=== PATIENT | female | born 1980 | race Caucasian/White ===

== ENCOUNTER 2019-09-10 10:41 | Emergency (ER) | payer OTHER, MEDICAID, SELFPAY ==
[2019-09-10 10:45] VITALS: BP 166/105; PULSE 113; RESP 24; TEMP 36.7; O2SAT 100
--- NOTE | 2019-09-10 10:52 | ED_ITS ---
HPI - General Adult General Chief complaint: Abdominal Pain Stated complaint: RECTAL BLEEDING Time Seen by Provider: 09/10/19 10:52 History of Present Illness HPI narrative: 39-year-old otherwise healthy woman who presents with rectal bleeding. She states that she unexpectedly lost quite a bit of weight approximately 6 months ago and since then has been having increasing abdominal cramping and bloating. She has been having recurrent nausea without vomiting. She takes no nonsteroidals or other medications. She has been having lower back and lower pelvic pain. Four days ago she noted some bright red bleeding from her rectum on the outside of her stool. By Tuesday she was noticing bright red blood mixed in with her stool and today she was noticing just blood with no stool. She also notes that over the last 6 months in particular over the last month the caliber of her stools has changed and she describes them as very skinny stools that are more difficult to fully evacuate. Related Data Previous Rx's Medication Instructions Recorded metformin [Glucophage XR] 500 mg PO BID #60 tab 08/02/17 omeprazole magnesium [Prilosec OTC] 20 mg PO QDAY #30 08/02/17 metformin 1,000 mg PO DAILY #90 tab 09/10/19 valacyclovir 500 mg PO DAILY #90 tab 09/10/19 Allergies Allergy/AdvReac Type Severity Reaction Status Date / Time No Known Drug Allergies Allergy Verified 09/10/19 10:56 Review of Systems Review of Systems Narrative: All systems reviewed and are unremarkable except as noted in HPI and below Patient History Medical History (Updated 09/10/19 @ 14:15 by Olesya Cantrell MD) Diabetes (Acute) HSV (herpes simplex virus) anogenital infection (Acute) Social History Smoking Status: Current every day smoker Exam Narrative Exam Narrative: General: Healthy appearing, in no acute distress. Able to give a complete and coherent history. Well-nourished well-developed HEENT: Moist mucous membranes, normal sclera with reactive pupils, Neck: No JVD, supple Respiratory: Lungs are clear to auscultation, no wheezing no rales no rhonchi. Full and symmetrical air movement Cardiac: Tachycardic with regular rhythm no murmurs no bruits Abdomen: Soft nontender good bowel tones, no flank pain Rectal: Unremarkable, no internal or external hemorrhoids appreciated. There is some mucousy discharge that is guaiac positive Skin: Warm and dry, no rashes Neurologic: Grossly neurologically intact with no obvious asymmetries or abnormalities Extremities: No trauma, well perfused Psych: Cooperative, anxious, appropriate insight and affect Initial Vital Signs Initial Vital Signs: Vital Signs Temperature 98.1 F 09/10/19 10:45 Pulse Rate 113 H 09/10/19 10:45 Respiratory Rate 24 09/10/19 10:45 Blood Pressure 166/105 H 09/10/19 10:45 Pulse Oximetry 100 09/10/19 10:45 Course Orders Ordered: ED Orders 09/10/19 11:10 CT abdomen pelvis w con Stat Complete Blood Count AUTO DIFF Stat 09/10/19 11:33 Comprehensive Metabolic Panel Stat Lipase Stat Partial Thromboplastin Time Stat Prothrombin Time INR Stat Type and Screen Stat 09/10/19 12:26 Urine Microscopic Stat Discontinued Medications Sodium Chloride (Normal Saline 0.9%) 1,000 mls @ 1,000 mls/hr IV BOLUS ONE Stop: 09/10/19 12:08 Last Infusion: 09/10/19 13:47 Dose: 0 mls/hr Documented by: Admin: 09/10/19 11:41 Dose: 1,000 mls/hr Documented by: NAHOMI Ondansetron HCl (Zofran) 4 mg IV NOW ONE Stop: 09/10/19 10:58 Last Admin: 09/10/19 11:41 Dose: 4 mg Documented by: NAHOMI Vital Signs Vital signs: Vital Signs - 8 hr 09/10/19 10:45 09/10/19 11:12 09/10/19 13:00 Temperature 98.1 F Pulse Rate 113 H 94 H 78 Respiratory Rate 24 14 18 Blood Pressure 166/105 H Blood Pressure [Left Arm] 167/87 H 167/87 H Pulse Oximetry 100 99 98 Medical Decision Making Lab Data Lab results narrative: Polycythemia suggests moderate volume loss however creatinine is appropriate. Urine without evidence of UTI, negative nitrates negative leukocyte esterace. Blood sugar of 339 suggests diagnosis of diabetes that is being inadequately controlled, unclear that she is aware of this diagnosis Negative urine test Result diagrams: 09/10/19 11:10 09/10/19 11:33 Labs: Lab Results 09/10/19 09/10/1909/09/20 Range/Units 11:10 11:33 11:33 WBC 11.3 H (4.5-11.0) X10^3/uL RBC 5.71 H (4.0-5.2) X10^6/uL Hgb 17.2 H (12.0-16.0) g/dL Hct 50.1 H (36-46) % MCV 87.7 (80-100) fL MCH 30.1 (26-34) PG MCHC 34.3 (30-36) % RDW 13.3 (11.6-14.8) % Plt Count 351 (150-400) X10^3/uL Neut % (Auto) 68.3 (50-75) % Lymph % (Auto) 23.0 L (25-40) % [place] % (Auto) 5.0 (3-14) % Eos % (Auto) 2.7 (2-4) % Baso % (Auto) 1.0 (0-2) % Neut # (Auto) 7700 H (4747-3209) /uL Lymph # (Auto) 2600 (2617-5858) /uL [place] # (Auto) 600 (0-900) /uL Eos # (Auto) 300 (0-450) /uL Baso # (Auto) 100 (0-100) /uL PT 10.6 (10.1-12.7) SECONDS INR 0.9 (0.9-1.3) APTT 35 (26.4-36.2) SECONDS Sodium 138 (137-145) mmol/L Potassium 4.4 (3.4-5.1) mmol/L Chloride 104 (98-107) mmol/L Carbon Dioxide 26 (22-32) mmol/L BUN 12 (7-17) mg/dL Creatinine 0.43 L (0.52-1.04) mg/dL Estimated GFR > 60.0 (>60) mL/min BUN/Creatinine Ratio 27.9 H (6-22) Glucose 339 H (70-100) mg/dL Calcium 9.4 (8.4-10.2) mg/dL Total Bilirubin 0.4 (0.2-1.3) mg/dL AST 19 (14-36) IU/L ALT 20 (<35) IU/L Alkaline Phosphatase 121 (38-126) U/L Total Protein 8.0 (6.3-8.2) g/dL Albumin 4.6 (3.5-5.0) g/dL Globulin 3.4 (1.7-4.1) g/dL Albumin/Globulin Ratio 1.4 (1.0-2.8) Lipase 90 (23-300) U/L Urine Color Urine Appearance Urine pH Ur Specific [place] Urine Protein Urine Glucose (UA) Urine Ketones Urine Occult Blood Urine Nitrate Urine Bilirubin Urine Urobilinogen Ur Leukocyte Esterase Urine RBC (0-5/HPF) Urine WBC (0-5/HPF) Ur Squamous Epith Cells (0-5/HPF) Urine Bacteria (None) Ur Culture Indicated? Blood Type Antibody Screen 09/10/19 09/10/19 Range/Units 11:33 12:26 WBC (4.5-11.0) X10^3/uL RBC (4.0-5.2) X10^6/uL Hgb (12.0-16.0) g/dL Hct (36-46) % MCV (80-100) fL MCH (26-34) PG MCHC (30-36) % RDW (11.6-14.8) % Plt Count (150-400) X10^3/uL Neut % (Auto) (50-75) % Lymph % (Auto) (25-40) % [place] % (Auto) (3-14) % Eos % (Auto) (2-4) % Baso % (Auto) (0-2) % Neut # (Auto) (5820-7772) /uL Lymph # (Auto) (0934-7600) /uL [place] # (Auto) (0-900) /uL Eos # (Auto) (0-450) /uL Baso # (Auto) (0-100) /uL PT (10.1-12.7) SECONDS INR (0.9-1.3) APTT (26.4-36.2) SECONDS Sodium (137-145) mmol/L Potassium (3.4-5.1) mmol/L Chloride (98-107) mmol/L Carbon Dioxide (22-32) mmol/L BUN (7-17) mg/dL Creatinine (0.52-1.04) mg/dL Estimated GFR (>60) mL/min BUN/Creatinine Ratio (6-22) Glucose (70-100) mg/dL Calcium (8.4-10.2) mg/dL Total Bilirubin (0.2-1.3) mg/dL AST (14-36) IU/L ALT (<35) IU/L Alkaline Phosphatase (38-126) U/L Total Protein (6.3-8.2) g/dL Albumin (3.5-5.0) g/dL Globulin (1.7-4.1) g/dL Albumin/Globulin Ratio (1.0-2.8) Lipase (23-300) U/L Urine Color Cancelled Urine Appearance Cancelled Urine pH Cancelled Ur Specific [place] Cancelled Urine Protein Cancelled Urine Glucose (UA) Cancelled Urine Ketones Cancelled Urine Occult Blood Cancelled Urine Nitrate Cancelled Urine Bilirubin Cancelled Urine Urobilinogen Cancelled Ur Leukocyte Esterase Cancelled Urine RBC 1-5/hpf (0-5/HPF) Urine WBC 1-5/hpf (0-5/HPF) Ur Squamous Epith Cells 1-5 /hpf (0-5/HPF) Urine Bacteria Occasional (0-1) (None) Ur Culture Indicated? Cult not indicated Blood Type O Positive Antibody Screen Negative Point of Care Testing Test Results Negative Urine Dip Bedside Urine Glucose 1000 mg/dl Bedside Urine Bilirubin - Negative Bedside Urine Ketone - Negative Urine Specific [place] 1.030 Bedside Urine Occult Blood + Bedside Urine pH 6.0 Bedside Urine Protein + 30 Bedside Urine Urobilinogen - Negative Bedside Urine Nitrite - Negative Bedside Urine Leukocytes - Negative Esterase Point of care testing: Point of Care Testing Test Results Negative Urine Dip Bedside Urine Glucose 1000 mg/dl Bedside Urine Bilirubin - Negative Bedside Urine Ketone - Negative Urine Specific [place] 1.030 Bedside Urine Occult Blood + Bedside Urine pH 6.0 Bedside Urine Protein + 30 Bedside Urine Urobilinogen - Negative Bedside Urine Nitrite - Negative Bedside Urine Leukocytes - Negative Esterase Imaging Data CT scan - abdomen/pelvis: Radiologist's Impression: IMPRESSION: 1. Minimal appearance of thickening of the terminal ileum. This could be related to infection or inflammation etiology such as IBD should be considered as appropriate. Dictated by: Kerry Hollins M.D. on 09/10/2019 at 12:39 MDM Narrative Medical decision making narrative: Care is reveiwed with Dr Alvarado. Given hemodynamic stability, no anemia and minimal symptoms on clinical exam I do believe it is safe for her to go home. At some point she may well benefit from a colonoscopy. Currently with covid conditions limiting outpatient follow-up will ask her to call to schedule appointment and will explain to her that it is safe if follow-up does not occur within the next month or so. New diagnosis of diabetes. In the past she has been on Glucophage XR 500 b.i.d. will approach her about restarting this. She states she has schedule appointment to reestablish with a primary care physician but expects that appointment to not occur for at least 2 months. Discharge Plan Departure Patient Disposition: Home Clinical Impression: Bright red rectal bleeding Diabetes Qualifiers: Diabetes mellitus type: type 2 Diabetes mellitus senior care insulin use: without intermodal customer service use Activity Restrictions/Additional Instructions: Thank you for coming in today I am pleased to let you know that I do not see any evidence of colon cancer on your CT scan You do have diabetes and you do need to restart your Glucophage/metformin XR 500 mg twice a day with meals Your CT scan suggests some inflammation in your terminal ileum. At this point there is no need to be hospitalized. I would like to collect a stool sample to make sure there is no infection to explain this. I have given you a lab slip to return with a stool sample. I do suspect that this will resolve by itself within the next few days. I would also recommend that you follow-up with our surgeon wireless communications engineer today Dr. Alvarado, for colonoscopy to fully evaluate the bleeding that you are having currently Four year recurrent genital herpes, I am giving you a prescription of [place] acyclovir for daily suppression. It is 500 mg a day. Because it feels like you are having an active outbreak currently, please take 500 mg twice a day for the 1st 3 days Please call to reestablish care with your primary care physician so that your diabetes can be followed and your prescriptions for diabetes as well as herpes suppression can be refilled. If you feel that you are getting worse, more abdominal pain or more rectal bleeding it would be appropriate to return to the emergency department. Prescriptions: New metformin 1,000 mg tablet extended release 24hr 1,000 mg PO DAILY Qty: 90 RF: 0 valacyclovir 500 mg tablet 500 mg PO DAILY Qty: 90 RF: 0 No Action metformin [Glucophage XR] 500 MG tablet extended release 24 hr 500 mg PO BID Qty: 60 RF: 0 omeprazole magnesium [Prilosec OTC] 20 MG tablet,delayed release (DR/EC) 20 mg PO QDAY Qty: 30 RF: 0 Referrals: Luke Alvarado MD [Physician] -
--- NOTE | 2019-09-10 11:10 | DI.CT.S_ITS ---
PROCEDURE: CT ABDOMEN PELVIS W CON INDICATIONS: abdominal pain and bloating, stool changes, rectal bleeding TECHNIQUE: After the administration of intravenous contrast, 5 mm thick sections acquired from the diaphragm to the symphysis. 5 mm coronal and sagittal reformats were acquired. For radiation dose reduction, the following was used: automated exposure control, adjustment of mA and/or kV according to patient size. COMPARISON: [facility], CT, PE STUDY (CTA CHEST), 08/02/2017, 17:17. FINDINGS: Image quality: Excellent. ABDOMEN: Lung bases: Lung bases are clear. Heart size is normal. Solid organs: Liver is enlarged with steatosis. Gallbladder is unremarkable. Biliary system is non dilated. Pancreas enhances normally. Spleen is normal in size and enhancement. No adrenal nodules. Kidneys demonstrate normal size and enhancement, without hydronephrosis. Peritoneum and bowel: Bowel loops are nonobstructed. There is mild appearance of thickening within the terminal ileum. The adjacent appendix appears unremarkable. Minimal scattered colonic diverticula are present. No free fluid or air. Nodes and vessels: No retroperitoneal or mesenteric adenopathy by size criteria. Aorta and inferior vena cava are normal in size. Miscellaneous: Fat-containing supraumbilical hernia is noted. PELVIS: Genitourinary: Bladder wall thickness is normal. Miscellaneous: No inguinal hernias or adenopathy. Bones: No suspicious bony lesions. No vertebral body compression fractures. IMPRESSION: 1. Minimal appearance of thickening of the terminal ileum. This could be related to infection or inflammation etiology such as IBD should be considered as appropriate. Dictated by: Kerry Hollins M.D. on 09/10/2019 at 12:39 Approved by: Kerry Hollins M.D. on 09/10/2019 at 12:57
[2019-09-10 11:12] VITALS: BP 167/87; PULSE 94; RESP 14; O2SAT 99
[2019-09-10 11:21] LABS: Add Manual Diff / Slide Review NO; Basophils Absolute Auto 100 /uL (0-100); Eosinophils Absolute Auto 300 /uL (0-450); Eosinophils Percent Auto 2.7 % (2-4); Hematocrit 50.1 % (36-46); Hemoglobin 17.2 g/dL (12.0-16.0); Lymphocytes Absolute Auto 2600 /uL (1100-4500); Mean Corpuscular HGB Conc 34.3 % (30-36); Mean Corpuscular Hemoglobin 30.1 PG (26-34); Mean Corpuscular Volume 87.7 fL (80-100); Monocytes Absolute Auto 600 /uL (0-900); Neutrophils Absolute Auto 7700 /uL (1500-7000); Neutrophils Percent Auto 68.3 % (50-75); Platelet Count 351 X10^3/uL (150-400); Red Blood Cell Count 5.71 X10^6/uL (4.0-5.2); Red Cell Distribution Width 13.3 % (11.6-14.8); White Blood Cell Count 11.3 X10^3/uL (4.5-11.0)
[2019-09-10] MEDS: SODIUM CHLORIDE 0.9% 1,000 ML 1000 ML IV (11:41)
[2019-09-10] MEDS: ONDANSETRON 4 MG/2 ML INJ IV (11:41)
[2019-09-10 11:55] LABS: INR 0.9 (0.9-1.3); Prothrombin Time 10.6 SECONDS (10.1-12.7)
[2019-09-10 11:57] LABS: PTT Partial Thromboplastin Tim 35 SECONDS (26.4-36.2)
[2019-09-10 11:59] LABS: Alanine Aminotransferase 20 IU/L (<35); Albumin 4.6 g/dL (3.5-5.0); Albumin Globulin Ratio 1.4 (1.0-2.8); Alkaline Phosphatase 121 U/L (38-126); Aspartate Aminotransferase 19 IU/L (14-36); BUN Creatinine Ratio 27.9 (6-22); Bilirubin Total 0.4 mg/dL (0.2-1.3); Blood Urea Nitrogen 12 mg/dL (7-17); Calcium 9.4 mg/dL (8.4-10.2); Carbon Dioxide 26 mmol/L (22-32); Chloride 104 mmol/L (98-107); Estimated Glomerular Filt Rate > 60.0 mL/min (>60); Globulin 3.4 g/dL (1.7-4.1); Glucose 339 mg/dL (70-100); HEMOLYSIS < 15 (0-50); Lipase 90 U/L (23-300); Potassium 4.4 mmol/L (3.4-5.1); Sodium 138 mmol/L (137-145)
[2019-09-10 12:45] LABS: Bacteria Urine Occasional (0-1); Culture Indicated Urine Cult Not Indicated; RBC Urine 1-5/HPF (0-5/HPF); Squamous Epithelial Cell Urine 1-5 /HPF (0-5/HPF); WBC Urine 1-5/HPF (0-5/HPF)
[2019-09-10 13:00] VITALS: BP 167/87; PULSE 78; RESP 18; O2SAT 98
== END 2019-09-10 14:25 | disposition home or self-care (01) ==
PROVIDERS: Emergency Provider Emergency Medicine
DX: K62.5 Hemorrhage of anus and rectum (principal); E11.9 Type 2 diabetes mellitus without complications; R10.9 Unspecified abdominal pain; R10.2 Pelvic and perineal pain; R11.0 Nausea; M54.5 Low back pain
CPT/HCPCS: 36415; 74177; 80053; 81003; 81015; 81025; 83690; 85025; 85610; 85730; 86850; 86900; 86901; 96361; 96374; 99284; J2405; Q9967

== ENCOUNTER 2019-10-12 11:32 | Emergency (ER) | payer OTHER, MEDICAID, SELFPAY ==
[2019-10-12] VITALS (9 sets, daily range): BP systolic 138–202; BP diastolic 63–95; PULSE 86–98; RESP 16–32; TEMP 36.7; O2SAT 96–100; BMI 32.1
--- NOTE | 2019-10-12 11:52 | DI.RAD.S_ITS ---
PROCEDURE: XR CHEST 1V INDICATIONS: short of breath TECHNIQUE: One view of the chest was acquired. COMPARISON: [facility], , CHEST 2 VIEW, 08/02/2017, 14:52. FINDINGS: Surgical changes and devices: None. Lungs and pleura: Lungs are clear. No pleural effusions or pneumothorax. Mediastinum: Mediastinal contours appear normal. Heart size is normal. Bones and chest wall: No suspicious bony lesions. Overlying soft tissues appear unremarkable. IMPRESSION: No acute disease Dictated by: Carlos Connors M.D. on 10/12/2019 at 12:43 Approved by: Carlos Connors M.D. on 10/12/2019 at 12:44
--- NOTE | 2019-10-12 11:55 | ED.CHESTPAIN ---
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 yesterday. Then at 2:00 a.m. she felt shortness of breath, chest pain, lightheadedness, dizziness, muscle aches and chills, subjective fevers nausea vomiting diarrhea and abdominal pain. She states that she has never felt this way before. She denies any surgical history. She has taken Pepto to try to feel better, but it did not work. She is unable to specify how many times she has vomited or had diarrhea today. 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 The chest pain is described as substernal, nonradiating. The oven that she was cleaning was electric. Related Data Previous Rx's Medication Instructions Recorded metformin [Glucophage XR] 500 mg PO BID #60 tab 08/02/17 omeprazole magnesium [Prilosec OTC] 20 mg PO QDAY #30 08/02/17 metformin 1,000 mg PO DAILY #90 tab 09/10/19 valacyclovir 500 mg PO DAILY #90 tab 09/10/19 Allergies Allergy/AdvReac Type Severity Reaction Status Date / Time No Known Drug Allergies Allergy Verified 10/12/19 11:52 Review of Systems <KELY Guzman - Last Filed: 10/12/19 20:10> Review of Systems Narrative: GENERAL: See HPI HEENT: Denies sinus pain, ear pain, sore throat, difficulty swallowing, dizziness. RESPIRATORY: See HPI CARDIOVASCULAR: See HPI GASTROINTESTINAL: See HPI : Denies dysuria, frequency, incontinence, hematuria, urinary retention. MUSCULOSKELETAL: denies weakness, joint pain, or bony pain SKIN: Denies rash, skin lesions, or other NEUROLOGIC: Denies weakness, headache, numbness, change in speech, confusion, seizures, incoordination. PSYCHIATRIC: No concerning psychosocial issues. 12 point review of systems is negative except for those stated above Patient History <KELY Guzman - Last Filed: 10/12/19 20:10> Medical History (Updated 10/12/19 @ 17:30 by KELY Guzman) Diabetes (Acute) HSV (herpes simplex virus) anogenital infection (Acute) Social History Smoking Status: Current every day smoker Smoking Status: Current every day smoker tobacco type: cigarettes alcohol intake frequency: 0-2 drinks per day Substance Use Type: does not use Exam <KELY Guzman - Last Filed: 10/12/19 20:10> Narrative Exam Narrative: GENERAL: This is a well-nourished, well-developed patient, breathing rapidly HEAD: Atraumatic. Normocephalic. No temporal or scalp tenderness. EYES: Pupils equal round and reactive. Extraocular motions intact. No scleral icterus. No injection or drainage. ENT: Nose without bleeding, purulent drainage or septal hematoma. Throat without erythema, tonsillar hypertrophy or exudate. Uvula midline. Airway patent. NECK: Trachea midline. No JVD or lymphadenopathy. Supple, nontender, no meningeal signs. CARDIOVASCULAR: Regular rate and rhythm without murmurs, gallops, or rubs. RESPIRATORY: Clear to auscultation. Breath sounds equal bilaterally. No wheezes, rales, or rhonchi. Tachypneic. No cough. No increased respiratory effort. Speaking full sentences. GASTROINTESTINAL: Abdomen soft, epigastric tenderness and tenderness to right upper quadrant palpation, nondistended. No hepato-splenomegaly, or palpable masses. No guarding. Active bowel sounds all 4 quadrants EXTREMITIES: No clubbing, cyanosis, or edema. No joint tenderness, effusion, or edema noted. BACK: Nontender without deformity or crepitance. No flank tenderness. NEURO: AOx3. SKIN: No rash or erythema on visible skin Initial Vital Signs Initial Vital Signs: Vital Signs Temperature 98.0 F 10/12/19 11:45 Pulse Rate 94 H 10/12/19 11:45 Respiratory Rate 32 H 10/12/19 11:45 Blood Pressure 202/91 H 10/12/19 11:45 Pulse Oximetry 100 10/12/19 11:45 <Margret Zaldivar DO - Last Filed: 10/14/19 10:19> Initial Vital Signs Initial Vital Signs: Vital Signs Temperature 98.0 F 10/12/19 11:45 Pulse Rate 94 H 10/12/19 11:45 Respiratory Rate 32 H 10/12/19 11:45 Blood Pressure 202/91 H 10/12/19 11:45 Pulse Oximetry 100 10/12/19 11:45 Course <YIMI Guzman-BC - Last Filed: 10/12/19 20:10> Orders Ordered: Discontinued Medications Sodium Chloride (Normal Saline 0.9%) 1,000 mls @ 150 mls/hr IV CONT GUDELIA Last Infusion: 10/12/19 18:14 Dose: 0 mls/hr Documented by: Infusion: 10/12/19 13:10 Dose: 0 mls/hr Documented by: Admin: 10/12/19 12:32 Dose: 150 mls/hr Documented by: CAMILA Sodium Chloride (Normal Saline 0.9%) 1,000 mls @ 1,000 mls/hr IV BOLUS ONE Stop: 10/12/19 14:04 Last Infusion: 10/12/19 14:10 Dose: 0 mls/hr Documented by: Admin: 10/12/19 13:10 Dose: 1,000 mls/hr Documented by: VIV Sodium Chloride (Normal Saline 0.9%) 1,000 mls @ 1,000 mls/hr IV BOLUS ONE Stop: 10/12/19 14:04 Last Infusion: 10/12/19 18:13 Dose: 0 mls/hr Documented by: Admin: 10/12/19 14:10 Dose: 1,000 mls/hr Documented by: VIV Ondansetron HCl (Zofran) 4 mg IV NOW ONE Stop: 10/12/19 13:06 Last Admin: 10/12/19 13:09 Dose: 4 mg Documented by: VIV Vital Signs Vital signs: Vital Signs - 8 hr 10/12/19 12:32 10/12/19 13:18 10/12/19 14:19 Pulse Rate 90 86 93 H Respiratory Rate 18 26 H 23 Blood Pressure Blood Pressure [Left Arm] 199/91 H 199/95 H 152/74 H Pulse Oximetry 96 100 98 10/12/19 14:34 10/12/19 15:21 10/12/19 16:30 Pulse Rate 90 97 H 98 H Respiratory Rate 24 22 22 Blood Pressure Blood Pressure [Left Arm] 139/74 138/68 138/68 Pulse Oximetry 100 99 98 10/12/19 17:13 10/12/19 18:14 Pulse Rate 95 H 95 H Respiratory Rate 16 Blood Pressure 145/63 H Blood Pressure [Left Arm] 140/83 Pulse Oximetry 96 98 <Margret Zaldivar, - Last Filed: 10/14/19 10:19> Orders Ordered: Discontinued Medications Sodium Chloride (Normal Saline 0.9%) 1,000 mls @ 150 mls/hr IV CONT GUDELIA Last Infusion: 10/12/19 18:14 Dose: 0 mls/hr Documented by: Infusion: 10/12/19 13:10 Dose: 0 mls/hr Documented by: Admin: 10/12/19 12:32 Dose: 150 mls/hr Documented by: CAMILA Sodium Chloride (Normal Saline 0.9%) 1,000 mls @ 1,000 mls/hr IV BOLUS ONE Stop: 10/12/19 14:04 Last Infusion: 10/12/19 14:10 Dose: 0 mls/hr Documented by: Admin: 10/12/19 13:10 Dose: 1,000 mls/hr Documented by: VIV Sodium Chloride (Normal Saline 0.9%) 1,000 mls @ 1,000 mls/hr IV BOLUS ONE Stop: 10/12/19 14:04 Last Infusion: 10/12/19 18:13 Dose: 0 mls/hr Documented by: Admin: 10/12/19 14:10 Dose: 1,000 mls/hr Documented by: VIV Ondansetron HCl (Zofran) 4 mg IV NOW ONE Stop: 10/12/19 13:06 Last Admin: 10/12/19 13:09 Dose: 4 mg Documented by: VIV Vital Signs Vital signs: Vital Signs - 8 hr 10/12/19 12:32 10/12/19 13:18 10/12/19 14:19 Pulse Rate 90 86 93 H Respiratory Rate 18 26 H 23 Blood Pressure Blood Pressure [Left Arm] 199/91 H 199/95 H 152/74 H Pulse Oximetry 96 100 98 10/12/19 14:34 10/12/19 15:21 10/12/19 16:30 Pulse Rate 90 97 H 98 H Respiratory Rate 24 22 22 Blood Pressure Blood Pressure [Left Arm] 139/74 138/68 138/68 Pulse Oximetry 100 99 98 10/12/19 17:13 10/12/19 18:14 Pulse Rate 95 H 95 H Respiratory Rate 16 Blood Pressure 145/63 H Blood Pressure [Left Arm] 140/83 Pulse Oximetry 96 98 MDM - Chest Pain <YIMI Guzman-BC - Last Filed: 10/12/19 20:10> Differential Diagnosis Differential diagnosis: Likely unstable angina pectoris, atypical chest pain, costochondritis and chest pain Lab Data Result diagrams: 10/12/19 15:37 10/12/19 15:37 Labs: Lab Results 10/12/19 10/12/19 10/12/19 Range/Units 12:13 12:13 12:13 WBC 18.5 H (4.5-11.0) X10^3/uL RBC 5.46 H (4.0-5.2) X10^6/uL Hgb 16.1 H (12.0-16.0) g/dL Hct 47.1 H (36-46) % MCV 86.4 (80-100) fL MCH 29.6 (26-34) PG MCHC 34.2 (30-36) % RDW 13.2 (11.6-14.8) % Plt Count 365 (150-400) X10^3/uL Neut % (Auto) 91.2 H (50-75) % Lymph % (Auto) 6.6 L (25-40) % Kenton % (Auto) 1.5 L (3-14) % Eos % (Auto) 0.0 L (2-4) % Baso % (Auto) 0.7 (0-2) % Neut # (Auto) 36018 H (2004-0777) /uL Lymph # (Auto) 1200 (6838-9492) /uL [place]on # (Auto) 300 (0-900) /uL Eos # (Auto) 0 (0-450) /uL Baso # (Auto) 100 (0-100) /uL PT 11.5 (10.1-12.7) SECONDS INR 1.0 (0.9-1.3) APTT 27 D (26.4-36.2) SECONDS D-Dimer < 200 (<230) ng/mL ABG pH (7.35-7.45) ABG pCO2 (35-45) mmHg ABG pO2 (80-100) mmHg ABG HCO3 (22-26) mmol/L ABG Total CO2 (21-31) mmol/L ABG O2 Saturation (95-100) % ABG Base Excess (-2-2) mmol/L FiO2 Sodium 135 L (137-145) mmol/L Potassium 3.8 (3.4-5.1) mmol/L Chloride 103 (98-107) mmol/L Carbon Dioxide 16 L (22-32) mmol/L BUN 14 (7-17) mg/dL Creatinine 0.41 L (0.52-1.04) mg/dL Estimated GFR > 60.0 (>60) mL/min BUN/Creatinine Ratio 34.1 H (6-22) Glucose 394 H (70-100) mg/dL Calcium 9.9 (8.4-10.2) mg/dL Ferritin (6-137) ng/mL Total Bilirubin 0.8 (0.2-1.3) mg/dL AST 29 (14-36) IU/L ALT 23 (<35) IU/L Alkaline Phosphatase 118 (38-126) U/L Lactate Dehydrogenase (313-618) U/L Total Creatine Kinase 45 (30-135) U/L CK-MB (CK-2) TNP CK-MB (CK-2) Rel Index TNP Troponin I < 0.012 (0.01-0.034) ng/mL C-Reactive Protein (<1.0) mg/dL NT-Pro-B Natriuret Pep 78 (<125) pg/mL Total Protein 8.2 (6.3-8.2) g/dL Albumin 4.8 (3.5-5.0) g/dL Globulin 3.4 (1.7-4.1) g/dL Albumin/Globulin Ratio 1.4 (1.0-2.8) Amylase (30-110) U/L Lipase 55 (23-300) U/L Procalcitonin (<0.5) ng/mL TSH (0.47-4.68) uIU/mL Urine RBC (0-5/HPF) Urine WBC (0-5/HPF) Ur Squamous Epith Cells (0-5/HPF) Urine Bacteria (None) Ur Culture Indicated? Salicylates (<20) mg/dL COVID-19 PCR (Not Detect) 10/12/19 10/12/19 10/12/19 Range/Units 12:13 12:13 12:13 WBC (4.5-11.0) X10^3/uL RBC (4.0-5.2) X10^6/uL Hgb (12.0-16.0) g/dL Hct (36-46) % MCV (80-100) fL MCH (26-34) PG MCHC (30-36) % RDW (11.6-14.8) % Plt Count (150-400) X10^3/uL Neut % (Auto) (50-75) % Lymph % (Auto) (25-40) % Kenton % (Auto) (3-14) % Eos % (Auto) (2-4) % Baso % (Auto) (0-2) % Neut # (Auto) (9977-9239) /uL Lymph # (Auto) (0140-9159) /uL Kenton # (Auto) (0-900) /uL Eos # (Auto) (0-450) /uL Baso # (Auto) (0-100) /uL PT (10.1-12.7) SECONDS INR (0.9-1.3) APTT (26.4-36.2) SECONDS D-Dimer (<230) ng/mL ABG pH (7.35-7.45) ABG pCO2 (35-45) mmHg ABG pO2 (80-100) mmHg ABG HCO3 (22-26) mmol/L ABG Total CO2 (21-31) mmol/L ABG O2 Saturation (95-100) % ABG Base Excess (-2-2) mmol/L FiO2 Sodium (137-145) mmol/L Potassium (3.4-5.1) mmol/L Chloride (98-107) mmol/L Carbon Dioxide (22-32) mmol/L BUN (7-17) mg/dL Creatinine (0.52-1.04) mg/dL Estimated GFR (>60) mL/min BUN/Creatinine Ratio (6-22) Glucose (70-100) mg/dL Calcium (8.4-10.2) mg/dL Ferritin 119 (6-137) ng/mL Total Bilirubin (0.2-1.3) mg/dL AST (14-36) IU/L ALT (<35) IU/L Alkaline Phosphatase (38-126) U/L Lactate Dehydrogenase 543 (313-618) U/L Total Creatine Kinase (30-135) U/L CK-MB (CK-2) CK-MB (CK-2) Rel Index Troponin I (0.01-0.034) ng/mL C-Reactive Protein 0.5 (<1.0) mg/dL NT-Pro-B Natriuret Pep (<125) pg/mL Total Protein (6.3-8.2) g/dL Albumin (3.5-5.0) g/dL Globulin (1.7-4.1) g/dL Albumin/Globulin Ratio (1.0-2.8) Amylase 57 (30-110) U/L Lipase (23-300) U/L Procalcitonin < 0.05 (<0.5) ng/mL TSH (0.47-4.68) uIU/mL Urine RBC (0-5/HPF) Urine WBC (0-5/HPF) Ur Squamous Epith Cells (0-5/HPF) Urine Bacteria (None) Ur Culture Indicated? Salicylates (<20) mg/dL COVID-19 PCR (Not Detect) 10/12/19 10/12/19 10/12/19 Range/Units 12:13 12:13 12:33 WBC (4.5-11.0) X10^3/uL RBC (4.0-5.2) X10^6/uL Hgb (12.0-16.0) g/dL Hct (36-46) % MCV (80-100) fL MCH (26-34) PG MCHC (30-36) % RDW (11.6-14.8) % Plt Count (150-400) X10^3/uL Neut % (Auto) (50-75) % Lymph % (Auto) (25-40) % Kenton % (Auto) (3-14) % Eos % (Auto) (2-4) % Baso % (Auto) (0-2) % Neut # (Auto) (4311-1129) /uL Lymph # (Auto) (1175-9391) /uL Kenton # (Auto) (0-900) /uL Eos # (Auto) (0-450) /uL Baso # (Auto) (0-100) /uL PT (10.1-12.7) SECONDS INR (0.9-1.3) APTT (26.4-36.2) SECONDS D-Dimer (<230) ng/mL ABG pH (7.35-7.45) ABG pCO2 (35-45) mmHg ABG pO2 (80-100) mmHg ABG HCO3 (22-26) mmol/L ABG Total CO2 (21-31) mmol/L ABG O2 Saturation (95-100) % ABG Base Excess (-2-2) mmol/L FiO2 Sodium (137-145) mmol/L Potassium (3.4-5.1) mmol/L Chloride (98-107) mmol/L Carbon Dioxide (22-32) mmol/L BUN (7-17) mg/dL Creatinine (0.52-1.04) mg/dL Estimated GFR (>60) mL/min BUN/Creatinine Ratio (6-22) Glucose (70-100) mg/dL Calcium (8.4-10.2) mg/dL Ferritin (6-137) ng/mL Total Bilirubin (0.2-1.3) mg/dL AST (14-36) IU/L ALT (<35) IU/L Alkaline Phosphatase (38-126) U/L Lactate Dehydrogenase (313-618) U/L Total Creatine Kinase (30-135) U/L CK-MB (CK-2) CK-MB (CK-2) Rel Index Troponin I (0.01-0.034) ng/mL C-Reactive Protein (<1.0) mg/dL NT-Pro-B Natriuret Pep (<125) pg/mL Total Protein (6.3-8.2) g/dL Albumin (3.5-5.0) g/dL Globulin (1.7-4.1) g/dL Albumin/Globulin Ratio (1.0-2.8) Amylase (30-110) U/L Lipase (23-300) U/L Procalcitonin (<0.5) ng/mL TSH 1.62 (0.47-4.68) uIU/mL Urine RBC (0-5/HPF) Urine WBC (0-5/HPF) Ur Squamous Epith Cells (0-5/HPF) Urine Bacteria (None) Ur Culture Indicated? Salicylates 3.1 (<20) mg/dL COVID-19 PCR Not detected (Not Detect) 10/12/19 10/12/19 10/12/19 Range/Units 13:17 13:20 15:37 WBC 15.4 H (4.5-11.0) X10^3/uL RBC 5.10 (4.0-5.2) X10^6/uL Hgb 14.9 (12.0-16.0) g/dL Hct 44.3 (36-46) % MCV 86.9 (80-100) fL MCH 29.2 (26-34) PG MCHC 33.6 (30-36) % RDW 13.4 (11.6-14.8) % Plt Count 324 (150-400) X10^3/uL Neut % (Auto) 91.4 H (50-75) % Lymph % (Auto) 6.1 L (25-40) % Kenton % (Auto) 2.0 L (3-14) % Eos % (Auto) 0.0 L (2-4) % Baso % (Auto) 0.5 (0-2) % Neut # (Auto) 10016 H (6021-1173) /uL Lymph # (Auto) 900 L (1958-4021) /uL Kenton # (Auto) 300 (0-900) /uL Eos # (Auto) 0 (0-450) /uL Baso # (Auto) 100 (0-100) /uL PT (10.1-12.7) SECONDS INR (0.9-1.3) APTT (26.4-36.2) SECONDS D-Dimer (<230) ng/mL ABG pH 7.51 H (7.35-7.45) ABG pCO2 24.4 L* (35-45) mmHg ABG pO2 72 L (80-100) mmHg ABG HCO3 19 L (22-26) mmol/L ABG Total CO2 20 L (21-31) mmol/L ABG O2 Saturation 96 (95-100) % ABG Base Excess -4.0 L (-2-2) mmol/L FiO2 0.21 Sodium (137-145) mmol/L Potassium (3.4-5.1) mmol/L Chloride (98-107) mmol/L Carbon Dioxide (22-32) mmol/L BUN (7-17) mg/dL Creatinine (0.52-1.04) mg/dL Estimated GFR (>60) mL/min BUN/Creatinine Ratio (6-22) Glucose (70-100) mg/dL Calcium (8.4-10.2) mg/dL Ferritin (6-137) ng/mL Total Bilirubin (0.2-1.3) mg/dL AST (14-36) IU/L ALT (<35) IU/L Alkaline Phosphatase (38-126) U/L Lactate Dehydrogenase (313-618) U/L Total Creatine Kinase (30-135) U/L CK-MB (CK-2) CK-MB (CK-2) Rel Index Troponin I (0.01-0.034) ng/mL C-Reactive Protein (<1.0) mg/dL NT-Pro-B Natriuret Pep (<125) pg/mL Total Protein (6.3-8.2) g/dL Albumin (3.5-5.0) g/dL Globulin (1.7-4.1) g/dL Albumin/Globulin Ratio (1.0-2.8) Amylase (30-110) U/L Lipase (23-300) U/L Procalcitonin (<0.5) ng/mL TSH (0.47-4.68) uIU/mL Urine RBC 0-1/hpf (0-5/HPF) Urine WBC 0-1/hpf (0-5/HPF) Ur Squamous Epith Cells 0-1 /hpf (0-5/HPF) Urine Bacteria None seen (None) Ur Culture Indicated? Cult not indicated Salicylates (<20) mg/dL COVID-19 PCR (Not Detect) 10/12/19 10/12/19 10/12/19 Range/Units 15:37 15:37 15:55 WBC (4.5-11.0) X10^3/uL RBC (4.0-5.2) X10^6/uL Hgb (12.0-16.0) g/dL Hct (36-46) % MCV (80-100) fL MCH (26-34) PG MCHC (30-36) % RDW (11.6-14.8) % Plt Count (150-400) X10^3/uL Neut % (Auto) (50-75) % Lymph % (Auto) (25-40) % Kenton % (Auto) (3-14) % Eos % (Auto) (2-4) % Baso % (Auto) (0-2) % Neut # (Auto) (1534-1483) /uL Lymph # (Auto) (4590-3557) /uL Kenton # (Auto) (0-900) /uL Eos # (Auto) (0-450) /uL Baso # (Auto) (0-100) /uL PT (10.1-12.7) SECONDS INR (0.9-1.3) APTT (26.4-36.2) SECONDS D-Dimer (<230) ng/mL ABG pH 7.37 (7.35-7.45) ABG pCO2 35.5 (35-45) mmHg ABG pO2 90 (80-100) mmHg ABG HCO3 20 L (22-26) mmol/L ABG Total CO2 21 (21-31) mmol/L ABG O2 Saturation 97 (95-100) % ABG Base Excess -5.0 L (-2-2) mmol/L FiO2 21 Sodium 136 L (137-145) mmol/L Potassium 3.7 (3.4-5.1) mmol/L Chloride 108 H (98-107) mmol/L Carbon Dioxide 20 L (22-32) mmol/L BUN 11 (7-17) mg/dL Creatinine 0.36 L (0.52-1.04) mg/dL Estimated GFR > 60.0 (>60) mL/min BUN/Creatinine Ratio 30.6 H (6-22) Glucose 289 H D (70-100) mg/dL Calcium 8.3 L (8.4-10.2) mg/dL Ferritin (6-137) ng/mL Total Bilirubin 0.5 (0.2-1.3) mg/dL AST 21 (14-36) IU/L ALT 20 (<35) IU/L Alkaline Phosphatase 90 (38-126) U/L Lactate Dehydrogenase (313-618) U/L Total Creatine Kinase 43 (30-135) U/L CK-MB (CK-2) TNP CK-MB (CK-2) Rel Index TNP Troponin I < 0.012 (0.01-0.034) ng/mL C-Reactive Protein (<1.0) mg/dL NT-Pro-B Natriuret Pep (<125) pg/mL Total Protein 7.3 (6.3-8.2) g/dL Albumin 4.2 (3.5-5.0) g/dL Globulin 3.1 (1.7-4.1) g/dL Albumin/Globulin Ratio 1.4 (1.0-2.8) Amylase (30-110) U/L Lipase (23-300) U/L Procalcitonin (<0.5) ng/mL TSH (0.47-4.68) uIU/mL Urine RBC (0-5/HPF) Urine WBC (0-5/HPF) Ur Squamous Epith Cells (0-5/HPF) Urine Bacteria (None) Ur Culture Indicated? Salicylates (<20) mg/dL COVID-19 PCR (Not Detect) Point of Care Testing Test Results Negative Urine Dip Bedside Urine Glucose 1000 mg/dl Bedside Urine Bilirubin - Negative Bedside Urine Ketone +++ 80 Urine Specific Rutledge 1.015 Bedside Urine Occult Blood +/- Bedside Urine pH 8.0 Bedside Urine Protein +/- 15 Bedside Urine Urobilinogen - Negative Bedside Urine Nitrite - Negative Bedside Urine Leukocytes - Negative Esterase Imaging Data US - abdomen: Radiologist's Impression: [address] [place] [id number] Ultrasound Report Signed Patient: Maddy Cullen MMR#: [id number] : 1980Acct:[id number] Age/Sex: 39 / FDate of Service: 10/12/19 Loc: ED Accession Number: [id number] Procedure: US abdomen limited Ordering Provider: Margret Lagos PROCEDURE: US ABDOMEN LIMITED INDICATIONS: RIGHT UPPER QUADRANT PAIN TECHNIQUE: Real-time focused scanning was performed of the abdomen, with image documentation. COMPARISON: [facility], CT, CT ABDOMEN PELVIS W CON, 09/10/2019, 12:17. FINDINGS: Imaged portions of the liver demonstrate increased echogenicity when compared to the right kidney, which does result in difficulty evaluating the liver for deep liver lesions. No obvious liver lesion is appreciated. The liver is borderline enlarged at approximately 18.6 cm in craniocaudal dimension. No intrahepatic or extrahepatic biliary dilatation is identified. The common bile duct measures approximately 5 mm in diameter. The gallbladder is within normal limits without evidence of cholelithiasis or gallbladder wall inflammation. The imaged portions of the right kidney are unremarkable. No hydronephrosis is identified. However, the entire right kidney is not included on this study. Included portions of the pancreas appear to be grossly unremarkable. IMPRESSION: 1. No cholelithiasis or evidence of acute cholecystitis. 2. Probable hepatic steatosis. Please correlate clinically to exclude other chronic liver diseases. Dictated by: Chapito Isaac M.D. on 10/12/2019 at 13:09 Approved by: Chapito Isaac M.D. on 10/12/2019 at 13:10 Chest x-ray: Radiologist's Impression: [address] [place] [id number] XRay Report Signed Patient: Maddy Cullen MMR#: [id number] : 1980Acct:[id number] Age/Sex: 39 / FDate of Service: 10/12/19 Loc: ED Accession Number: [id number] Procedure: XR chest 1V Ordering Provider: Margret Lagos PROCEDURE: XR CHEST 1V INDICATIONS: short of breath TECHNIQUE: One view of the chest was acquired. COMPARISON: [facility], CR, CHEST 2 VIEW, 08/02/2017, 14:52. FINDINGS: Surgical changes and devices: None. Lungs and pleura: Lungs are clear. No pleural effusions or pneumothorax. Mediastinum: Mediastinal contours appear normal. Heart size is normal. Bones and chest wall: No suspicious bony lesions. Overlying soft tissues appear unremarkable. IMPRESSION: No acute disease Dictated by: Carlos Connors M.D. on 10/12/2019 at 12:43 Approved by: Carlos Connors M.D. on 10/12/2019 at 12:44 [facility] Narrative Medical decision making narrative: The patient is a 39-year-old female with apparent diabetes history presents with a chief complaint of chest pain, shortness of breath, nausea vomiting diarrhea, abdominal pain. EKG was done and troponin was taken to evaluate for ACS, which came back negative. Patient has no pneumonia on her chest x-ray. She had an initial white count of 18. Given the patient complexity, with anion gap of 16, I spoke with Dr. Zaldivar regarding this patient plan of care. The patient was noted to be tachypneic which could explain her initial low CO2 and subsequent alkalosis on her ABG. Given the patient's right upper quadrant pain and epigastric pain on exam, she did get a abdominal ultrasound which came back with no acute findings. After 2 L of fluid, labs were rechecked and the patient felt much improved. Her CBC, CMP and ABG normalized. I again discussed the patient with Dr. Zaldivar. I did discuss at length with the patient is to follow up with primary care provider, she needs to watch her blood sugars and get A1cs and diabetic care. Her 2nd troponin was also negative, which was reassuring. I did discuss at length waiting for her coronavirus testing to come back. With collar it is positive or negative. 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 The patient felt much improved requesting to go home. She has no questions or concerns upon discharge and states understanding return precautions as well as follow-up care. <Margret Zaldivar, DO - Last Filed: 10/14/19 10:19> Lab Data Attestation: I reviewed the patient's lab results. Labs: Lab Results 10/12/19 10/12/19 10/12/19 Range/Units 12:13 12:13 12:13 WBC 18.5 H (4.5-11.0) X10^3/uL RBC 5.46 H (4.0-5.2) X10^6/uL Hgb 16.1 H (12.0-16.0) g/dL Hct 47.1 H (36-46) % MCV 86.4 (80-100) fL MCH 29.6 (26-34) PG MCHC 34.2 (30-36) % RDW 13.2 (11.6-14.8) % Plt Count 365 (150-400) X10^3/uL Neut % (Auto) 91.2 H (50-75) % Lymph % (Auto) 6.6 L (25-40) % [place] % (Auto) 1.5 L (3-14) % Eos % (Auto) 0.0 L (2-4) % Baso % (Auto) 0.7 (0-2) % Neut # (Auto) 36937 H (8028-0573) /uL Lymph # (Auto) 1200 (3130-0670) /uL [place] # (Auto) 300 (0-900) /uL Eos # (Auto) 0 (0-450) /uL Baso # (Auto) 100 (0-100) /uL PT 11.5 (10.1-12.7) SECONDS INR 1.0 (0.9-1.3) APTT 27 D (26.4-36.2) SECONDS D-Dimer < 200 (<230) ng/mL ABG pH (7.35-7.45) ABG pCO2 (35-45) mmHg ABG pO2 (80-100) mmHg ABG HCO3 (22-26) mmol/L ABG Total CO2 (21-31) mmol/L ABG O2 Saturation (95-100) % ABG Base Excess (-2-2) mmol/L FiO2 Sodium 135 L (137-145) mmol/L Potassium 3.8 (3.4-5.1) mmol/L Chloride 103 (98-107) mmol/L Carbon Dioxide 16 L (22-32) mmol/L BUN 14 (7-17) mg/dL Creatinine 0.41 L (0.52-1.04) mg/dL Estimated GFR > 60.0 (>60) mL/min BUN/Creatinine Ratio 34.1 H (6-22) Glucose 394 H (70-100) mg/dL Calcium 9.9 (8.4-10.2) mg/dL Ferritin (6-137) ng/mL Total Bilirubin 0.8 (0.2-1.3) mg/dL AST 29 (14-36) IU/L ALT 23 (<35) IU/L Alkaline Phosphatase 118 (38-126) U/L Lactate Dehydrogenase (313-618) U/L Total Creatine Kinase 45 (30-135) U/L CK-MB (CK-2) TNP CK-MB (CK-2) Rel Index TNP Troponin I < 0.012 (0.01-0.034) ng/mL C-Reactive Protein (<1.0) mg/dL NT-Pro-B Natriuret Pep 78 (<125) pg/mL Total Protein 8.2 (6.3-8.2) g/dL Albumin 4.8 (3.5-5.0) g/dL Globulin 3.4 (1.7-4.1) g/dL Albumin/Globulin Ratio 1.4 (1.0-2.8) Amylase (30-110) U/L Lipase 55 (23-300) U/L Procalcitonin (<0.5) ng/mL TSH (0.47-4.68) uIU/mL Urine RBC (0-5/HPF) Urine WBC (0-5/HPF) Ur Squamous Epith Cells (0-5/HPF) Urine Bacteria (None) Ur Culture Indicated? Salicylates (<20) mg/dL COVID-19 PCR (Not Detect) 10/12/19 10/12/19 10/12/19 Range/Units 12:13 12:13 12:13 WBC (4.5-11.0) X10^3/uL RBC (4.0-5.2) X10^6/uL Hgb (12.0-16.0) g/dL Hct (36-46) % MCV (80-100) fL MCH (26-34) PG MCHC (30-36) % RDW (11.6-14.8) % Plt Count (150-400) X10^3/uL Neut % (Auto) (50-75) % Lymph % (Auto) (25-40) % [place] % (Auto) (3-14) % Eos % (Auto) (2-4) % Baso % (Auto) (0-2) % Neut # (Auto) (1491-6950) /uL Lymph # (Auto) (5725-8515) /uL [place] # (Auto) (0-900) /uL Eos # (Auto) (0-450) /uL Baso # (Auto) (0-100) /uL PT (10.1-12.7) SECONDS INR (0.9-1.3) APTT (26.4-36.2) SECONDS D-Dimer (<230) ng/mL ABG pH (7.35-7.45) ABG pCO2 (35-45) mmHg ABG pO2 (80-100) mmHg ABG HCO3 (22-26) mmol/L ABG Total CO2 (21-31) mmol/L ABG O2 Saturation (95-100) % ABG Base Excess (-2-2) mmol/L FiO2 Sodium (137-145) mmol/L Potassium (3.4-5.1) mmol/L Chloride (98-107) mmol/L Carbon Dioxide (22-32) mmol/L BUN (7-17) mg/dL Creatinine (0.52-1.04) mg/dL Estimated GFR (>60) mL/min BUN/Creatinine Ratio (6-22) Glucose (70-100) mg/dL Calcium (8.4-10.2) mg/dL Ferritin 119 (6-137) ng/mL Total Bilirubin (0.2-1.3) mg/dL AST (14-36) IU/L ALT (<35) IU/L Alkaline Phosphatase (38-126) U/L Lactate Dehydrogenase 543 (313-618) U/L Total Creatine Kinase (30-135) U/L CK-MB (CK-2) CK-MB (CK-2) Rel Index Troponin I (0.01-0.034) ng/mL C-Reactive Protein 0.5 (<1.0) mg/dL NT-Pro-B Natriuret Pep (<125) pg/mL Total Protein (6.3-8.2) g/dL Albumin (3.5-5.0) g/dL Globulin (1.7-4.1) g/dL Albumin/Globulin Ratio (1.0-2.8) Amylase 57 (30-110) U/L Lipase (23-300) U/L Procalcitonin < 0.05 (<0.5) ng/mL TSH (0.47-4.68) uIU/mL Urine RBC (0-5/HPF) Urine WBC (0-5/HPF) Ur Squamous Epith Cells (0-5/HPF) Urine Bacteria (None) Ur Culture Indicated? Salicylates (<20) mg/dL COVID-19 PCR (Not Detect) 10/12/19 10/12/19 10/12/19 Range/Units 12:13 12:13 12:33 WBC (4.5-11.0) X10^3/uL RBC (4.0-5.2) X10^6/uL Hgb (12.0-16.0) g/dL Hct (36-46) % MCV (80-100) fL MCH (26-34) PG MCHC (30-36) % RDW (11.6-14.8) % Plt Count (150-400) X10^3/uL Neut % (Auto) (50-75) % Lymph % (Auto) (25-40) % Kenton % (Auto) (3-14) % Eos % (Auto) (2-4) % Baso % (Auto) (0-2) % Neut # (Auto) (7391-4328) /uL Lymph # (Auto) (6019-1544) /uL Kenton # (Auto) (0-900) /uL Eos # (Auto) (0-450) /uL Baso # (Auto) (0-100) /uL PT (10.1-12.7) SECONDS INR (0.9-1.3) APTT (26.4-36.2) SECONDS D-Dimer (<230) ng/mL ABG pH (7.35-7.45) ABG pCO2 (35-45) mmHg ABG pO2 (80-100) mmHg ABG HCO3 (22-26) mmol/L ABG Total CO2 (21-31) mmol/L ABG O2 Saturation (95-100) % ABG Base Excess (-2-2) mmol/L FiO2 Sodium (137-145) mmol/L Potassium (3.4-5.1) mmol/L Chloride (98-107) mmol/L Carbon Dioxide (22-32) mmol/L BUN (7-17) mg/dL Creatinine (0.52-1.04) mg/dL Estimated GFR (>60) mL/min BUN/Creatinine Ratio (6-22) Glucose (70-100) mg/dL Calcium (8.4-10.2) mg/dL Ferritin (6-137) ng/mL Total Bilirubin (0.2-1.3) mg/dL AST (14-36) IU/L ALT (<35) IU/L Alkaline Phosphatase (38-126) U/L Lactate Dehydrogenase (313-618) U/L Total Creatine Kinase (30-135) U/L CK-MB (CK-2) CK-MB (CK-2) Rel Index Troponin I (0.01-0.034) ng/mL C-Reactive Protein (<1.0) mg/dL NT-Pro-B Natriuret Pep (<125) pg/mL Total Protein (6.3-8.2) g/dL Albumin (3.5-5.0) g/dL Globulin (1.7-4.1) g/dL Albumin/Globulin Ratio (1.0-2.8) Amylase (30-110) U/L Lipase (23-300) U/L Procalcitonin (<0.5) ng/mL TSH 1.62 (0.47-4.68) uIU/mL Urine RBC (0-5/HPF) Urine WBC (0-5/HPF) Ur Squamous Epith Cells (0-5/HPF) Urine Bacteria (None) Ur Culture Indicated? Salicylates 3.1 (<20) mg/dL COVID-19 PCR Not detected (Not Detect) 10/12/19 10/12/19 10/12/19 Range/Units 13:17 13:20 15:37 WBC 15.4 H (4.5-11.0) X10^3/uL RBC 5.10 (4.0-5.2) X10^6/uL Hgb 14.9 (12.0-16.0) g/dL Hct 44.3 (36-46) % MCV 86.9 (80-100) fL MCH 29.2 (26-34) PG MCHC 33.6 (30-36) % RDW 13.4 (11.6-14.8) % Plt Count 324 (150-400) X10^3/uL Neut % (Auto) 91.4 H (50-75) % Lymph % (Auto) 6.1 L (25-40) % Kenton % (Auto) 2.0 L (3-14) % Eos % (Auto) 0.0 L (2-4) % Baso % (Auto) 0.5 (0-2) % Neut # (Auto) 32194 H (9892-5080) /uL Lymph # (Auto) 900 L (0180-8631) /uL Kenton # (Auto) 300 (0-900) /uL Eos # (Auto) 0 (0-450) /uL Baso # (Auto) 100 (0-100) /uL PT (10.1-12.7) SECONDS INR (0.9-1.3) APTT (26.4-36.2) SECONDS D-Dimer (<230) ng/mL ABG pH 7.51 H (7.35-7.45) ABG pCO2 24.4 L* (35-45) mmHg ABG pO2 72 L (80-100) mmHg ABG HCO3 19 L (22-26) mmol/L ABG Total CO2 20 L (21-31) mmol/L ABG O2 Saturation 96 (95-100) % ABG Base Excess -4.0 L (-2-2) mmol/L FiO2 0.21 Sodium (137-145) mmol/L Potassium (3.4-5.1) mmol/L Chloride (98-107) mmol/L Carbon Dioxide (22-32) mmol/L BUN (7-17) mg/dL Creatinine (0.52-1.04) mg/dL Estimated GFR (>60) mL/min BUN/Creatinine Ratio (6-22) Glucose (70-100) mg/dL Calcium (8.4-10.2) mg/dL Ferritin (6-137) ng/mL Total Bilirubin (0.2-1.3) mg/dL AST (14-36) IU/L ALT (<35) IU/L Alkaline Phosphatase (38-126) U/L Lactate Dehydrogenase (313-618) U/L Total Creatine Kinase (30-135) U/L CK-MB (CK-2) CK-MB (CK-2) Rel Index Troponin I (0.01-0.034) ng/mL C-Reactive Protein (<1.0) mg/dL NT-Pro-B Natriuret Pep (<125) pg/mL Total Protein (6.3-8.2) g/dL Albumin (3.5-5.0) g/dL Globulin (1.7-4.1) g/dL Albumin/Globulin Ratio (1.0-2.8) Amylase (30-110) U/L Lipase (23-300) U/L Procalcitonin (<0.5) ng/mL TSH (0.47-4.68) uIU/mL Urine RBC 0-1/hpf (0-5/HPF) Urine WBC 0-1/hpf (0-5/HPF) Ur Squamous Epith Cells 0-1 /hpf (0-5/HPF) Urine Bacteria None seen (None) Ur Culture Indicated? Cult not indicated Salicylates (<20) mg/dL COVID-19 PCR (Not Detect) 10/12/19 10/12/19 10/12/19 Range/Units 15:37 15:37 15:55 WBC (4.5-11.0) X10^3/uL RBC (4.0-5.2) X10^6/uL Hgb (12.0-16.0) g/dL Hct (36-46) % MCV (80-100) fL MCH (26-34) PG MCHC (30-36) % RDW (11.6-14.8) % Plt Count (150-400) X10^3/uL Neut % (Auto) (50-75) % Lymph % (Auto) (25-40) % Kenton % (Auto) (3-14) % Eos % (Auto) (2-4) % Baso % (Auto) (0-2) % Neut # (Auto) (5250-7151) /uL Lymph # (Auto) (9845-3485) /uL Kenton # (Auto) (0-900) /uL Eos # (Auto) (0-450) /uL Baso # (Auto) (0-100) /uL PT (10.1-12.7) SECONDS INR (0.9-1.3) APTT (26.4-36.2) SECONDS D-Dimer (<230) ng/mL ABG pH 7.37 (7.35-7.45) ABG pCO2 35.5 (35-45) mmHg ABG pO2 90 (80-100) mmHg ABG HCO3 20 L (22-26) mmol/L ABG Total CO2 21 (21-31) mmol/L ABG O2 Saturation 97 (95-100) % ABG Base Excess -5.0 L (-2-2) mmol/L FiO2 21 Sodium 136 L (137-145) mmol/L Potassium 3.7 (3.4-5.1) mmol/L Chloride 108 H (98-107) mmol/L Carbon Dioxide 20 L (22-32) mmol/L BUN 11 (7-17) mg/dL Creatinine 0.36 L (0.52-1.04) mg/dL Estimated GFR > 60.0 (>60) mL/min BUN/Creatinine Ratio 30.6 H (6-22) Glucose 289 H D (70-100) mg/dL Calcium 8.3 L (8.4-10.2) mg/dL Ferritin (6-137) ng/mL Total Bilirubin 0.5 (0.2-1.3) mg/dL AST 21 (14-36) IU/L ALT 20 (<35) IU/L Alkaline Phosphatase 90 (38-126) U/L Lactate Dehydrogenase (313-618) U/L Total Creatine Kinase 43 (30-135) U/L CK-MB (CK-2) TNP CK-MB (CK-2) Rel Index TNP Troponin I < 0.012 (0.01-0.034) ng/mL C-Reactive Protein (<1.0) mg/dL NT-Pro-B Natriuret Pep (<125) pg/mL Total Protein 7.3 (6.3-8.2) g/dL Albumin 4.2 (3.5-5.0) g/dL Globulin 3.1 (1.7-4.1) g/dL Albumin/Globulin Ratio 1.4 (1.0-2.8) Amylase (30-110) U/L Lipase (23-300) U/L Procalcitonin (<0.5) ng/mL TSH (0.47-4.68) uIU/mL Urine RBC (0-5/HPF) Urine WBC (0-5/HPF) Ur Squamous Epith Cells (0-5/HPF) Urine Bacteria (None) Ur Culture Indicated? Salicylates (<20) mg/dL COVID-19 PCR (Not Detect) Point of Care Testing Test Results Negative Urine Dip Bedside Urine Glucose 1000 mg/dl Bedside Urine Bilirubin - Negative Bedside Urine Ketone +++ 80 Urine Specific Rutledge 1.015 Bedside Urine Occult Blood +/- Bedside Urine pH 8.0 Bedside Urine Protein +/- 15 Bedside Urine Urobilinogen - Negative Bedside Urine Nitrite - Negative Bedside Urine Leukocytes - Negative Esterase MDM Narrative Medical decision making narrative: Patient seen briefly by myself, she has is unlikely carbon monoxide exposure with timeline and electric stove. Labs support hyperglycemia with possible DKA except for ABG which shows a primarily respiratory alkalosis, and some abdominal pain, imaging does not show acute changes, after fluids labs improved and ABG normalized. Suspect patient had alkalosis secondary to hyperventilation, as PE is less likely with hypertension, normal O2 sat's and HR and ddimer. She was tachypnea initially on evaluation by provider and RR improved during stay. She was encouraged to establish with a pcp as her metformin is likely controlling her DM well and education was given. 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 Patient feels significantly better and d/c'd home with return precautions. Case discussed several times with myself. Discharge Plan Departure Patient Disposition: Home Clinical Impression: Breath shortness, Viral illness, Hyperventilation Discharge Date/Time: 10/12/19 18:15 Instructions: DI for Hyperventilation, DI for Shortness of Breath, DI for COVID-19 (Suspected or Confirmed ) Activity Restrictions/Additional Instructions: Thank you for trusting us with your care today As discussed, the COVID-19 testing takes a few days to come back. We will call you the result is positive or negative. In the meantime, please active though your positive. Please cover your coughs and sneezes. Please wash your hands. I have given you a work note. As discussed, your labwork improved after 2 L of fluid and hyperventilation stopped. Please rest and push fluids. Be sure you stay hydrated. Please follow-up with primary care provider. It is imperative that your diabetes management is improved. Please come back to the emergency department for any acute concerns such as concern of heart attack or stroke. Prescriptions: No Action metformin [Glucophage XR] 500 MG tablet extended release 24 hr 500 mg PO BID Qty: 60 RF: 0 omeprazole magnesium [Prilosec OTC] 20 MG tablet,delayed release (DR/EC) 20 mg PO QDAY Qty: 30 RF: 0 metformin 1,000 mg tablet extended release 24hr 1,000 mg PO DAILY Qty: 90 RF: 0 valacyclovir 500 mg tablet 500 mg PO DAILY Qty: 90 RF: 0 Referrals: [facility] [Outside] Stand Alone Forms: Work Release Note
[2019-10-12 12:28] LABS: Add Manual Diff / Slide Review NO; Basophils Absolute Auto 100 /uL (0-100); Basophils Percent Auto 0.7 % (0-2); Eosinophils Absolute Auto 0 /uL (0-450); Hematocrit 47.1 % (36-46); Hemoglobin 16.1 g/dL (12.0-16.0); Lymphocytes Absolute Auto 1200 /uL (1100-4500); Lymphocytes Percent Auto 6.6 % (25-40); Mean Corpuscular HGB Conc 34.2 % (30-36); Mean Corpuscular Hemoglobin 29.6 PG (26-34); Mean Corpuscular Volume 86.4 fL (80-100); Monocytes Absolute Auto 300 /uL (0-900); Monocytes Percent Auto 1.5 % (3-14); Neutrophils Absolute Auto 16900 /uL (1500-7000); Neutrophils Percent Auto 91.2 % (50-75); Platelet Count 365 X10^3/uL (150-400); Red Blood Cell Count 5.46 X10^6/uL (4.0-5.2); Red Cell Distribution Width 13.2 % (11.6-14.8); White Blood Cell Count 18.5 X10^3/uL (4.5-11.0)
[2019-10-12] MEDS: SODIUM CHLORIDE 0.9% 1,000 ML 150 ML IV (12:32)
[2019-10-12 12:35] LABS: Prothrombin Time 11.5 SECONDS (10.1-12.7)
[2019-10-12 12:38] LABS: PTT Partial Thromboplastin Tim 27 SECONDS (26.4-36.2)
[2019-10-12 12:42] LABS: D Dimer < 200 ng/mL (<230)
[2019-10-12 12:45] LABS: Amylase 57 U/L (30-110)
[2019-10-12 12:47] LABS: Alanine Aminotransferase 23 IU/L (<35); Albumin 4.8 g/dL (3.5-5.0); Albumin Globulin Ratio 1.4 (1.0-2.8); Alkaline Phosphatase 118 U/L (38-126); Aspartate Aminotransferase 29 IU/L (14-36); BUN Creatinine Ratio 34.1 (6-22); Bilirubin Total 0.8 mg/dL (0.2-1.3); Blood Urea Nitrogen 14 mg/dL (7-17); Calcium 9.9 mg/dL (8.4-10.2); Carbon Dioxide 16 mmol/L (22-32); Chloride 103 mmol/L (98-107); Creatine Kinase 45 U/L (30-135); Estimated Glomerular Filt Rate > 60.0 mL/min (>60); Globulin 3.4 g/dL (1.7-4.1); Glucose 394 mg/dL (70-100); Lipase 55 U/L (23-300); Potassium 3.8 mmol/L (3.4-5.1); Sodium 135 mmol/L (137-145); Total Protein 8.2 g/dL (6.3-8.2)
[2019-10-12 12:50] LABS: C-Reactive Protein Quant 0.5 mg/dL (<1.0); Lactate Dehydrogenase 543 U/L (313-618)
[2019-10-12 12:56] LABS: NT-proBNP (BNP-Adult 18+) 78 pg/mL (<125)
[2019-10-12 12:58] LABS: Procalcitonin < 0.05 ng/mL (<0.5)
[2019-10-12] MEDS: ONDANSETRON 4 MG/2 ML INJ IV (13:09)
[2019-10-12] MEDS: SODIUM CHLORIDE 0.9% 1,000 ML 1000 ML IV ×2 (13:10→14:10)
[2019-10-12 13:17] LABS: HEMOLYSIS 21 (0-50); Troponin I < 0.012 ng/mL (0.01-0.034)
[2019-10-12 13:22] LABS: Ferritin 119 ng/mL (6-137)
[2019-10-12 13:25] LABS: Bacteria Urine None Seen
[2019-10-12 13:39] LABS: Culture Indicated Urine Cult Not Indicated; RBC Urine 0-1/HPF (0-5/HPF); Squamous Epithelial Cell Urine 0-1 /HPF (0-5/HPF); WBC Urine 0-1/HPF (0-5/HPF)
[2019-10-12 13:41] LABS: HCO3 ABG 19 mmol/L (22-26); PO2 ABG 72 mmHg (80-100); TCO2 ABG 20 mmol/L (21-31); pH ABG 7.51 (7.35-7.45)
--- NOTE | 2019-10-12 13:41 | DI.US.S_ITS ---
PROCEDURE: US ABDOMEN LIMITED INDICATIONS: RIGHT UPPER QUADRANT PAIN TECHNIQUE: Real-time focused scanning was performed of the abdomen, with image documentation. COMPARISON: [facility], CT, CT ABDOMEN PELVIS W CON, 09/10/2019, 12:17. FINDINGS: Imaged portions of the liver demonstrate increased echogenicity when compared to the right kidney, which does result in difficulty evaluating the liver for deep liver lesions. No obvious liver lesion is appreciated. The liver is borderline enlarged at approximately 18.6 cm in craniocaudal dimension. No intrahepatic or extrahepatic biliary dilatation is identified. The common bile duct measures approximately 5 mm in diameter. The gallbladder is within normal limits without evidence of cholelithiasis or gallbladder wall inflammation. The imaged portions of the right kidney are unremarkable. No hydronephrosis is identified. However, the entire right kidney is not included on this study. Included portions of the pancreas appear to be grossly unremarkable. IMPRESSION: 1. No cholelithiasis or evidence of acute cholecystitis. 2. Probable hepatic steatosis. Please correlate clinically to exclude other chronic liver diseases. Dictated by: Chapito Isaac M.D. on 10/12/2019 at 13:09 Approved by: Chapito Isaac M.D. on 10/12/2019 at 13:10
[2019-10-12 13:42] LABS: Fractionated Inspired Oxygen 0.21; Oxygen Saturation ABG 96 % (95-100)
[2019-10-12 13:54] LABS: Salicylate 3.1 mg/dL (<20)
[2019-10-12 14:25] LABS: Thyroid Stimulating Hormone 1.62 uIU/mL (0.47-4.68)
[2019-10-12 14:52] LABS: PCO2 ABG 24.4 mmHg (35-45)
[2019-10-12 15:50] LABS: Add Manual Diff / Slide Review NO; Basophils Absolute Auto 100 /uL (0-100); Basophils Percent Auto 0.5 % (0-2); Eosinophils Absolute Auto 0 /uL (0-450); Hematocrit 44.3 % (36-46); Hemoglobin 14.9 g/dL (12.0-16.0); Lymphocytes Absolute Auto 900 /uL (1100-4500); Lymphocytes Percent Auto 6.1 % (25-40); Mean Corpuscular HGB Conc 33.6 % (30-36); Mean Corpuscular Hemoglobin 29.2 PG (26-34); Mean Corpuscular Volume 86.9 fL (80-100); Monocytes Absolute Auto 300 /uL (0-900); Neutrophils Absolute Auto 14100 /uL (1500-7000); Neutrophils Percent Auto 91.4 % (50-75); Platelet Count 324 X10^3/uL (150-400); Red Cell Distribution Width 13.4 % (11.6-14.8); White Blood Cell Count 15.4 X10^3/uL (4.5-11.0)
[2019-10-12 16:04] LABS: PCO2 ABG 35.5 mmHg (35-45); PO2 ABG 90 mmHg (80-100); pH ABG 7.37 (7.35-7.45)
[2019-10-12 16:04] LABS: Creatine Kinase 43 U/L (30-135)
[2019-10-12 16:05] LABS: Alanine Aminotransferase 20 IU/L (<35); Albumin 4.2 g/dL (3.5-5.0); Albumin Globulin Ratio 1.4 (1.0-2.8); Alkaline Phosphatase 90 U/L (38-126); Aspartate Aminotransferase 21 IU/L (14-36); BUN Creatinine Ratio 30.6 (6-22); Bilirubin Total 0.5 mg/dL (0.2-1.3); Blood Urea Nitrogen 11 mg/dL (7-17); Calcium 8.3 mg/dL (8.4-10.2); Carbon Dioxide 20 mmol/L (22-32); Chloride 108 mmol/L (98-107); Estimated Glomerular Filt Rate > 60.0 mL/min (>60); Globulin 3.1 g/dL (1.7-4.1); Glucose 289 mg/dL (70-100); HEMOLYSIS < 15 (0-50); Potassium 3.7 mmol/L (3.4-5.1); Sodium 136 mmol/L (137-145); Total Protein 7.3 g/dL (6.3-8.2)
[2019-10-12 16:05] LABS: Fractionated Inspired Oxygen 21; HCO3 ABG 20 mmol/L (22-26); Oxygen Saturation ABG 97 % (95-100); TCO2 ABG 21 mmol/L (21-31)
[2019-10-12 16:17] LABS: Troponin I < 0.012 ng/mL (0.01-0.034)
[2019-10-13 01:58] LABS: COVID19 Sendout Not Detected (Not Detect)
== END 2019-10-12 18:15 | disposition home or self-care (01) ==
PROVIDERS: Emergency Provider Nurse Practitioner Family
DX: R06.02 Shortness of breath (principal); B34.9 Viral infection, unspecified; R07.9 Chest pain, unspecified; R10.11 Right upper quadrant pain
CPT/HCPCS: 36415; 36600; 71045; 76705; 80053; 80329; 81003; 81015; 81025; 82150; 82550; 82728; 82805; 83615; 83690; 83880; 84145; 84443; 84484; 85025; 85379; 85610; 85730; 86140; 87635; 93005; 96361; 96374; 99284; 99285; G0480; J2405

== ENCOUNTER → 2020-04-10 14:16 | Outpatient (CLI) | payer OTHER, MEDICAID, SELFPAY ==
--- NOTE | 2020-04-10 | DI.US.S_ITS ---
PROCEDURE: US SOFT TISSUE HEAD AND NECK INDICATIONS: Palpable lump. TECHNIQUE: Real-time scanning was performed of the neck region of interest, with image documentation. COMPARISON: None. FINDINGS: There is a 1.4 x 0.4 x 0.9 mm lymph node in the posterior lateral aspect of the right upper neck, which demonstrates normal morphology. This correlates with the palpable lump. IMPRESSION: The palpable lump is a prominent cervical lymph node. Recommend clinical follow-up. Imaging follow-up may be considered if clinically indicated. Dictated by: Reta Guadarrama M.D. on 04/10/2020 at 15:37 Approved by: Reta Guadarrama M.D. on 04/10/2020 at 15:40
== END ==
PROVIDERS: PCP Physician Assistant; Referring Provider Physician Assistant; Visit Provider Physician Assistant
DX: R59.0 Localized enlarged lymph nodes (principal)
CPT/HCPCS: 76536

== ENCOUNTER → 2020-06-16 10:52 | Outpatient (CLI) | payer OTHER, MEDICAID, SELFPAY ==
--- NOTE | 2020-06-16 | DI.RAD.S_ITS ---
PROCEDURE: FL BARIUM SWALLOW W SPEECH INDICATIONS: Dysphagia, unspecified COMPARISON: None. TECHNIQUE: Examination was conducted in conjunction with speech pathology per standard protocol. In the lateral projection, filming was performed of the patient swallowing. AP projection filming may also be performed with patient swallowing. COMPARISON: FINDINGS: Function: The oral preparatory phase appears normal, with proper containment. The subsequent oral propulsive phase, pharyngeal phase, and esophageal phase of swallowing also appear normal with all proffered substances. No laryngotracheal penetration or aspiration. No pathologic vallecular pooling. Morphology: No cricopharyngeal bar is identified. No cervical esophageal webs. No Zenker's diverticulum. No strictures. IMPRESSION: No abnormality found. Please also refer to the dedicated speech therapy swallowing evaluation report, which will be independently generated. Dictated by: Efra Todd M.D. on 06/16/2020 at 12:51 Approved by: Efra Todd M.D. on 06/16/2020 at 12:52
--- NOTE | 2020-06-16 14:24 | ST.SWALLOW ---
Visit Care Team Role Provider Type Noa Ayala PA-C Attending Provider Non-Staff Primary Care Provider Referring Provider Specialty: Nursing Address: [address] [place] [address], [id number] Email: Modified Barium Swallow Study IMPROVEMENT DIRECTOR Modified Barium Swallow Study Start: 06/16/20 13:18 Freq: Status: Active Protocol: Document 06/16/20 13:18 LNK (Rec: 06/16/20 14:23 LNK [id number]) Modified Barium Swallow Study Total Time Visit Start Time 11:30 Visit Stop Time 12:10 Total Visit Minutes 40 Referral Referring Physician Noa Ayala PA-C Reason for Referral dysphagia Setting Setting Outpatient Care Patient Information Identification Type Name,Date of Patient History Pt presented for a Modified Barium Swallow Study secondary to complaints of difficulty swallowing solids as well as liquids. She reports a sensation of globus on the right side of her neck. Pt reported that she was recently diagnosed with a palpable, prominent cervical lymph node in the posterior upper right side of her neck 04/10/20). Pt was concerned this node may be related to her swallow problems. Pt denies neck injuries or surgery and illnesses with regard to her head/neck area. Pt did report that her family has a medical history of enlarged tonsils. Pt questioned if what she is experiencing is due to enlarged tonsils. Subjective Observations Pt was seated in the fluoroscopy chair. Instructions and procedures were provided to the pt, who indicated she understood and agreed to participate. Patient Positioning Position View Lat-A/P Imaging Lateral View Textures Administered Trials Presented Thin Liquid via Spoon,Thin Liquid via Cup,Pudding Thick Liquid via Spoon,Regular Textures Oral Phase Source: MBSIMP (TM) (C) Bolus Specific Scoring Grid Lip Closure WFL Tongue Control During Bolus Hold WFL Bolus Prep/Mastication WFL Bolus Transport/Lingual Motion WFL A/P Lingual Propulsion Delay No Oral Residue WFL Residue Clearing WFL Nasal Regurgitation No Additional Oral Phase Observations Pt had natural dentition in good health and hygiene. OM examination indicated structures and function to be WFL. Diadochokineses was observed to be WNL. Palatal tonsils were observed, but did not appear to be especially enlarged. An ENT referral would be recommended to determine if they or Pt's lingual tonsils are contributing to her sensation of globus. Pharyngeal Phase Source: MBSIMP (TM) (C) Bolus Specific Scoring Grid Delayed Initiation of Pharyngeal Swallow No Soft Palate Elevation WFL Tongue Base Strength/Range of Motion Mild Impairment Residue Along the Tongue Base Yes: Trace to minimal Clearance of Residue Along Tongue Base WFL Laryngeal Elevation WFL Anterior Hyoid Movement WFL Epiglottic Range of Motion WFL Vallecular Residue Yes: minimal to moderate Clearance of Vallecular Residue Mild Impairment Laryngeal Vestibular Closure WFL Pharyngeal Stripping Wave WFL Pharyngeal Contraction WFL Posterior Pharyngeal Wall Residue Yes: Trace to minimal Upper Esophageal Sphincter Opening WFL Residue in the Pyriform Sinuses Yes: Trace to minimal Clearance of Residue in the Pyriform WFL Sinuses Pharyngoesophageal Backflow Observed No Additional Pharyngeal Phase Observations Hyolaryngeal elevation appeared to be good with good hyoid movement. Epiglottic inversion was complete. Valecullar residue remained following all swallows. During the MBSS, there was a gap observed between at the base of tongue and posterior pharyngeal wall across all trials. It is possible that there may be swollen/excess tissue (i.e. lingual/paptal tonsils) interfering with linguapharyngeal contact. There was no observation of laryngeal penetration or aspiration A/P View Textures Administered Trials Presented Regular Textures A/P View Observations Pharyngeal Contraction WFL Vocal Fold Function Good Esophageal Function Slowed Clearing Additional Observations In the A-P scan of the upper esophagus, residue was observed to remain at the level of the mid-chest. Scanning below that was not available. It is possible that there may be physiological factors related to the esophageal retention observed. A GI referral is recommended. Clinical Impressions Dysphagia Type None Patient Appropriate for Therapy No Recommendations Treatment Plan Recommended Referrals GI Consult,ENT Consult
== END ==
PROVIDERS: PCP Physician Assistant; Referring Provider Physician Assistant; Visit Provider Physician Assistant
DX: R13.10 Dysphagia, unspecified (principal)
CPT/HCPCS: 74230; 92611

== ENCOUNTER 2021-01-08 13:22 | Observation (INO) | payer OTHER, MEDICAID, SELFPAY ==
[2021-01-08] VITALS (22 sets, daily range): BP systolic 117–216; BP diastolic 56–107; PULSE 96–111; RESP 0–34; TEMP 36.2; O2SAT 96–100; BMI 32.1
[2021-01-08 14:10] LABS: Alanine Aminotransferase 37 IU/L (<35); Albumin 5.2 g/dL (3.5-5.0); Albumin Globulin Ratio 1.3 (1.0-2.8); Alkaline Phosphatase 140 U/L (38-126); Aspartate Aminotransferase 33 IU/L (14-36); BUN Creatinine Ratio 26.2 (6-22); Bilirubin Total 0.8 mg/dL (0.2-1.3); Blood Urea Nitrogen 11 mg/dL (7-17); Calcium 10.3 mg/dL (8.4-10.2); Carbon Dioxide 13 mmol/L (22-32); Chloride 100 mmol/L (98-107); Estimated Glomerular Filt Rate > 60.0 mL/min (>60); Glucose 409 mg/dL (70-100); HEMOLYSIS < 15 (0-50); Lipase 52 U/L (23-300); Potassium 4.1 mmol/L (3.4-5.1); Sodium 136 mmol/L (137-145); Total Protein 9.2 g/dL (6.3-8.2)
[2021-01-08] MEDS: SODIUM CHLORIDE 0.9% 1,000 ML 1000 ML IV ×3 (14:11→21:58)
[2021-01-08] MEDS: ONDANSETRON 4 MG/2 ML INJ IV (14:11)
[2021-01-08 14:23] LABS: Add Manual Diff / Slide Review NO; Basophils Absolute Auto 100 /uL (0-100); Basophils Percent Auto 0.4 % (0-2); Eosinophils Absolute Auto 0 /uL (0-450); Hematocrit 51.6 % (36-46); Hemoglobin 16.9 g/dL (12.0-16.0); Lymphocytes Absolute Auto 900 /uL (1100-4500); Lymphocytes Percent Auto 4.5 % (25-40); Mean Corpuscular HGB Conc 32.9 % (30-36); Mean Corpuscular Hemoglobin 28.9 PG (26-34); Mean Corpuscular Volume 87.9 fL (80-100); Monocytes Absolute Auto 300 /uL (0-900); Monocytes Percent Auto 1.6 % (3-14); Neutrophils Absolute Auto 19500 /uL (1500-7000); Neutrophils Percent Auto 93.5 % (50-75); Platelet Count 376 X10^3/uL (150-400); Red Blood Cell Count 5.86 X10^6/uL (4.0-5.2); Red Cell Distribution Width 13.8 % (11.6-14.8); White Blood Cell Count 20.9 X10^3/uL (4.5-11.0)
[2021-01-08 14:32] LABS: pH VBG 7.43 (7.33-7.43)
[2021-01-08 14:34] LABS: COVID19 -Nasal RAPID Negative (Negative)
[2021-01-08 14:47] LABS: RBC Urine None Seen (0-5/HPF)
--- NOTE | 2021-01-08 14:53 | DI.US.S_ITS ---
PROCEDURE: US ABDOMEN LIMITED INDICATIONS: upper abd pain, + high WBC, n/v. has gall bladder TECHNIQUE: Real-time scanning was performed of the abdominal and retroperitoneal organs, with image documentation. COMPARISON: [facility], , US ABDOMEN LIMITED, 10/12/2019, 13:29. FINDINGS: Liver: Liver measures normal in size, although the margins are not well visualized. The liver is diffusely increased in echogenicity with posterior attenuation. Gallbladder: The gallbladder appears normal without gallstones or gallbladder wall thickening. There is no pericholecystic fluid. Sonographic Alexander sign is negative. Biliary ducts: Intrahepatic bile ducts are non-dilated. Extrahepatic bile duct caliber measures 5 mm. Normal is 6-7 mm or less in diameter, or 10 mm or less post-cholecystectomy. Pancreas: The majority of the pancreas is not well visualized. Miscellaneous: No free right upper quadrant fluid. IMPRESSION: 1. Increased hepatic echogenicity is seen, most commonly secondary to diffuse hepatic steatosis but other sources of hepatocellular disease cannot be excluded. Recommend clinical correlation. 2. Normal gallbladder. Dictated by: Curtis Stiles M.D. on 01/08/2021 at 16:04 Approved by: Curtis Stiles M.D. on 01/08/2021 at 16:14
[2021-01-08 15:01] LABS: Appearance Urine UA CLEAR; Bilirubin Urine UA NEGATIVE (NEGATIVE); Color Urine UA YELLOW; Glucose Urine UA 2+ g/dL (Negative); Ketones Urine UA 3+ (NEGATIVE); Leukocyte Esterase Urine UA NEGATIVE (NEGATIVE); Nitrite Urine UA NEGATIVE (Negative); Occult Blood Urine UA 1+ (Negative); Protein Urine UA 2+ (Negative); Specific Gravity Urine UA 1.025 (1.000-1.035); Urobilinogen Urine UA 0.2 E.U./dL (0.2)
[2021-01-08 15:09] LABS: Bacteria Urine Occasional (0-1); Culture Indicated Urine Cult Not Indicated; Squamous Epithelial Cell Urine 0-1 /HPF (0-5/HPF); WBC Urine 0-1/HPF (0-5/HPF)
--- NOTE | 2021-01-08 15:10 | ED.GENADULT ---
HPI - General Adult General Chief complaint: Diabetic Problem Stated complaint: High blood sugar. N/V/D. dehyrdrated Time Seen by Provider: 01/08/21 14:36 Source: patient Mode of arrival: Wheelchair Limitations: no limitations History of Present Illness HPI narrative: Female nonsmoking type 2 diabetic presents with a chief complaint of about 24 hours nausea, vomiting, diarrhea generalized abdominal pain. She feels dizzy weak and lightheaded. She denies any fever or chills. She denies any obvious provocation or palliation of her discomfort. She does think that she missed a few doses of her metformin. Related Data Home Medications Medication Instructions Recorded Confirmed metformin 1,000 mg tablet,extended 1,000 mg PO BID 01/09/21 01/09/21 release 24hr omeprazole magnesium 20 mg 20 mg PO PRN PRN 01/09/21 01/09/21 tablet,delayed release (Prilosec OTC) Allergies Allergy/AdvReac Type Severity Reaction Status Date / Time aspirin AdvReac Verified 01/08/21 13:30 Review of Systems Review of Systems Narrative: GENERAL: See HPI HEENT: Denies sinus pain, ear pain, sore throat, difficulty swallowing, dizziness. RESPIRATORY: Denies dyspnea, cough, wheezing, hemoptysis, sputum. CARDIOVASCULAR: Denies chest pain, palpitations, orthopnea, edema, GASTROINTESTINAL: See HPI : Denies dysuria, frequency, incontinence, hematuria, urinary retention. MUSCULOSKELETAL: denies weakness, joint pain, or bony pain SKIN: Denies rash, skin lesions, or other NEUROLOGIC: Denies weakness, headache, numbness, change in speech, confusion, seizures, incoordination. PSYCHIATRIC: No concerning psychosocial issues. 12 point review of systems is negative except for those stated above Patient History Medical History (Updated 01/09/21 @ 03:02 by Courtney Alan RN) Diabetes HSV (herpes simplex virus) anogenital infection Surgical History (Updated 01/09/21 @ 04:58 by KELY De Leon) History of wisdom tooth extraction Family History Mother Diabetes mellitus Congestive heart failure Father Parkinsons disease Social History household members: significant other and children Smoking Status: Current every day smoker alcohol intake: current Smoking Status: Current every day smoker tobacco type: cigarettes alcohol intake frequency: 0-2 drinks per day Substance Use Type: does not use Exam Narrative Exam Narrative: GENERAL: [40] year old patient appears stated age. Well-developed patient, in mild distress. HEAD: Atraumatic. Normocephalic. EYES: Pupils equal round and reactive. Extraocular motions intact. No scleral icterus. No injection or drainage. ENT: Nose without bleeding, purulent drainage. Throat without erythema, tonsillar hypertrophy or exudate. Airway patent. NECK: Trachea midline. Non tender CARDIOVASCULAR: Regular rate and rhythm without murmurs, gallops, or rubs. RESPIRATORY: Clear to auscultation. Breath sounds equal bilaterally. No wheezes, rales, or rhonchi. GASTROINTESTINAL: Abdomen soft, generalized tenderness, bowel sounds present in all 4 quadrants EXTREMITIES: No edema or joint tenderness. BACK: Nontender without deformity or crepitance. No flank tenderness. NEURO: AOx3. SKIN: No rash or erythema of visible areas Initial Vital Signs Initial Vital Signs: Vital Signs Temperature 97.2 F L 01/08/21 13:30 Pulse Rate 109 H 01/08/21 13:30 Respiratory Rate 18 01/08/21 13:30 Blood Pressure 138/87 01/08/21 13:30 Pulse Oximetry 100 01/08/21 13:30 Course Orders Ordered: Acetaminophen (Acetaminophen 325 Mg Tablet) 650 mg PO Q4HR PRN PRN Reason: Fever/Mild Pain (1-3) Dextrose (Dextrose 50 % In Water 25 Gm/50 Ml Syringe) 25 gm IV PRN PRN PRN Reason: Hypoglycemia Hydromorphone HCl (Hydromorphone 0.5 Mg Inj) 0.5 mg IV Q6H PRN PRN Reason: Pain, Moderate (4-6) Last Admin: 01/09/21 03:19 Dose: 0.5 mg Documented by: Sodium Chloride (Normal Saline 0.9%) 1,000 mls @ 100 mls/hr IV CONT GUDELIA Last Admin: 01/09/21 01:16 Dose: 100 mls/hr Documented by: Insulin Glargine (Insulin Glargine 100 Unit/Ml 3ml Pen) 10 unit SUBCUT BEDTIME GUDELIA Insulin Human Lispro (Insulin Lispro 100 Unit/Ml 3ml Vial) 0 unit SUBCUT [facility]; Protocol Last Admin: 01/08/21 21:59 Dose: 2 unit Documented by: Magnesium Hydroxide (Magnesium Hydroxide 30 Ml Udc) 30 ml PO DAILY PRN PRN Reason: Constipation Metoclopramide HCl (Metoclopramide 10 Mg/2 Ml Inj) 10 mg IV Q6HR PRN PRN Reason: Nausea And Vomiting Naloxone HCl (Naloxone 0.4 Mg/Ml Vial) 0.2 mg IV Q2MIN PRN PRN Reason: Opiate Reversal Ondansetron HCl (Ondansetron 4 Mg/2 Ml Inj) 4 mg IV Q4HR PRN PRN Reason: Nausea And Vomiting Last Admin: 01/09/21 03:19 Dose: 4 mg Documented by: Discontinued Medications Sodium Chloride (Normal Saline 0.9%) 1,000 mls @ 1,000 mls/hr IV BOLUS ONE Stop: 01/08/21 14:39 Last Infusion: 01/08/21 15:07 Dose: 0 mls/hr Documented by: Admin: 01/08/21 14:11 Dose: 1,000 mls/hr Documented by: ARMANDO Sodium Chloride (Normal Saline 0.9%) 1,000 mls @ 1,000 mls/hr IV BOLUS ONE Stop: 01/08/21 15:50 Last Infusion: 01/08/21 16:00 Dose: 0 mls/hr Documented by: Admin: 01/08/21 14:55 Dose: 1,000 mls/hr Documented by: REYES Sodium Chloride (Normal Saline 0.9%) 1,000 mls @ 1,000 mls/hr IV BOLUS ONE Stop: 01/08/21 21:14 Last Admin: 01/08/21 21:58 Dose: 1,000 mls/hr Documented by: Metoclopramide HCl (Metoclopramide 10 Mg/2 Ml Inj) 10 mg IV NOW ONE Stop: 01/08/21 17:11 Last Admin: 01/08/21 17:20 Dose: 10 mg Documented by: REYES Ondansetron HCl (Ondansetron 4 Mg/2 Ml Inj) 4 mg IV NOW ONE Stop: 01/08/21 13:41 Last Admin: 01/08/21 14:11 Dose: 4 mg Documented by: ARMANDO Pantoprazole Sodium (Pantoprazole 40 Mg Vial) 40 mg IV NOW ONE Stop: 01/08/21 19:39 Last Admin: 01/08/21 20:01 Dose: 40 mg Documented by: ANNY Scopolamine (Scopolamine 1 Patch) 1 patch TOP NOW ONE Stop: 01/08/21 20:46 Last Admin: 01/08/21 22:00 Dose: 1 patch Documented by: Reevaluation(s) Reevaluation #1: Patient has been given multiple antiemetics, continues to vomit after 2 L of fluid, Zofran and Reglan. Ultrasound is unremarkable, vital signs are somewhat improved, however there after above-stated therapies she is still not tolerating orals, remains acidotic. CT of the abdomen and pelvis is ordered Vital Signs Vital signs: Vital Signs - 8 hr 01/08/21 13:30 01/08/21 14:31 01/08/21 14:34 Temperature 97.2 F L Pulse Rate 109 H 102 H 101 H Respiratory Rate 18 34 H Blood Pressure 138/87 208/107 H 207/103 H Pulse Oximetry 100 100 100 01/08/21 15:00 01/08/21 15:30 01/08/21 16:18 Temperature Pulse Rate 102 H 104 H 103 H Respiratory Rate 19 20 Blood Pressure 202/91 H 191/102 H Pulse Oximetry 98 98 99 01/08/21 16:19 01/08/21 16:30 01/08/21 17:00 Temperature Pulse Rate 102 H 105 H 101 H Respiratory Rate 22 22 14 Blood Pressure 192/88 H 191/88 H Pulse Oximetry 99 98 97 01/08/21 17:19 01/08/21 17:30 01/08/21 18:00 Temperature Pulse Rate 108 H 110 H 108 H Respiratory Rate 26 H 24 Blood Pressure 215/103 H 216/105 H Pulse Oximetry 100 98 97 01/08/21 18:01 01/08/21 18:30 Temperature Pulse Rate 107 H 104 H Respiratory Rate 25 H 28 H Blood Pressure 165/77 H 148/77 H Pulse Oximetry 97 97 Medical Decision Making Lab Data Result diagrams: 01/09/21 06:42 01/08/21 17:18 Labs: Lab Results 01/08/21 01/08/21 01/08/21 Range/Units 13:50 13:50 13:50 WBC 20.9 H (4.5-11.0) X10^3/uL RBC 5.86 H (4.0-5.2) X10^6/uL Hgb 16.9 H (12.0-16.0) g/dL Hct 51.6 H (36-46) % MCV 87.9 (80-100) fL MCH 28.9 (26-34) PG MCHC 32.9 (30-36) % RDW 13.8 (11.6-14.8) % Plt Count 376 (150-400) X10^3/uL Neut % (Auto) 93.5 H (50-75) % Lymph % (Auto) 4.5 L (25-40) % [place] % (Auto) 1.6 L (3-14) % Eos % (Auto) 0.0 L (2-4) % Baso % (Auto) 0.4 (0-2) % Neut # (Auto) 12607 H (6486-6166) /uL Lymph # (Auto) 900 L (8852-7296) /uL [place] # (Auto) 300 (0-900) /uL Eos # (Auto) 0 (0-450) /uL Baso # (Auto) 100 (0-100) /uL VBG pH (7.33-7.43) Sodium 136 L (137-145) mmol/L Potassium 4.1 (3.4-5.1) mmol/L Chloride 100 (98-107) mmol/L Carbon Dioxide 13 L (22-32) mmol/L BUN 11 (7-17) mg/dL Creatinine 0.42 L (0.52-1.04) mg/dL Estimated GFR > 60.0 (>60) mL/min BUN/Creatinine Ratio 26.2 H (6-22) Glucose 409 H (70-100) mg/dL Lactate (0.7-2.1) mmol/L Calcium 10.3 H (8.4-10.2) mg/dL Total Bilirubin 0.8 (0.2-1.3) mg/dL AST 33 (14-36) IU/L ALT 37 H (<35) IU/L Alkaline Phosphatase 140 H (38-126) U/L Total Protein 9.2 H (6.3-8.2) g/dL Albumin 5.2 H (3.5-5.0) g/dL Globulin 4.0 (1.7-4.1) g/dL Albumin/Globulin Ratio 1.3 (1.0-2.8) Lipase 52 (23-300) U/L Urine Color Urine Appearance Urine pH (4.5-8.0) Ur Specific [place] (1.000-1.035) Urine Protein (Negative) Urine Glucose (UA) (Negative) g/dL Urine Ketones (NEGATIVE) Urine Occult Blood (Negative) Urine Nitrate (Negative) Urine Bilirubin (NEGATIVE) Urine Urobilinogen (0.2) E.U./dL Ur Leukocyte Esterase (NEGATIVE) Urine RBC (0-5/HPF) Urine WBC (0-5/HPF) Ur Squamous Epith Cells (0-5/HPF) Urine Bacteria (None) Ur Culture Indicated? Ketones 4.80 H (<0.27) mmol/L SARS-CoV-2 (PCR) (Negative) 01/08/21 01/08/21 01/08/21 Range/Units 13:50 13:50 14:00 WBC (4.5-11.0) X10^3/uL RBC (4.0-5.2) X10^6/uL Hgb (12.0-16.0) g/dL Hct (36-46) % MCV (80-100) fL MCH (26-34) PG MCHC (30-36) % RDW (11.6-14.8) % Plt Count (150-400) X10^3/uL Neut % (Auto) (50-75) % Lymph % (Auto) (25-40) % [place] % (Auto) (3-14) % Eos % (Auto) (2-4) % Baso % (Auto) (0-2) % Neut # (Auto) (3878-6202) /uL Lymph # (Auto) (7759-4113) /uL [place] # (Auto) (0-900) /uL Eos # (Auto) (0-450) /uL Baso # (Auto) (0-100) /uL VBG pH (7.33-7.43) Sodium (137-145) mmol/L Potassium (3.4-5.1) mmol/L Chloride (98-107) mmol/L Carbon Dioxide (22-32) mmol/L BUN (7-17) mg/dL Creatinine (0.52-1.04) mg/dL Estimated GFR (>60) mL/min BUN/Creatinine Ratio (6-22) Glucose (70-100) mg/dL Lactate 3.0 H (0.7-2.1) mmol/L Calcium (8.4-10.2) mg/dL Total Bilirubin (0.2-1.3) mg/dL AST (14-36) IU/L ALT (<35) IU/L Alkaline Phosphatase (38-126) U/L Total Protein (6.3-8.2) g/dL Albumin (3.5-5.0) g/dL Globulin (1.7-4.1) g/dL Albumin/Globulin Ratio (1.0-2.8) Lipase (23-300) U/L Urine Color Yellow Urine Appearance Clear Urine pH 5.0 (4.5-8.0) Ur Specific [place] 1.025 (1.000-1.035) Urine Protein 2+ H (Negative) Urine Glucose (UA) 2+ H (Negative) g/dL Urine Ketones 3+ H (NEGATIVE) Urine Occult Blood 1+ H (Negative) Urine Nitrate Negative (Negative) Urine Bilirubin Negative (NEGATIVE) Urine Urobilinogen 0.2 (0.2) E.U./dL Ur Leukocyte Esterase Negative (NEGATIVE) Urine RBC None seen (0-5/HPF) Urine WBC 0-1/hpf (0-5/HPF) Ur Squamous Epith Cells 0-1 /hpf (0-5/HPF) Urine Bacteria Occasional (0-1) (None) Ur Culture Indicated? Cult not indicated Ketones (<0.27) mmol/L SARS-CoV-2 (PCR) Negative (Negative) 01/08/21 01/08/21 01/08/21 Range/Units 14:24 16:57 17:18 WBC 20.3 H (4.5-11.0) X10^3/uL RBC 5.43 H (4.0-5.2) X10^6/uL Hgb 15.9 (12.0-16.0) g/dL Hct 47.5 H (36-46) % MCV 87.4 (80-100) fL MCH 29.3 (26-34) PG MCHC 33.5 (30-36) % RDW 13.9 (11.6-14.8) % Plt Count 347 (150-400) X10^3/uL Neut % (Auto) 90.1 H (50-75) % Lymph % (Auto) 7.0 L (25-40) % [place] % (Auto) 2.1 L (3-14) % Eos % (Auto) 0.1 L (2-4) % Baso % (Auto) 0.7 (0-2) % Neut # (Auto) 82593 H (5213-2606) /uL Lymph # (Auto) 1400 (6778-8367) /uL [place] # (Auto) 400 (0-900) /uL Eos # (Auto) 0 (0-450) /uL Baso # (Auto) 100 (0-100) /uL VBG pH 7.43 (7.33-7.43) Sodium (137-145) mmol/L Potassium (3.4-5.1) mmol/L Chloride (98-107) mmol/L Carbon Dioxide (22-32) mmol/L BUN (7-17) mg/dL Creatinine (0.52-1.04) mg/dL Estimated GFR (>60) mL/min BUN/Creatinine Ratio (6-22) Glucose (70-100) mg/dL Lactate 1.5 (0.7-2.1) mmol/L Calcium (8.4-10.2) mg/dL Total Bilirubin (0.2-1.3) mg/dL AST (14-36) IU/L ALT (<35) IU/L Alkaline Phosphatase (38-126) U/L Total Protein (6.3-8.2) g/dL Albumin (3.5-5.0) g/dL Globulin (1.7-4.1) g/dL Albumin/Globulin Ratio (1.0-2.8) Lipase (23-300) U/L Urine Color Urine Appearance Urine pH (4.5-8.0) Ur Specific [place] (1.000-1.035) Urine Protein (Negative) Urine Glucose (UA) (Negative) g/dL Urine Ketones (NEGATIVE) Urine Occult Blood (Negative) Urine Nitrate (Negative) Urine Bilirubin (NEGATIVE) Urine Urobilinogen (0.2) E.U./dL Ur Leukocyte Esterase (NEGATIVE) Urine RBC (0-5/HPF) Urine WBC (0-5/HPF) Ur Squamous Epith Cells (0-5/HPF) Urine Bacteria (None) Ur Culture Indicated? Ketones (<0.27) mmol/L SARS-CoV-2 (PCR) (Negative) 01/08/21 Range/Units 17:18 WBC (4.5-11.0) X10^3/uL RBC (4.0-5.2) X10^6/uL Hgb (12.0-16.0) g/dL Hct (36-46) % MCV (80-100) fL MCH (26-34) PG MCHC (30-36) % RDW (11.6-14.8) % Plt Count (150-400) X10^3/uL Neut % (Auto) (50-75) % Lymph % (Auto) (25-40) % [place] % (Auto) (3-14) % Eos % (Auto) (2-4) % Baso % (Auto) (0-2) % Neut # (Auto) (2503-3635) /uL Lymph # (Auto) (2380-2755) /uL [place] # (Auto) (0-900) /uL Eos # (Auto) (0-450) /uL Baso # (Auto) (0-100) /uL VBG pH (7.33-7.43) Sodium 135 L (137-145) mmol/L Potassium 3.8 (3.4-5.1) mmol/L Chloride 104 (98-107) mmol/L Carbon Dioxide 14 L (22-32) mmol/L BUN 9 (7-17) mg/dL Creatinine 0.34 L (0.52-1.04) mg/dL Estimated GFR > 60.0 (>60) mL/min BUN/Creatinine Ratio 26.5 H (6-22) Glucose 297 H D (70-100) mg/dL Lactate (0.7-2.1) mmol/L Calcium 9.1 (8.4-10.2) mg/dL Total Bilirubin (0.2-1.3) mg/dL AST (14-36) IU/L ALT (<35) IU/L Alkaline Phosphatase (38-126) U/L Total Protein (6.3-8.2) g/dL Albumin (3.5-5.0) g/dL Globulin (1.7-4.1) g/dL Albumin/Globulin Ratio (1.0-2.8) Lipase (23-300) U/L Urine Color Urine Appearance Urine pH (4.5-8.0) Ur Specific [place] (1.000-1.035) Urine Protein (Negative) Urine Glucose (UA) (Negative) g/dL Urine Ketones (NEGATIVE) Urine Occult Blood (Negative) Urine Nitrate (Negative) Urine Bilirubin (NEGATIVE) Urine Urobilinogen (0.2) E.U./dL Ur Leukocyte Esterase (NEGATIVE) Urine RBC (0-5/HPF) Urine WBC (0-5/HPF) Ur Squamous Epith Cells (0-5/HPF) Urine Bacteria (None) Ur Culture Indicated? Ketones (<0.27) mmol/L SARS-CoV-2 (PCR) (Negative) Point of Care Testing Test Results Negative Glucose POC 212 Urine Dip Bedside Urine Glucose 1000 mg/dl Bedside Urine Bilirubin - Negative Bedside Urine Ketone +++ 80 Urine Specific [place] 1.030 Bedside Urine Occult Blood +/- Bedside Urine pH 6.0 Bedside Urine Protein ++ 100 Bedside Urine Urobilinogen - Negative Bedside Urine Nitrite - Negative Bedside Urine Leukocytes - Negative Esterase Point of care testing: Point of Care Testing Test Results Negative Glucose POC 212 Urine Dip Bedside Urine Glucose 1000 mg/dl Bedside Urine Bilirubin - Negative Bedside Urine Ketone +++ 80 Urine Specific [place] 1.030 Bedside Urine Occult Blood +/- Bedside Urine pH 6.0 Bedside Urine Protein ++ 100 Bedside Urine Urobilinogen - Negative Bedside Urine Nitrite - Negative Bedside Urine Leukocytes - Negative Esterase Imaging Data US - abdomen: Radiologist's Impression: [address] [id number] ReportSigned Patient: Maddy Cullen MMR#: [id number]: 1980Acct:[id number]/Sex: 40 / FDate of Service: 01/08/21Loc: EDAccession Number: [id number] Procedure: US abdomen limited Ordering Provider: Solomon Mendez D.O. PROCEDURE: US ABDOMEN LIMITED INDICATIONS: upper abd pain, + high WBC, n/v. has gall bladder TECHNIQUE: Real-time scanning was performed of the abdominal and retroperitoneal organs, with image documentation. COMPARISON: [facility], , US ABDOMEN LIMITED, 10/12/2019, 13:29. FINDINGS: Liver: Liver measures normal in size, although the margins are not well visualized. The liver is diffusely increased in echogenicity with posterior attenuation. Gallbladder: The gallbladder appears normal without gallstones or gallbladder wall thickening. There is no pericholecystic fluid. Sonographic Alexander sign is negative. Biliary ducts: Intrahepatic bile ducts are non-dilated. Extrahepatic bile duct caliber measures 5 mm. Normal is 6-7 mm or less in diameter, or 10 mm or less post-cholecystectomy. Pancreas: The majority of the pancreas is not well visualized. Miscellaneous: No free right upper quadrant fluid. IMPRESSION: 1. Increased hepatic echogenicity is seen, most commonly secondary to diffuse hepatic steatosis but other sources of hepatocellular disease cannot be excluded. Recommend clinical correlation. 2. Normal gallbladder. Dictated by: Curtis Stiles M.D. on 01/08/2021 at 16:04 Approved by: Curtis Stiles M.D. on 01/08/2021 at 16:14 CT scan - abdomen/pelvis: Radiologist's Impression: Maddy Cullen 40 F [address] Scan ReportSigned Patient: Maddy Cullen [facility]#: [id number]: 1980Acct:[id number]/Sex: 40 / FDate of Service: 01/08/21Loc: EDAccession Number: [id number] Procedure: CT abdomen pelvis w con Ordering Provider: Solomon Mendez D.O. PROCEDURE: CT ABDOMEN PELVIS W CON INDICATIONS: persistent vomiting, abdominal pain, TECHNIQUE: After the administration of intravenous contrast, axial sections acquired from the lung bases to the pubic symphysis. Coronal and sagittal reformats were performed. For radiation dose reduction, the following was used: automated exposure control, adjustment of mA and/or kV according to patient size. COMPARISON: [facility], US, US ABDOMEN LIMITED, 01/08/2021, 14:43. [facility], CT, CT ABDOMEN PELVIS W CON, 09/10/2019, 12:17. FINDINGS: Image quality: Excellent. Lung bases: Unremarkable. Mild diffuse wall thickening and edema of the distal esophagus . No hiatal hernia. Heart: No significant findings. ABDOMEN: Liver: Mild hepatomegaly and moderate to severe hepatic steatosis. Relative sparing in the gallbladder fossa. No discrete liver lesions Gallbladder: Unremarkable. Biliary ducts: Unremarkable. Pancreas: Unremarkable. Spleen: Unremarkable. Adrenal Glands: Unremarkable. Kidneys and Ureters: Unremarkable. Stomach and Bowel: The stomach is filled with fluid in the mucosa is mildly hyperemic. There is mild wall thickening of the antrum. No extraluminal gas or perigastric inflammation. Small bowel is decompressed. The appendix is normal. Large bowel is in spasm. A few diverticula are seen from the transverse colon through the sigmoid. Peritoneum: No abnormal intraperitoneal fluid. No free air. Ventral Wall: There is a fat containing supraumbilical hernia. Abdominal Nodes: No retroperitoneal or mesenteric adenopathy by size criteria. Vessels: Aorta and inferior vena cava are normal in size. Mild abdominal aortic atherosclerotic calcification. PELVIS: Pelvic Organs: The uterus and ovaries are normal. There is a corpus luteum associated with the left ovary. Bladder: Unremarkable. Pelvic Nodes: No enlarged lymph nodes. Miscellaneous: No hernias are seen. Bones: Severe degenerative disc change at L5-S1. IMPRESSION: 1. Fluid-filled, distended stomach with mild antral wall thickening and mild diffuse mucosal hyperemia. This may indicate gastritis. No evidence of perforation. 2. There is a distal esophageal wall thickening and edema consistent with esophagitis likely secondary to vomiting. 3. There has been worsening of hepatic steatosis since the prior study. Persistent mild hepatomegaly. 4. Stable fat containing supraumbilical ventral hernia. Dictated by: Carmelina Avila M.D. on 01/08/2021 at 19:13 Approved by: Carmelina Avila M.D. on 01/08/2021 at 19:25 Discharge Plan Departure Patient Disposition: Admitted as Observation Clinical Impression: Intractable nausea and vomiting Admit Date/Time: 01/08/21 20:05 Admit Provider: Dilma Portillo
[2021-01-08 16:46] LABS: Reflexed Lactate in 2 Hours Y
[2021-01-08] MEDS: METOCLOPRAMIDE 10 MG/2 ML INJ IV (17:20)
[2021-01-08 17:26] LABS: Add Manual Diff / Slide Review NO; Basophils Absolute Auto 100 /uL (0-100); Basophils Percent Auto 0.7 % (0-2); Eosinophils Absolute Auto 0 /uL (0-450); Eosinophils Percent Auto 0.1 % (2-4); Hematocrit 47.5 % (36-46); Hemoglobin 15.9 g/dL (12.0-16.0); Lymphocytes Absolute Auto 1400 /uL (1100-4500); Mean Corpuscular HGB Conc 33.5 % (30-36); Mean Corpuscular Hemoglobin 29.3 PG (26-34); Mean Corpuscular Volume 87.4 fL (80-100); Monocytes Absolute Auto 400 /uL (0-900); Monocytes Percent Auto 2.1 % (3-14); Neutrophils Absolute Auto 18300 /uL (1500-7000); Neutrophils Percent Auto 90.1 % (50-75); Platelet Count 347 X10^3/uL (150-400); Red Blood Cell Count 5.43 X10^6/uL (4.0-5.2); Red Cell Distribution Width 13.9 % (11.6-14.8); White Blood Cell Count 20.3 X10^3/uL (4.5-11.0)
[2021-01-08 17:31] LABS: Lactate 2HR (Lactic Acid Rflx) 1.5 mmol/L (0.7-2.1)
[2021-01-08 17:52] LABS: BUN Creatinine Ratio 26.5 (6-22); Blood Urea Nitrogen 9 mg/dL (7-17); Calcium 9.1 mg/dL (8.4-10.2); Carbon Dioxide 14 mmol/L (22-32); Chloride 104 mmol/L (98-107); Estimated Glomerular Filt Rate > 60.0 mL/min (>60); Glucose 297 mg/dL (70-100); HEMOLYSIS < 15 (0-50); Potassium 3.8 mmol/L (3.4-5.1); Sodium 135 mmol/L (137-145)
--- NOTE | 2021-01-08 18:34 | DI.CT.S_ITS ---
PROCEDURE: CT ABDOMEN PELVIS W CON INDICATIONS: persistent vomiting, abdominal pain, TECHNIQUE: After the administration of intravenous contrast, axial sections acquired from the lung bases to the pubic symphysis. Coronal and sagittal reformats were performed. For radiation dose reduction, the following was used: automated exposure control, adjustment of mA and/or kV according to patient size. COMPARISON: [facility], US, US ABDOMEN LIMITED, 01/08/2021, 14:43. [facility], CT, CT ABDOMEN PELVIS W CON, 09/10/2019, 12:17. FINDINGS: Image quality: Excellent. Lung bases: Unremarkable. Mild diffuse wall thickening and edema of the distal esophagus . No hiatal hernia. Heart: No significant findings. ABDOMEN: Liver: Mild hepatomegaly and moderate to severe hepatic steatosis. Relative sparing in the gallbladder fossa. No discrete liver lesions Gallbladder: Unremarkable. Biliary ducts: Unremarkable. Pancreas: Unremarkable. Spleen: Unremarkable. Adrenal Glands: Unremarkable. Kidneys and Ureters: Unremarkable. Stomach and Bowel: The stomach is filled with fluid in the mucosa is mildly hyperemic. There is mild wall thickening of the antrum. No extraluminal gas or perigastric inflammation. Small bowel is decompressed. The appendix is normal. Large bowel is in spasm. A few diverticula are seen from the transverse colon through the sigmoid. Peritoneum: No abnormal intraperitoneal fluid. No free air. Ventral Wall: There is a fat containing supraumbilical hernia. Abdominal Nodes: No retroperitoneal or mesenteric adenopathy by size criteria. Vessels: Aorta and inferior vena cava are normal in size. Mild abdominal aortic atherosclerotic calcification. PELVIS: Pelvic Organs: The uterus and ovaries are normal. There is a corpus luteum associated with the left ovary. Bladder: Unremarkable. Pelvic Nodes: No enlarged lymph nodes. Miscellaneous: No hernias are seen. Bones: Severe degenerative disc change at L5-S1. IMPRESSION: 1. Fluid-filled, distended stomach with mild antral wall thickening and mild diffuse mucosal hyperemia. This may indicate gastritis. No evidence of perforation. 2. There is a distal esophageal wall thickening and edema consistent with esophagitis likely secondary to vomiting. 3. There has been worsening of hepatic steatosis since the prior study. Persistent mild hepatomegaly. 4. Stable fat containing supraumbilical ventral hernia. Dictated by: Carmelina Avila M.D. on 01/08/2021 at 19:13 Approved by: Carmelina Avila M.D. on 01/08/2021 at 19:25
[2021-01-08] MEDS: PANTOPRAZOLE 40 MG VIAL IV (20:01)
[2021-01-08 21:41] LABS: Ammonia (NH3) < 9 umol/L (9-30)
[2021-01-08 21:56] LABS: Cholesterol 264 mg/dL (140-199); HDL Cholesterol 53 mg/dL (40-60); LDL Cholesterol Calculated 186 mg/dL (<100); Magnesium 1.7 mg/dL (1.6-2.3); Triglycerides 125 mg/dL (35-150)
[2021-01-08 21:57] LABS: Procalcitonin 0.11 ng/mL (<0.5)
[2021-01-08] MEDS: INSULIN LISPRO 100 UNIT/ML 3ML VIAL SUBCUT (21:59)
[2021-01-08] MEDS: SCOPOLAMINE 1 PATCH TOP (22:00)
[2021-01-08 22:04] LABS: HCO3 VBG 18 mmol/L (23-28); Oxygen Saturation VBG 86 % (70-75); PCO2 VBG 33.3 mmHg (45-50); PO2 VBG 54 mmHg (35-45); Total CO2 VBG 19 mmol/L (24-29); pH VBG 7.35 (7.33-7.43)
[2021-01-08 22:57] LABS: Salicylate < 1.0 mg/dL (<20)
[2021-01-08 23:16] LABS: Hemoglobin A1C% w Est Avg Glu 12.2 % (4.0-6.0)
[2021-01-09] VITALS (11 sets, daily range): BP systolic 136–187; BP diastolic 72–111; PULSE 91–111; RESP 16–20; TEMP 36.4–37; O2SAT 94–98; BMI 30.7
[2021-01-09] MEDS: SODIUM CHLORIDE 0.9% 1,000 ML 100 ML IV ×2 (01:16→16:06)
[2021-01-09] MEDS: HYDROMORPHONE 0.5 MG INJ IV (03:19)
[2021-01-09] MEDS: ONDANSETRON 4 MG/2 ML INJ IV (03:19)
--- NOTE | 2021-01-09 03:35 | PC.ADMIT ---
[address] Admission Note: Patient brought up to floor by this RN via w/c. Pt able to transfer in and out of bed with no difficulty. Pt in no apparent cardiovascular or respiratory distress. AOx4, respirations equal even unlabored. Reports no dizziness or nausea at time of transfer. IVF NS @ 100 mL/hr running. Hypertensive, tachycardic. Nausea and 5-6/10 epigastric pain post-movement to bathroom, alleviated with zofran and dilaudid. Refused SCDs. Unsure of home medications, done to best of ability. The patient,Maddy Cullen,40 y/o, was given written information regarding hospital policies, unit procedures and contact persons. Patient's smoking status: Current every day smoker. Vital Signs - 8 hr 01/08/21 20:04 01/08/21 20:05 01/08/21 20:30 Temperature Pulse Rate 109 H 109 H 102 H Respiratory Rate 24 12 23 Blood Pressure 162/78 H 128/76 Pulse Oximetry 98 98 96 01/08/21 21:00 01/08/21 21:30 01/08/21 22:00 Temperature Pulse Rate 111 H 100 H 101 H Respiratory Rate 22 27 H 24 Blood Pressure 132/83 117/56 L 156/82 H Pulse Oximetry 97 97 97 01/09/21 02:45 01/09/21 03:26 01/09/21 03:28 Temperature 97.6 F Pulse Rate 97 H 104 H Respiratory Rate 16 Blood Pressure 173/90 H 187/101 H Pulse Oximetry 98 98
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
[2021-01-09 06:54] LABS: Add Manual Diff / Slide Review NO; Basophils Absolute Auto 100 /uL (0-100); Basophils Percent Auto 0.5 % (0-2); Eosinophils Absolute Auto 0 /uL (0-450); Eosinophils Percent Auto 0.1 % (2-4); Hematocrit 42.9 % (36-46); Hemoglobin 14.2 g/dL (12.0-16.0); Lymphocytes Absolute Auto 2100 /uL (1100-4500); Lymphocytes Percent Auto 10.8 % (25-40); Mean Corpuscular Hemoglobin 29.2 PG (26-34); Mean Corpuscular Volume 88.3 fL (80-100); Monocytes Absolute Auto 900 /uL (0-900); Monocytes Percent Auto 4.5 % (3-14); Neutrophils Absolute Auto 16300 /uL (1500-7000); Neutrophils Percent Auto 84.1 % (50-75); Platelet Count 297 X10^3/uL (150-400); Red Blood Cell Count 4.86 X10^6/uL (4.0-5.2); Red Cell Distribution Width 13.6 % (11.6-14.8); White Blood Cell Count 19.4 X10^3/uL (4.5-11.0)
[2021-01-09 07:03] LABS: Lactate (Lactic Acid) 0.7 mmol/L (0.7-2.1)
[2021-01-09 07:13] LABS: NT-proBNP (BNP-Adult 18+) 741 pg/mL (<125)
[2021-01-09 07:24] LABS: Magnesium 1.8 mg/dL (1.6-2.3)
[2021-01-09 08:25] LABS: Pregnancy Test Urine Negative (Negative)
[2021-01-09] MEDS: INSULIN LISPRO 100 UNIT/ML 3ML VIAL SUBCUT ×4 (08:55→20:44)
[2021-01-09 09:55] LABS: Alanine Aminotransferase 27 IU/L (<35); Albumin Globulin Ratio 1.3 (1.0-2.8); Alkaline Phosphatase 93 U/L (38-126); Aspartate Aminotransferase 23 IU/L (14-36); BUN Creatinine Ratio 21.6 (6-22); Bilirubin Total 0.6 mg/dL (0.2-1.3); Blood Urea Nitrogen 8 mg/dL (7-17); Calcium 8.9 mg/dL (8.4-10.2); Carbon Dioxide 14 mmol/L (22-32); Chloride 113 mmol/L (98-107); Estimated Glomerular Filt Rate > 60.0 mL/min (>60); Globulin 3.1 g/dL (1.7-4.1); Glucose 259 mg/dL (70-100); HEMOLYSIS < 15 (0-50); Potassium 3.8 mmol/L (3.4-5.1); Sodium 138 mmol/L (137-145); Total Protein 7.1 g/dL (6.3-8.2)
[2021-01-09 11:18] LABS: Urine N gonorrhoeae NOT DETECTED
[2021-01-09 11:22] LABS: Urine Chlamydia NOT DETECTED
[2021-01-09] MEDS: PANTOPRAZOLE 40 MG VIAL IV ×2 (11:45→20:45)
--- NOTE | 2021-01-09 12:58 | PC.NURSE ---
Addendum entered by Kaitlin Perry R.N. 01/09/21 13:59: Patient moved to room 225 from 221. She seems to be doing better after protonix given. She is resting comfortably in room. Original Note: Patient complained of nausea, given zofran iv. Stated that she was having some epigastric pain and started on iv protonix. She is resting and boyfriend is just back to visit her. Up with one person assist to use the bathroom. Patient has some fungal area's under her panus, is aware of this, she also has some redness in her labia, she thinks that this may be her herpes, but only redness seen. If patient complains of nausea again, we will give her iv reglan.
--- NOTE | 2021-01-09 16:05 | CM.DANOTE ---
Discharge Planning/Care Management DCP: assessment: case received, EMR reviewed and met with pt briefly. She is found lying in bed, rubbing abdomen and appears unwell. Boyfriend Brennan at bedside. He does not live with pt and they see each other occassionally. Pt is a 40 year old female who admitted last night to the hospitalist team. PCP: pt confirms this was Noa Ayala. She has left the practice and pt is assigned to another provider at this same [facility] but does not recall the name. [facility] Admission status: OBS: per UR RN Juanita. Dr. Rocha noted in rounds that pt was very ill and full dx and treatment plan were in process. She also said pt would likely need insulin at d/c instead of the currently oral agent. Pt does confirm that she lives with her 25 year old son. She has a sister Ada in [place]. DCP team to follow as needs for d/c become clearer. CM Discharge Assessment Start: 01/09/21 16:03 Freq: Status: Active Protocol: Document 01/09/21 16:03 ITV (Rec: 01/09/21 16:05 ITV [id number]) Discharge Planning Assessment Advance Directives? No History Provided By Patient,Medical Record Prior Living Arrangements House Comment lives with her 25 year old son Independent with ADL's Yes Is patient alert and oriented? Yes Review Status In Process
--- NOTE | 2021-01-09 16:25 | DIET.PN ---
Dietary Progress Note Assessment: 40 y/o F admitted with hyperglycemia, N/V/D, and dehydration. Dietary consult for unintentional weight loss. No wt hx on file. Reported weight loss may be secondary to unmanaged hyperglycemia. PMH T2DM since age 34 per her report. States her provider has retired and has not been able to see new provider ([facility]). Metformin only DM med historically. Inconsistent with taking per her report at admit. Usual BG elevated at 180-300 mg/dL at home per her report. FBG today pre breakfast 189 mg/dL and 186 mg/dL pre lunch. Both elevated. Currently on Reglan for potential gastroparesis. Having nausea and does not seem appropriate for DM ed at this time. Seems likely she will need additional medication management for T2DM after discharge. Would benefit from OP DM education. Current DM Medications: Lantus 10u HS, Humalog SSI Previous DM Medications: Metformin 1000 mg BID HT: 154.94cm WT: 73.7kg BMI: 30.7 Labs: + ketones ; HgA1c 12.2 H MNA: 10 (at risk) Yaw: 23 Nutrition Diagnosis: Impaired nutrient utilization r/t unmanaged T2DM aeb elevated HgA1c and reported limited OP DM care recently Interventions: 1. RD added CCD modification to clear liquids 2. RD CDE to call PCP for potential referral to OP program per pt request 3. May benefit from increased Lantus HS d/t >180 mg/dL fasting POC glucose Diet Order: CCD clear liquids Monitoring/Evaluations: POs, diet advancement, education as appropriate (will contact PCP about DM ed OP referral). Angely Hameed RD, [facility]
--- NOTE | 2021-01-09 18:49 | PM.PN.1 ---
Subjective Subjective Interval history: Patient continues to be nauseated, with emesis, she is unable to keep anything down. She complains of mid epigastric pain, some heartburn, she has had both nausea vomiting and diarrhea Exam Vital Signs (past 8 hours): - 01/09/21 15:15 01/09/21 16:32 Temperature 98.1 F Pulse Rate 108 H 111 H Respiratory Rate 18 Blood Pressure 178/92 H 160/111 H Pulse Oximetry 95 Oxygen Delivery Method Room Air Oxygen Flow Rate 0 Narrative Exam Narrative: Ill-appearing female lying in bed Resp Other: Lungs: Clear to auscultation Cardio Other: Cardiac exam: Regular rate and rhythm normal S1-S2 GI Other: Abdomen: Soft, tender in the midepigastric area, no rebound tenderness, no board-like rigidity, no palpable masses Extrem Other: No edema Objective Labs Result Diagrams: 01/09/21 06:42 01/09/21 06:42 Labs: Laboratory Results - last 24 hr 01/08/21 01/08/21 01/08/21 21:07 21:07 21:07 WBC RBC Hgb Hct MCV MCH MCHC RDW Plt Count Neut % (Auto) Lymph % (Auto) [place] % (Auto) Eos % (Auto) Baso % (Auto) Neut # (Auto) Lymph # (Auto) [place] # (Auto) Eos # (Auto) Baso # (Auto) VBG pH VBG pCO2 VBG pO2 VBG HCO3 VBG Total CO2 VBG O2 Saturation VBG Base Excess Sodium Potassium Chloride Carbon Dioxide BUN Creatinine Estimated GFR BUN/Creatinine Ratio Glucose Hemoglobin A1c 12.2 H Lactate Calcium Magnesium 1.7 Total Bilirubin AST ALT Alkaline Phosphatase Ammonia NT-Pro-B Natriuret Pep Total Protein Albumin Globulin Albumin/Globulin Ratio Triglycerides 125 Cholesterol 264 H LDL Cholesterol, Calc 186 H HDL Cholesterol 53 Procalcitonin Cortisol AM Sample Urine Test Salicylates < 1.0 Ur Chlamydia DNA (PCR) N gonorrhoeae DNA (PCR) 01/08/21 01/08/21 01/08/21 21:07 21:22 21:39 WBC RBC Hgb Hct MCV MCH MCHC RDW Plt Count Neut % (Auto) Lymph % (Auto) [place] % (Auto) Eos % (Auto) Baso % (Auto) Neut # (Auto) Lymph # (Auto) [place] # (Auto) Eos # (Auto) Baso # (Auto) VBG pH 7.35 VBG pCO2 33.3 L VBG pO2 54 H VBG HCO3 18 L VBG Total CO2 19 L VBG O2 Saturation 86 H VBG Base Excess -7.0 L Sodium Potassium Chloride Carbon Dioxide BUN Creatinine Estimated GFR BUN/Creatinine Ratio Glucose Hemoglobin A1c Lactate Calcium Magnesium Total Bilirubin AST ALT Alkaline Phosphatase Ammonia < 9 L NT-Pro-B Natriuret Pep Total Protein Albumin Globulin Albumin/Globulin Ratio Triglycerides Cholesterol LDL Cholesterol, Calc HDL Cholesterol Procalcitonin 0.11 Cortisol AM Sample Urine Test Salicylates Ur Chlamydia DNA (PCR) N gonorrhoeae DNA (PCR) 01/09/21 01/09/21 01/09/21 06:42 06:42 06:42 WBC 19.4 H RBC 4.86 Hgb 14.2 Hct 42.9 MCV 88.3 MCH 29.2 MCHC 33.0 RDW 13.6 Plt Count 297 Neut % (Auto) 84.1 H Lymph % (Auto) 10.8 L [place] % (Auto) 4.5 Eos % (Auto) 0.1 L Baso % (Auto) 0.5 Neut # (Auto) 37282 H Lymph # (Auto) 2100 [place] # (Auto) 900 Eos # (Auto) 0 Baso # (Auto) 100 VBG pH VBG pCO2 VBG pO2 VBG HCO3 VBG Total CO2 VBG O2 Saturation VBG Base Excess Sodium Potassium Chloride Carbon Dioxide BUN Creatinine Estimated GFR BUN/Creatinine Ratio Glucose Hemoglobin A1c Lactate 0.7 Calcium Magnesium Total Bilirubin AST ALT Alkaline Phosphatase Ammonia NT-Pro-B Natriuret Pep 741 H Total Protein Albumin Globulin Albumin/Globulin Ratio Triglycerides Cholesterol LDL Cholesterol, Calc HDL Cholesterol Procalcitonin Cortisol AM Sample 11.0 Urine Test Salicylates Ur Chlamydia DNA (PCR) N gonorrhoeae DNA (PCR) 01/09/21 01/09/21 01/09/21 06:42 06:42 08:10 WBC RBC Hgb Hct MCV MCH MCHC RDW Plt Count Neut % (Auto) Lymph % (Auto) [place] % (Auto) Eos % (Auto) Baso % (Auto) Neut # (Auto) Lymph # (Auto) [place] # (Auto) Eos # (Auto) Baso # (Auto) VBG pH VBG pCO2 VBG pO2 VBG HCO3 VBG Total CO2 VBG O2 Saturation VBG Base Excess Sodium 138 Potassium 3.8 Chloride 113 H Carbon Dioxide 14 L BUN 8 Creatinine 0.37 L Estimated GFR > 60.0 BUN/Creatinine Ratio 21.6 Glucose 259 H Hemoglobin A1c Lactate Calcium 8.9 Magnesium 1.8 Total Bilirubin 0.6 AST 23 ALT 27 Alkaline Phosphatase 93 Ammonia NT-Pro-B Natriuret Pep Total Protein 7.1 Albumin 4.0 Globulin 3.1 Albumin/Globulin Ratio 1.3 Triglycerides Cholesterol LDL Cholesterol, Calc HDL Cholesterol Procalcitonin Cortisol AM Sample Urine Test Negative Salicylates Ur Chlamydia DNA (PCR) N gonorrhoeae DNA (PCR) 01/09/21 08:31 WBC RBC Hgb Hct MCV MCH MCHC RDW Plt Count Neut % (Auto) Lymph % (Auto) [place] % (Auto) Eos % (Auto) Baso % (Auto) Neut # (Auto) Lymph # (Auto) [place] # (Auto) Eos # (Auto) Baso # (Auto) VBG pH VBG pCO2 VBG pO2 VBG HCO3 VBG Total CO2 VBG O2 Saturation VBG Base Excess Sodium Potassium Chloride Carbon Dioxide BUN Creatinine Estimated GFR BUN/Creatinine Ratio Glucose Hemoglobin A1c Lactate Calcium Magnesium Total Bilirubin AST ALT Alkaline Phosphatase Ammonia NT-Pro-B Natriuret Pep Total Protein Albumin Globulin Albumin/Globulin Ratio Triglycerides Cholesterol LDL Cholesterol, Calc HDL Cholesterol Procalcitonin Cortisol AM Sample Urine Test Salicylates Ur Chlamydia DNA (PCR) Not detected N gonorrhoeae DNA (PCR) Not detected [facility] Medical History (Updated 01/09/21 @ 03:02 by Courtney Alan RN) Diabetes HSV (herpes simplex virus) anogenital infection Surgical History (Updated 01/09/21 @ 04:58 by KELY De Leon) History of wisdom tooth extraction Family History Mother Diabetes mellitus Congestive heart failure Father Parkinsons disease Social History household members: significant other and children Smoking Status: Current every day smoker alcohol intake: current Assessment & Plan Assessment & Plan narrative: 1. Intractable nausea and vomiting -question acute gastritis, gastroesophageal reflux disease, verses diabetic gastroparesis -CT of the abdomen consistent with gastritis versus reflux -patient continues to be highly symptomatic -will continue IV fluids, clear liquid diet, IV Reglan, IV Zofran, and IV ppi -if no improvement consider upper endoscopy 2. Hypertension -consider adding CARMEN-inhibitor 3. Type 2 diabetes, poorly controlled -patient previously on metformin, really needs insulin -agree with diabetic Education, initiation of insulin Quality VTE Deep Vein Thrombosis/Pulmonary Embolism Present on Admission: No
[2021-01-09] MEDS: INSULIN GLARGINE 100 UNIT/ML 3ML PEN 10 UNIT SUBCUT (20:45)
[2021-01-10] VITALS (12 sets, daily range): BP systolic 138–183; BP diastolic 77–108; PULSE 89–110; RESP 16–20; TEMP 36.2–36.7; O2SAT 94–99
[2021-01-10] MEDS: HYDROMORPHONE 0.5 MG INJ IV ×3 (00:03→20:35)
[2021-01-10] MEDS: ONDANSETRON 4 MG/2 ML INJ IV (00:05)
[2021-01-10] MEDS: SODIUM CHLORIDE 0.9% 1,000 ML 100 ML IV ×3 (02:18→19:46)
[2021-01-10 03:09] LABS: HBsAg Screen Negative (Negative); Hepatitis A Antibody IgM Negative (Negative); Hepatitis B Core Antibody IgM Negative (Negative); Hepatitis C Antibody <0.1 s/co ratio (0.0-0.9)
--- NOTE | 2021-01-10 08:06 | DI.RAD.S_ITS ---
PROCEDURE: XR CHEST 1V INDICATIONS: Shortness of breath TECHNIQUE: One view of the chest was acquired. COMPARISON: [facility], CR, XR CHEST 1V, 10/12/2019, 12:14. FINDINGS: Surgical changes and devices: None. Lungs and pleura: Lungs are clear. No pleural effusions or pneumothorax. Mediastinum: Mediastinal contours appear normal. Heart size is normal. Bones and chest wall: No suspicious bony lesions. Overlying soft tissues appear unremarkable. IMPRESSION: No acute cardiopulmonary process demonstrated radiographically. Dictated by: Andrew Gooden M.D. on 01/10/2021 at 9:45 Approved by: Andrew Gooden M.D. on 01/10/2021 at 9:45
[2021-01-10] MEDS: PANTOPRAZOLE 40 MG VIAL IV ×2 (09:18→20:38)
[2021-01-10] MEDS: INSULIN LISPRO 100 UNIT/ML 3ML VIAL SUBCUT ×3 (09:20→18:08)
[2021-01-10 10:32] LABS: Hematocrit 47.5 % (36-46); Hemoglobin 15.9 g/dL (12.0-16.0); Mean Corpuscular HGB Conc 33.5 % (30-36); Mean Corpuscular Hemoglobin 29.4 PG (26-34); Mean Corpuscular Volume 87.9 fL (80-100); Platelet Count 324 X10^3/uL (150-400); Red Blood Cell Count 5.41 X10^6/uL (4.0-5.2); Red Cell Distribution Width 13.6 % (11.6-14.8); White Blood Cell Count 14.5 X10^3/uL (4.5-11.0)
[2021-01-10 10:46] LABS: BUN Creatinine Ratio 18.4 (6-22); Blood Urea Nitrogen 7 mg/dL (7-17); Calcium 9.1 mg/dL (8.4-10.2); Carbon Dioxide 16 mmol/L (22-32); Chloride 107 mmol/L (98-107); Estimated Glomerular Filt Rate > 60.0 mL/min (>60); Glucose 211 mg/dL (70-100); HEMOLYSIS < 15 (0-50); Potassium 3.9 mmol/L (3.4-5.1); Sodium 136 mmol/L (137-145)
[2021-01-10] MEDS: AMLODIPINE 5 MG TABLET PO (10:51)
--- NOTE | 2021-01-10 11:52 | PC.NURSE ---
Pt alert and oriented. Pain meds and amlodipine given per orders. Pt states she feels better. B/p down. see VS charting. Dilaudid of good effect.
--- NOTE | 2021-01-10 12:34 | PC.NURSE ---
Pt alert and oriented, pain med of good effect, B/p down, Pt relaxing a bit better. Assessment was edited to show all systems wnl. IVF's at 150cc/hour. Pt able to get up on own. Makes needs known easily. Tried to change some notes using edit but to no effect.
--- NOTE | 2021-01-10 15:34 | P.PN_ITS ---
Subjective Subjective Date Patient Seen: 01/10/21 Time Patient Seen: 08:00 Interval history: Today she feels mildly better. However, still does not have appetite. She has some pain while swallowing which began after vomiting. She has some mild stomach pain, and mild shortness of breath which she attributes to her emotions currently. Exam Vital Signs (past 8 hours): - 01/10/21 08:00 01/10/21 10:37 01/10/21 12:00 Temperature 97.8 F 97.6 F Pulse Rate 104 H 107 H 106 H Respiratory Rate 18 18 Blood Pressure 175/108 H 178/103 H 138/77 Pulse Oximetry 99 98 01/10/21 12:49 Temperature Pulse Rate 94 H Respiratory Rate 16 Blood Pressure Pulse Oximetry 99 Oxygen Delivery Method Room Air Oxygen Flow Rate 0 Narrative Exam Narrative: GEN: no acute distress, ill appearing CV: tachycardic no murmurs PULM: clear bilaterally with no wheezes ABD: mildly tender, soft, nondistended, no rebound/guarding, no organomegaly, normal bowel sounds EXT: warm and well perfused with no edema Objective Labs Result Diagrams: 01/10/21 10:25 01/10/21 10:25 Labs: Laboratory Results - last 24 hr 01/08/21 01/10/21 01/10/21 21:07 10:25 10:25 WBC 14.5 H RBC 5.41 H Hgb 15.9 Hct 47.5 H MCV 87.9 MCH 29.4 MCHC 33.5 RDW 13.6 Plt Count 324 Sodium 136 L Potassium 3.9 Chloride 107 Carbon Dioxide 16 L BUN 7 Creatinine 0.38 L Estimated GFR > 60.0 BUN/Creatinine Ratio 18.4 Glucose 211 H Calcium 9.1 Hepatitis A IgM Ab Negative Hep Bs Antigen Negative Hep B Core IgM Ab Negative Hepatitis C Antibody <0.1 Hep C Ab Signal/Cutoff Comment [facility] Medical History (Updated 01/09/21 @ 03:02 by Courtney Alan RN) Diabetes HSV (herpes simplex virus) anogenital infection Surgical History (Updated 01/09/21 @ 04:58 by KELY De Leon) History of wisdom tooth extraction Family History Mother Diabetes mellitus Congestive heart failure Father Parkinsons disease Social History household members: significant other and children Smoking Status: Current every day smoker alcohol intake: current Assessment & Plan Assessment & Plan narrative: Ms. Cullen is a 40W with diabetes who presents with intractable nausea and vomiting. 1. Intractable nausea and vomiting -etiology is likely acute gastritis, gastroesophageal reflux disease, verses diabetic gastroparesis -CT of the abdomen consistent with gastritis versus reflux -patient continues to be highly symptomatic -will continue IV fluids, clear liquid diet and advance ad tolerated, IV Reglan, IV Zofran, IV ppi, maalox -if no improvement consider upper endoscopy 2. Hypertension -added amlodipine 3. Type 2 diabetes, poorly controlled -patient previously on metformin, really needs insulin, added lantus -agree with diabetic Education, initiation of insulin Quality VTE Deep Vein Thrombosis/Pulmonary Embolism Present on Admission: No
[2021-01-10] MEDS: MAG HYDROX/ALUM/SIMETH 30 ML UDC PO (15:59)
--- NOTE | 2021-01-10 16:06 | PC.NURSE ---
Addendum entered by Chen Jang R.N. 01/10/21 22:17: pt receptive to care as shift progressed and apologized for earlier behavior. pt tearful and has many questions regarding health and medications. pt expressed discomfort to her pannus area (itchiness, odor and mild pain) upon assessment I found irritated moist areas to pannus, groin folds and vagina. Pillow case placed and alerted hospitalist. Original Note: Evening shift note. pt AO and verbally aggressive to nurse during initial conversation. NS running 150 to right forearm PIV. pt debates all care suggestions and refusing physical assessment at this time. pt reporting pressure-like pain from abdomen to esophagus and asking for pain medication. Does not associate a number to the pain. Refusing education and treatment option conversations and yelled at nurse when I suggested a warm shower or sitting up in bed. Administered Maalox at 1559. pt started raising her voice and communicated frustrations with lack of doctor communications since her admission. Friend in room.
[2021-01-10] MEDS: METOCLOPRAMIDE 10 MG/2 ML INJ IV (18:10)
[2021-01-10] MEDS: INSULIN GLARGINE 100 UNIT/ML 3ML PEN 15 UNIT SUBCUT (20:53)
[2021-01-10] MEDS: NYSTATIN SUSP 500,000 UNIT/5 ML UDC 500000 UNIT PO (22:49)
[2021-01-11 00:50] VITALS: O2SAT 97
[2021-01-11] MEDS: METOCLOPRAMIDE 10 MG/2 ML INJ IV ×2 (00:58→06:27)
[2021-01-11] MEDS: SODIUM CHLORIDE 0.9% 1,000 ML 150 ML IV ×2 (02:28→10:22)
[2021-01-11 04:00] VITALS: BP 149/90; PULSE 96; RESP 18; TEMP 36.8; O2SAT 97
[2021-01-11] MEDS: HYDROMORPHONE 0.5 MG INJ IV (04:46)
[2021-01-11 04:50] VITALS: O2SAT 97
[2021-01-11 05:23] LABS: BUN Creatinine Ratio 20.6 (6-22); Blood Urea Nitrogen 7 mg/dL (7-17); Calcium 8.9 mg/dL (8.4-10.2); Carbon Dioxide 19 mmol/L (22-32); Chloride 107 mmol/L (98-107); Estimated Glomerular Filt Rate > 60.0 mL/min (>60); Glucose 171 mg/dL (70-100); HEMOLYSIS < 15 (0-50); Potassium 3.8 mmol/L (3.4-5.1); Sodium 137 mmol/L (137-145)
[2021-01-11 08:00] VITALS: BP 143/81; PULSE 99; RESP 17; TEMP 36.6; O2SAT 98
[2021-01-11] MEDS: PANTOPRAZOLE 40 MG VIAL IV (08:10)
[2021-01-11] MEDS: ACETAMINOPHEN 325 MG TABLET 650 MG PO (08:10)
[2021-01-11] MEDS: NYSTATIN SUSP 500,000 UNIT/5 ML UDC 500000 UNIT PO (08:10)
[2021-01-11] MEDS: AMLODIPINE 5 MG TABLET PO (08:11)
[2021-01-11 10:35] VITALS: PULSE 99; RESP 16; O2SAT 98; O2SAT 99
--- NOTE | 2021-01-11 10:45 | PC.NURSE ---
Addendum entered by Raheem Romero R.N. 01/11/21 13:32: Pt, S.O. and son given d/c instructions. Iv d/c'd intact. Pt escorted to car with family by JERAMY Kemp. Original Note: Pt alert and oriented, restful. Up to shower, IV intact and patent.
--- NOTE | 2021-01-11 11:07 | PM.DS.1 ---
History of Present Illness History of Present Illness Chief complaint: High blood sugar. N/V/D. dehyrdrated Narrative: Per Dilma Portillo: Patient is a 40-year-old female Maddy Cullen who presented to the ED with a chief complaint of 24 hours nausea, vomiting, diarrhea generalized abdominal pain. She feels dizzy weak and lightheaded. She denies any fever or chills. She denies any obvious provocation or palliation of her discomfort. She does think that she missed a few doses of her metformin. Patient reports she has had approximately 4-5 liquid stool diarrhea. Completed admit exam down in the ED, nausea vomiting have continued as patient had just vomited. Patient states that she has been previously hospitalized for epigastric pain with constant burping without acid reflux into her mouth and lower GI bleed that did not require blood transfusion. Patient denies hematochezia, hemtaemesis, or hematuria. Patient denies history of hepatitis, alcohol abuse, are recent antibiotic use. She states that she may have a drink once or twice a year. She is having body aches but denies fever chills or recent illness. She has mild epigastric tenderness from left to right with palpation. Patient is resting comfortably in bed in no distress at this time. Patient has a history of non insulin-dependent type 2 diabetes. Patient denies any other medical condition. Patient does state that she may be and is concerned for STIs. Patient's vitals upon admit were stable with a BP of 148/77, mildly tachycardic HR 104, mildly tachypneic 28, with an O2 saturation are 97% on room air. Patient appears to be in early or borderline DKA with VBGs: PCO2 33.3, PO2 54, HC03 18, T CO2 19, O2 sat 86%, BE -7.0. Patient's serum HC03 was decreased at 14, creatinine 0.34 last documented creatinine was 0.42. Patient's blood sugar was 297, GFR was normal, patient had at sofa score: 0, no anion gap, patient was positive for urine ketones +3, and serum ketones 4.8. Patient demonstrated elevated WBC 20.3, with neutrophil 18,300, lactate was normal at 1.5. Patient had mildly elevated ALT of 37, and alk-phos 140, lipase was within normal limits, total protein 9.2, total bilirubin normal at 0.8, albumin was low at 5.2. CT of abdomen and pelvis demonstrated fluid-filled, distended stomach with mild antral wall thickening and mild diffuse mucosal hyperemia. This may indicate gastritis. No evidence of perforation. There is a distal esophageal wall thickening and edema consistent with esophagitis likely secondary to vomiting. Patient admitted for intractable nausea vomiting diarrhea and hyperglycemia. Discharge Providers Provider Date of admission: 01/08/21 20:05 Discharge Date: 01/11/21 Primary care physician: Rg Gaona PA-C Consults: 01/09/21 03:10 Consult to Dietitian, Adult Routine Comment: Reason For Exam: weight loss per pt report, unintentional Consult to Respiratory Therapy Evaluate & Treat Comment: Physician Instructions: Evaluate and treat Discharge provider: Zelalem Ricks MD Summary Hospital Course Discharge Diagnosis: 1. Nausea and vomiting with likely GERD/gastritis and esophagitis 2. Tobacco abuse 3. Type 2 diabetes, poorly controlled, started on insulin 4. Hypertension 5. Obesity, BMI 30.7 6. Hepatic steatosis Hospital Course: Ms. Cullen is a 40W with diabetes who presents with intractable nausea and vomiting. She was found to have a fluid filled stomach with mild antral wall thickening. She also had distal esophageal wall thickening. This most likely represents GERD/gastritis with esophagitis from stomach acid and vomiting. She was recommended to stop smoking and avoid alcohol, and other foods that can cause lower esophageal relaxation. She was started empirically on a PPI and given maalox for symptoms. She was told that she should follow up closely with her PCP after discharge as she may need an EGD in the future if her symptoms do not resolve. In addition her a1c>12 and she was only on metformin. She had insulin started to her medication regimen and will need close follow up to determine the right dose of insulin for her going forward. She also had hypertension in the hospital, which may be secondary to her discomfort, but should follow this as an outpatient to see if she needs to start on anti-hypertensive medications. Exam Vital Signs (past 8 hours): Oxygen Delivery Method Room Air Oxygen Flow Rate 0 Narrative Exam Narrative: GEN: no acute distress, ill appearing CV: tachycardic no murmurs PULM: clear bilaterally with no wheezes ABD: mildly tender, soft, nondistended, no rebound/guarding, no organomegaly, normal bowel sounds EXT: warm and well perfused with no edema Objective Labs Result Diagrams: 01/10/21 10:25 01/11/21 04:35 [facility] Medical History (Updated 01/09/21 @ 03:02 by Courtney Alan RN) Diabetes HSV (herpes simplex virus) anogenital infection Surgical History (Updated 01/09/21 @ 04:58 by [facility] History of wisdom tooth extraction Family History Mother Diabetes mellitus Congestive heart failure Father Parkinsons disease Social History household members: significant other and children Smoking Status: Current every day smoker alcohol intake: current Discharge Plan Discharge Plan Patient Disposition: Home Provider Discharge Comment: Ms. Cullen was admitted with stomach, esophagus discomfort, reflux, nausea. This is likely related to high acid levels in the stomach that reflux into the esophagus. She should avoid spicy foods, alcohol, chocolate, nicotine/smoking. She is given acid reducing medications for her reflux. She also has out of control diabetes. She will be started on insulin. She should follow up with her doctor within a week for additional treatment. Discharge orders & Medications Prescriptions: New acetaminophen 325 mg Tablet 650 mg PO Q4HR PRN (Reason: As Needed For Fever/Mild Pain) Qty: 20 RF: 0 Lantus Solostar U-100 Insulin 100 unit/mL (3 mL) Insulin Pen 15 unit SUBCUT BEDTIME Qty: 3 RF: 0 pantoprazole [Protonix] 40 mg tablet,delayed release (DR/EC) 40 mg PO BID Qty: 60 RF: 0 alum-mag hydroxide-simeth [Mag-Al Plus] 200-200-20 mg/5 mL suspension 30 ml PO Q6HR PRN (Reason: Dyspepsia) Qty: 500 RF: 0 Continued metformin 1,000 mg tablet extended release 24hr 1,000 mg PO BID RF: 0 Discontinued omeprazole magnesium [Prilosec OTC] 20 MG tablet,delayed release (DR/EC) 20 mg PO PRN PRN (Reason: Heartburn) RF: 0 Follow up/Referrals: Noa Ayala PA-C [Non-Staff] - Visit Report/Discharge Packet Instructions: Gastritis, DI for Gastritis, DI for Prescription Opioid Use Discharge Data Primary Care Provider: Rg Gaona Quality VTE Deep Vein Thrombosis/Pulmonary Embolism Present on Admission: No MIPS - DC The patient has current or prior documentation of left ventricular ejection fraction (LVEF) less than 40%, or moderate or severely depressed left ventricular systolic function.: No
[2021-01-11] MEDS: KETOCONAZOLE 2% CREAM 15 GM 1 APPLIC TOP (11:14)
[2021-01-11 12:00] VITALS: BP 133/93; PULSE 97; RESP 18; TEMP 37.2; O2SAT 98
[2021-01-11] MEDS: INSULIN LISPRO 100 UNIT/ML 3ML VIAL SUBCUT (13:17)
== END 2021-01-11 13:30 | disposition home or self-care (01) | DRG 241 ==
LOC: ED 14:36 → AC 01-09 03:02
PROVIDERS: Internal Medicine; Admitting Provider Nurse Practitioner Family; Emergency Provider Emergency Medicine; PCP Physician Assistant Medical; Referring Provider Emergency Medicine; Visit Provider Nurse Practitioner Family
DX: R11.2 Nausea with vomiting, unspecified (principal); E11.65 Type 2 diabetes mellitus with hyperglycemia; E66.9 Obesity, unspecified; F17.210 Nicotine dependence, cigarettes, uncomplicated; I10 Essential (primary) hypertension; K76.0 Fatty (change of) liver, not elsewhere classified; Z68.30 Body mass index [BMI] 30.0-30.9, adult; Z20.822 Contact with and (suspected) exposure to COVID-19; Z79.84 Long term (current) use of oral hypoglycemic drugs
CPT/HCPCS: 36415; 71045; 74177; 76705; 80048; 80053; 80061; 80074; 80329; 81001; 81003; 81025; 82009; 82140; 82533; 82805; 82962; 83036; 83605; 83690; 83735; 83880; 83986; 84145; 85025; 85027; 87040; 87086; 87491; 87591; 87635; 93005; 94760; 96361; 96374; 96375; 99284; C9803; G0378; C9113; G0480; J1170; J1815; J2405; J2765; Q9967

== ENCOUNTER 2021-03-19 18:40 | Emergency (ER) | payer OTHER, MEDICAID, SELFPAY ==
[2021-01-09 03:02] VITALS: BMI 30.7
[2021-03-19] VITALS (11 sets, daily range): BP systolic 117–168; BP diastolic 67–91; PULSE 89–113; RESP 12–18; TEMP 36.6; O2SAT 95–100; BMI 29.2
--- NOTE | 2021-03-19 19:37 | ED.GIBLEED ---
HPI - GI Bleed <Rolando Florez PA-C - Last Filed: 03/19/21 19:42> General Chief complaint: GI Bleed Stated complaint: Sweating, Puking Up Blood,HX Stomach Ulcers Time Seen by Provider: 03/19/21 19:09 Source: patient Mode of arrival: Ambulatory History of Present Illness HPI Narrative: Maddy presents today with chief complaint upper abdominal pain and vomiting which started yesterday. She reports that she had a few episodes of vomiting blood. Today she has not had any episodes of vomiting and reports a little bit of improvement in her symptoms. However, she called her PCP and was trying to get a follow-up appointment for next week and they recommended that she come here to the emergency department. She had a similar episode 2 months ago with vomiting and diarrhea which required hospitalization. She denies any chest pain, exertional symptoms, sore throat, headache, fever, urinary symptoms, diarrhea, constipation or any other acute concerns or complaints at this time. Related Data Home Medications Medication Instructions Recorded Confirmed metformin 1,000 mg tablet,extended 1,000 mg PO BID 01/09/21 01/09/21 release 24hr Previous Rx's Medication Instructions Recorded acetaminophen 325 mg tablet 650 mg PO Q4HR PRN #20 tab 01/11/21 aluminum-mag hydroxide-simethicone 30 ml PO Q6HR PRN #500 ml 01/11/21 200 mg-200 mg-20 mg/5 mL oral susp (Mag-Al Plus) insulin glargine 100 unit/mL (3 15 unit SUBCUT BEDTIME #3 ml 01/11/21 mL) subcutaneous pen (Lantus Solostar U-100 Insulin) pantoprazole 40 mg tablet,delayed 40 mg PO BID #60 tab 01/11/21 release (Protonix) hydrocodone 5 mg-acetaminophen 325 1 tab PO Q4-6H PRN #10 tab 03/20/21 mg tablet ondansetron 4 mg disintegrating 4 mg PO TID-QID PRN #10 tab 03/20/21 tablet Allergies Allergy/AdvReac Type Severity Reaction Status Date / Time aspirin AdvReac Verified 03/19/21 19:01 Review of Systems <Rolando Florez PA-C - Last Filed: 03/19/21 19:42> Review of Systems Narrative: As per HPI Patient History <Rolando Florez PA-C - Last Filed: 03/19/21 19:42> Medical History (Updated 03/20/21 @ 00:18 by Solomon Mendez DO) Diabetes HSV (herpes simplex virus) anogenital infection Surgical History (Updated 01/09/21 @ 04:58 by KELY De Leon) History of wisdom tooth extraction Family History Mother Diabetes mellitus Congestive heart failure Father Parkinsons disease Social History household members: significant other and children Smoking Status: Current every day smoker alcohol intake: current Smoking Status: Current every day smoker tobacco type: cigarettes alcohol intake frequency: holidays/special occasions only Substance Use Type: does not use Exam <Rolando Florez PA-C - Last Filed: 03/19/21 19:42> Narrative Exam Narrative: Exam Narrative: Const General: cooperative, healthy appearing, comfortable, no acute distress, well developed and well groomed Nutritional Appearance: average body habitus Orientation: alert and oriented x3 HENMT Head: normal to inspection and atraumatic Ears: hearing grossly normal bilaterally Nose: external nose normal and nares normal Face and sinus: normal facial exam Neck Neck: normal visual inspection and supple Resp Effort & Inspection: normal respiratory effort, able to speak in complete sentences, no audible wheezes, not labored, no nasal flaring and no respiratory distress, clear to auscultation bilaterally Cardiac tachycardic rate and regular rhythm, no murmurs, rubs or gallops GI Nondistended, no masses noted, negative Alexander sign, mild epigastric tenderness with palpation. Neuro General: alert, oriented x3, gait normal, tone normal and moves all extremities Cognition: normal cognition Speech: speech normal Gait: normal gait Psych Appearance: grossly normal and well kempt Mental Status: mental status grossly normal Speech and Movement: speech and movement normal Mood: congruent mood Affect: normal affect Initial Vital Signs Initial Vital Signs: Vital Signs Temperature 97.8 F 03/19/21 18:56 Pulse Rate 113 H 03/19/21 18:56 Respiratory Rate 12 03/19/21 18:56 Blood Pressure 128/81 03/19/21 18:56 Pulse Oximetry 98 03/19/21 18:56 <Solomon Mendez DO - Last Filed: 03/20/21 07:34> Initial Vital Signs Initial Vital Signs: Vital Signs Temperature 97.8 F 03/19/21 18:56 Pulse Rate 113 H 03/19/21 18:56 Respiratory Rate 12 03/19/21 18:56 Blood Pressure 128/81 03/19/21 18:56 Pulse Oximetry 98 03/19/21 18:56 Course <Rolando Florez PA-C - Last Filed: 03/19/21 19:42> Orders Ordered: Discontinued Medications Hydrocodone Bitart/Acetaminophen (Hydrocodone/Acet 5/325 Prepack) 1 bottle MISC SEEINSTR ONE Stop: 03/20/21 00:19 Last Admin: 03/20/21 00:31 Dose: 1 bottle Documented by: ATAYLOR Sodium Chloride (Normal Saline 0.9%) 1,000 mls @ 1,000 mls/hr IV BOLUS ONE Stop: 03/19/21 20:31 Last Infusion: 03/19/21 21:00 Dose: 0 mls/hr Documented by: Admin: 03/19/21 19:55 Dose: 1,000 mls/hr Documented by: ATAYLOR Ondansetron HCl (Ondansetron 4 Mg/2 Ml Inj) 4 mg IV Q4HR PRN PRN Reason: Nausea And Vomiting Last Admin: 03/19/21 19:55 Dose: 4 mg Documented by: ATAYLOR Ondansetron HCl (Ondansetron 4 Mg Odt Prepack) 1 bottle MISC SEEINSTR ONE Stop: 03/20/21 00:19 Last Admin: 03/20/21 00:32 Dose: 1 bottle Documented by: ATAYLOR Vital Signs Vital signs: Vital Signs - 8 hr 03/19/21 23:43 03/20/21 00:00 03/20/21 00:30 Pulse Rate 96 H 88 94 H Blood Pressure 132/67 Pulse Oximetry 96 96 95 <Solomon Mendez DO - Last Filed: 03/20/21 07:34> Orders Ordered: Discontinued Medications Hydrocodone Bitart/Acetaminophen (Hydrocodone/Acet 5/325 Prepack) 1 bottle MISC SEEINSTR ONE Stop: 03/20/21 00:19 Last Admin: 03/20/21 00:31 Dose: 1 bottle Documented by: ATAYLOR Sodium Chloride (Normal Saline 0.9%) 1,000 mls @ 1,000 mls/hr IV BOLUS ONE Stop: 03/19/21 20:31 Last Infusion: 03/19/21 21:00 Dose: 0 mls/hr Documented by: JOSE J Admin: 03/19/21 19:55 Dose: 1,000 mls/hr Documented by: JOSE J Ondansetron HCl (Ondansetron 4 Mg/2 Ml Inj) 4 mg IV Q4HR PRN PRN Reason: Nausea And Vomiting Last Admin: 03/19/21 19:55 Dose: 4 mg Documented by: JOSE J Ondansetron HCl (Ondansetron 4 Mg Odt Prepack) 1 bottle MISC SEEINSTR ONE Stop: 03/20/21 00:19 Last Admin: 03/20/21 00:32 Dose: 1 bottle Documented by: JOSE J Vital Signs Vital signs: Vital Signs - 8 hr 03/19/21 23:43 03/20/21 00:00 03/20/21 00:30 Pulse Rate 96 H 88 94 H Blood Pressure 132/67 Pulse Oximetry 96 96 95 MDM - GI Bleed <Rolando Florez PA-C - Last Filed: 03/19/21 19:42> Lab Data Result diagrams: 03/19/21 19:20 03/19/21 19:20 Labs: Lab Results 03/19/21 03/19/21 03/19/21 Range/Units 19:20 19:20 19:20 WBC 17.8 H (4.5-11.0) X10^3/uL RBC 5.45 H (4.0-5.2) X10^6/uL Hgb 16.2 H (12.0-16.0) g/dL Hct 47.8 H (36-46) % MCV 87.6 (80-100) fL MCH 29.7 (26-34) PG MCHC 33.9 (30-36) % RDW 13.7 (11.6-14.8) % Plt Count 427 H (150-400) X10^3/uL Neut % (Auto) 70.7 (50-75) % Lymph % (Auto) 20.9 L (25-40) % [place] % (Auto) 6.6 (3-14) % Eos % (Auto) 0.5 L (2-4) % Baso % (Auto) 1.3 (0-2) % Neut # (Auto) 98964 H (9653-0484) /uL Lymph # (Auto) 3700 (0227-8640) /uL [place] # (Auto) 1200 H (0-900) /uL Eos # (Auto) 100 (0-450) /uL Baso # (Auto) 200 H (0-100) /uL VBG pH (7.33-7.43) VBG pCO2 (45-50) mmHg VBG pO2 (35-45) mmHg VBG HCO3 (23-28) mmol/L VBG Total CO2 (24-29) mmol/L VBG O2 Saturation (70-75) % VBG Base Excess (0-4) mmol/L Sodium 138 (137-145) mmol/L Potassium 3.6 (3.4-5.1) mmol/L Chloride 101 (98-107) mmol/L Carbon Dioxide 25 (22-32) mmol/L BUN 24 H (7-17) mg/dL Creatinine 0.68 (0.52-1.04) mg/dL Estimated GFR > 60.0 (>60) mL/min BUN/Creatinine Ratio 35.3 H (6-22) Glucose 170 H (70-100) mg/dL Lactate (0.7-2.1) mmol/L Calcium 9.5 (8.4-10.2) mg/dL Total Bilirubin 0.5 (0.2-1.3) mg/dL AST 25 (14-36) IU/L ALT 23 (<35) IU/L Alkaline Phosphatase 83 (38-126) U/L Total Protein 8.7 H (6.3-8.2) g/dL Albumin 5.1 H (3.5-5.0) g/dL Globulin 3.6 (1.7-4.1) g/dL Albumin/Globulin Ratio 1.4 (1.0-2.8) Urine Color Urine Appearance Urine pH (4.5-8.0) Ur Specific [place] (1.000-1.035) Urine Protein (Negative) Urine Glucose (UA) (Negative) g/dL Urine Ketones (NEGATIVE) Urine Occult Blood (Negative) Urine Nitrate (Negative) Urine Bilirubin (NEGATIVE) Urine Urobilinogen (0.2) E.U./dL Ur Leukocyte Esterase (NEGATIVE) Urine RBC (0-5/HPF) Urine WBC (0-5/HPF) Ur Squamous Epith Cells (0-5/HPF) Urine Bacteria (None) Hyaline Casts (None) Ur Culture Indicated? Ketones (<0.27) mmol/L SARS-CoV-2 (PCR) (Negative) Blood Type O Positive Antibody Screen Negative 03/19/21 03/19/21 03/19/21 Range/Units 19:20 19:20 20:00 WBC (4.5-11.0) X10^3/uL RBC (4.0-5.2) X10^6/uL Hgb (12.0-16.0) g/dL Hct (36-46) % MCV (80-100) fL MCH (26-34) PG MCHC (30-36) % RDW (11.6-14.8) % Plt Count (150-400) X10^3/uL Neut % (Auto) (50-75) % Lymph % (Auto) (25-40) % [place] % (Auto) (3-14) % Eos % (Auto) (2-4) % Baso % (Auto) (0-2) % Neut # (Auto) (0226-7828) /uL Lymph # (Auto) (6605-4974) /uL [place] # (Auto) (0-900) /uL Eos # (Auto) (0-450) /uL Baso # (Auto) (0-100) /uL VBG pH (7.33-7.43) VBG pCO2 (45-50) mmHg VBG pO2 (35-45) mmHg VBG HCO3 (23-28) mmol/L VBG Total CO2 (24-29) mmol/L VBG O2 Saturation (70-75) % VBG Base Excess (0-4) mmol/L Sodium (137-145) mmol/L Potassium (3.4-5.1) mmol/L Chloride (98-107) mmol/L Carbon Dioxide (22-32) mmol/L BUN (7-17) mg/dL Creatinine (0.52-1.04) mg/dL Estimated GFR (>60) mL/min BUN/Creatinine Ratio (6-22) Glucose (70-100) mg/dL Lactate 1.5 (0.7-2.1) mmol/L Calcium (8.4-10.2) mg/dL Total Bilirubin (0.2-1.3) mg/dL AST (14-36) IU/L ALT (<35) IU/L Alkaline Phosphatase (38-126) U/L Total Protein (6.3-8.2) g/dL Albumin (3.5-5.0) g/dL Globulin (1.7-4.1) g/dL Albumin/Globulin Ratio (1.0-2.8) Urine Color Urine Appearance Urine pH (4.5-8.0) Ur Specific [place] (1.000-1.035) Urine Protein (Negative) Urine Glucose (UA) (Negative) g/dL Urine Ketones (NEGATIVE) Urine Occult Blood (Negative) Urine Nitrate (Negative) Urine Bilirubin (NEGATIVE) Urine Urobilinogen (0.2) E.U./dL Ur Leukocyte Esterase (NEGATIVE) Urine RBC (0-5/HPF) Urine WBC (0-5/HPF) Ur Squamous Epith Cells (0-5/HPF) Urine Bacteria (None) Hyaline Casts (None) Ur Culture Indicated? Ketones 0.12 (<0.27) mmol/L SARS-CoV-2 (PCR) Negative (Negative) Blood Type Antibody Screen 03/19/21 03/19/21 Range/Units 20:58 21:34 WBC (4.5-11.0) X10^3/uL RBC (4.0-5.2) X10^6/uL Hgb (12.0-16.0) g/dL Hct (36-46) % MCV (80-100) fL MCH (26-34) PG MCHC (30-36) % RDW (11.6-14.8) % Plt Count (150-400) X10^3/uL Neut % (Auto) (50-75) % Lymph % (Auto) (25-40) % [place] % (Auto) (3-14) % Eos % (Auto) (2-4) % Baso % (Auto) (0-2) % Neut # (Auto) (0218-0776) /uL Lymph # (Auto) (1261-6125) /uL [place] # (Auto) (0-900) /uL Eos # (Auto) (0-450) /uL Baso # (Auto) (0-100) /uL VBG pH 7.40 (7.33-7.43) VBG pCO2 42.9 L (45-50) mmHg VBG pO2 45 (35-45) mmHg VBG HCO3 27 (23-28) mmol/L VBG Total CO2 28 (24-29) mmol/L VBG O2 Saturation 80 H (70-75) % VBG Base Excess 2.0 (0-4) mmol/L Sodium (137-145) mmol/L Potassium (3.4-5.1) mmol/L Chloride (98-107) mmol/L Carbon Dioxide (22-32) mmol/L BUN (7-17) mg/dL Creatinine (0.52-1.04) mg/dL Estimated GFR (>60) mL/min BUN/Creatinine Ratio (6-22) Glucose (70-100) mg/dL Lactate (0.7-2.1) mmol/L Calcium (8.4-10.2) mg/dL Total Bilirubin (0.2-1.3) mg/dL AST (14-36) IU/L ALT (<35) IU/L Alkaline Phosphatase (38-126) U/L Total Protein (6.3-8.2) g/dL Albumin (3.5-5.0) g/dL Globulin (1.7-4.1) g/dL Albumin/Globulin Ratio (1.0-2.8) Urine Color Yellow Urine Appearance Clear Urine pH 5.0 (4.5-8.0) Ur Specific [place] 1.020 (1.000-1.035) Urine Protein 2+ H (Negative) Urine Glucose (UA) Negative (Negative) g/dL Urine Ketones Negative (NEGATIVE) Urine Occult Blood Negative (Negative) Urine Nitrate Negative (Negative) Urine Bilirubin Negative (NEGATIVE) Urine Urobilinogen 0.2 (0.2) E.U./dL Ur Leukocyte Esterase Trace H (NEGATIVE) Urine RBC None seen (0-5/HPF) Urine WBC 1-5/hpf (0-5/HPF) Ur Squamous Epith Cells 1-5 /hpf (0-5/HPF) Urine Bacteria Few (2-10) H (None) Hyaline Casts 0-1/lpf (None) Ur Culture Indicated? Specimen cultured Ketones (<0.27) mmol/L SARS-CoV-2 (PCR) (Negative) Blood Type Antibody Screen Point of Care Testing Test Results Negative Glucose POC 85 Urine Dip Bedside Urine Glucose Negative Bedside Urine Bilirubin - Negative Bedside Urine Ketone - Negative Urine Specific [place] 1.030 Bedside Urine Occult Blood - Negative Bedside Urine pH 6.0 Bedside Urine Protein + 30 Bedside Urine Urobilinogen - Negative Bedside Urine Nitrite - Negative Bedside Urine Leukocytes - Negative Esterase <Solomon Mendez DO - Last Filed: 03/20/21 07:34> Lab Data Labs: Lab Results 03/19/21 03/19/21 03/19/21 Range/Units 19:20 19:20 19:20 WBC 17.8 H (4.5-11.0) X10^3/uL RBC 5.45 H (4.0-5.2) X10^6/uL Hgb 16.2 H (12.0-16.0) g/dL Hct 47.8 H (36-46) % MCV 87.6 (80-100) fL MCH 29.7 (26-34) PG MCHC 33.9 (30-36) % RDW 13.7 (11.6-14.8) % Plt Count 427 H (150-400) X10^3/uL Neut % (Auto) 70.7 (50-75) % Lymph % (Auto) 20.9 L (25-40) % [place] % (Auto) 6.6 (3-14) % Eos % (Auto) 0.5 L (2-4) % Baso % (Auto) 1.3 (0-2) % Neut # (Auto) 01447 H (6569-0189) /uL Lymph # (Auto) 3700 (8255-0375) /uL [place] # (Auto) 1200 H (0-900) /uL Eos # (Auto) 100 (0-450) /uL Baso # (Auto) 200 H (0-100) /uL VBG pH (7.33-7.43) VBG pCO2 (45-50) mmHg VBG pO2 (35-45) mmHg VBG HCO3 (23-28) mmol/L VBG Total CO2 (24-29) mmol/L VBG O2 Saturation (70-75) % VBG Base Excess (0-4) mmol/L Sodium 138 (137-145) mmol/L Potassium 3.6 (3.4-5.1) mmol/L Chloride 101 (98-107) mmol/L Carbon Dioxide 25 (22-32) mmol/L BUN 24 H (7-17) mg/dL Creatinine 0.68 (0.52-1.04) mg/dL Estimated GFR > 60.0 (>60) mL/min BUN/Creatinine Ratio 35.3 H (6-22) Glucose 170 H (70-100) mg/dL Lactate (0.7-2.1) mmol/L Calcium 9.5 (8.4-10.2) mg/dL Total Bilirubin 0.5 (0.2-1.3) mg/dL AST 25 (14-36) IU/L ALT 23 (<35) IU/L Alkaline Phosphatase 83 (38-126) U/L Total Protein 8.7 H (6.3-8.2) g/dL Albumin 5.1 H (3.5-5.0) g/dL Globulin 3.6 (1.7-4.1) g/dL Albumin/Globulin Ratio 1.4 (1.0-2.8) Urine Color Urine Appearance Urine pH (4.5-8.0) Ur Specific [place] (1.000-1.035) Urine Protein (Negative) Urine Glucose (UA) (Negative) g/dL Urine Ketones (NEGATIVE) Urine Occult Blood (Negative) Urine Nitrate (Negative) Urine Bilirubin (NEGATIVE) Urine Urobilinogen (0.2) E.U./dL Ur Leukocyte Esterase (NEGATIVE) Urine RBC (0-5/HPF) Urine WBC (0-5/HPF) Ur Squamous Epith Cells (0-5/HPF) Urine Bacteria (None) Hyaline Casts (None) Ur Culture Indicated? Ketones (<0.27) mmol/L SARS-CoV-2 (PCR) (Negative) Blood Type O Positive Antibody Screen Negative 03/19/21 03/19/21 03/19/21 Range/Units 19:20 19:20 20:00 WBC (4.5-11.0) X10^3/uL RBC (4.0-5.2) X10^6/uL Hgb (12.0-16.0) g/dL Hct (36-46) % MCV (80-100) fL MCH (26-34) PG MCHC (30-36) % RDW (11.6-14.8) % Plt Count (150-400) X10^3/uL Neut % (Auto) (50-75) % Lymph % (Auto) (25-40) % [place] % (Auto) (3-14) % Eos % (Auto) (2-4) % Baso % (Auto) (0-2) % Neut # (Auto) (5356-3334) /uL Lymph # (Auto) (0958-4591) /uL [place] # (Auto) (0-900) /uL Eos # (Auto) (0-450) /uL Baso # (Auto) (0-100) /uL VBG pH (7.33-7.43) VBG pCO2 (45-50) mmHg VBG pO2 (35-45) mmHg VBG HCO3 (23-28) mmol/L VBG Total CO2 (24-29) mmol/L VBG O2 Saturation (70-75) % VBG Base Excess (0-4) mmol/L Sodium (137-145) mmol/L Potassium (3.4-5.1) mmol/L Chloride (98-107) mmol/L Carbon Dioxide (22-32) mmol/L BUN (7-17) mg/dL Creatinine (0.52-1.04) mg/dL Estimated GFR (>60) mL/min BUN/Creatinine Ratio (6-22) Glucose (70-100) mg/dL Lactate 1.5 (0.7-2.1) mmol/L Calcium (8.4-10.2) mg/dL Total Bilirubin (0.2-1.3) mg/dL AST (14-36) IU/L ALT (<35) IU/L Alkaline Phosphatase (38-126) U/L Total Protein (6.3-8.2) g/dL Albumin (3.5-5.0) g/dL Globulin (1.7-4.1) g/dL Albumin/Globulin Ratio (1.0-2.8) Urine Color Urine Appearance Urine pH (4.5-8.0) Ur Specific [place] (1.000-1.035) Urine Protein (Negative) Urine Glucose (UA) (Negative) g/dL Urine Ketones (NEGATIVE) Urine Occult Blood (Negative) Urine Nitrate (Negative) Urine Bilirubin (NEGATIVE) Urine Urobilinogen (0.2) E.U./dL Ur Leukocyte Esterase (NEGATIVE) Urine RBC (0-5/HPF) Urine WBC (0-5/HPF) Ur Squamous Epith Cells (0-5/HPF) Urine Bacteria (None) Hyaline Casts (None) Ur Culture Indicated? Ketones 0.12 (<0.27) mmol/L SARS-CoV-2 (PCR) Negative (Negative) Blood Type Antibody Screen 03/19/21 03/19/21 Range/Units 20:58 21:34 WBC (4.5-11.0) X10^3/uL RBC (4.0-5.2) X10^6/uL Hgb (12.0-16.0) g/dL Hct (36-46) % MCV (80-100) fL MCH (26-34) PG MCHC (30-36) % RDW (11.6-14.8) % Plt Count (150-400) X10^3/uL Neut % (Auto) (50-75) % Lymph % (Auto) (25-40) % [place] % (Auto) (3-14) % Eos % (Auto) (2-4) % Baso % (Auto) (0-2) % Neut # (Auto) (6822-7994) /uL Lymph # (Auto) (1672-1223) /uL [place] # (Auto) (0-900) /uL Eos # (Auto) (0-450) /uL Baso # (Auto) (0-100) /uL VBG pH 7.40 (7.33-7.43) VBG pCO2 42.9 L (45-50) mmHg VBG pO2 45 (35-45) mmHg VBG HCO3 27 (23-28) mmol/L VBG Total CO2 28 (24-29) mmol/L VBG O2 Saturation 80 H (70-75) % VBG Base Excess 2.0 (0-4) mmol/L Sodium (137-145) mmol/L Potassium (3.4-5.1) mmol/L Chloride (98-107) mmol/L Carbon Dioxide (22-32) mmol/L BUN (7-17) mg/dL Creatinine (0.52-1.04) mg/dL Estimated GFR (>60) mL/min BUN/Creatinine Ratio (6-22) Glucose (70-100) mg/dL Lactate (0.7-2.1) mmol/L Calcium (8.4-10.2) mg/dL Total Bilirubin (0.2-1.3) mg/dL AST (14-36) IU/L ALT (<35) IU/L Alkaline Phosphatase (38-126) U/L Total Protein (6.3-8.2) g/dL Albumin (3.5-5.0) g/dL Globulin (1.7-4.1) g/dL Albumin/Globulin Ratio (1.0-2.8) Urine Color Yellow Urine Appearance Clear Urine pH 5.0 (4.5-8.0) Ur Specific [place] 1.020 (1.000-1.035) Urine Protein 2+ H (Negative) Urine Glucose (UA) Negative (Negative) g/dL Urine Ketones Negative (NEGATIVE) Urine Occult Blood Negative (Negative) Urine Nitrate Negative (Negative) Urine Bilirubin Negative (NEGATIVE) Urine Urobilinogen 0.2 (0.2) E.U./dL Ur Leukocyte Esterase Trace H (NEGATIVE) Urine RBC None seen (0-5/HPF) Urine WBC 1-5/hpf (0-5/HPF) Ur Squamous Epith Cells 1-5 /hpf (0-5/HPF) Urine Bacteria Few (2-10) H (None) Hyaline Casts 0-1/lpf (None) Ur Culture Indicated? Specimen cultured Ketones (<0.27) mmol/L SARS-CoV-2 (PCR) (Negative) Blood Type Antibody Screen Point of Care Testing Test Results Negative Glucose POC 85 Urine Dip Bedside Urine Glucose Negative Bedside Urine Bilirubin - Negative Bedside Urine Ketone - Negative Urine Specific [place] 1.030 Bedside Urine Occult Blood - Negative Bedside Urine pH 6.0 Bedside Urine Protein + 30 Bedside Urine Urobilinogen - Negative Bedside Urine Nitrite - Negative Bedside Urine Leukocytes - Negative Esterase MDM Narrative Medical decision making narrative: Patient presents with epigastric pain nausea and vomiting. She has a very reassuring physical exam and response to therapies. Her labs are stable, vital signs are stable, imaging is unremarkable. Her pain is well controlled. She is tolerating oral hydration. She has a EGD scheduled for next month and other appropriate follow-up is accessible. She has been given return precautions and questions have been answered to her apparent satisfaction Discharge Plan Departure Patient Disposition: Home Clinical Impression: Acute epigastric pain Vomiting Qualifiers: Vomiting type: unspecified Vomiting Intractability: non-intractable Nausea presence: with nausea Qualified Code(s): R11.2 - Nausea with vomiting, unspecified Activity Restrictions/Additional Instructions: *You have been diagnosed with [epigastric pain and vomiting, likely due to increased acid production in the stomach and GI tract *What to do: *Please continue to take your regular medications as directed. [ x] New medication prescriptions sent to your pharmacy: [ ] [ ] New medication written as a paper prescription [ ] No new medications given *Please follow up with your primary care provider in 2-3 days, call for an appointment. Let them know you were seen in the Emergency Department and that we ask that you be seen in follow up. We will electronically transmit a record of today's note if your PCP is in our system * please consider a clear liquid diet for the next 24-48 hours and then advance slowly as tolerated. Continue to avoid alcohol, significant caffeine, acidic or spicy foods *Return to Emergency Department if you should have any new, worsening or concerning symptoms, such as [fever greater than 101 F, shaking chills, worsening pain, persistent vomiting or other bothersome symptoms] Prescriptions: New hydrocodone-acetaminophen 5-325 mg tablet 1 tab PO Q4-6H PRN (Reason: pain) Qty: 10 RF: 0 ondansetron 4 mg tablet,disintegrating 4 mg PO TID-QID PRN (Reason: nausea and vomiting) Qty: 10 RF: 0 No Action metformin 1,000 mg tablet extended release 24hr 1,000 mg PO BID RF: 0 acetaminophen 325 mg Tablet 650 mg PO Q4HR PRN (Reason: As Needed For Fever/Mild Pain) Qty: 20 RF: 0 Lantus Solostar U-100 Insulin 100 unit/mL (3 mL) Insulin Pen 15 unit SUBCUT BEDTIME Qty: 3 RF: 0 pantoprazole [Protonix] 40 mg tablet,delayed release (DR/EC) 40 mg PO BID Qty: 60 RF: 0 alum-mag hydroxide-simeth [Mag-Al Plus] 200-200-20 mg/5 mL suspension 30 ml PO Q6HR PRN (Reason: Dyspepsia) Qty: 500 RF: 0
[2021-03-19 19:39] LABS: Add Manual Diff / Slide Review NO; Basophils Absolute Auto 200 /uL (0-100); Basophils Percent Auto 1.3 % (0-2); Eosinophils Absolute Auto 100 /uL (0-450); Eosinophils Percent Auto 0.5 % (2-4); Hematocrit 47.8 % (36-46); Hemoglobin 16.2 g/dL (12.0-16.0); Lymphocytes Absolute Auto 3700 /uL (1100-4500); Lymphocytes Percent Auto 20.9 % (25-40); Mean Corpuscular HGB Conc 33.9 % (30-36); Mean Corpuscular Hemoglobin 29.7 PG (26-34); Mean Corpuscular Volume 87.6 fL (80-100); Monocytes Absolute Auto 1200 /uL (0-900); Monocytes Percent Auto 6.6 % (3-14); Neutrophils Absolute Auto 12600 /uL (1500-7000); Neutrophils Percent Auto 70.7 % (50-75); Platelet Count 427 X10^3/uL (150-400); Red Blood Cell Count 5.45 X10^6/uL (4.0-5.2); Red Cell Distribution Width 13.7 % (11.6-14.8); White Blood Cell Count 17.8 X10^3/uL (4.5-11.0)
[2021-03-19 19:46] LABS: Alanine Aminotransferase 23 IU/L (<35); Albumin 5.1 g/dL (3.5-5.0); Albumin Globulin Ratio 1.4 (1.0-2.8); Alkaline Phosphatase 83 U/L (38-126); Aspartate Aminotransferase 25 IU/L (14-36); BUN Creatinine Ratio 35.3 (6-22); Bilirubin Total 0.5 mg/dL (0.2-1.3); Blood Urea Nitrogen 24 mg/dL (7-17); Calcium 9.5 mg/dL (8.4-10.2); Carbon Dioxide 25 mmol/L (22-32); Chloride 101 mmol/L (98-107); Estimated Glomerular Filt Rate > 60.0 mL/min (>60); Globulin 3.6 g/dL (1.7-4.1); Glucose 170 mg/dL (70-100); HEMOLYSIS < 15 (0-50); Potassium 3.6 mmol/L (3.4-5.1); Sodium 138 mmol/L (137-145); Total Protein 8.7 g/dL (6.3-8.2)
[2021-03-19] MEDS: ONDANSETRON 4 MG/2 ML INJ IV (19:55)
[2021-03-19] MEDS: SODIUM CHLORIDE 0.9% 1,000 ML 1000 ML IV (19:55)
[2021-03-19 20:11] LABS: Ketones (Beta-Hydroxybutyrate) 0.12 mmol/L (<0.27)
[2021-03-19 20:13] LABS: Lactate (Lactic Acid) 1.5 mmol/L (0.7-2.1)
[2021-03-19 20:36] LABS: COVID19 -Nasal RAPID Negative (Negative)
--- NOTE | 2021-03-19 20:54 | DI.CT.S_ITS ---
PROCEDURE: CT ABDOMEN PELVIS W CON INDICATIONS: abdominal pain TECHNIQUE: After the administration of intravenous contrast, axial sections acquired from the lung bases to the pubic symphysis. Coronal and sagittal reformats were performed. For radiation dose reduction, the following was used: automated exposure control, adjustment of mA and/or kV according to patient size. COMPARISON: [facility], CT, CT ABDOMEN PELVIS W CON, 01/08/2021, 18:51. FINDINGS: Image quality: Excellent. Lung bases: Unremarkable. Heart: No significant findings. ABDOMEN: Liver: Diffuse hepatic steatosis is improved relative to the previous study. Mild hepatomegaly.. Gallbladder: Unremarkable. Biliary ducts: Unremarkable. Pancreas: Unremarkable. Spleen: Unremarkable. Adrenal Glands: Unremarkable. Kidneys and Ureters: Unremarkable. Stomach and Bowel: Mild sigmoid diverticulosis. Normal appendix. No acute bowel pathology identified. Distal esophageal wall thickening is somewhat improved compared to the previous study. Peritoneum: No abnormal intraperitoneal fluid. No free air. Ventral Wall: Fat containing ventral wall hernia, as before.. Abdominal Nodes: No retroperitoneal or mesenteric adenopathy by size criteria. Vessels: Aorta and inferior vena cava are normal in size. PELVIS: Pelvic Organs: Cystic left adnexa. A cyst measures 2.8 cm. Bladder: Unremarkable. Pelvic Nodes: No enlarged lymph nodes. Miscellaneous: No hernias are seen. Bones: Lumbar degenerative change. IMPRESSION: 1. Improving diffuse hepatic steatosis. Mild hepatomegaly. 2. No evidence of acute abdominal process. 3. Fat containing ventral hernia. 4. Improved diffuse thickening of the distal esophagus. Dictated by: Aren Pompa M.D. on 03/19/2021 at 21:52 Approved by: Aren Pompa M.D. on 03/19/2021 at 21:57
[2021-03-19 21:45] LABS: Appearance Urine UA CLEAR; Bilirubin Urine UA NEGATIVE (NEGATIVE); Color Urine UA YELLOW; Glucose Urine UA NEGATIVE (Negative); Ketones Urine UA NEGATIVE (NEGATIVE); Leukocyte Esterase Urine UA TRACE (NEGATIVE); Nitrite Urine UA NEGATIVE (Negative); Occult Blood Urine UA NEGATIVE (Negative); Protein Urine UA 2+ (Negative); Urobilinogen Urine UA 0.2 E.U./dL (0.2)
[2021-03-19 21:53] LABS: RBC Urine None Seen (0-5/HPF)
[2021-03-19 21:54] LABS: Squamous Epithelial Cell Urine 1-5 /HPF (0-5/HPF); WBC Urine 1-5/HPF (0-5/HPF)
[2021-03-19 21:55] LABS: Bacteria Urine Few (2-10); Culture Indicated Urine Specimen Cultured; Hyaline Casts Urine 0-1/LPF
[2021-03-20] VITALS: PULSE 88; O2SAT 96
[2021-03-20 00:30] VITALS: PULSE 94; O2SAT 95
[2021-03-20] MEDS: HYDROCODONE/ACET 5/325 PREPACK 1 BOTTLE MISC (00:31)
[2021-03-20] MEDS: ONDANSETRON 4 MG ODT PREPACK 1 BOTTLE MISC (00:32)
[2021-03-20 03:27] LABS: HCO3 VBG 27 mmol/L (23-28); PCO2 VBG 42.9 mmHg (45-50); PO2 VBG 45 mmHg (35-45); Total CO2 VBG 28 mmol/L (24-29)
[2021-03-20 03:28] LABS: Oxygen Saturation VBG 80 % (70-75)
== END 2021-03-20 00:38 | disposition home or self-care (01) ==
PROVIDERS: Physician Assistant; Emergency Provider Emergency Medicine
DX: R10.13 Epigastric pain (principal); R11.2 Nausea with vomiting, unspecified; Z20.822 Contact with and (suspected) exposure to COVID-19
CPT/HCPCS: 36415; 74177; 80053; 81001; 81003; 81025; 82009; 82805; 82962; 83605; 85025; 86850; 86900; 86901; 87086; 87635; 96361; 96374; 99284; C9803; J2405; Q9967

== ENCOUNTER 2022-06-22 05:49 | Emergency (ER) | payer OTHER, MEDICAID, SELFPAY ==
[2021-01-09 03:02] VITALS: BMI 30.7
[2022-06-22] VITALS (16 sets, daily range): BP systolic 126–190; BP diastolic 63–102; PULSE 95–125; RESP 16–27; TEMP 37.2; O2SAT 94–99
--- NOTE | 2022-06-22 10:41 | DI.CT.S_ITS ---
PROCEDURE: CT ABDOMEN PELVIS W CON INDICATIONS: Left lower quadrant pain, diverticulitis TECHNIQUE: After the administration of intravenous contrast, axial sections acquired from the lung bases to the pubic symphysis. Coronal and sagittal reformats were performed. For radiation dose reduction, the following was used: automated exposure control, adjustment of mA and/or kV according to patient size. COMPARISON: [facility], CT, CT ABDOMEN PELVIS W CON, 03/19/2021, 21:27. FINDINGS: Lower thorax: The lung bases are clear. Heart size normal. No hiatal hernia. Liver: The liver is diffusely decreased in attenuation without focal mass lesion. Biliary system: No calcified cholelithiasis or pericholecystic inflammation. No intra or extrahepatic bile duct dilatation. Pancreas: Unremarkable without mass or inflammation evident. Spleen: Normal in size and density. Adrenals: Normal morphology and density. Reproductive system: Unremarkable as visualized. Urinary system: Normal renal size and attenuation. No renal calculi, hydronephrosis, or solid mass present. Urinary bladder unremarkable. Gastrointestinal system: The bowel is unremarkable without evidence of bowel obstruction or inflammation. The stomach appears unremarkable. Multiple diverticula arise from the sigmoid colon without evidence of diverticulitis. Appendix: No findings to suggest acute appendicitis. Peritoneal spaces: No mesenteric or retroperitoneal adenopathy. No free air. No free fluid. Vasculature: The IVC, aorta and iliac vasculature are unremarkable. Abdominal wall: Small ventral hernia measures 2.5 cm, and contains fat without bowel involvement Musculoskeletal: Normal bone mineralization. No acute fractures. 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 Diverticulosis without evidence of diverticulitis 2. Additional chronic findings as above Approved by: Srinivasan Perry M.D. on 06/22/2022 at 11:24
[2022-06-22 10:48] LABS: Add Manual Diff / Slide Review NO; Basophils Absolute Auto 100 /uL (0-100); Basophils Percent Auto 0.6 % (0-2); Eosinophils Absolute Auto 0 /uL (0-450); Eosinophils Percent Auto 0.1 % (2-4); Hematocrit 50.2 % (36-46); Hemoglobin 16.9 g/dL (12.0-16.0); Lymphocytes Absolute Auto 4800 /uL (1100-4500); Lymphocytes Percent Auto 21.1 % (25-40); Mean Corpuscular HGB Conc 33.7 % (30-36); Mean Corpuscular Hemoglobin 29.3 PG (26-34); Mean Corpuscular Volume 86.9 fL (80-100); Monocytes Absolute Auto 1100 /uL (0-900); Monocytes Percent Auto 4.7 % (3-14); Neutrophils Absolute Auto 16900 /uL (1500-7000); Neutrophils Percent Auto 73.5 % (50-75); Platelet Count 432 X10^3/uL (150-400); Red Blood Cell Count 5.78 X10^6/uL (4.0-5.2); Red Cell Distribution Width 13.3 % (11.6-14.8); White Blood Cell Count 22.9 X10^3/uL (4.5-11.0)
[2022-06-22] MEDS: SODIUM CHLORIDE 0.9% 1,000 ML 1000 ML IV ×2 (10:50→14:19)
[2022-06-22] MEDS: METOCLOPRAMIDE 10 MG/2 ML INJ IV (10:50)
--- NOTE | 2022-06-22 10:50 | ED.NAVMDI ---
HPI - Nausea/Vomiting/Diarrhea General Chief complaint: Nausea/Vomiting/Diarrhea Stated complaint: n/v possible ulcers Time Seen by Provider: 06/22/22 10:34 Source: patient Mode of arrival: Ambulatory History of Present Illness HPI Narrative: 41-year-old female presenting with nausea, vomiting, and diarrhea. Patient reports symptoms since Tuesday, developed initially watery stools and watery diarrhea, cramping type abdominal pain, this has localized somewhat to the left lower quadrant of the abdomen, patient does have history of prior diverticulitis. Patient reports developing blood-tinged stools over the last 24-48 hours. Patient reports multiple prior similar presentation for similar symptoms. No measured fevers. Related Data Home Medications Medication Instructions Recorded Confirmed metformin 1,000 mg tablet,extended 1,000 mg PO BID 01/09/21 01/09/21 release 24hr Previous Rx's Medication Instructions Recorded acetaminophen 325 mg tablet 650 mg PO Q4HR PRN As Needed For 01/11/21 Fever/Mild Pain #20 tabs aluminum-mag hydroxide-simethicone 30 ml PO Q6HR PRN Dyspepsia #500 mL 01/11/21 200 mg-200 mg-20 mg/5 mL oral susp (Mag-Al Plus) insulin glargine 100 unit/mL (3 15 unit (0.15 mL) SUBCUT BEDTIME 01/11/21 mL) subcutaneous pen (Lantus #3 mL Solostar U-100 Insulin) pantoprazole 40 mg tablet,delayed 40 mg PO BID #60 tabs 01/11/21 release (Protonix) hydrocodone 5 mg-acetaminophen 325 1 tab PO Q4-6H PRN pain #10 tabs 03/20/21 mg tablet ondansetron 4 mg disintegrating 4 mg PO TID-QID PRN nausea and 03/20/21 tablet vomiting #10 tabs Allergies Allergy/AdvReac Type Severity Reaction Status Date / Time aspirin AdvReac Verified 03/19/21 19:01 Review of Systems Review of Systems Narrative: Constitutional, Eyes, ENT, Pulmonary, Cardiovascular, Gastrointestinal, Renal, Endocrine, Genitourinary, Musculoskeletal, Neurologic, Skin, and Psychiatric systems were reviewed and negative unless indicated in the HPI above. Patient History Medical History Diabetes HSV (herpes simplex virus) anogenital infection Surgical History History of wisdom tooth extraction Family History Mother Diabetes mellitus Congestive heart failure Father Parkinsons disease Social History household members: significant other and children Smoking Status: Current every day smoker alcohol intake: current Smoking Status: Current every day smoker tobacco type: cigarettes alcohol intake frequency: holidays/special occasions only Substance Use Type: marijuana Exam Narrative Exam Narrative: Vitals reviewed. Nursing note reviewed Constitutional: interactive HENT: Moist mucous membranes EYES: No scleral icterus NECK: no masses CV: Well perfused peripherally, no cyanosis present PULM: Unlabored respirations, symmetric chest rise ABD: Non-distended, tender over the left lower quadrant MS: No gross deformities, no asymmetric edema noted SKIN: Warm and dry. PSYCH: Appropriate affect NEURO: Follows simple commands, moves extremities, interactive with exam Initial Vital Signs Initial Vital Signs: Vital Signs Temperature 99 F 06/22/22 05:57 Pulse Rate 115 H 06/22/22 05:57 Respiratory Rate 20 06/22/22 05:57 Blood Pressure 190/90 H 06/22/22 05:57 Pulse Oximetry 94 06/22/22 05:57 Oxygen Delivery Method 06/22/22 05:57 Course Orders Ordered: Discontinued Medications Acetaminophen (Acetaminophen 325 Mg Tablet) 650 mg PO NOW ONE Stop: 06/22/22 12:07 Last Admin: 06/22/22 12:30 Dose: 650 mg Documented By: APOLLO Sodium Chloride (Normal Saline 0.9%) 1,000 mls @ 1,000 mls/hr IV BOLUS ONE Stop: 06/22/22 11:40 Last Infusion: 06/22/22 11:30 Dose: 0 mls/hr Documented By: Admin: 06/22/22 10:50 Dose: 1,000 mls/hr Documented By: APOLLO Ciprofloxacin (Cipro) 400 mg in 200 mls @ 200 mls/hr IV NOW ONE Stop: 06/22/22 11:51 Last Infusion: 06/22/22 12:37 Dose: 0 mls/hr Documented By: Admin: 06/22/22 11:25 Dose: 200 mls/hr Documented By: APOLLO Metronidazole (Flagyl) 500 mg in 100 mls @ 100 mls/hr IV NOW ONE Stop: 06/22/22 11:51 Last Admin: 06/22/22 12:36 Dose: Not Given Documented By: APOLLO Sodium Chloride (Normal Saline 0.9%) 1,000 mls @ 1,000 mls/hr IV BOLUS ONE Stop: 06/22/22 15:03 Last Infusion: 06/22/22 15:32 Dose: 0 mls/hr Documented By: Admin: 06/22/22 14:19 Dose: 1,000 mls/hr Documented By: NORTH Metoclopramide HCl (Metoclopramide 10 Mg/2 Ml Inj) 10 mg IV NOW ONE Stop: 06/22/22 10:42 Last Admin: 06/22/22 10:50 Dose: 10 mg Documented By: APOLLO Prochlorperazine (Prochlorperazine 10 Mg/2 Ml Vial) 10 mg IV NOW ONE Stop: 06/22/22 14:06 Last Admin: 06/22/22 14:19 Dose: 10 mg Documented By: NORTH Vital Signs Vital signs: Vital Signs - 8 hr 06/22/22 05:57 Temperature 99 F Pulse Rate 115 H Respiratory Rate 20 Blood Pressure 190/90 H Pulse Oximetry 94 Oxygen Delivery Method Room Air MDM - Nausea/Vomiting/Diarrhea Lab Data Result diagrams: 06/22/22 10:33 06/22/22 15:00 Labs: Lab Results 06/22/22 06/22/22 06/22/22 Range/Units 10:33 10:33 10:33 WBC 22.9 H (4.5-11.0) X10^3/uL RBC 5.78 H (4.0-5.2) X10^6/uL Hgb 16.9 H (12.0-16.0) g/dL Hct 50.2 H (36-46) % MCV 86.9 (80-100) fL MCH 29.3 (26-34) PG MCHC 33.7 (30-36) % RDW 13.3 (11.6-14.8) % Plt Count 432 H (150-400) X10^3/uL Neut % (Auto) 73.5 (50-75) % Lymph % (Auto) 21.1 L (25-40) % [place] % (Auto) 4.7 (3-14) % Eos % (Auto) 0.1 L (2-4) % Baso % (Auto) 0.6 (0-2) % Neut # (Auto) 77904 H (4426-6567) /uL Lymph # (Auto) 4800 H (8288-9013) /uL [place] # (Auto) 1100 H (0-900) /uL Eos # (Auto) 0 (0-450) /uL Baso # (Auto) 100 (0-100) /uL Sodium 130 L (137-145) mmol/L Potassium 3.6 (3.4-5.1) mmol/L Chloride 85 L (98-107) mmol/L Carbon Dioxide 28 (22-32) mmol/L BUN 24 H (7-17) mg/dL Creatinine 0.63 (0.52-1.04) mg/dL Estimated GFR > 60 (>60) mL/min BUN/Creatinine Ratio 38.1 H (6-22) Glucose 395 H (70-100) mg/dL Lactate 1.5 (0.7-2.1) mmol/L Calcium 9.0 (8.4-10.2) mg/dL Total Bilirubin 1.3 (0.2-1.3) mg/dL AST 34 (14-36) IU/L ALT 31 (<35) IU/L Alkaline Phosphatase 136 H (38-126) U/L Total Protein 9.3 H (6.3-8.2) g/dL Albumin 5.1 H (3.5-5.0) g/dL Globulin 4.2 H (1.7-4.1) g/dL Albumin/Globulin Ratio 1.2 (1.0-2.8) Lipase 104 (23-300) U/L SARS-CoV-2 (PCR) (Negative) Influenza A (RT-PCR) (NEGATIVE) Influenza B (RT-PCR) (NEGATIVE) RSV (PCR) (Negative) 06/22/22 06/22/22 Range/Units 11:00 15:00 WBC (4.5-11.0) X10^3/uL RBC (4.0-5.2) X10^6/uL Hgb (12.0-16.0) g/dL Hct (36-46) % MCV (80-100) fL MCH (26-34) PG MCHC (30-36) % RDW (11.6-14.8) % Plt Count (150-400) X10^3/uL Neut % (Auto) (50-75) % Lymph % (Auto) (25-40) % [place] % (Auto) (3-14) % Eos % (Auto) (2-4) % Baso % (Auto) (0-2) % Neut # (Auto) (6059-7092) /uL Lymph # (Auto) (9349-4897) /uL [place] # (Auto) (0-900) /uL Eos # (Auto) (0-450) /uL Baso # (Auto) (0-100) /uL Sodium 133 L (137-145) mmol/L Potassium 3.0 L (3.4-5.1) mmol/L Chloride 95 L (98-107) mmol/L Carbon Dioxide 28 (22-32) mmol/L BUN 18 H (7-17) mg/dL Creatinine 0.54 (0.52-1.04) mg/dL Estimated GFR > 60 (>60) mL/min BUN/Creatinine Ratio 33.3 H (6-22) Glucose 276 H D (70-100) mg/dL Lactate (0.7-2.1) mmol/L Calcium 7.6 L (8.4-10.2) mg/dL Total Bilirubin (0.2-1.3) mg/dL AST (14-36) IU/L ALT (<35) IU/L Alkaline Phosphatase (38-126) U/L Total Protein (6.3-8.2) g/dL Albumin (3.5-5.0) g/dL Globulin (1.7-4.1) g/dL Albumin/Globulin Ratio (1.0-2.8) Lipase (23-300) U/L SARS-CoV-2 (PCR) Negative (Negative) Influenza A (RT-PCR) Flu a negative (NEGATIVE) Influenza B (RT-PCR) Flu b negative (NEGATIVE) RSV (PCR) Negative (Negative) Urine Dip Bedside Urine Glucose 1000 mg/dl Bedside Urine Bilirubin - Negative Bedside Urine Ketone +++ 80 Urine Specific [place] 1.015 Bedside Urine Occult Blood +++ Bedside Urine pH 6.0 Bedside Urine Protein +/- 15 Bedside Urine Urobilinogen - Negative Bedside Urine Nitrite - Negative Bedside Urine Leukocytes - Negative Esterase MDM Narrative Medical decision making narrative: 41-year-old female presenting with nausea, vomiting, and diarrhea. Patient reports symptoms have been ongoing last several days, patient history of multiple similar prior presentations. Vital signs on presentation notable for hypertension. Physical exam notable alert and interactive 41-year-old female in no distress, reassuring cardiopulmonary exam, benign abdomen. Initial concern for acute intra-abdominal pathology including pancreatitis, biliary pathology, obstruction, gastroenteritis, mass lesion, viral syndrome, focal bacterial infection, occult penile specific pelvic pathology. Broad screening labs were obtained and notable for leukocytosis with hemoconcentration as above, CMP notable for hyperglycemia without clear evidence of diabetic ketoacidosis. Patient is treated symptomatically with IV fluids and antiemetics. CT imaging completed of the abdomen and pelvis without clear evidence of diverticulitis, patient does have diverticulosis and chronic findings as documented. On repeat evaluation, patient with significant improvement in symptoms, able tolerate p.o. intake without difficulty, agreeable with for discharge and close outpatient follow up. Patient instructed on return precautions and close outpatient follow up primary care provider . Discharge Plan Departure Patient Disposition: Home Clinical Impression: Intractable nausea and vomiting, Diabetes Instructions: Nausea and Vomiting-Adult Activity Restrictions/Additional Instructions: Please follow up in the outpatient setting with your primary care provider. Please take the anti nausea medications as discussed. Please return to the emergency department if you develop recurrent nausea and vomiting. Prescriptions: No Action metformin 1,000 mg tablet extended release 24hr 1,000 mg PO BID acetaminophen 325 mg Tablet 650 mg PO Q4HR PRN (Reason: As Needed For Fever/Mild Pain) Qty: 20 0RF Lantus Solostar U-100 Insulin 100 unit/mL (3 mL) Insulin Pen 15 unit SUBCUT BEDTIME Qty: 3 0RF pantoprazole [Protonix] 40 mg tablet,delayed release (DR/EC) 40 mg PO BID Qty: 60 0RF alum-mag hydroxide-simeth [Mag-Al Plus] 200-200-20 mg/5 mL suspension 30 ml PO Q6HR PRN (Reason: Dyspepsia) Qty: 500 0RF hydrocodone-acetaminophen 5-325 mg tablet 1 tab PO Q4-6H PRN (Reason: pain) Qty: 10 0RF ondansetron 4 mg tablet,disintegrating 4 mg PO TID-QID PRN (Reason: nausea and vomiting) Qty: 10 0RF Stand Alone Forms: Patient Portal/API
[2022-06-22 11:02] LABS: Alanine Aminotransferase 31 IU/L (<35); Albumin 5.1 g/dL (3.5-5.0); Albumin Globulin Ratio 1.2 (1.0-2.8); Alkaline Phosphatase 136 U/L (38-126); Aspartate Aminotransferase 34 IU/L (14-36); BUN Creatinine Ratio 38.1 (6-22); Bilirubin Total 1.3 mg/dL (0.2-1.3); Blood Urea Nitrogen 24 mg/dL (7-17); Carbon Dioxide 28 mmol/L (22-32); Chloride 85 mmol/L (98-107); Estimated Glomerular Filt Rate > 60 mL/min (>60); Globulin 4.2 g/dL (1.7-4.1); Glucose 395 mg/dL (70-100); Lipase 104 U/L (23-300); Potassium 3.6 mmol/L (3.4-5.1); Sodium 130 mmol/L (137-145); Total Protein 9.3 g/dL (6.3-8.2)
[2022-06-22 11:03] LABS: HEMOLYSIS 72 (0-50)
[2022-06-22 11:14] LABS: Lactate (Lactic Acid) 1.5 mmol/L (0.7-2.1)
[2022-06-22] MEDS: CIPROFLOXACIN 400 MG/200 ML PIGGYBACK 200 MG IV (11:25)
[2022-06-22 11:51] LABS: COVID-19 CEPHEID 4-PLEX PCR Negative (Negative); Influenza A - CEPHEID Flu A NEGATIVE (NEGATIVE); Influenza B - CEPHEID Flu B NEGATIVE (NEGATIVE); Respiratory Syncytial Virus Negative (Negative)
[2022-06-22] MEDS: ACETAMINOPHEN 325 MG TABLET 650 MG PO (12:30)
[2022-06-22] MEDS: PROCHLORPERAZINE 10 MG/2 ML VIAL IV (14:19)
[2022-06-22 15:20] LABS: BUN Creatinine Ratio 33.3 (6-22); Blood Urea Nitrogen 18 mg/dL (7-17); Calcium 7.6 mg/dL (8.4-10.2); Carbon Dioxide 28 mmol/L (22-32); Chloride 95 mmol/L (98-107); Estimated Glomerular Filt Rate > 60 mL/min (>60); Glucose 276 mg/dL (70-100); HEMOLYSIS < 15 (0-50); Sodium 133 mmol/L (137-145)
== END 2022-06-22 16:38 | disposition home or self-care (01) ==
PROVIDERS: Emergency Provider Emergency Medicine
DX: R11.2 Nausea with vomiting, unspecified (principal); R19.7 Diarrhea, unspecified; E11.9 Type 2 diabetes mellitus without complications; Z79.899 Other long term (current) drug therapy; Z20.822 Contact with and (suspected) exposure to COVID-19
CPT/HCPCS: 0241U; 36415; 74177; 80048; 80053; 81003; 83605; 83690; 85025; 93005; 93010; 96361; 96365; 96375; 99284; J0744; J0780; J2765

== ENCOUNTER 2022-10-05 13:48 | Emergency (ER) | payer OTHER, MEDICAID, SELFPAY ==
[2021-01-09 03:02] VITALS: BMI 30.7
[2022-10-05] VITALS (17 sets, daily range): BP systolic 172–231; BP diastolic 75–104; PULSE 111–135; RESP 16–24; TEMP 36.3–36.9; O2SAT 93–100; BMI 33.0
[2022-10-05 15:00] LABS: Eosinophils Absolute Auto 0 /uL (0-450); Eosinophils Percent Auto 0.1 % (2-4); Hemoglobin 17.2 g/dL (12.0-16.0); Lymphocytes Absolute Auto 1300 /uL (1100-4500); Monocytes Absolute Auto 600 /uL (0-900); Red Cell Distribution Width 14.3 % (11.6-14.8)
[2022-10-05 15:07] LABS: Add Manual Diff / Slide Review NO; Basophils Absolute Auto 0 /uL (0-100); Basophils Percent Auto 0.1 % (0-2); Hematocrit 50.2 % (36-46); Lymphocytes Percent Auto 5.7 % (25-40); Mean Corpuscular HGB Conc 34.3 % (30-36); Mean Corpuscular Hemoglobin 29.6 PG (26-34); Mean Corpuscular Volume 86.3 fL (80-100); Monocytes Percent Auto 2.6 % (3-14); Neutrophils Absolute Auto 20700 /uL (1500-7000); Neutrophils Percent Auto 91.5 % (50-75); Platelet Count 460 X10^3/uL (150-400); Red Blood Cell Count 5.82 X10^6/uL (4.0-5.2); White Blood Cell Count 22.6 X10^3/uL (4.5-11.0)
[2022-10-05 15:10] LABS: Alanine Aminotransferase 31 IU/L (<35); Albumin 5.5 g/dL (3.5-5.0); Albumin Globulin Ratio 1.3 (1.0-2.8); Alkaline Phosphatase 141 U/L (38-126); Aspartate Aminotransferase 24 IU/L (14-36); BUN Creatinine Ratio 20.2 (6-22); Blood Urea Nitrogen 17 mg/dL (7-17); Calcium 10.3 mg/dL (8.4-10.2); Carbon Dioxide 15 mmol/L (22-32); Chloride 90 mmol/L (98-107); Estimated Glomerular Filt Rate > 60 mL/min (>60); Globulin 4.4 g/dL (1.7-4.1); Glucose 352 mg/dL (70-100); HEMOLYSIS < 15 (0-50); Potassium 3.6 mmol/L (3.4-5.1); Sodium 134 mmol/L (137-145); Total Protein 9.9 g/dL (6.3-8.2)
[2022-10-05 15:12] LABS: Fractionated Inspired Oxygen 21; HCO3 VBG 19 mmol/L (24-28); Oxygen Saturation VBG 86 % (70-75); PCO2 VBG 25.2 mmHg (45-50); PO2 VBG 46 mmHg (35-45); Total CO2 VBG 19 mmol/L (24-29); pH VBG 7.47 (7.33-7.43)
[2022-10-05] MEDS: SODIUM CHLORIDE 0.9% 1,000 ML 1000 ML IV ×2 (15:18→18:09)
[2022-10-05] MEDS: ONDANSETRON 4 MG/2 ML INJ IV (15:18)
[2022-10-05 15:22] LABS: Troponin I < 0.012 ng/mL (0.01-0.034)
[2022-10-05 16:23] LABS: Influenza A - CEPHEID Flu A NEGATIVE (NEGATIVE); Influenza B - CEPHEID Flu B NEGATIVE (NEGATIVE); Respiratory Syncytial Virus Negative (Negative)
[2022-10-05 16:24] LABS: COVID-19 CEPHEID 4-PLEX PCR Negative (Negative)
--- NOTE | 2022-10-05 16:29 | ED_ITS ---
HPI - Nausea/Vomiting/Diarrhea General Chief complaint: Nausea/Vomiting/Diarrhea Stated complaint: V blood/pain in chest/weak/cant keep liquids down Time Seen by Provider: 10/05/22 14:37 Source: patient Mode of arrival: Wheelchair Related Data Home Medications Medication Instructions Recorded Confirmed metformin 1,000 mg tablet,extended 1,000 mg PO BID 01/09/21 01/09/21 release 24hr Previous Rx's Medication Instructions Recorded acetaminophen 325 mg tablet 650 mg PO Q4HR PRN As Needed For 01/11/21 Fever/Mild Pain #20 tabs aluminum-mag hydroxide-simethicone 30 ml PO Q6HR PRN Dyspepsia #500 mL 01/11/21 200 mg-200 mg-20 mg/5 mL oral susp (Mag-Al Plus) insulin glargine 100 unit/mL (3 15 unit (0.15 mL) SUBCUT BEDTIME 01/11/21 mL) subcutaneous pen (Lantus #3 mL Solostar U-100 Insulin) pantoprazole 40 mg tablet,delayed 40 mg PO BID #60 tabs 01/11/21 release (Protonix) hydrocodone 5 mg-acetaminophen 325 1 tab PO Q4-6H PRN pain #10 tabs 03/20/21 mg tablet ondansetron 4 mg disintegrating 4 mg PO TID-QID PRN nausea and 03/20/21 tablet vomiting #10 tabs Allergies Allergy/AdvReac Type Severity Reaction Status Date / Time aspirin AdvReac Verified 03/19/21 19:01 Patient History Medical History Diabetes HSV (herpes simplex virus) anogenital infection Surgical History History of wisdom tooth extraction Family History Mother Diabetes mellitus Congestive heart failure Father Parkinsons disease Social History household members: significant other and children Smoking Status: Current every day smoker alcohol intake: current Smoking Status: Current every day smoker tobacco type: cigarettes alcohol intake frequency: holidays/special occasions only Substance Use Type: marijuana Exam Initial Vital Signs Initial Vital Signs: Vital Signs Temperature 97.3 F L 04/25/23 14:00 Pulse Rate 135 H 10/05/22 14:00 Respiratory Rate 24 10/05/22 14:00 Blood Pressure 191/104 H 10/05/22 14:00 Pulse Oximetry 100 10/05/22 14:00 Oxygen Delivery Method Room Air 10/05/22 14:00 Course Orders Ordered: ED Orders 10/05/22 14:08 EKG-12 Lead Stat 10/05/22 14:43 VBG [Venous Blood Gas] Stat 10/05/22 14:45 Complete Blood Count AUTO DIFF Stat Comprehensive Metabolic Panel Stat Troponin I Stat 10/05/22 15:15 Covid-19 + FLU A/B + RSV - PCR Stat 10/05/22 15:18 Ictotest Urine Stat Urinalysis and Microscopic Stat 10/05/22 16:54 XR chest 1V Stat 10/05/22 18:24 CT abdomen pelvis w con Stat 10/05/22 18:31 Test Urine Stat 10/05/22 19:27 Lactate (Lactic Acid) Stat Discontinued Medications Sodium Chloride (Normal Saline 0.9%) 1,000 mls @ 1,000 mls/hr IV BOLUS ONE Stop: 10/05/22 15:04 Last Infusion: 10/05/22 17:16 Dose: 0 mls/hr Documented By: Admin: 10/05/22 15:18 Dose: 1,000 mls/hr Documented By: CASE Sodium Chloride (Normal Saline 0.9%) 1,000 mls @ 1,000 mls/hr IV BOLUS ONE Stop: 10/05/22 18:17 Last Admin: 10/05/22 18:09 Dose: 1,000 mls/hr Documented By: NR Metoclopramide HCl (Metoclopramide 10 Mg/2 Ml Inj) 10 mg IV NOW ONE Stop: 10/05/22 17:18 Last Admin: 10/05/22 18:09 Dose: 10 mg Documented By: NR Morphine Sulfate (Morphine 4 Mg/Ml Inj) 4 mg IV NOW ONE Stop: 10/05/22 17:27 Last Admin: 10/05/22 18:09 Dose: 4 mg Documented By: NR Ondansetron HCl (Ondansetron 4 Mg/2 Ml Inj) 4 mg IV NOW ONE Stop: 10/05/22 14:06 Last Admin: 10/05/22 15:18 Dose: 4 mg Documented By: SPF Vital Signs Vital signs: Vital Signs - 8 hr 10/05/22 14:00 10/05/22 16:25 10/05/22 16:25 Temperature 97.3 F L Pulse Rate 135 H 124 H Respiratory Rate 24 Blood Pressure 191/104 H 206/92 H Pulse Oximetry 100 97 Oxygen Delivery Method Room Air 10/05/22 16:27 10/05/22 16:27 10/05/22 16:30 Temperature Pulse Rate 121 H Respiratory Rate Blood Pressure 205/91 H 195/89 H Pulse Oximetry 98 Oxygen Delivery Method 10/05/22 16:30 10/05/22 17:00 10/05/22 17:00 Temperature Pulse Rate 122 H 131 H Respiratory Rate 22 Blood Pressure 204/92 H Pulse Oximetry 99 100 Oxygen Delivery Method Room Air 10/05/22 17:05 10/05/22 17:30 10/05/22 17:43 Temperature Pulse Rate 128 H 118 H Respiratory Rate Blood Pressure 225/95 H Pulse Oximetry 99 100 Oxygen Delivery Method 10/05/22 17:44 10/05/22 17:44 10/05/22 18:00 Temperature Pulse Rate 117 H 111 H Respiratory Rate Blood Pressure 201/89 H Pulse Oximetry 99 93 Oxygen Delivery Method 10/05/22 18:01 10/05/22 18:01 10/05/22 18:11 Temperature Pulse Rate 115 H Respiratory Rate Blood Pressure 231/100 H 191/85 H Pulse Oximetry 95 Oxygen Delivery Method 10/05/22 18:11 10/05/22 18:30 10/05/22 18:31 Temperature Pulse Rate 124 H 117 H 119 H Respiratory Rate Blood Pressure Pulse Oximetry 99 98 98 Oxygen Delivery Method 10/05/22 18:31 10/05/22 19:00 10/05/22 19:00 Temperature Pulse Rate 124 H Respiratory Rate Blood Pressure 191/75 H 172/76 H Pulse Oximetry 99 Oxygen Delivery Method 10/05/22 19:30 10/05/22 19:30 10/05/22 20:01 Temperature 98.5 F Pulse Rate 120 H 111 H Respiratory Rate 16 Blood Pressure 186/104 H 210/98 H Pulse Oximetry 99 Oxygen Delivery Method Room Air MDM - Nausea/Vomiting/Diarrhea Lab Data 10/05/22 14:45 04/25/23 14:45 Labs: Lab Results 10/05/22 10/05/22 10/05/22 Range/Units 14:43 14:45 14:45 WBC 22.6 H (4.5-11.0) X10^3/uL RBC 5.82 H (4.0-5.2) X10^6/uL Hgb 17.2 H (12.0-16.0) g/dL Hct 50.2 H (36-46) % MCV 86.3 (80-100) fL MCH 29.6 (26-34) PG MCHC 34.3 (30-36) % RDW 14.3 (11.6-14.8) % Plt Count 460 H (150-400) X10^3/uL Neut % (Auto) 91.5 H (50-75) % Lymph % (Auto) 5.7 L (25-40) % [place] % (Auto) 2.6 L (3-14) % Eos % (Auto) 0.1 L (2-4) % Baso % (Auto) 0.1 (0-2) % Neut # (Auto) 50239 H (0680-5022) /uL Lymph # (Auto) 1300 (6187-4911) /uL [place] # (Auto) 600 (0-900) /uL Eos # (Auto) 0 (0-450) /uL Baso # (Auto) 0 (0-100) /uL VBG pH 7.47 H (7.33-7.43) VBG pCO2 25.2 L (45-50) mmHg VBG pO2 46 H (35-45) mmHg VBG HCO3 19 L (24-28) mmol/L VBG Total CO2 19 L (24-29) mmol/L VBG O2 Saturation 86 H (70-75) % VBG Base Excess -5.0 L (0-4) mmol/L FiO2 21 Sodium (137-145) mmol/L Potassium (3.4-5.1) mmol/L Chloride (98-107) mmol/L Carbon Dioxide (22-32) mmol/L BUN (7-17) mg/dL Creatinine (0.52-1.04) mg/dL Estimated GFR (>60) mL/min BUN/Creatinine Ratio (6-22) Glucose (70-100) mg/dL Lactate (0.7-2.1) mmol/L Calcium (8.4-10.2) mg/dL Total Bilirubin (0.2-1.3) mg/dL AST (14-36) IU/L ALT (<35) IU/L Alkaline Phosphatase (38-126) U/L Troponin I < 0.012 (0.01-0.034) ng/mL Total Protein (6.3-8.2) g/dL Albumin (3.5-5.0) g/dL Globulin (1.7-4.1) g/dL Albumin/Globulin Ratio (1.0-2.8) Urine Color Urine Appearance Urine pH (4.5-8.0) Ur Specific [place] (1.000-1.035) Urine Protein (Negative) Urine Glucose (UA) (Negative) g/dL Urine Ketones (NEGATIVE) Urine Occult Blood (Negative) Urine Nitrate (Negative) Urine Bilirubin (NEGATIVE) Ur Bilirubin Confirm (Negative) Urine Urobilinogen (0.2) E.U./dL Ur Leukocyte Esterase (NEGATIVE) Urine RBC (0-5/HPF) Urine WBC (0-5/HPF) Ur Squamous Epith Cells (0-5/HPF) Urine Bacteria (None) Hyaline Casts (None) Ur Culture Indicated? Urine Test (Negative) SARS-CoV-2 (PCR) (Negative) Influenza A (RT-PCR) (NEGATIVE) Influenza B (RT-PCR) (NEGATIVE) RSV (PCR) (Negative) 10/05/22 10/05/22 10/05/22 Range/Units 14:45 14:45 15:15 WBC (4.5-11.0) X10^3/uL RBC (4.0-5.2) X10^6/uL Hgb (12.0-16.0) g/dL Hct (36-46) % MCV (80-100) fL MCH (26-34) PG MCHC (30-36) % RDW (11.6-14.8) % Plt Count (150-400) X10^3/uL Neut % (Auto) (50-75) % Lymph % (Auto) (25-40) % [place] % (Auto) (3-14) % Eos % (Auto) (2-4) % Baso % (Auto) (0-2) % Neut # (Auto) (4207-4922) /uL Lymph # (Auto) (3544-2270) /uL [place] # (Auto) (0-900) /uL Eos # (Auto) (0-450) /uL Baso # (Auto) (0-100) /uL VBG pH (7.33-7.43) VBG pCO2 (45-50) mmHg VBG pO2 (35-45) mmHg VBG HCO3 (24-28) mmol/L VBG Total CO2 (24-29) mmol/L VBG O2 Saturation (70-75) % VBG Base Excess (0-4) mmol/L FiO2 Sodium 134 L (137-145) mmol/L Potassium 3.6 (3.4-5.1) mmol/L Chloride 90 L (98-107) mmol/L Carbon Dioxide 15 L (22-32) mmol/L BUN 17 (7-17) mg/dL Creatinine 0.84 (0.52-1.04) mg/dL Estimated GFR > 60 (>60) mL/min BUN/Creatinine Ratio 20.2 (6-22) Glucose 352 H (70-100) mg/dL Lactate 1.8 (0.7-2.1) mmol/L Calcium 10.3 H (8.4-10.2) mg/dL Total Bilirubin 1.0 (0.2-1.3) mg/dL AST 24 (14-36) IU/L ALT 31 (<35) IU/L Alkaline Phosphatase 141 H (38-126) U/L Troponin I (0.01-0.034) ng/mL Total Protein 9.9 H (6.3-8.2) g/dL Albumin 5.5 H (3.5-5.0) g/dL Globulin 4.4 H (1.7-4.1) g/dL Albumin/Globulin Ratio 1.3 (1.0-2.8) Urine Color Urine Appearance Urine pH (4.5-8.0) Ur Specific [place] (1.000-1.035) Urine Protein (Negative) Urine Glucose (UA) (Negative) g/dL Urine Ketones (NEGATIVE) Urine Occult Blood (Negative) Urine Nitrate (Negative) Urine Bilirubin (NEGATIVE) Ur Bilirubin Confirm (Negative) Urine Urobilinogen (0.2) E.U./dL Ur Leukocyte Esterase (NEGATIVE) Urine RBC (0-5/HPF) Urine WBC (0-5/HPF) Ur Squamous Epith Cells (0-5/HPF) Urine Bacteria (None) Hyaline Casts (None) Ur Culture Indicated? Urine Test (Negative) SARS-CoV-2 (PCR) Negative (Negative) Influenza A (RT-PCR) Flu a negative (NEGATIVE) Influenza B (RT-PCR) Flu b negative (NEGATIVE) RSV (PCR) Negative (Negative) 10/05/22 10/05/22 Range/Units 15:18 15:18 WBC (4.5-11.0) X10^3/uL RBC (4.0-5.2) X10^6/uL Hgb (12.0-16.0) g/dL Hct (36-46) % MCV (80-100) fL MCH (26-34) PG MCHC (30-36) % RDW (11.6-14.8) % Plt Count (150-400) X10^3/uL Neut % (Auto) (50-75) % Lymph % (Auto) (25-40) % [place] % (Auto) (3-14) % Eos % (Auto) (2-4) % Baso % (Auto) (0-2) % Neut # (Auto) (7609-4842) /uL Lymph # (Auto) (3800-7729) /uL [place] # (Auto) (0-900) /uL Eos # (Auto) (0-450) /uL Baso # (Auto) (0-100) /uL VBG pH (7.33-7.43) VBG pCO2 (45-50) mmHg VBG pO2 (35-45) mmHg VBG HCO3 (24-28) mmol/L VBG Total CO2 (24-29) mmol/L VBG O2 Saturation (70-75) % VBG Base Excess (0-4) mmol/L FiO2 Sodium (137-145) mmol/L Potassium (3.4-5.1) mmol/L Chloride (98-107) mmol/L Carbon Dioxide (22-32) mmol/L BUN (7-17) mg/dL Creatinine (0.52-1.04) mg/dL Estimated GFR (>60) mL/min BUN/Creatinine Ratio (6-22) Glucose (70-100) mg/dL Lactate (0.7-2.1) mmol/L Calcium (8.4-10.2) mg/dL Total Bilirubin (0.2-1.3) mg/dL AST (14-36) IU/L ALT (<35) IU/L Alkaline Phosphatase (38-126) U/L Troponin I (0.01-0.034) ng/mL Total Protein (6.3-8.2) g/dL Albumin (3.5-5.0) g/dL Globulin (1.7-4.1) g/dL Albumin/Globulin Ratio (1.0-2.8) Urine Color Yellow Urine Appearance Clear Urine pH 5.5 (4.5-8.0) Ur Specific [place] >=1.030 H (1.000-1.035) Urine Protein 3+ H (Negative) Urine Glucose (UA) Negative (Negative) g/dL Urine Ketones 3+ H (NEGATIVE) Urine Occult Blood 2+ H (Negative) Urine Nitrate Negative (Negative) Urine Bilirubin 1+ H (NEGATIVE) Ur Bilirubin Confirm Negative (Negative) Urine Urobilinogen 0.2 (0.2) E.U./dL Ur Leukocyte Esterase Negative (NEGATIVE) Urine RBC 0-1/hpf (0-5/HPF) Urine WBC 0-1/hpf (0-5/HPF) Ur Squamous Epith Cells 1-5 /hpf (0-5/HPF) Urine Bacteria Few (2-10) H (None) Hyaline Casts 0-1/lpf (None) Ur Culture Indicated? Cult not indicated Urine Test Negative (Negative) SARS-CoV-2 (PCR) (Negative) Influenza A (RT-PCR) (NEGATIVE) Influenza B (RT-PCR) (NEGATIVE) RSV (PCR) (Negative) Point of Care Testing Glucose POC 338 Discharge Plan Departure Patient Disposition: Home Clinical Impression: Acute vomiting Instructions: DI for Vomiting -- Adult Activity Restrictions/Additional Instructions: You were evaluated in the ED today for nausea, vomiting, fever, chills. Your CT abdomen pelvis shows signs of either gastritis or peptic ulcer disease. Please follow-up with your GI specialist for further evaluation. You WBC was high at 22 today, as was your heart rate. It was noted that this has been the trend for you over the past several months from your prior ER visits. Your blood pressure was also elevated and in need of blood pressure control. It seems that you also have a diagnosis of lung nodules from the past. Please follow-up with your PCP as soon as possible to follow-up for further workup and evaluation of these abnormalities. Please return to the ED if you experience chest pain, shortness of breath, persistent vomiting. Prescriptions: No Action metformin 1,000 mg tablet extended release 24hr 1,000 mg PO BID acetaminophen 325 mg Tablet 650 mg PO Q4HR PRN (Reason: As Needed For Fever/Mild Pain) Qty: 20 0RF Lantus Solostar U-100 Insulin 100 unit/mL (3 mL) Insulin Pen 15 unit SUBCUT BEDTIME Qty: 3 0RF pantoprazole [Protonix] 40 mg tablet,delayed release (DR/EC) 40 mg PO BID Qty: 60 0RF alum-mag hydroxide-simeth [Mag-Al Plus] 200-200-20 mg/5 mL suspension 30 ml PO Q6HR PRN (Reason: Dyspepsia) Qty: 500 0RF hydrocodone-acetaminophen 5-325 mg tablet 1 tab PO Q4-6H PRN (Reason: pain) Qty: 10 0RF ondansetron 4 mg tablet,disintegrating 4 mg PO TID-QID PRN (Reason: nausea and vomiting) Qty: 10 0RF Referrals: Ashlyn Diallo ARNP [Primary Care Provider] - Stand Alone Forms: Patient Portal/API
--- NOTE | 2022-10-05 16:54 | DI.RAD.S_ITS ---
PROCEDURE: XR CHEST 1V INDICATIONS: Flu like symptoms TECHNIQUE: One view of the chest was acquired. COMPARISON: [facility], CR, XR CHEST 1V, 01/10/2021, 9:36. FINDINGS: Surgical changes and devices: None. Lungs and pleura: Lungs are clear. No pleural effusions or pneumothorax. Mediastinum: Mediastinal contours appear normal. Heart size is normal. Bones and chest wall: No suspicious bony lesions. Overlying soft tissues appear unremarkable. IMPRESSION: No acute cardiopulmonary disease process. Dictated by: Danielle Batista MD, PhD on 10/05/2022 at 17:02 Approved by: Danielle Batista MD, PhD on 10/05/2022 at 17:02
--- NOTE | 2022-10-05 17:24 | ED.NAVMDI ---
HPI - Nausea/Vomiting/Diarrhea <Sean Rawls PA-C - Last Filed: 10/05/22 20:30> General Chief complaint: Nausea/Vomiting/Diarrhea Stated complaint: V blood/pain in chest/weak/cant keep liquids down Time Seen by Provider: 10/05/22 14:37 Source: patient Mode of arrival: Wheelchair History of Present Illness HPI Narrative: 42-year-old female with past medical history GERD, diabetes presents to the ED with 2 days of fever, chills, nausea, vomiting, epigastric pain. Patient states her symptoms started yesterday, she had not eaten all day. Patient is an insulin-dependent diabetic, states she might have missed a dose or 2. Patient states that she has been intractable vomiting, has seen some blood in her vomit. Patient endorses epigastric pain. Patient says she has had these symptoms in the past, has had an EGD with findings of an ulcer. Patient is on pantoprazole daily. Patient denies alcohol use. Patient endorses marijuana use, says last use was 2 weeks ago. Denies any other recreational drug use. Patient also states that she broke 2 ribs in May 2022, which is now more painful since she is been vomiting persistently. Related Data Home Medications Medication Instructions Recorded Confirmed metformin 1,000 mg tablet,extended 1,000 mg PO BID 01/09/21 01/09/21 release 24hr Previous Rx's Medication Instructions Recorded acetaminophen 325 mg tablet 650 mg PO Q4HR PRN As Needed For 01/11/21 Fever/Mild Pain #20 tabs aluminum-mag hydroxide-simethicone 30 ml PO Q6HR PRN Dyspepsia #500 mL 01/11/21 200 mg-200 mg-20 mg/5 mL oral susp (Mag-Al Plus) insulin glargine 100 unit/mL (3 15 unit (0.15 mL) SUBCUT BEDTIME 01/11/21 mL) subcutaneous pen (Lantus #3 mL Solostar U-100 Insulin) pantoprazole 40 mg tablet,delayed 40 mg PO BID #60 tabs 01/11/21 release (Protonix) hydrocodone 5 mg-acetaminophen 325 1 tab PO Q4-6H PRN pain #10 tabs 03/20/21 mg tablet ondansetron 4 mg disintegrating 4 mg PO TID-QID PRN nausea and 03/20/21 tablet vomiting #10 tabs Allergies Allergy/AdvReac Type Severity Reaction Status Date / Time aspirin AdvReac Verified 03/19/21 19:01 Review of Systems <Sean Rawls PA-C - Last Filed: 10/05/22 20:30> Review of Systems ROS Unobtainable: All systems reviewed & are unremarkable except as noted in HPI and below Constitutional Constitutional: Reports chills, Denies fatigue, Reports fever(s), Denies frequent falls, Denies lethargy and Denies weakness Eyes Eyes: Denies change in vision, Denies eye discharge, Denies irritation and Denies loss of vision ENT Ears, Nose, Mouth, and Throat: Denies change in voice, Denies dizziness, Denies neck pain, Denies sore throat and Denies throat swelling Cardiovascular Cardiovascular: Denies chest pain, Denies irregular heart rhythm, Denies lightheadedness, Denies palpitations, Denies dyspnea, Denies dyspnea on exertion and Denies orthopnea Respiratory Respiratory: Denies cough, Denies dyspnea, Denies dyspnea on exertion and Denies wheezing Gastrointestinal Gastrointestinal: Reports abdominal pain, Denies change in bowel habits, Denies diarrhea, Reports nausea and Reports vomiting Genitourinary Genitourinary: Denies hematuria, Denies flank pain, Denies urinary incontinence and Denies urinary urgency Musculoskeletal Musculoskeletal: Denies back pain, Denies muscle weakness, Denies neck pain, Denies numbness and Denies tingling Integumentary/Breasts Skin/Breast: Denies pruritus, Denies erythema, Denies rash and Denies wounds Neurologic Neurologic: Denies behavioral changes, Denies confusion, Denies dizziness, Denies frequent falls, Denies loss of vision, Denies numbness, Denies tingling and Denies weakness Psychiatric Psychiatric: Denies anxiety, Denies behavioral changes, Denies confusion, Denies depression, Denies homicidal ideation and Denies suicidal ideation Endocrine Endocrine: Denies fatigue, Denies flushing and Denies palpitations Hematologic/Lymphatic Hematologic/Lymphatic: Denies easy bruising Allergic/Immunologic Allergic/Immunologic: Denies urticaria, Denies throat swelling and Denies wheezing Patient History <Sean Rawls PA-C - Last Filed: 10/05/22 20:30> Medical History Diabetes HSV (herpes simplex virus) anogenital infection Surgical History History of wisdom tooth extraction Family History Mother Diabetes mellitus Congestive heart failure Father Parkinsons disease Social History household members: significant other and children Smoking Status: Current every day smoker alcohol intake: current Smoking Status: Current every day smoker tobacco type: cigarettes alcohol intake frequency: holidays/special occasions only Substance Use Type: marijuana Exam <Sean Rawls PA-C - Last Filed: 10/05/22 20:30> Narrative Exam Narrative: Const General:?cooperative, healthy appearing and comfortable HENAR Head:?normal to inspection Ears:?hearing grossly normal bilaterally Nose:?external nose normal Face and sinus:?normal facial exam and sinuses nontender Mouth:?oral mucosae normal Throat:?posterior oropharynx normal Eyes General:?appearance normal, both eyes and all related structures Neck Neck:?normal visual inspection and no lymphadenopathy noted Resp Effort & Inspection:?normal respiratory effort Auscultation:?clear to auscultation bilaterally Cardio Rate:?regular rate Rhythm:?regular rhythm GI Abdomen is soft, nondistended, nontender to palpation. There is no CVA tenderness. Neuro General:?patient alert, patient awake and patient oriented x3 Initial Vital Signs Initial Vital Signs: Vital Signs Temperature 97.3 F L 10/05/22 14:00 Pulse Rate 135 H 10/05/22 14:00 Respiratory Rate 24 10/05/22 14:00 Blood Pressure 191/104 H 10/05/22 14:00 Pulse Oximetry 100 10/05/22 14:00 Oxygen Delivery Method Room Air 10/05/22 14:00 <Juan M Villegas DO - Last Filed: 10/06/22 00:35> Initial Vital Signs Initial Vital Signs: Vital Signs Temperature 97.3 F L 10/05/22 14:00 Pulse Rate 135 H 10/05/22 14:00 Respiratory Rate 24 10/05/22 14:00 Blood Pressure 191/104 H 10/05/22 14:00 Pulse Oximetry 100 10/05/22 14:00 Oxygen Delivery Method Room Air 10/05/22 14:00 Course <Sean Rawls PA-C - Last Filed: 10/05/22 20:30> Orders Ordered: ED Orders 10/05/22 16:54 XR chest 1V Stat 10/05/22 18:24 CT abdomen pelvis w con Stat Discontinued Medications Sodium Chloride (Normal Saline 0.9%) 1,000 mls @ 1,000 mls/hr IV BOLUS ONE Stop: 10/05/22 15:04 Last Infusion: 10/05/22 17:16 Dose: 0 mls/hr Documented By: Admin: 10/05/22 15:18 Dose: 1,000 mls/hr Documented By: SPF Sodium Chloride (Normal Saline 0.9%) 1,000 mls @ 1,000 mls/hr IV BOLUS ONE Stop: 10/05/22 18:17 Last Infusion: 10/05/22 19:15 Dose: 0 mls/hr Documented By: Admin: 10/05/22 18:09 Dose: 1,000 mls/hr Documented By: NR Metoclopramide HCl (Metoclopramide 10 Mg/2 Ml Inj) 10 mg IV NOW ONE Stop: 10/05/22 17:18 Last Admin: 10/05/22 18:09 Dose: 10 mg Documented By: NR Morphine Sulfate (Morphine 4 Mg/Ml Inj) 4 mg IV NOW ONE Stop: 10/05/22 17:27 Last Admin: 10/05/22 18:09 Dose: 4 mg Documented By: NR Ondansetron HCl (Ondansetron 4 Mg/2 Ml Inj) 4 mg IV NOW ONE Stop: 10/05/22 14:06 Last Admin: 10/05/22 15:18 Dose: 4 mg Documented By: SPF Vital Signs Vital signs: Vital Signs - 8 hr 10/05/22 17:00 10/05/22 17:00 10/05/22 17:05 Temperature Pulse Rate 131 H 128 H Respiratory Rate Blood Pressure 204/92 H Pulse Oximetry 100 99 Oxygen Delivery Method 10/05/22 17:30 10/05/22 17:43 10/05/22 17:44 Temperature Pulse Rate 118 H 117 H Respiratory Rate Blood Pressure 225/95 H Pulse Oximetry 100 99 Oxygen Delivery Method 10/05/22 17:44 10/05/22 18:00 10/05/22 18:01 Temperature Pulse Rate 111 H 115 H Respiratory Rate Blood Pressure 201/89 H Pulse Oximetry 93 95 Oxygen Delivery Method 10/05/22 18:01 10/05/22 18:11 10/05/22 18:11 Temperature Pulse Rate 124 H Respiratory Rate Blood Pressure 231/100 H 191/85 H Pulse Oximetry 99 Oxygen Delivery Method 10/05/22 18:30 10/05/22 18:31 10/05/22 18:31 Temperature Pulse Rate 117 H 119 H Respiratory Rate Blood Pressure 191/75 H Pulse Oximetry 98 98 Oxygen Delivery Method 10/05/22 19:00 10/05/22 19:00 10/05/22 19:30 Temperature Pulse Rate 124 H Respiratory Rate Blood Pressure 172/76 H 186/104 H Pulse Oximetry 99 Oxygen Delivery Method 10/05/22 19:30 10/05/22 20:01 Temperature 98.5 F Pulse Rate 120 H 111 H Respiratory Rate 16 Blood Pressure 210/98 H Pulse Oximetry 99 Oxygen Delivery Method Room Air <Juan M Villegas DO - Last Filed: 10/06/22 00:35> Orders Ordered: ED Orders 10/05/22 16:54 XR chest 1V Stat 10/05/22 18:24 CT abdomen pelvis w con Stat Discontinued Medications Sodium Chloride (Normal Saline 0.9%) 1,000 mls @ 1,000 mls/hr IV BOLUS ONE Stop: 10/05/22 15:04 Last Infusion: 10/05/22 17:16 Dose: 0 mls/hr Documented By: Admin: 10/05/22 15:18 Dose: 1,000 mls/hr Documented By: CASE Sodium Chloride (Normal Saline 0.9%) 1,000 mls @ 1,000 mls/hr IV BOLUS ONE Stop: 10/05/22 18:17 Last Infusion: 10/05/22 19:15 Dose: 0 mls/hr Documented By: Admin: 10/05/22 18:09 Dose: 1,000 mls/hr Documented By: NR Metoclopramide HCl (Metoclopramide 10 Mg/2 Ml Inj) 10 mg IV NOW ONE Stop: 10/05/22 17:18 Last Admin: 10/05/22 18:09 Dose: 10 mg Documented By: NR Morphine Sulfate (Morphine 4 Mg/Ml Inj) 4 mg IV NOW ONE Stop: 10/05/22 17:27 Last Admin: 10/05/22 18:09 Dose: 4 mg Documented By: NORTH Ondansetron HCl (Ondansetron 4 Mg/2 Ml Inj) 4 mg IV NOW ONE Stop: 10/05/22 14:06 Last Admin: 10/05/22 15:18 Dose: 4 mg Documented By: CASE Vital Signs Vital signs: Vital Signs - 8 hr 10/05/22 17:00 10/05/22 17:00 10/05/22 17:05 Temperature Pulse Rate 131 H 128 H Respiratory Rate Blood Pressure 204/92 H Pulse Oximetry 100 99 Oxygen Delivery Method 10/05/22 17:30 10/05/22 17:43 10/05/22 17:44 Temperature Pulse Rate 118 H 117 H Respiratory Rate Blood Pressure 225/95 H Pulse Oximetry 100 99 Oxygen Delivery Method 10/05/22 17:44 10/05/22 18:00 10/05/22 18:01 Temperature Pulse Rate 111 H 115 H Respiratory Rate Blood Pressure 201/89 H Pulse Oximetry 93 95 Oxygen Delivery Method 10/05/22 18:01 10/05/22 18:11 10/05/22 18:11 Temperature Pulse Rate 124 H Respiratory Rate Blood Pressure 231/100 H 191/85 H Pulse Oximetry 99 Oxygen Delivery Method 10/05/22 18:30 10/05/22 18:31 10/05/22 18:31 Temperature Pulse Rate 117 H 119 H Respiratory Rate Blood Pressure 191/75 H Pulse Oximetry 98 98 Oxygen Delivery Method 10/05/22 19:00 10/05/22 19:00 10/05/22 19:30 Temperature Pulse Rate 124 H Respiratory Rate Blood Pressure 172/76 H 186/104 H Pulse Oximetry 99 Oxygen Delivery Method 10/05/22 19:30 10/05/22 20:01 Temperature 98.5 F Pulse Rate 120 H 111 H Respiratory Rate 16 Blood Pressure 210/98 H Pulse Oximetry 99 Oxygen Delivery Method Room Air MDM - Nausea/Vomiting/Diarrhea <Sean Rawls PA-C - Last Filed: 10/05/22 20:30> Lab Data 10/05/22 14:45 10/05/22 14:45 Labs: Lab Results 10/05/22 10/05/22 10/05/22 Range/Units 14:43 14:45 14:45 WBC 22.6 H (4.5-11.0) X10^3/uL RBC 5.82 H (4.0-5.2) X10^6/uL Hgb 17.2 H (12.0-16.0) g/dL Hct 50.2 H (36-46) % MCV 86.3 (80-100) fL MCH 29.6 (26-34) PG MCHC 34.3 (30-36) % RDW 14.3 (11.6-14.8) % Plt Count 460 H (150-400) X10^3/uL Neut % (Auto) 91.5 H (50-75) % Lymph % (Auto) 5.7 L (25-40) % [place] % (Auto) 2.6 L (3-14) % Eos % (Auto) 0.1 L (2-4) % Baso % (Auto) 0.1 (0-2) % Neut # (Auto) 08920 H (4126-3445) /uL Lymph # (Auto) 1300 (4795-5627) /uL [place] # (Auto) 600 (0-900) /uL Eos # (Auto) 0 (0-450) /uL Baso # (Auto) 0 (0-100) /uL VBG pH 7.47 H (7.33-7.43) VBG pCO2 25.2 L (45-50) mmHg VBG pO2 46 H (35-45) mmHg VBG HCO3 19 L (24-28) mmol/L VBG Total CO2 19 L (24-29) mmol/L VBG O2 Saturation 86 H (70-75) % VBG Base Excess -5.0 L (0-4) mmol/L FiO2 21 Sodium (137-145) mmol/L Potassium (3.4-5.1) mmol/L Chloride (98-107) mmol/L Carbon Dioxide (22-32) mmol/L BUN (7-17) mg/dL Creatinine (0.52-1.04) mg/dL Estimated GFR (>60) mL/min BUN/Creatinine Ratio (6-22) Glucose (70-100) mg/dL Lactate (0.7-2.1) mmol/L Calcium (8.4-10.2) mg/dL Total Bilirubin (0.2-1.3) mg/dL AST (14-36) IU/L ALT (<35) IU/L Alkaline Phosphatase (38-126) U/L Troponin I < 0.012 (0.01-0.034) ng/mL Total Protein (6.3-8.2) g/dL Albumin (3.5-5.0) g/dL Globulin (1.7-4.1) g/dL Albumin/Globulin Ratio (1.0-2.8) Urine Color Urine Appearance Urine pH (4.5-8.0) Ur Specific [place] (1.000-1.035) Urine Protein (Negative) Urine Glucose (UA) (Negative) g/dL Urine Ketones (NEGATIVE) Urine Occult Blood (Negative) Urine Nitrate (Negative) Urine Bilirubin (NEGATIVE) Ur Bilirubin Confirm (Negative) Urine Urobilinogen (0.2) E.U./dL Ur Leukocyte Esterase (NEGATIVE) Urine RBC (0-5/HPF) Urine WBC (0-5/HPF) Ur Squamous Epith Cells (0-5/HPF) Urine Bacteria (None) Hyaline Casts (None) Ur Culture Indicated? Urine Test (Negative) SARS-CoV-2 (PCR) (Negative) Influenza A (RT-PCR) (NEGATIVE) Influenza B (RT-PCR) (NEGATIVE) RSV (PCR) (Negative) 10/05/22 10/05/22 10/05/22 Range/Units 14:45 14:45 15:15 WBC (4.5-11.0) X10^3/uL RBC (4.0-5.2) X10^6/uL Hgb (12.0-16.0) g/dL Hct (36-46) % MCV (80-100) fL MCH (26-34) PG MCHC (30-36) % RDW (11.6-14.8) % Plt Count (150-400) X10^3/uL Neut % (Auto) (50-75) % Lymph % (Auto) (25-40) % [place] % (Auto) (3-14) % Eos % (Auto) (2-4) % Baso % (Auto) (0-2) % Neut # (Auto) (2556-6755) /uL Lymph # (Auto) (6262-8325) /uL [place] # (Auto) (0-900) /uL Eos # (Auto) (0-450) /uL Baso # (Auto) (0-100) /uL VBG pH (7.33-7.43) VBG pCO2 (45-50) mmHg VBG pO2 (35-45) mmHg VBG HCO3 (24-28) mmol/L VBG Total CO2 (24-29) mmol/L VBG O2 Saturation (70-75) % VBG Base Excess (0-4) mmol/L FiO2 Sodium 134 L (137-145) mmol/L Potassium 3.6 (3.4-5.1) mmol/L Chloride 90 L (98-107) mmol/L Carbon Dioxide 15 L (22-32) mmol/L BUN 17 (7-17) mg/dL Creatinine 0.84 (0.52-1.04) mg/dL Estimated GFR > 60 (>60) mL/min BUN/Creatinine Ratio 20.2 (6-22) Glucose 352 H (70-100) mg/dL Lactate 1.8 (0.7-2.1) mmol/L Calcium 10.3 H (8.4-10.2) mg/dL Total Bilirubin 1.0 (0.2-1.3) mg/dL AST 24 (14-36) IU/L ALT 31 (<35) IU/L Alkaline Phosphatase 141 H (38-126) U/L Troponin I (0.01-0.034) ng/mL Total Protein 9.9 H (6.3-8.2) g/dL Albumin 5.5 H (3.5-5.0) g/dL Globulin 4.4 H (1.7-4.1) g/dL Albumin/Globulin Ratio 1.3 (1.0-2.8) Urine Color Urine Appearance Urine pH (4.5-8.0) Ur Specific [place] (1.000-1.035) Urine Protein (Negative) Urine Glucose (UA) (Negative) g/dL Urine Ketones (NEGATIVE) Urine Occult Blood (Negative) Urine Nitrate (Negative) Urine Bilirubin (NEGATIVE) Ur Bilirubin Confirm (Negative) Urine Urobilinogen (0.2) E.U./dL Ur Leukocyte Esterase (NEGATIVE) Urine RBC (0-5/HPF) Urine WBC (0-5/HPF) Ur Squamous Epith Cells (0-5/HPF) Urine Bacteria (None) Hyaline Casts (None) Ur Culture Indicated? Urine Test (Negative) SARS-CoV-2 (PCR) Negative (Negative) Influenza A (RT-PCR) Flu a negative (NEGATIVE) Influenza B (RT-PCR) Flu b negative (NEGATIVE) RSV (PCR) Negative (Negative) 10/05/22 10/05/22 Range/Units 15:18 15:18 WBC (4.5-11.0) X10^3/uL RBC (4.0-5.2) X10^6/uL Hgb (12.0-16.0) g/dL Hct (36-46) % MCV (80-100) fL MCH (26-34) PG MCHC (30-36) % RDW (11.6-14.8) % Plt Count (150-400) X10^3/uL Neut % (Auto) (50-75) % Lymph % (Auto) (25-40) % [place] % (Auto) (3-14) % Eos % (Auto) (2-4) % Baso % (Auto) (0-2) % Neut # (Auto) (7209-2363) /uL Lymph # (Auto) (9152-7637) /uL [place] # (Auto) (0-900) /uL Eos # (Auto) (0-450) /uL Baso # (Auto) (0-100) /uL VBG pH (7.33-7.43) VBG pCO2 (45-50) mmHg VBG pO2 (35-45) mmHg VBG HCO3 (24-28) mmol/L VBG Total CO2 (24-29) mmol/L VBG O2 Saturation (70-75) % VBG Base Excess (0-4) mmol/L FiO2 Sodium (137-145) mmol/L Potassium (3.4-5.1) mmol/L Chloride (98-107) mmol/L Carbon Dioxide (22-32) mmol/L BUN (7-17) mg/dL Creatinine (0.52-1.04) mg/dL Estimated GFR (>60) mL/min BUN/Creatinine Ratio (6-22) Glucose (70-100) mg/dL Lactate (0.7-2.1) mmol/L Calcium (8.4-10.2) mg/dL Total Bilirubin (0.2-1.3) mg/dL AST (14-36) IU/L ALT (<35) IU/L Alkaline Phosphatase (38-126) U/L Troponin I (0.01-0.034) ng/mL Total Protein (6.3-8.2) g/dL Albumin (3.5-5.0) g/dL Globulin (1.7-4.1) g/dL Albumin/Globulin Ratio (1.0-2.8) Urine Color Yellow Urine Appearance Clear Urine pH 5.5 (4.5-8.0) Ur Specific [place] >=1.030 H (1.000-1.035) Urine Protein 3+ H (Negative) Urine Glucose (UA) Negative (Negative) g/dL Urine Ketones 3+ H (NEGATIVE) Urine Occult Blood 2+ H (Negative) Urine Nitrate Negative (Negative) Urine Bilirubin 1+ H (NEGATIVE) Ur Bilirubin Confirm Negative (Negative) Urine Urobilinogen 0.2 (0.2) E.U./dL Ur Leukocyte Esterase Negative (NEGATIVE) Urine RBC 0-1/hpf (0-5/HPF) Urine WBC 0-1/hpf (0-5/HPF) Ur Squamous Epith Cells 1-5 /hpf (0-5/HPF) Urine Bacteria Few (2-10) H (None) Hyaline Casts 0-1/lpf (None) Ur Culture Indicated? Cult not indicated Urine Test Negative (Negative) SARS-CoV-2 (PCR) (Negative) Influenza A (RT-PCR) (NEGATIVE) Influenza B (RT-PCR) (NEGATIVE) RSV (PCR) (Negative) Point of Care Testing Glucose POC 338 MDM Narrative Medical decision making narrative: 42-year-old female with past medical history GERD, diabetes presents to the ED with 2 days of fever, chills, nausea, vomiting, epigastric pain. Concern for peptic ulcer versus gastritis versus GERD versus perforated ulcer versus UTI versus pneumonia versus other. Will obtain labs, UA, CT chest abdomen pelvis. Will give IV fluids, Zofran, Reglan, morphine for pain. Will reassess. Patient was hypertensive in the emergency room, had a high WBC of 22.5, was tachycardic in the 110s. Lactate was within normal limits. UA was without UTI. Chest x-ray without acute findings. Patient denies any rashes or wounds. Respiratory panel was negative for influenza, COVID, RSV. Patient states that she is had a long history of having a high white count, being tachycardic and hypertensive. This is consistent with her past several ED visits. Patient also has a prior diagnosis of lung nodules, but no other detail. Patient is unclear why she is had these abnormalities, has not been worked up for it. Given these multiple abnormalities are consistent across multiple months, patient appears well and vomiting is well controlled, it is safe to discharge. Patient states that she is well and would like to go home. It is unlikely a PE given the chronic nature of her symptoms. Discussed in detail with patient ED precautions and low threshold to return if her symptoms worsen. Patient verbalized understanding. Patient agrees to follow-up with her PCP as soon as possible for further workup. Medical records reviewed: Yes <Juan M Villegas DO - Last Filed: 10/06/22 00:35> Lab Data Labs: Lab Results 10/05/22 10/05/22 10/05/22 Range/Units 14:43 14:45 14:45 WBC 22.6 H (4.5-11.0) X10^3/uL RBC 5.82 H (4.0-5.2) X10^6/uL Hgb 17.2 H (12.0-16.0) g/dL Hct 50.2 H (36-46) % MCV 86.3 (80-100) fL MCH 29.6 (26-34) PG MCHC 34.3 (30-36) % RDW 14.3 (11.6-14.8) % Plt Count 460 H (150-400) X10^3/uL Neut % (Auto) 91.5 H (50-75) % Lymph % (Auto) 5.7 L (25-40) % [place] % (Auto) 2.6 L (3-14) % Eos % (Auto) 0.1 L (2-4) % Baso % (Auto) 0.1 (0-2) % Neut # (Auto) 88105 H (0500-7144) /uL Lymph # (Auto) 1300 (9386-6159) /uL [place] # (Auto) 600 (0-900) /uL Eos # (Auto) 0 (0-450) /uL Baso # (Auto) 0 (0-100) /uL VBG pH 7.47 H (7.33-7.43) VBG pCO2 25.2 L (45-50) mmHg VBG pO2 46 H (35-45) mmHg VBG HCO3 19 L (24-28) mmol/L VBG Total CO2 19 L (24-29) mmol/L VBG O2 Saturation 86 H (70-75) % VBG Base Excess -5.0 L (0-4) mmol/L FiO2 21 Sodium (137-145) mmol/L Potassium (3.4-5.1) mmol/L Chloride (98-107) mmol/L Carbon Dioxide (22-32) mmol/L BUN (7-17) mg/dL Creatinine (0.52-1.04) mg/dL Estimated GFR (>60) mL/min BUN/Creatinine Ratio (6-22) Glucose (70-100) mg/dL Lactate (0.7-2.1) mmol/L Calcium (8.4-10.2) mg/dL Total Bilirubin (0.2-1.3) mg/dL AST (14-36) IU/L ALT (<35) IU/L Alkaline Phosphatase (38-126) U/L Troponin I < 0.012 (0.01-0.034) ng/mL Total Protein (6.3-8.2) g/dL Albumin (3.5-5.0) g/dL Globulin (1.7-4.1) g/dL Albumin/Globulin Ratio (1.0-2.8) Urine Color Urine Appearance Urine pH (4.5-8.0) Ur Specific [place] (1.000-1.035) Urine Protein (Negative) Urine Glucose (UA) (Negative) g/dL Urine Ketones (NEGATIVE) Urine Occult Blood (Negative) Urine Nitrate (Negative) Urine Bilirubin (NEGATIVE) Ur Bilirubin Confirm (Negative) Urine Urobilinogen (0.2) E.U./dL Ur Leukocyte Esterase (NEGATIVE) Urine RBC (0-5/HPF) Urine WBC (0-5/HPF) Ur Squamous Epith Cells (0-5/HPF) Urine Bacteria (None) Hyaline Casts (None) Ur Culture Indicated? Urine Test (Negative) SARS-CoV-2 (PCR) (Negative) Influenza A (RT-PCR) (NEGATIVE) Influenza B (RT-PCR) (NEGATIVE) RSV (PCR) (Negative) 10/05/22 10/05/22 10/05/22 Range/Units 14:45 14:45 15:15 WBC (4.5-11.0) X10^3/uL RBC (4.0-5.2) X10^6/uL Hgb (12.0-16.0) g/dL Hct (36-46) % MCV (80-100) fL MCH (26-34) PG MCHC (30-36) % RDW (11.6-14.8) % Plt Count (150-400) X10^3/uL Neut % (Auto) (50-75) % Lymph % (Auto) (25-40) % [place] % (Auto) (3-14) % Eos % (Auto) (2-4) % Baso % (Auto) (0-2) % Neut # (Auto) (2289-0329) /uL Lymph # (Auto) (3152-9312) /uL [place] # (Auto) (0-900) /uL Eos # (Auto) (0-450) /uL Baso # (Auto) (0-100) /uL VBG pH (7.33-7.43) VBG pCO2 (45-50) mmHg VBG pO2 (35-45) mmHg VBG HCO3 (24-28) mmol/L VBG Total CO2 (24-29) mmol/L VBG O2 Saturation (70-75) % VBG Base Excess (0-4) mmol/L FiO2 Sodium 134 L (137-145) mmol/L Potassium 3.6 (3.4-5.1) mmol/L Chloride 90 L (98-107) mmol/L Carbon Dioxide 15 L (22-32) mmol/L BUN 17 (7-17) mg/dL Creatinine 0.84 (0.52-1.04) mg/dL Estimated GFR > 60 (>60) mL/min BUN/Creatinine Ratio 20.2 (6-22) Glucose 352 H (70-100) mg/dL Lactate 1.8 (0.7-2.1) mmol/L Calcium 10.3 H (8.4-10.2) mg/dL Total Bilirubin 1.0 (0.2-1.3) mg/dL AST 24 (14-36) IU/L ALT 31 (<35) IU/L Alkaline Phosphatase 141 H (38-126) U/L Troponin I (0.01-0.034) ng/mL Total Protein 9.9 H (6.3-8.2) g/dL Albumin 5.5 H (3.5-5.0) g/dL Globulin 4.4 H (1.7-4.1) g/dL Albumin/Globulin Ratio 1.3 (1.0-2.8) Urine Color Urine Appearance Urine pH (4.5-8.0) Ur Specific [place] (1.000-1.035) Urine Protein (Negative) Urine Glucose (UA) (Negative) g/dL Urine Ketones (NEGATIVE) Urine Occult Blood (Negative) Urine Nitrate (Negative) Urine Bilirubin (NEGATIVE) Ur Bilirubin Confirm (Negative) Urine Urobilinogen (0.2) E.U./dL Ur Leukocyte Esterase (NEGATIVE) Urine RBC (0-5/HPF) Urine WBC (0-5/HPF) Ur Squamous Epith Cells (0-5/HPF) Urine Bacteria (None) Hyaline Casts (None) Ur Culture Indicated? Urine Test (Negative) SARS-CoV-2 (PCR) Negative (Negative) Influenza A (RT-PCR) Flu a negative (NEGATIVE) Influenza B (RT-PCR) Flu b negative (NEGATIVE) RSV (PCR) Negative (Negative) 10/05/22 10/05/22 Range/Units 15:18 15:18 WBC (4.5-11.0) X10^3/uL RBC (4.0-5.2) X10^6/uL Hgb (12.0-16.0) g/dL Hct (36-46) % MCV (80-100) fL MCH (26-34) PG MCHC (30-36) % RDW (11.6-14.8) % Plt Count (150-400) X10^3/uL Neut % (Auto) (50-75) % Lymph % (Auto) (25-40) % [place] % (Auto) (3-14) % Eos % (Auto) (2-4) % Baso % (Auto) (0-2) % Neut # (Auto) (2941-1014) /uL Lymph # (Auto) (2286-5719) /uL [place] # (Auto) (0-900) /uL Eos # (Auto) (0-450) /uL Baso # (Auto) (0-100) /uL VBG pH (7.33-7.43) VBG pCO2 (45-50) mmHg VBG pO2 (35-45) mmHg VBG HCO3 (24-28) mmol/L VBG Total CO2 (24-29) mmol/L VBG O2 Saturation (70-75) % VBG Base Excess (0-4) mmol/L FiO2 Sodium (137-145) mmol/L Potassium (3.4-5.1) mmol/L Chloride (98-107) mmol/L Carbon Dioxide (22-32) mmol/L BUN (7-17) mg/dL Creatinine (0.52-1.04) mg/dL Estimated GFR (>60) mL/min BUN/Creatinine Ratio (6-22) Glucose (70-100) mg/dL Lactate (0.7-2.1) mmol/L Calcium (8.4-10.2) mg/dL Total Bilirubin (0.2-1.3) mg/dL AST (14-36) IU/L ALT (<35) IU/L Alkaline Phosphatase (38-126) U/L Troponin I (0.01-0.034) ng/mL Total Protein (6.3-8.2) g/dL Albumin (3.5-5.0) g/dL Globulin (1.7-4.1) g/dL Albumin/Globulin Ratio (1.0-2.8) Urine Color Yellow Urine Appearance Clear Urine pH 5.5 (4.5-8.0) Ur Specific [place] >=1.030 H (1.000-1.035) Urine Protein 3+ H (Negative) Urine Glucose (UA) Negative (Negative) g/dL Urine Ketones 3+ H (NEGATIVE) Urine Occult Blood 2+ H (Negative) Urine Nitrate Negative (Negative) Urine Bilirubin 1+ H (NEGATIVE) Ur Bilirubin Confirm Negative (Negative) Urine Urobilinogen 0.2 (0.2) E.U./dL Ur Leukocyte Esterase Negative (NEGATIVE) Urine RBC 0-1/hpf (0-5/HPF) Urine WBC 0-1/hpf (0-5/HPF) Ur Squamous Epith Cells 1-5 /hpf (0-5/HPF) Urine Bacteria Few (2-10) H (None) Hyaline Casts 0-1/lpf (None) Ur Culture Indicated? Cult not indicated Urine Test Negative (Negative) SARS-CoV-2 (PCR) (Negative) Influenza A (RT-PCR) (NEGATIVE) Influenza B (RT-PCR) (NEGATIVE) RSV (PCR) (Negative) Point of Care Testing Glucose POC 338 Discharge Plan Departure Patient Disposition: Home Clinical Impression: Acute vomiting Instructions: DI for Vomiting -- Adult Activity Restrictions/Additional Instructions: You were evaluated in the ED today for nausea, vomiting, fever, chills. Your CT abdomen pelvis shows signs of either gastritis or peptic ulcer disease. Please follow-up with your GI specialist for further evaluation. You WBC was high at 22 today, as was your heart rate. It was noted that this has been the trend for you over the past several months from your prior ER visits. Your blood pressure was also elevated and in need of blood pressure control. It seems that you also have a diagnosis of lung nodules from the past. Please follow-up with your PCP as soon as possible to follow-up for further workup and evaluation of these abnormalities. Please return to the ED if you experience chest pain, shortness of breath, persistent vomiting. Prescriptions: No Action metformin 1,000 mg tablet extended release 24hr 1,000 mg PO BID acetaminophen 325 mg Tablet 650 mg PO Q4HR PRN (Reason: As Needed For Fever/Mild Pain) Qty: 20 0RF Lantus Solostar U-100 Insulin 100 unit/mL (3 mL) Insulin Pen 15 unit SUBCUT BEDTIME Qty: 3 0RF pantoprazole [Protonix] 40 mg tablet,delayed release (DR/EC) 40 mg PO BID Qty: 60 0RF alum-mag hydroxide-simeth [Mag-Al Plus] 200-200-20 mg/5 mL suspension 30 ml PO Q6HR PRN (Reason: Dyspepsia) Qty: 500 0RF hydrocodone-acetaminophen 5-325 mg tablet 1 tab PO Q4-6H PRN (Reason: pain) Qty: 10 0RF ondansetron 4 mg tablet,disintegrating 4 mg PO TID-QID PRN (Reason: nausea and vomiting) Qty: 10 0RF Referrals: Ashlyn Diallo [employer] [facility] [facility] [Primary Care Provider] - Stand Alone Forms: Patient Portal/API <Juan M Villegas DO - Last Filed: 10/06/22 00:35> Cosign ED Attending Cosignature Attestation: Dr Villegas Co-Sign Statement: I was available for consultation during this patient's emergency department visit. This chart is signed by myself for administrative purposes only. I did not have direct contact with this patient during this visit. They were seen independently by the APC.
[2022-10-05] MEDS: METOCLOPRAMIDE 10 MG/2 ML INJ IV (18:09)
[2022-10-05] MEDS: MORPHINE 4 MG/ML INJ IV (18:09)
--- NOTE | 2022-10-05 18:24 | DI.CT.S_ITS ---
PROCEDURE: CT ABDOMEN PELVIS W CON INDICATIONS: hematemesis, epigastric pain TECHNIQUE: After the administration of oral and IV contrast, axial sections were acquired from the lung bases to the pubic symphysis. Coronal and sagittal reformats were performed. For radiation dose reduction, the following was used: automated exposure control, adjustment of mA and/or kV according to patient size. COMPARISON: [facility], CT, CT ANGIO CHEST PE, 10/02/2021, 21:23. [facility], CT, CT ABDOMEN PELVIS W CON, 03/19/2021, 21:27. [facility], CT, CT ABDOMEN PELVIS W CON, 06/22/2022, 11:14. FINDINGS: Image quality: Excellent. Lung bases: Unremarkable. There is diffuse esophageal thickening consistent with esophagitis Heart: No significant findings. ABDOMEN: Liver: Liver is normal in size. Moderate hepatic steatosis. Gallbladder: Unremarkable. Biliary ducts: Unremarkable. Pancreas: Unremarkable. Spleen: Unremarkable. Adrenal Glands: Unremarkable. Kidneys and Ureters: Unremarkable. Stomach and Bowel: Stomach is distended with an air-fluid level. There is mild gastric antral thickening. Small bowel loops, and colon are normal in caliber. Diverticulosis. No acute diverticulitis. Normal appendix. Peritoneum: No abnormal intraperitoneal fluid. No free air. Ventral Wall: There is a small fat containing periumbilical ventral hernia. Abdominal Nodes: No retroperitoneal or mesenteric adenopathy by size criteria. Vessels: Aorta and inferior vena cava are normal in size. PELVIS: Pelvic Organs: Unremarkable. Bladder: Unremarkable. Pelvic Nodes: No enlarged lymph nodes. Miscellaneous: No inguinal hernias are seen. Bones: Grade 1 anterolisthesis of L4 on L5. Moderate to severe degenerative disc and facet disease at L5-S1. IMPRESSION: 1. Diffuse thickening of esophagus consistent with esophagitis. 2. Stomach is distended. There is gastric antral thickening, suggesting gastritis or peptic ulcer disease. 3. Diverticulosis without acute diverticulitis. 4. Small fat containing periumbilical ventral hernia. 5. Hepatic steatosis. Dictated by: Reta Guadarrama M.D. on 10/05/2022 at 19:03 Approved by: Reta Guadarrama M.D. on 10/05/2022 at 19:09
[2022-10-05 19:09] LABS: Pregnancy Test Urine Negative (Negative)
[2022-10-05 19:14] LABS: Appearance Urine UA CLEAR; Bilirubin Urine UA 1+ (NEGATIVE); Color Urine UA YELLOW; Glucose Urine UA NEGATIVE (Negative); Ketones Urine UA 3+ (NEGATIVE); Leukocyte Esterase Urine UA NEGATIVE (NEGATIVE); Nitrite Urine UA NEGATIVE (Negative); Occult Blood Urine UA 2+ (Negative); Protein Urine UA 3+ (Negative); Specific Gravity Urine UA >=1.030 (1.000-1.035); Urobilinogen Urine UA 0.2 E.U./dL (0.2)
[2022-10-05 19:15] LABS: pH Urine UA 5.5 (4.5-8.0)
[2022-10-05 19:17] LABS: Ictotest Urine Negative (Negative)
[2022-10-05 19:32] LABS: Bacteria Urine Few (2-10); Hyaline Casts Urine 0-1/LPF; RBC Urine 0-1/HPF (0-5/HPF); Squamous Epithelial Cell Urine 1-5 /HPF (0-5/HPF); WBC Urine 0-1/HPF (0-5/HPF)
[2022-10-05 19:33] LABS: Culture Indicated Urine Cult Not Indicated
[2022-10-05 20:03] LABS: Lactate (Lactic Acid) 1.8 mmol/L (0.7-2.1)
== END 2022-10-05 20:26 | disposition home or self-care (01) ==
PROVIDERS: Emergency Medicine; Emergency Provider Student in an Organized Health Care Education/Training Program; PCP Nurse Practitioner
DX: R10.13 Epigastric pain (principal); R11.2 Nausea with vomiting, unspecified; R00.0 Tachycardia, unspecified; I10 Essential (primary) hypertension; Z20.822 Contact with and (suspected) exposure to COVID-19
CPT/HCPCS: 0241U; 36415; 71045; 74177; 80053; 81001; 81025; 82805; 82962; 83605; 84484; 85025; 93005; 93010; 99284; J2270; J2405; J2765

== ENCOUNTER 2022-10-09 08:47 | Inpatient (IN) | payer OTHER, MEDICAID, SELFPAY ==
[2021-01-09 03:02] VITALS: BMI 30.7
[2022-10-09] VITALS (15 sets, daily range): BP systolic 134–187; BP diastolic 75–105; PULSE 88–121; RESP 15–27; TEMP 36.1–36.9; O2SAT 96–99; BMI 33.3
--- NOTE | 2022-10-09 08:56 | DI.RAD.S_ITS ---
PROCEDURE: XR CHEST 1V INDICATIONS: chest pain TECHNIQUE: One view of the chest was acquired. COMPARISON: [facility], CR, XR CHEST 1V, 10/05/2022, 16:50. FINDINGS: Surgical changes and devices: None. Lungs and pleura: Lungs are clear. No pleural effusions or pneumothorax. Mediastinum: Mediastinal contours appear normal. Heart size is normal. Bones and chest wall: No suspicious bony lesions. Overlying soft tissues appear unremarkable. IMPRESSION: No acute pulmonary process. Dictated by: Kerry Hollins M.D. on 10/09/2022 at 9:17 Approved by: Kerry Hollins M.D. on 10/09/2022 at 9:17
--- NOTE | 2022-10-09 09:16 | ED.GENADULT ---
HPI - General Adult General Chief complaint: Dizziness Stated complaint: Chest Pain, Hot and Cold Sweats, High HR, Dizzy Time Seen by Provider: 10/09/22 08:55 Source: patient Mode of arrival: Ambulatory History of Present Illness HPI narrative: Patient is a 42-year-old female. Was seen here in the emergency department several days ago for vomiting and hematemesis. Was eventually discharged home. She states that since that time the vomiting has essentially stopped however she still occasionally gets nauseous. She states now she is having discomfort in the center of her chest when she swallows. She also states that she has had hot and cold sweats. No change in bowel habits or urination. No prior abdominal surgeries. She states it does hurt somewhat to take a deep breath. She has had a significant history of vomiting. She has had a upper endoscopy about a year ago. She was told that she had ulcerations. She states she is had very little to eat over the past couple days because it hurts for her to swallow. Related Data Home Medications Medication Instructions Recorded Confirmed metformin 1,000 mg tablet,extended 1,000 mg PO BID 01/09/21 01/09/21 release 24hr Previous Rx's Medication Instructions Recorded acetaminophen 325 mg tablet 650 mg PO Q4HR PRN As Needed For 01/11/21 Fever/Mild Pain #20 tabs aluminum-mag hydroxide-simethicone 30 ml PO Q6HR PRN Dyspepsia #500 mL 01/11/21 200 mg-200 mg-20 mg/5 mL oral susp (Mag-Al Plus) insulin glargine 100 unit/mL (3 15 unit (0.15 mL) SUBCUT BEDTIME 01/11/21 mL) subcutaneous pen (Lantus #3 mL Solostar U-100 Insulin) pantoprazole 40 mg tablet,delayed 40 mg PO BID #60 tabs 01/11/21 release (Protonix) hydrocodone 5 mg-acetaminophen 325 1 tab PO Q4-6H PRN pain #10 tabs 03/20/21 mg tablet ondansetron 4 mg disintegrating 4 mg PO TID-QID PRN nausea and 03/20/21 tablet vomiting #10 tabs Allergies Allergy/AdvReac Type Severity Reaction Status Date / Time aspirin AdvReac Verified 03/19/21 19:01 Review of Systems Constitutional Constitutional: Reports system reviewed and no additional complaints, except as documented ENT Ears, Nose, Mouth, and Throat: Reports system reviewed and no additional complaints, except as documented Cardiovascular Cardiovascular: Reports system reviewed and no additional complaints, except as documented Respiratory Respiratory: Reports system reviewed and no additional complaints, except as documented Gastrointestinal Gastrointestinal: Reports system reviewed and no additional complaints, except as documented Genitourinary Genitourinary: Reports system reviewed and no additional complaints, except as documented Patient History Medical History Diabetes HSV (herpes simplex virus) anogenital infection Surgical History History of wisdom tooth extraction Family History Mother Diabetes mellitus Congestive heart failure Father Parkinsons disease Social History household members: significant other and children Smoking Status: Current every day smoker alcohol intake: current Smoking Status: Current every day smoker tobacco type: cigarettes alcohol intake frequency: holidays/special occasions only Substance Use Type: marijuana Exam Initial Vital Signs Initial Vital Signs: Vital Signs Temperature 98.4 F 10/09/22 08:56 Pulse Rate 121 H 10/09/22 08:56 Respiratory Rate 20 10/09/22 08:56 Blood Pressure 134/99 H 10/09/22 08:56 Pulse Oximetry 99 10/09/22 08:56 Oxygen Delivery Method Room Air 10/09/22 08:56 HENMT Head: normal to inspection and normocephalic Resp Effort & Inspection: normal respiratory effort Auscultation: clear to auscultation bilaterally Cardio Rate: tachycardic Rhythm: regular rhythm GI Other: Mild discomfort to the epigastric region Skin General: no rashes or lesions noted Neuro General: patient alert, patient awake and moves all extremities Extrem General: normal to inspection and capillary refill normal Course Orders Ordered: ED Orders 10/09/22 08:56 XR chest 1V Stat EKG-12 Lead Stat 10/09/22 10:00 Complete Blood Count AUTO DIFF Stat Comprehensive Metabolic Panel Stat Lipase Stat Troponin & CK Cardiac Panel Stat 10/09/22 11:57 Consult to General Surgery Stat 10/09/22 12:49 CT chest abd pel w con Stat Discontinued Medications Acetaminophen (Acetaminophen 325 Mg Tablet) 650 mg PO Q4H PRN PRN Reason: Fever/Mild Pain (1-3) Acetaminophen (Acetaminophen Susp 650 Mg/20.3 Ml Udc) 650 mg PO NOW ONE Stop: 10/09/22 11:12 Last Admin: 10/09/22 11:14 Dose: 650 mg Documented By: AMANDA Al Hydrox/Mg Hydrox/Simethicone 20 ml/ Lidocaine HCl 15 ml 0 ml PO NOW ONE Stop: 10/09/22 09:17 Last Admin: 10/09/22 09:25 Dose: 35 ml Documented By: AMANDA Sodium Chloride (Normal Saline 0.9%) 1,000 mls @ 1,000 mls/hr IV BOLUS ONE Stop: 10/09/22 09:54 Last Infusion: 10/09/22 10:26 Dose: 0 mls/hr Documented By: Admin: 10/09/22 09:25 Dose: 1,000 mls/hr Documented By: AMANDA Sodium Chloride (Normal Saline 0.9%) 1,000 mls @ 1,000 mls/hr IV BOLUS ONE Stop: 10/09/22 11:17 Last Infusion: 10/09/22 12:31 Dose: 0 mls/hr Documented By: Admin: 10/09/22 10:26 Dose: 1,000 mls/hr Documented By: AMANDA Pantoprazole Sodium (Pantoprazole 40 Mg Vial) 40 mg IV NOW ONE Stop: 10/09/22 10:19 Last Admin: 10/09/22 10:26 Dose: 40 mg Documented By: AMANDA Vital Signs Vital signs: Vital Signs - 8 hr 10/09/22 08:56 10/09/22 09:11 10/09/22 09:11 Temperature 98.4 F Pulse Rate 121 H 117 H Respiratory Rate 20 25 H Blood Pressure 134/99 H 187/105 H Pulse Oximetry 99 97 Oxygen Delivery Method Room Air 10/09/22 09:30 10/09/22 09:30 10/09/22 10:00 Temperature Pulse Rate 108 H 103 H Respiratory Rate 25 H 24 Blood Pressure 175/84 H Pulse Oximetry 98 97 Oxygen Delivery Method 10/09/22 10:30 10/09/22 10:30 10/09/22 11:00 Temperature Pulse Rate 100 H 93 H Respiratory Rate 25 H 27 H Blood Pressure 160/78 H Pulse Oximetry 98 98 Oxygen Delivery Method 10/09/22 11:23 10/09/22 11:23 10/09/22 11:30 Temperature Pulse Rate 97 H 106 H Respiratory Rate 16 15 Blood Pressure 176/86 H Pulse Oximetry 98 97 Oxygen Delivery Method 10/09/22 12:00 10/09/22 12:30 10/09/22 13:00 Temperature Pulse Rate 96 H 88 99 H Respiratory Rate 22 20 18 Blood Pressure Pulse Oximetry 98 98 98 Oxygen Delivery Method Medical Decision Making Lab Data Lab results reviewed: Yes I reviewed the patient's lab results. 10/09/22 10:00 10/09/22 10:00 Labs: Lab Results 10/09/22 10/09/22 Range/Units 10:00 10:00 WBC 14.4 H (4.5-11.0) X10^3/uL RBC 5.51 H (4.0-5.2) X10^6/uL Hgb 16.1 H (12.0-16.0) g/dL Hct 47.5 H (36-46) % MCV 86.2 (80-100) fL MCH 29.3 (26-34) PG MCHC 33.9 (30-36) % RDW 13.8 (11.6-14.8) % Plt Count 381 (150-400) X10^3/uL Neut % (Auto) 76.1 H (50-75) % Lymph % (Auto) 14.8 L (25-40) % [place] % (Auto) 6.3 (3-14) % Eos % (Auto) 2.2 (2-4) % Baso % (Auto) 0.6 (0-2) % Neut # (Auto) 82821 H (4613-0572) /uL Lymph # (Auto) 2100 (9641-4526) /uL [place] # (Auto) 900 (0-900) /uL Eos # (Auto) 300 (0-450) /uL Baso # (Auto) 100 (0-100) /uL Sodium 135 L (137-145) mmol/L Potassium 3.1 L (3.4-5.1) mmol/L Chloride 95 L (98-107) mmol/L Carbon Dioxide 23 (22-32) mmol/L BUN 23 H (7-17) mg/dL Creatinine 0.54 (0.52-1.04) mg/dL Estimated GFR > 60 (>60) mL/min BUN/Creatinine Ratio 42.6 H (6-22) Glucose 150 H D (70-100) mg/dL Calcium 9.1 (8.4-10.2) mg/dL Total Bilirubin 0.7 (0.2-1.3) mg/dL AST 23 (14-36) IU/L ALT 21 (<35) IU/L Alkaline Phosphatase 113 (38-126) U/L Total Creatine Kinase 22 L (30-135) U/L CK-MB (CK-2) TNP CK-MB (CK-2) Rel Index TNP Troponin I < 0.012 (0.01-0.034) ng/mL Total Protein 7.9 (6.3-8.2) g/dL Albumin 4.5 (3.5-5.0) g/dL Globulin 3.4 (1.7-4.1) g/dL Albumin/Globulin Ratio 1.3 (1.0-2.8) Lipase 49 (23-300) U/L Imaging Data Chest x-ray: Radiologist's Impression: PROCEDURE:? XR CHEST 1V ? INDICATIONS:? chest pain ? TECHNIQUE:? One view of the chest was acquired.? ? COMPARISON:? [facility], , XR CHEST 1V, 10/05/2022, 16:50. ? FINDINGS:? ? Surgical changes and devices:? None.? ? Lungs and pleura:? Lungs are clear.? No pleural effusions or pneumothorax.? ? Mediastinum:? Mediastinal contours appear normal.? Heart size is normal.? ? Bones and chest wall:? No suspicious bony lesions.? Overlying soft tissues appear unremarkable.? ? IMPRESSION:? No acute pulmonary process. MDM Narrative Medical decision making narrative: Patient is here with epigastric abdominal pain and pain in this area with swallowing. She is also having nausea but no vomiting. She was here several days ago for vomiting blood however the vomiting has stopped. No fevers. No change in bowel habits. It seems that the patient has had quite a bit of issues with her GI tract in the past. Has had an endoscopy but that was year ago performed at a outside facility. Patient was able to tolerate the GI cocktail and also the liquid Tylenol but had quite a bit of discomfort. No problems breathing. Chest x-ray is not overtly consistent with [place]. I have low suspicion for ACS. Patient very reluctant to be discharged home. I did discuss the case with Dr. Mckay with general surgery who evaluated the patient here in the emergency department. Plan will be is to admit the patient to the hospital for further evaluation and treatment. I did discuss the need for admission with the patient. General surgery recommend CT scan of chest abdomen pelvis and she will follow-up on the results of this. We will admit the patient. Discharge Plan Departure Patient Disposition: Admitted As Inpatient Clinical Impression: Odynophagia, Abdominal pain Admit Date/Time: 10/09/22 13:09 Admit Provider: Raquel Mckay
[2022-10-09] MEDS: MAG HYDROX/ALUMINUM/SIMETH SUS 20 ML, LIDOCAINE VISCOUS 2% 15 ML PO (09:25)
[2022-10-09] MEDS: SODIUM CHLORIDE 0.9% 1,000 ML 1000 ML IV ×2 (09:25→10:26)
[2022-10-09 10:19] LABS: Add Manual Diff / Slide Review NO; Alanine Aminotransferase 21 IU/L (<35); Albumin 4.5 g/dL (3.5-5.0); Albumin Globulin Ratio 1.3 (1.0-2.8); Alkaline Phosphatase 113 U/L (38-126); Aspartate Aminotransferase 23 IU/L (14-36); BUN Creatinine Ratio 42.6 (6-22); Basophils Absolute Auto 100 /uL (0-100); Basophils Percent Auto 0.6 % (0-2); Bilirubin Total 0.7 mg/dL (0.2-1.3); Blood Urea Nitrogen 23 mg/dL (7-17); Calcium 9.1 mg/dL (8.4-10.2); Carbon Dioxide 23 mmol/L (22-32); Chloride 95 mmol/L (98-107); Creatine Kinase 22 U/L (30-135); Eosinophils Absolute Auto 300 /uL (0-450); Eosinophils Percent Auto 2.2 % (2-4); Estimated Glomerular Filt Rate > 60 mL/min (>60); Globulin 3.4 g/dL (1.7-4.1); Glucose 150 mg/dL (70-100); HEMOLYSIS 18 (0-50); Hematocrit 47.5 % (36-46); Hemoglobin 16.1 g/dL (12.0-16.0); Lipase 49 U/L (23-300); Lymphocytes Absolute Auto 2100 /uL (1100-4500); Lymphocytes Percent Auto 14.8 % (25-40); Mean Corpuscular HGB Conc 33.9 % (30-36); Mean Corpuscular Hemoglobin 29.3 PG (26-34); Mean Corpuscular Volume 86.2 fL (80-100); Monocytes Absolute Auto 900 /uL (0-900); Monocytes Percent Auto 6.3 % (3-14); Neutrophils Absolute Auto 10900 /uL (1500-7000); Neutrophils Percent Auto 76.1 % (50-75); Platelet Count 381 X10^3/uL (150-400); Potassium 3.1 mmol/L (3.4-5.1); Red Blood Cell Count 5.51 X10^6/uL (4.0-5.2); Red Cell Distribution Width 13.8 % (11.6-14.8); Sodium 135 mmol/L (137-145); Total Protein 7.9 g/dL (6.3-8.2); White Blood Cell Count 14.4 X10^3/uL (4.5-11.0)
[2022-10-09] MEDS: PANTOPRAZOLE 40 MG VIAL IV ×3 (10:26→20:18)
[2022-10-09 10:30] LABS: Troponin I < 0.012 ng/mL (0.01-0.034)
[2022-10-09] MEDS: ACETAMINOPHEN SUSP 650 MG/20.3 ML UDC PO (11:14)
--- NOTE | 2022-10-09 11:30 | PC.NURSE ---
Pt was crying during the triage process and was verbally upset with the RN for asking triage questions. Pt felt questions were unnecessary. Pt raised her voice several times at the RN. During medication administration pt scolded RN stating she could not swallow Tylenol pills. Pt requested liquid Tylenol. RN gave pt liquid tylenol and pt yelled at RN that she couldn't swallow medications but then swallowed the liquid Tylenol.
--- NOTE | 2022-10-09 11:40 | PC.NURSE ---
Pt was yelling at the physician loudly in the tx room during a conversation about how she was feeling post medication administration.
--- NOTE | 2022-10-09 12:49 | DI.CT.S_ITS ---
PROCEDURE: CT CHEST ABD PEL W CON INDICATIONS: Pain with swallowing TECHNIQUE: After the administration of oral and intravenous contrast, axial sections acquired from the supraclavicular neck to the pubic symphysis. Coronal and sagittal reformats were performed. For radiation dose reduction, the following was used: automated exposure control, adjustment of mA and/or kV according to patient size. COMPARISON: [facility], CT, CT ABDOMEN PELVIS W CON, 10/05/2022, 18:21. FINDINGS: Image quality: Excellent. CHEST: Lower Neck: No enlarged lymph nodes. Thyroid: Within normal limits. Axillae: No enlarged lymph nodes. Chest Wall: Unremarkable. Lungs and Airways: No consolidation or suspicious nodules. Pleura: No pneumothorax or pleural effusions. Heart: Heart size is normal. No pericardial effusion. Thoracic Vessels: The aorta and pulmonary arteries demonstrate normal size. Mediastinum and [place]: No enlarged lymph nodes. Esophagus: Circumferential distal esophageal thickening remains present relatively unchanged compared to 10/05/2022 ABDOMEN: Liver: Hepatic steatosis. Gallbladder: Unremarkable. Biliary ducts: Unremarkable. Pancreas: Unremarkable. Spleen: Unremarkable. Adrenal Glands: Unremarkable. Kidneys and Ureters: Unremarkable. Stomach and Bowel: Stomach, small bowel loops, and colon are unremarkable. Appendix is normal. Scattered diverticular present without associated inflammatory change. Peritoneum: No abnormal intraperitoneal fluid. No free air. Ventral Wall: Fat containing umbilical hernia is present. Abdominal Nodes: No retroperitoneal or mesenteric adenopathy by size criteria. Vessels: Aorta and inferior vena cava are normal in size. PELVIS: Pelvic Organs: Unremarkable. Bladder: Unremarkable. Pelvic Nodes: No enlarged lymph nodes. Miscellaneous: No inguinal hernias are seen. Bones: Unremarkable. IMPRESSION: 1. Persistent appearance of distal esophageal thickening unchanged compared to prior exam. This may represent esophagitis. Recommend clinical correlation short interval imaging follow-up to document resolution or upper endoscopy as indicated to exclude presence of underlying mass. 2. Diverticulosis Dictated by: Kerry Hollins M.D. on 10/09/2022 at 13:40 Approved by: Kerry Hollins M.D. on 10/09/2022 at 13:42
[2022-10-09 13:45] LABS: COVID19 -Nasal RAPID Negative (Negative)
--- NOTE | 2022-10-09 14:20 | PM.HP.1 ---
History of Present Illness History of Present Illness Date Patient Seen: 10/09/22 Time Patient Seen: 12:00 Chief complaint: Chest Pain, Hot and Cold Sweats, High HR, Dizzy Narrative: Mr. Cullen presents to the emergency room today with extreme pain with swallowing. She says that this particular episode started about 9 days ago and since then she really can not swallow anything and has taken less than 4 bites of food. At times according to her son she was sweaty and incoherent sometimes off balance and her son says she even passed out. He is the reason she came today because he continued to urge her to be evaluated. She did hesitate to come because she is been seen in the past with similar symptoms and nothing had been done for her. She is had her heart rate up to 129 beats per minute at times when she is in the emergency room with pain. She also has frequent nausea. She really has not been able to keep anything down and even water at times can be challenging. She is had several ER visits where she reported hematemesis. She is never received a transfusion for this. She was well about 4 years ago and at that time she had a few hospital visits maybe 3 or 4 per year for similar type of symptoms with pain and vomiting. Over the past 2 years these attacks have increased and most recently she is been in the emergency room or hospital every other month with hematemesis and epigastric pain especially with swallowing. She has had extensive workup. She states her last EGD was done in 2020 or early 2021 [facility]. She says that they did find some ulcers in her stomach and prescribed her some antacid medicine. She also had a colonoscopy at that time and she can not remember but she thought maybe there were ulcers in her colon as well? I do not have these records available for review at this time but I asked her if it would be okay for me to obtain them and she said yes absolutely. She is really tearful and frustrated because the amount of pain that she is having is becoming unbearable and yet nobody has been able to help her in any way. She is tried different hospitals seek help but she keeps getting sent home and has not been able to access any meaningful care. [facility] Medical History Diabetes HSV (herpes simplex virus) anogenital infection Surgical History History of wisdom tooth extraction Family History Mother Diabetes mellitus Congestive heart failure Father Parkinsons disease Social History household members: significant other and children Smoking Status: Current every day smoker alcohol intake: current Meds Home Medications and Allergies Home Medications Medication Instructions Recorded Confirmed Type metformin 1,000 mg tablet,extended 1,000 mg PO BID 01/09/21 01/09/21 History release 24hr acetaminophen 325 mg tablet 650 mg PO Q4HR PRN As Needed For 01/11/21 Rx Fever/Mild Pain #20 tabs aluminum-mag hydroxide-simethicone 30 ml PO Q6HR PRN Dyspepsia #500 mL 01/11/21 Rx 200 mg-200 mg-20 mg/5 mL oral susp (Mag-Al Plus) insulin glargine 100 unit/mL (3 15 unit (0.15 mL) SUBCUT BEDTIME 01/11/21 Rx mL) subcutaneous pen (Lantus #3 mL Solostar U-100 Insulin) pantoprazole 40 mg tablet,delayed 40 mg PO BID #60 tabs 01/11/21 Rx release (Protonix) hydrocodone 5 mg-acetaminophen 325 1 tab PO Q4-6H PRN pain #10 tabs 03/20/21 Rx mg tablet ondansetron 4 mg disintegrating 4 mg PO TID-QID PRN nausea and 03/20/21 Rx tablet vomiting #10 tabs Allergies Allergy/AdvReac Type Severity Reaction Status Date / Time aspirin AdvReac Verified 03/19/21 19:01 Exam Vital Signs (past 8 hours): - 10/09/22 08:56 10/09/22 09:11 10/09/22 09:11 Temperature 98.4 F Pulse Rate 121 H 117 H Respiratory Rate 20 25 H Blood Pressure 134/99 H 187/105 H Pulse Oximetry 99 97 Oxygen Delivery Method Room Air 10/09/22 09:30 10/09/22 09:30 10/09/22 10:00 Temperature Pulse Rate 108 H 103 H Respiratory Rate 25 H 24 Blood Pressure 175/84 H Pulse Oximetry 98 97 Oxygen Delivery Method 10/09/22 10:30 10/09/22 10:30 10/09/22 11:00 Temperature Pulse Rate 100 H 93 H Respiratory Rate 25 H 27 H Blood Pressure 160/78 H Pulse Oximetry 98 98 Oxygen Delivery Method 10/09/22 11:23 10/09/22 11:23 10/09/22 11:30 Temperature Pulse Rate 97 H 106 H Respiratory Rate 16 15 Blood Pressure 176/86 H Pulse Oximetry 98 97 Oxygen Delivery Method 10/09/22 12:00 10/09/22 12:30 10/09/22 13:00 Temperature Pulse Rate 96 H 88 99 H Respiratory Rate 22 20 18 Blood Pressure Pulse Oximetry 98 98 98 Oxygen Delivery Method Oxygen Delivery Method Room Air Const General: in distress, ill appearing and other (Appropriate. Anxious and tearful.) Nutritional Appearance: overweight Orientation: alert, awake and oriented x3 HENMT Head: normal to inspection Mouth: mucous membranes abnormal (Dry) Eyes General: appearance normal, both eyes and all related structures Resp Effort & Inspection: normal respiratory effort and able to speak in complete sentences Cardio Pulses: radial pulses present Other: Regular rate and rhythm. There is mild tachycardia up to 110 bpm on the monitor when I entered the room. After talking to her and assuring her that I will do my best to help her her heart rate came down to 96. GI Inspection: scar (No surgical incisions) Palpation: soft and tender (Mild epigastric tenderness) Extrem General: normal to inspection and no pedal edema Objective Labs 10/09/22 10:00 10/09/22 10:00 Labs: Laboratory Results - last 24 hr 10/09/22 10/09/22 10/09/22 10:00 10:00 13:28 WBC 14.4 H RBC 5.51 H Hgb 16.1 H Hct 47.5 H MCV 86.2 MCH 29.3 MCHC 33.9 RDW 13.8 Plt Count 381 Neut % (Auto) 76.1 H Lymph % (Auto) 14.8 L Gage % (Auto) 6.3 Eos % (Auto) 2.2 Baso % (Auto) 0.6 Neut # (Auto) 21775 H Lymph # (Auto) 2100 Gage # (Auto) 900 Eos # (Auto) 300 Baso # (Auto) 100 Sodium 135 L Potassium 3.1 L Chloride 95 L Carbon Dioxide 23 BUN 23 H Creatinine 0.54 Estimated GFR > 60 BUN/Creatinine Ratio 42.6 H Glucose 150 H D Calcium 9.1 Total Bilirubin 0.7 AST 23 ALT 21 Alkaline Phosphatase 113 Total Creatine Kinase 22 L CK-MB (CK-2) TNP CK-MB (CK-2) Rel Index TNP Troponin I < 0.012 Total Protein 7.9 Albumin 4.5 Globulin 3.4 Albumin/Globulin Ratio 1.3 Lipase 49 SARS-CoV-2 (PCR) Negative Assessment & Plan Assessment and plan (1) Odynophagia: Status: Acute (2) Acute vomiting: Status: Acute (3) Abdominal pain: Status: Acute Assessment & Plan narrative: I discussed the patient with the ER physician Dr. Villegas. I personally reviewed her imaging studies and laboratory values. I am not fully sure of the etiology of these symptoms at this time but there is clear evidence of an acute process which has rendered her labs appearing quite dehydrated and she clearly is in too much pain and discomfort to be discharged home. I have proposed to admit her and replace electrolytes and provide IV fluid hydration. I will give her clear liquid diet but she is having a difficult time tolerating that. Most of her medication will be IV at this time. Anything that can be liquid form will try that route for oral medication. She will have DVT prophylaxis. I will monitor her labs and recheck her electrolytes in the morning. I have also advised that though the chest x-ray appeared normal today that I would repeat a CT scan just to be sure with a greater sensitivity that there is no esophageal pathology that would require surgical intervention. If this CT scan looks okay then I will admit her and proceed with plans but it seems as though an EGD would be the best next step.
[2022-10-09] MEDS: POTASSIUM CHLORIDE 40 MEQ in SODIUM CHLORIDE 0.9% 1,000 ML 100 MEQ IV (15:06)
[2022-10-09] MEDS: MAG HYDROX/ALUM/SIMETH 30 ML UDC PO (16:54)
[2022-10-09] MEDS: HYDROMORPHONE 0.5 MG INJ IV ×2 (17:01→19:59)
[2022-10-09] MEDS: HYOSCYAMINE 0.125 MG TABLET PO ×2 (17:38→20:46)
[2022-10-09] MEDS: HYDROMORPHONE 1 MG INJ IV (20:46)
[2022-10-09] MEDS: LORazepam 2 MG/ML INJ 1 MG IV (21:27)
[2022-10-09] MEDS: FAMOTIDINE 20 MG/2 ML VIAL IV (21:28)
[2022-10-09] MEDS: NITROGLYCERIN 0.4 MG SL TAB SL (21:36)
[2022-10-10] VITALS (11 sets, daily range): BP systolic 112–188; BP diastolic 60–88; PULSE 86–96; RESP 14–28; TEMP 36.6–37; O2SAT 90–100
--- NOTE | 2022-10-10 | PATH_ITS ---
[facility] Accession Number: [id number] No. of containers..06 Tissue . 01 Material submitted: . PART A: duodenum - DUODENUM PART B: gastrointestinal site - ANTRUM PART C: gastrointestinal site - FUNDUS PART D: esophagus, E-G Junction - GE JUNCTION AT 30 PART E: esophagus - MID ESOPHAGUS PART F: esophagus - PROXIMAL ESOPHAGUS . 01 Diagnosis: A. Duodenum, Biopsy: Duodenal mucosa with no diagnostic abnormality. Negative for active inflammation, features of sprue, dysplasia, or malignancy. . B. Stomach, Antrum, Biopsy: Antral mucosa with no significant diagnostic abnormality. Negative for Helicobacter by immunohistochemistry. Negative for intestinal metaplasia. Negative for dysplasia and malignancy. . C. Designated Fundus, Biopsies: Ulcerated squamocolumnar junctional mucosa. Please see comment. Negative for intestinal metaplasia. No obvious viral cytopathic effects or fungal organisms identified. Negative for HSV and CMV antigens by immunohistochemistry. Negative for mycobacteria on AFB stain. A PAS stain is negative for fungal organisms. Negative for dysplasia and malignancy. . D. Designated Gastroesophageal Junction at 30, Biopsy: Body-type mucosa with mild chronic gastritis. Negative for Helicobacter by immunohistochemistry. Negative for intestinal metaplasia. Negative for dysplasia and malignancy. . E. Mid Esophagus, Biopsy: Ulcerated squamous mucosa. Please see comment. No obvious viral cytopathic effects or fungal organisms identified on H/E stain. Negative for HSV and CMV antigens by immunohistochemistry. A PAS stain is negative for fungal organisms. Negative for dysplasia and malignancy. . F. Proximal Esophagus, Biopsy: Squamous epithelium with focal glycogenic acanthosis. A PAS stain is negative for fungal organisms. Intraepithelial eosinophils are not increased. Negative for dysplasia and malignancy. [facility] 10/15/2022 1346 Local . 01 Comment: Parts C and E: The ulcerated esophageal biopsies in parts C and E show deep ulceration involving the squamocolumnar junction and mid-esophagus with marked neutrophilic infiltrate and frequent eosinophils. There is no significant intraepithelial eosinophilia in the nearby noninflamed sqamous epithelium in both parts. No obvious viral cytopathic effects or fungal organisms are identified. Immunohistochemical stains for HSV and CMV antigens are negative. Special stains for mycobacteria and fungal organisms are negative. No foreign material, pill fragment debris, or granulomatous inflammation is identified. There is no evidence of a neoplastic cell population. . The differential diagnosis includes medication-related mucosal injury/pill esophagitis, heat or chemical injury, and infection. Severe reflux and eosinophilic esophagitis are less likely. Esophageal Crohn's disease cannot be completely excluded. Most reported cases of Crohn's of the esophagus are associated with disease elsewhere in the gut. . As part of routine quality process engineer, the H/E slides for parts C and E of this case were also reviewed by Dr. Boo and Dr. Feng. Dr. Tay discussed preliminary results with Dr. Mckay on 10/14/2022. . 01 Electronically signed: . Tanisha Tay MD, Pathologist NPI- [id number] . 01 Gross description: . A. Designated biopsy of duodenum and consists of four treviño soft tissue fragment, ranging from 0.1 to 0.3 cm in greatest dimension. Submitted entirely in cassette A1. B. Designated biopsy antrum and consists of two treviño soft tissue fragments, measuring 0.2 cm each in greatest dimension. Submitted entirely in cassette B1. C. Designated biopsy fundus and consists of multiple treviño soft tissue fragments, aggregating to 1.3 x 0.5 x 0.1 cm. The specimen is filtered into a biopsy bag. Submitted entirely in cassette C1. D. Designated GE junction distal esoph 30 and consists of three treviño soft tissue fragments, ranging from 0.2 to 0.3 cm in greatest dimension. Submitted entirely in cassette D1. E. Designated mid esophagus and consists of two treviño soft tissue fragments, measuring 0.2 cm each in greatest dimension. Submitted entirely in cassette E1. F. Designated proximal esophagus and consists of two treviño soft tissue fragments, measuring 0.2 cm each in greatest dimension. submitted entirely in cassette F1. ([id number]) /[facility] 10/13/[address] [place] [address] . 01 Microscopic: . B. An immunohistochemical stain was performed to evaluate for Helicobacter organisms and is negative. The control stain showed appropriate reactivity. . C. Immunohistochemical and special stains were performed to evaluate for infectious organisms. All control stains showed appropriate reactivity. . RESULTS; HSV: Negative. CMV: Negative. AFB: Negative for mycobacteria. ABPAS: Negative for fungal organisms. . D. An immunohistochemical stain was performed to evaluate for Helicobacter organisms and is negative. The control stain showed appropriate reactivity. . E. Immunohistochemical and special stains were performed to evaluate for infectious organisms. All control stains showed appropriate reactivity. . RESULT: HSV: Negative. CMV: Negative. PAS: Negative for fungal organisms. . F. A PAS stain was performed to evaluate for fungal organisms and is negative. The control stain showed appropriate reactivity. . * This test was developed and its performance characteristics determined by [facility]. It has not been cleared or approved by the U.S. Food and Drug Administration. The FDA has determined that such clearance or approval is not necessary. This test is used for clinical purposes. It should not be regarded as investigational or for research. . 01 Pathologist provided ICD-10: K20.90, R13.10 . 01 CPT . 831462, 782175, 623470, 005920, 442482, 918930, C85259, F00036, 536417, 294772, 096138, 893561 Specimen Comment: A courtesy copy of this report has been sent to [facility] Performed at: 01 [facility] [address] [place] [address] [address], [place], [place] [id number] MD Moi Feng MD Phone: [phone]
[2022-10-10] MEDS: POTASSIUM CHLORIDE 40 MEQ in SODIUM CHLORIDE 0.9% 1,000 ML 100 MEQ IV (01:33)
[2022-10-10] MEDS: HYDROMORPHONE 0.5 MG INJ IV ×4 (01:41→16:08)
[2022-10-10] MEDS: LORazepam 2 MG/ML INJ 1 MG IV ×4 (01:42→23:44)
[2022-10-10 07:25] LABS: Hematocrit 39.3 % (36-46); Hemoglobin 13.4 g/dL (12.0-16.0); Mean Corpuscular HGB Conc 34.2 % (30-36); Mean Corpuscular Hemoglobin 29.1 PG (26-34); Mean Corpuscular Volume 85.2 fL (80-100); Platelet Count 266 X10^3/uL (150-400); Red Blood Cell Count 4.61 X10^6/uL (4.0-5.2); Red Cell Distribution Width 13.6 % (11.6-14.8); White Blood Cell Count 8.1 X10^3/uL (4.5-11.0)
[2022-10-10 07:37] LABS: BUN Creatinine Ratio 26.7 (6-22); Blood Urea Nitrogen 12 mg/dL (7-17); Calcium 7.8 mg/dL (8.4-10.2); Carbon Dioxide 27 mmol/L (22-32); Chloride 103 mmol/L (98-107); Estimated Glomerular Filt Rate > 60 mL/min (>60); Glucose 101 mg/dL (70-100); HEMOLYSIS < 15 (0-50); Potassium 3.6 mmol/L (3.4-5.1); Sodium 134 mmol/L (137-145)
[2022-10-10 07:45] LABS: Iron 86 ug/dL (37-170)
[2022-10-10 07:49] LABS: C-Reactive Protein Quant 1.9 mg/dL (<1.0)
[2022-10-10 07:54] LABS: Vitamin D 25 Hydroxy (D3) < 12.8 ng/mL (30.0-100.0)
[2022-10-10] MEDS: ONDANSETRON 4 MG/2 ML INJ IV ×3 (08:41→23:44)
[2022-10-10] MEDS: ENOXAPARIN 40 MG/0.4 ML SYRINGE SUBCUT (08:41)
[2022-10-10] MEDS: FAMOTIDINE 20 MG/2 ML VIAL IV ×2 (08:41→20:33)
[2022-10-10] MEDS: PANTOPRAZOLE 40 MG VIAL IV ×2 (08:42→20:33)
--- NOTE | 2022-10-10 10:19 | PM.PN.1 ---
Subjective Subjective Date Patient Seen: 10/10/22 Time Patient Seen: 10:20 Interval history: Still feeling extremely painful. Dilaudid helped somewhat but none of the other medication seem to have any effect. Ativan also has been helpful. She continues to be painful and would like to proceed with an EGD today if it is possible. Exam Vital Signs (past 8 hours): - 10/10/22 08:30 Pulse Rate 90 Blood Pressure 188/88 H Oxygen Delivery Method Room Air Oxygen Flow Rate 0 Const General: cooperative, comfortable, ill appearing and other (A little bit sleepy) HENMT Head: normal to inspection Eyes General: appearance normal, both eyes and all related structures Resp Effort & Inspection: normal respiratory effort and able to speak in complete sentences Cardio Pulses: radial pulses present GI Palpation: soft and tender (Very mild tenderness epigastric seems improved but patient has taken meds) Extrem General: normal to inspection Objective Labs 10/10/22 07:00 10/10/22 07:00 Labs: Laboratory Results - last 24 hr 10/09/22 10/09/22 10/09/22 10:00 10:00 13:28 WBC 14.4 H RBC 5.51 H Hgb 16.1 H Hct 47.5 H MCV 86.2 MCH 29.3 MCHC 33.9 RDW 13.8 Plt Count 381 Neut % (Auto) 76.1 H Lymph % (Auto) 14.8 L [place] % (Auto) 6.3 Eos % (Auto) 2.2 Baso % (Auto) 0.6 Neut # (Auto) 34457 H Lymph # (Auto) 2100 [place] # (Auto) 900 Eos # (Auto) 300 Baso # (Auto) 100 Sodium 135 L Potassium 3.1 L Chloride 95 L Carbon Dioxide 23 BUN 23 H Creatinine 0.54 Estimated GFR > 60 BUN/Creatinine Ratio 42.6 H Glucose 150 H D Calcium 9.1 Iron Total Bilirubin 0.7 AST 23 ALT 21 Alkaline Phosphatase 113 Total Creatine Kinase 22 L CK-MB (CK-2) TNP CK-MB (CK-2) Rel Index TNP Troponin I < 0.012 C-Reactive Protein Total Protein 7.9 Albumin 4.5 Globulin 3.4 Albumin/Globulin Ratio 1.3 Lipase 49 25-OH Vitamin D Total SARS-CoV-2 (PCR) Negative 10/10/22 10/10/22 10/10/22 07:00 07:00 07:00 WBC 8.1 RBC 4.61 Hgb 13.4 Hct 39.3 MCV 85.2 MCH 29.1 MCHC 34.2 RDW 13.6 Plt Count 266 Neut % (Auto) Lymph % (Auto) [place] % (Auto) Eos % (Auto) Baso % (Auto) Neut # (Auto) Lymph # (Auto) [place] # (Auto) Eos # (Auto) Baso # (Auto) Sodium 134 L Potassium 3.6 Chloride 103 Carbon Dioxide 27 BUN 12 Creatinine 0.45 L Estimated GFR > 60 BUN/Creatinine Ratio 26.7 H Glucose 101 H Calcium 7.8 L Iron Total Bilirubin AST ALT Alkaline Phosphatase Total Creatine Kinase CK-MB (CK-2) CK-MB (CK-2) Rel Index Troponin I C-Reactive Protein 1.9 H Total Protein Albumin Globulin Albumin/Globulin Ratio Lipase 25-OH Vitamin D Total SARS-CoV-2 (PCR) 10/10/22 10/10/22 07:00 07:00 WBC RBC Hgb Hct MCV MCH MCHC RDW Plt Count Neut % (Auto) Lymph % (Auto) [place] % (Auto) Eos % (Auto) Baso % (Auto) Neut # (Auto) Lymph # (Auto) [place] # (Auto) Eos # (Auto) Baso # (Auto) Sodium Potassium Chloride Carbon Dioxide BUN Creatinine Estimated GFR BUN/Creatinine Ratio Glucose Calcium Iron 86 Total Bilirubin AST ALT Alkaline Phosphatase Total Creatine Kinase CK-MB (CK-2) CK-MB (CK-2) Rel Index Troponin I C-Reactive Protein Total Protein Albumin Globulin Albumin/Globulin Ratio Lipase 25-OH Vitamin D Total < 12.8 L SARS-CoV-2 (PCR) [facility] Medical History Diabetes HSV (herpes simplex virus) anogenital infection Surgical History History of wisdom tooth extraction Family History Mother Diabetes mellitus Congestive heart failure Father Parkinsons disease Social History household members: significant other and children Smoking Status: Current every day smoker alcohol intake: current Assessment & Plan Assessment and plan (1) Acute vomiting: Status: Acute (2) Odynophagia: Status: Acute (3) Esophagitis: Status: Acute (4) Gastritis: Status: Acute Assessment & Plan narrative: I discussed the risks benefits and alternatives. Of EGD and biopsy. She understands these risks and would like to proceed.
[2022-10-10] MEDS: ALBUTEROL/IPRATROPIUM 3 ML AMPUL INH (12:07)
[2022-10-10] MEDS: LACTATED RINGERS 1,000 ML 42 ML IV (12:14)
--- NOTE | 2022-10-10 13:27 | PM.OP.EGD ---
Operative Date/Time/Diagnoses Date of procedure: 10/10/22 Time of procedure: 13:27 Pre-op diagnosis: Esophagitis, odynophagia Procedure & Clinicians Study performed: EGD and biopsy Indications: Esophagitis and odynophagia Surgeon: Raquel Mckay Procedure Notes Procedure in detail: Patient was taken to the endoscopy suite and placed supine on the operating room table. A time-out was performed. She was intubated and monitored by anesthesiologist Dr. Pk Noyola. A bite block was placed. The endoscope was then introduced into the mouth and advanced easily into the esophagus. The most proximal esophagus had normal appearance but by the mid esophageal area and all the way down to the GE junction which was at 30 cm from the incisors, there was marked inflammatory linear plaques with whitish material overlying them. The scope was then advanced into the stomach. There was some irritation in the antrum as well as within the duodenum. There were some polyps in the duodenum as well. Photographs of the duodenum and the antrum were obtained. Several biopsies of the duodenum were taken using a biopsy forceps. Several biopsies of the antrum also were obtained. The scope was then retroflexed and was used to look at the fundus and GE junction from the inside. A photograph was taken here. There was sort of cobblestoned appearance to some of the fundal falcon and several biopsies of this area were obtained as well. The scope was then withdrawn back to the GE junction and several biopsies were taken of the GE junction and the distal esophagus. More biopsies were taken as the scope was withdrawn through the esophagus in order to get a good number of esophageal biopsies. Mid esophageal specimens were sent in another specimen jar and finally distal esophageal specimens which were taken form more grossly normal esophageal mucosa were sent in a different specimen jar. Patient tolerated the procedure well and went into the postoperative care unit in good condition. Specimen(s): other (1. Duodenum 2. Antrum 3. Fundus 4. GE junction and distal esophagus 5. Mid esophagus 6. Proximal esophagus) Complications: none Impression: Severe esophagitis with white linear plaques. There was also duodenitis. My differential diagnosis at this point includes Crohn's esophagitis, herpes esophagitis, other infectious esophagitis. Given history and even previous CT scan with terminal ileitis in 2019 done at [facility]. And I have reviewed the images personally. I think that Crohn's makes a lot of sense here. We will discuss with the patient if she wants to start treatment with either acyclovir and/or steroids while we wait for biopsy results which will take 7-10 business days.
--- NOTE | 2022-10-10 13:32 | CM.DANOTE ---
Patient is a 42 yo female who was admitted on 10/09/22 for Pain/Fevers/Ill. Pt has [facility] and [facility] for insurance and her PCP is Ashlyn Diallo. EMR was reviewed. Per Surgeon, pt with a recent hx of ongoing abdominal/throat pain with unknown etiology with multiple ED and admissions to the hospital. Pt to be admitted for IV hydration and IV meds and to have further CT and likely EGD. Per RN, pt has some agitation and frustration with staff due to her ongoing pain and discomfort with no etiology and anxiety. SW attempted to meet bedside with pt but being taken down to OR for EGD and pt currently very nauseous after getting in w/c for transport to OR. Plan: SW to follow closely for EGD results and hopeful dx for tx to relieve pt's discomfort and then bedside discussion to r/o any discharge planning needs. SUDARSHAN Montoya Discharge Planning/Care Management CM Discharge Assessment Start: 10/10/22 13:30 Freq: Status: Active Protocol: Document 10/10/22 13:31 BF (Rec: 10/10/22 13:32 BF [id number]) Discharge Planning Assessment Assigned Waiter/Waitress SUDARSHAN Savage Advance Directives? No Advance Directives on File No History Provided By Patient,Medical Record Has Patient been admitted in last 30 No days? Prior Living Arrangements House Household Members significant other,children Type of transporation used prior to Drives own vehicle admit Independent with ADL's Yes Is patient alert and oriented? Yes Caregiver for Another Yes: older children at home Barriers to Discharge No Discharge Plan Home Transportation Arrangement Likely family to transport Additional Comment Pending progress and needs post EGD today Whiteboard Updated in Patient Room with Yes name and ext. # of Waiter/Waitress Review Status In Process Please Provide Date Initial DC 10/10/22 Assessment Was Performed Next Review Type Continued Stay Review
[2022-10-10] MEDS: WATER IV ×2 (14:55→20:43)
[2022-10-10] MEDS: DEXTROSE 5% IV ×2 (14:55→20:43)
[2022-10-10] MEDS: ACYCLOVIR IV ×2 (14:55→20:43)
[2022-10-10] MEDS: metroNIDAZOLE 500 MG/100 ML PIGGYBACK 100 MG IV ×2 (16:09→23:37)
[2022-10-10] MEDS: KCL 20 MEQ IN NS 1,000 ML 100 MEQ IV (17:21)
[2022-10-10] MEDS: INSULIN LISPRO 100 UNIT/ML 3ML VIAL SUBCUT (17:33)
[2022-10-10] MEDS: HYDROMORPHONE 1 MG INJ IV ×3 (17:35→23:44)
[2022-10-10] MEDS: HYDROCORTISONE 100 MG/2 ML VIAL IV ×2 (17:35→23:44)
[2022-10-10] MEDS: INSULIN GLARGINE 100 UNIT/ML 3ML PEN SUBCUT (20:33)
[2022-10-11] MEDS: KCL 20 MEQ IN NS 1,000 ML 100 MEQ IV ×3 (02:27→22:51)
[2022-10-11] MEDS: HYDROMORPHONE 0.5 MG INJ IV ×2 (02:29→18:34)
[2022-10-11] MEDS: HYDROMORPHONE 1 MG INJ IV ×4 (04:41→21:51)
[2022-10-11] MEDS: WATER IV ×3 (04:42→21:50)
[2022-10-11] MEDS: DEXTROSE 5% IV ×3 (04:42→21:50)
[2022-10-11] MEDS: ACYCLOVIR IV ×3 (04:42→21:50)
[2022-10-11] MEDS: HYDROCORTISONE 100 MG/2 ML VIAL IV ×4 (06:06→23:39)
[2022-10-11] MEDS: metroNIDAZOLE 500 MG/100 ML PIGGYBACK 100 MG IV ×3 (06:16→22:50)
[2022-10-11] MEDS: LORazepam 2 MG/ML INJ 1 MG IV ×2 (06:17→21:51)
[2022-10-11 06:37] VITALS: RESP 12
[2022-10-11 06:48] LABS: Blood Urea Nitrogen 6 mg/dL (7-17); Calcium 8.3 mg/dL (8.4-10.2); Carbon Dioxide 26 mmol/L (22-32); Chloride 101 mmol/L (98-107); Estimated Glomerular Filt Rate > 60 mL/min (>60); Glucose 201 mg/dL (70-100); HEMOLYSIS < 15 (0-50); Sodium 133 mmol/L (137-145)
[2022-10-11] MEDS: INSULIN LISPRO 100 UNIT/ML 3ML VIAL SUBCUT ×4 (08:11→21:19)
[2022-10-11] MEDS: FAMOTIDINE 20 MG/2 ML VIAL IV ×2 (08:12→21:19)
[2022-10-11] MEDS: PANTOPRAZOLE 40 MG VIAL IV ×2 (08:12→21:19)
--- NOTE | 2022-10-11 09:23 | PC.NURSE ---
Addendum entered by Kaitlin Perry R.N. 10/11/22 11:57: Patient given zofran and iv dilaudid for discomfort to throat. She states that she starts shaking when she has pain to her esophagus. Patient is teary eyed and states that her primary Doctor does not take her serious and thinks that she is a hyperchondriac. Explained to patient that she might want to think about getting another doctor. Which she states that she has. Up to void and resting comfortably. Original Note: Assess- Patient is alert and oriented x4, she is a stand by assist to get up to the commode to void. Denies pain at this time and states that she would like something for her bowels as she has not had a bowel movement in several days. She is resting comfortably.
[2022-10-11 09:28] VITALS: BP 141/65; PULSE 88; RESP 18; TEMP 36.8; O2SAT 96
[2022-10-11] MEDS: ONDANSETRON 4 MG/2 ML INJ IV ×2 (11:10→21:51)
--- NOTE | 2022-10-11 12:29 | PM.PN.1 ---
Subjective Subjective Date Patient Seen: 10/11/22 Time Patient Seen: 12:29 Interval history: Feeling maybe slightly better today. Undergoing a speech therapy evaluation at present. She says the medication is helping relieve the pain and that she is tolerating a little bit more liquid than before although things that are warm or an acidy are still quite bothersome. Exam Vital Signs (past 8 hours): - 10/11/22 06:37 10/11/22 09:10 10/11/22 09:28 Temperature 98.3 F Pulse Rate 88 Respiratory Rate 12 18 Blood Pressure 141/65 H Pulse Oximetry 96 Oxygen Delivery Method Room Air Oxygen Flow Rate 0 Oxygen Delivery Method Room Air Oxygen Flow Rate 0 Narrative Exam Narrative: She is lethargic and a little bit ill appearing. Though more alert and comfortable looking than yesterday. still mild tenderness in the epigastric region. Breathing is nonlabored on room air, radial pulses regular and palpable Objective Labs 10/10/22 07:00 10/11/22 05:20 Labs: Laboratory Results - last 24 hr 10/11/22 05:20 Sodium 133 L Potassium 4.0 Chloride 101 Carbon Dioxide 26 BUN 6 L Creatinine 0.40 L Estimated GFR > 60 BUN/Creatinine Ratio 15.0 Glucose 201 H D Calcium 8.3 L PFSH Medical History Diabetes HSV (herpes simplex virus) anogenital infection Surgical History History of wisdom tooth extraction Family History Mother Diabetes mellitus Congestive heart failure Father Parkinsons disease Social History household members: significant other and children Smoking Status: Current every day smoker alcohol intake: current Assessment & Plan Assessment and plan (1) Gastritis: Status: Acute (2) Esophagitis: Status: Acute (3) Odynophagia: Status: Acute (4) Acute vomiting: Status: Acute Assessment & Plan narrative: Differential diagnosis at this time includes Crohn's esophagitis herpes esophagitis. I doubt that this is reflux esophagitis because she has been treated and even in spite of treatment the severity. She has elements of her history that are suggestive of Crohn's disease. She also has a family history of Crohn's disease. I started her on some IV steroids and IV anti viral and metronidazole to cover for herpes esophagitis and to treat empirically for Crohn's. I think that today she does look better so I am going to continue this regimen. I will restart her DVT prophylaxis since I held it in case there was bleeding from the biopsies yesterday. Speech therapy is evaluating her to see if an advanced diet will work. And we can advance her diet as tolerated if it is something that she can tolerate. I anticipate she will be hospitalized for another day or 2 at least and we will have her follow up in my office as well. The biopsies likely are not going to be available for another 5-7 days.
--- NOTE | 2022-10-11 16:36 | DIET.CONS2 ---
Dietary Inpatient Consultation Note Admission Date: 10/11/2022 12:28 Spoke with COMMUNITY CENTER COORDINATOR regarding reccs for pt with esophagitis and trouble swallowing. Due to pts difficulty with acidic foods, pt to be changed to full liquid diet. RD spoke with pt who would like ONS chocolate protein drink, chicken broth and tea for dinner. Pt orders the same for breakfast tomorrow. RD to check in with pt in morning to see how POs went. SLT to visit again tomorrow to reassess swallow. Diet: 10/11/22 Lunch Full Liquid Diet Diet Modifications: avoid acidic foods Nutrition Percent Meal Consumed soup 10/09/22 20:41 Percent Meal Consumed 25% 10/09/22 18:36 Electronically Signed by: Cassi Ocampo 10/11/22 16:36 Clinical Dietitian [address] [address]
--- NOTE | 2022-10-11 18:20 | ST.IPCSEOM ---
Visit Care Team Role Provider Type SAILAJA Flores Primary Care Provider Non-Staff Specialty: Nursing Address: [facility] [address], [address], [place], [address] Email: Juan M Villegas DO Emergency Provider Physician Referring Provider Specialty: Emergency Medicine Address: [address] [place] [address], [id number] Email: [email or web address] Raquel Mckay MD Admit Provider Physician Attending Provider Other Providers Specialty: General Surgery Address: [address] [place] [address], [address], [place], [address] Email: [email or web address] Current Diagnoses Esophagitis, unspecified without bleeding (10/11/22) Gastritis, unspecified, without bleeding (10/11/22) Unspecified abdominal pain (10/11/22) Vomiting, unspecified (10/11/22) Dysphagia, unspecified (10/11/22) Past Medical History (Last Reviewed 10/09/22 @ 09:18 by Juan M Villegas DO) Diabetes (Medical) HSV (herpes simplex virus) anogenital infection (Medical) Speech-Language Pathology Swallow Evaluation MANAGER ONLINE Clinical Instructor Line Start: 10/11/22 17:30 Freq: Status: Active Protocol: Document 10/11/22 17:30 BE (Rec: 10/11/22 18:19 BE [id number]) Clinical Instructor Signature Clinical Instructor Clinical Instructor Yes MANAGER ONLINE Clinical Swallow Evaluation Start: 10/11/22 17:30 Freq: Status: Active Protocol: Document 10/11/22 17:30 BE (Rec: 10/11/22 18:19 BE [id number]) Clinical Swallow Evaluation Session Time Visit Start Time 12:20 Visit Stop Time 12:44 Total Visit Minutes 24 Setting Assessment Location Acute Care Visit Type Note Type Initial evaluation Next Note Type Next Note Type Treatment Note Patient Information Identification Type Wristband History Per hospitalist, Mr. Cullen presents to the emergency room today with extreme pain with swallowing. She says that this particular episode started about 9 days ago and since then she really can not swallow anything and has taken less than 4 bites of food. At times according to her son she was sweaty and incoherent sometimes off balance and her son says she even passed out. He is the reason she came today because he continued to urge her to be evaluated. She did hesitate to come because she is been seen in the past with similar symptoms and nothing had been done for her. She is had her heart rate up to 129 beats per minute at times when she is in the emergency room with pain. She also has frequent nausea. She really has not been able to keep anything down and even water at times can be challenging. She is had several ER visits where she reported hematemesis. She is never received a transfusion for this. She was well about 4 years ago and at that time she had a few hospital visits maybe 3 or 4 per year for similar type of symptoms with pain and vomiting. Over the past 2 years these attacks have increased and most recently she is been in the emergency room or hospital every other month with hematemesis and epigastric pain especially with swallowing. She has had extensive workup. She states her last EGD was done in 2020 or early 2021 [facility]. She says that they did find some ulcers in her stomach and prescribed her some antacid medicine. She also had a colonoscopy at that time and she can not remember but she thought maybe there were ulcers in her colon as well? I do not have these records available for review at this time but I asked her if it would be okay for me to obtain them and she said yes absolutely. She is really tearful and frustrated because the amount of pain that she is having is becoming unbearable and yet nobody has been able to help her in any way. She is tried different hospitals seek help but she keeps getting sent home and has not been able to access any meaningful care. Subjective Observations Pt was awake and sitting upright in bed when MANAGER ONLINE entered room. She agreed to participate in a swallow evaluation, and was alert and oriented. Pt reported having frequent (1x month) bouts of nausea resulting in emesis which typically last 1-4 days, following which her throat is sore and swollen for almost a week. She stated that she had a bout within the past week, and hasn't eaten more than a few bites in the last four days. Pt reported hot flashes and fainting when attempting to eat prior to hospital admittance. She stated that luke-warm liquids or ice chips which she can allow to melt are the only way she has been able to keep liquid down in the last week. Reported by Patient Other Symptoms Difficulty swallowing liquids, Difficulty swallowing pills, Difficulty swallowing solids, Pain on swallowing Comment Pt has limited oral intake due to pain during swallowing. Able to drink thin liquids ( including broths). Highly concerned about nutrition and caloric intake being insufficient. Acidic liquids cause increased pain. Current Diet Pureed,Thin liquids Baseline Feeding Method Independent in self-feeding Objective Assessment Mental Status Alert,Responsive,Cooperative Oral Integrity WFL Dentition Within normal limits Lip Function Mild impairment Observation of Lips at Rest Symmetrical Pucker Reduced range of motion Lip Retraction Reduced range of motion Alternating Pucker/Lip Retraction Reduced range of motion Tongue Function Mild impairment Observations of Tongue at Rest Within normal limits Tongue Protrusion Reduced strength Tongue Retraction Within normal limits Tongue Lateralization Reduced strength Jaw Function Within normal limits Observations of Jaw at Rest Within normal limits Jaw Opening Within normal limits Jaw Closing Within normal limits Jaw Lateralization Within normal limits Jaw Protrusion Within normal limits Jaw Retraction Within normal limits Hard/Soft Palate Function Within normal limits Observations of Hard/Soft Palate Within normal limits Nasality Within normal limits Phonation Within normal limits Respiratory Sufficiency Within normal limits Comment Pt presented with impaired strength of lips and tongue, as well as limited ROM of lips during sequential movements ( smile/pucker). These likely impacted bolus transport, which was slowed and effortful during pudding trial. PT noted high level of pain, MANAGER ONLINE could not rule out as a factor during swallow. OME indicated decreased speed of articulators for DKS. quality control operator noted slightly prolonged/ effortful sounding speech during conversation. Recommend monitoring. Food and Liquid Trials Position During Assessment Upright (90 degrees),In bed Liquids Trialed Ice chips,Thin,Pudding Solids Trialed Puree Administration Type Tea spoon,Straw,Self-feeding Oral Impairment Mildly impaired Oral Phase Comments Weakness and limited ROM of articulators negatively affected swallow efficiency and safety during oral phase. Pt exhibited effortful and slowed bolus transport during pudding trial. Pt reported pain could be a factor in noted impairments. Did not assess mastication due to concerns with tolerance and pain management. Pharyngeal Phase Comments Patient does not present with aspiration or wet vocal quality following PO trials. High levels of pain restrict pt's oral intake, which affect her ability to meet her nutrition and hydration needs. Pt suspects extreme swelling and irritation following emesis. Need MBS to rule out pharyngeal impairment, however pt cannot tolerate PO trials at this time. Comment Could not assess due to limited trials. Findings Swallowing Function Oral phase dysphagia Severity of Swallow Impairment Moderately impaired Contributing Factors to Swallow Reduced oral strength/ Impairment coordination/sensation, Impaired oral-pharyngeal transport Comment Moderate oral phase dysphagia with potential of pharyngeal phase dysphagia. Pt presents with reduced oral strength, ROM and speed which results in impaired oral-pharyngeal transport. Swelling may impact pharyngeal phase of swallowing. Pt may benefit from MBS, however due to current tolerated PO intake and pain levels, pt not able to participate. Recommend speech therapy for continued monitoring of diet tolerance with advancement as appropriate. Possible MBS as PO intake increases and pain/ swelling decrease. Recommend collaboration with line painting machine operator to ensure patient is meeting nutrition/hydration needs with significantly limited diet. Limit high acidity foods per pt request, as these foods can be irritating. Pt prefers luke-warm to room temperature foods and liquids, as other temperatures are intolerable. Recommend advancing from clear liquid diet to full liquid diet for increased variety of foods. Discussed possibility of feeding tube to alleviate pressure regarding caloric intake and nutrional needs, pt expressed understanding. Will continue to collaborate with line painting machine operator and monitor PO intake to determine if this will be necessary in the future. Impact on Safety and Functioning Risk for inadequate nutrition/ hydration Recommendations Swallowing Treatment Yes Frequency 1x day Other Recommendations Full liquid diet. Safety Precautions/Swallowing Feed only when alert,Reduce Recommendations distractions,Remain upright ( 90 degrees) during all oral intake,Upright position at least 30 minutes after meals, Small bites and sips when eating Medication Recommendations As Tolerated Discharge Recommendations Home Referrals Recommended Referrals Dietary Education Patient/Caregiver Education Described results of evaluation,Patient expressed understanding of evaluation, Patient expressed agreement with goals & treatment plans, Patient expressed understanding of safety precautions,Patient expressed understanding of feeding recommendations,Patient requires further education/ training Goals Short-term Goals 1. Pt will tolerate least restrictive diet for hydration and nutrional needs.
[2022-10-11 19:00] VITALS: O2SAT 96
[2022-10-11 20:30] VITALS: BP 104/57; PULSE 84; RESP 18; TEMP 36.6; O2SAT 96
[2022-10-11] MEDS: INSULIN GLARGINE 100 UNIT/ML 3ML PEN SUBCUT (21:20)
[2022-10-11 22:38] VITALS: BP 145/72; PULSE 90; RESP 16
[2022-10-12] MEDS: HYDROMORPHONE 0.5 MG INJ IV ×5 (01:40→18:08)
[2022-10-12] MEDS: WATER IV ×3 (05:17→21:51)
[2022-10-12] MEDS: ACYCLOVIR IV ×3 (05:17→21:51)
[2022-10-12] MEDS: DEXTROSE 5% IV ×3 (05:17→21:51)
[2022-10-12] MEDS: HYDROCORTISONE 100 MG/2 ML VIAL IV ×3 (05:18→18:09)
[2022-10-12] MEDS: ONDANSETRON 4 MG/2 ML INJ IV (06:29)
[2022-10-12] MEDS: metroNIDAZOLE 500 MG/100 ML PIGGYBACK 100 MG IV ×3 (06:57→23:02)
[2022-10-12 07:00] VITALS: BP 147/77; PULSE 88; RESP 16; TEMP 37.1; O2SAT 95; O2SAT 96
[2022-10-12] MEDS: KCL 20 MEQ IN NS 1,000 ML 100 MEQ IV (08:59)
[2022-10-12] MEDS: ENOXAPARIN 40 MG/0.4 ML SYRINGE SUBCUT (08:59)
[2022-10-12] MEDS: LORazepam 2 MG/ML INJ 1 MG IV ×2 (09:06→15:31)
[2022-10-12] MEDS: PANTOPRAZOLE 40 MG VIAL IV ×2 (09:06→20:18)
[2022-10-12] MEDS: FAMOTIDINE 20 MG/2 ML VIAL IV ×2 (09:06→20:19)
[2022-10-12] MEDS: MAG HYDROX/ALUM/SIMETH 30 ML UDC PO (09:08)
[2022-10-12] MEDS: INSULIN LISPRO 100 UNIT/ML 3ML VIAL SUBCUT ×4 (09:23→20:32)
--- NOTE | 2022-10-12 10:37 | SLP.IPNOTE ---
Attempted to see pt at 945. Pt had been given Duladid and Ativan, per nursing. Will try again later today, if possible.
[2022-10-12] MEDS: ACETAMINOPHEN SUSP 650 MG/20.3 ML UDC 905 MG PO ×2 (12:25→18:09)
[2022-10-12] MEDS: ACETAMINOPHEN SUSP 160 MG/5 ML UDC 905 MG PO (12:38)
--- NOTE | 2022-10-12 15:55 | CM.MNRNOTE ---
Patient is more calm after getting ativan. She is up to the bathroom with sba. Son in room visiting. After her iv antibiotic is done, we will get her a shower and change her bedding. She is happy and smiling at this time.
--- NOTE | 2022-10-12 15:56 | SLP.IPNOTE ---
Second attempt at swallowing therapy. Pt was in bed crying and very upset. Attempted rto calm pt. Nursing (Carolyn) entered the room and this AUTOMATIC WASHER MECHANIC eft at that time. No ST services provided.
[2022-10-12 16:13] LABS: Vitamin B12 355 pg/mL (239-931)
--- NOTE | 2022-10-12 16:24 | PM.PN.1 ---
Subjective Subjective Date Patient Seen: 10/12/22 Interval history: Today she is been very emotional. Her pain with swallowing is improved she is tolerating a clear and full liquid diet. She appreciated viewing the photographs from the EGD. She agrees with involving the hospitalists for help with management and 2nd opinion. Overall she is improving. But still not ready for discharge and not able to eat sufficient regular food. Exam Vital Signs (past 8 hours): Oxygen Delivery Method Room Air Oxygen Flow Rate 0 Narrative Exam Narrative: She is more alert and oriented today. And appears objectively more comfortable. Oral mucous membranes are moist Mild upper epigastric abdominal pain. Objective Labs 10/10/22 07:00 10/11/22 05:20 Labs: Laboratory Results - last 24 hr 10/10/22 07:00 Vitamin B12 355 PFSH Medical History Diabetes HSV (herpes simplex virus) anogenital infection Surgical History History of wisdom tooth extraction Family History Mother Diabetes mellitus Congestive heart failure Father Parkinsons disease Social History household members: significant other and children Smoking Status: Current every day smoker alcohol intake: current Assessment & Plan Assessment and plan (1) Gastritis: Status: Acute (2) Esophagitis: Status: Acute (3) Acute vomiting: Status: Acute (4) Odynophagia: Status: Acute (5) Abdominal pain: Status: Acute (6) Intractable nausea and vomiting: Status: Acute Assessment & Plan narrative: At present continuing on steroids IV and acyclovir and metronidazole but will obtain consult from the hospitalist to determine if this treatment regimen make sense. Overall she is improving. She certainly does need to see a motorbike courier but likely this will be as an outpatient. I have placed an urgent referral through my office. Goals for discharge would be that her pain is controlled with oral pain medications and she is able to eat a relatively normal diet. Based on her progression over the last few days she is moving towards this goal but likely will not achieve that for the next few days. Will continue DVT prophylaxis. Appreciate hospitalist input.
--- NOTE | 2022-10-12 18:44 | PC.NURSE ---
0710: shift handoff w/ ADRIANA Gonzalez. together we checked IVF and ABX that were infusing. Bed alarm was on, patient appeared to be comfortable and resting w/ eyes closed. call light w/in reach. 1000: pain after eating full liquid diet, controlled w/ Dilauded IVP 0.5mg. skin is flushed red, warm to the touch. patient is very tearful, emotional. offered 1:1 listening support. 1100: patient requesting to see , sent. MD currently in surgery, this info relayed to patient. 1300: patient showing s/sx of anxiety, crying frequently, difficult to console. patient began discussing her home life and some concerns about not being able to hold down a job due to frequent hospitalizations. again, provided listening support. patient went on to state troubles with boyfriend and hasnt talked to him in over two weeks. patient states she is feeling the stress of being stuck in the hospital bed and not knowing what the plan is. offered ice pack for sternal area as this is still warm to the touch, patient reports 9/10 pain, and this is where her px is localized. patient tolerated more of her meal at lunch, asked for salt/pepper for her soup, and drank more than she did at breakfast. reports pain w/ eating especially acidic or warm foods. 1400: patient sitting up in bed, crying, difficult to console. I offered to review her chart together as MD was not finished w/ surgery yet. patient agreeable to this, and after discussing what surgeon's plan was, patient became agitated, as evidenced by shaking, crying loudly, and yelling at this RN: youre not listening to me. i didnt see the doctor yesterday. i havent seen anyone in about 4 days. patient became more and more agitated and said get out of my room. I dont want you here. notified storage battery charger of above and this was followed up w/ by manager french Josy. report at 1445 to ADRIANA Madrigal.
[2022-10-12 20:10] VITALS: BP 144/80; PULSE 80; RESP 18; TEMP 36.9; O2SAT 96
[2022-10-12] MEDS: HYDROMORPHONE 1 MG INJ IV (20:17)
[2022-10-12] MEDS: diphenhydrAMINE 50 MG/ML VIAL IV (20:20)
[2022-10-12] MEDS: INSULIN GLARGINE 100 UNIT/ML 3ML PEN SUBCUT (20:31)
--- NOTE | 2022-10-12 23:32 | PC.NURSE ---
Patient is alert and oriented. Becomes tearful when discussing her condition and history of illness predating this hospitalization. Reports many areas of stress in her life and that she believes she has been treated as though she is a hypochondriac. Expresses interest in participating in some mental health interventions; will refer to hospice social worker. Respirations are shallow and reports feelings of SOB intermittently; has pain when taking deep breaths related to rib fractures. Breath sounds are diminished but CTA with RA sat of 96%. Denies sore throat but has difficulty swallowing reporting burning when taking po's. Also reports pain at epigastric region when taking in po's. HRR w/elevated BP of 140/80. Denies nausea. BT hypoactive but states she is passing flatus; has not had a BM since 10/02. Denies dysuria with urination. Is able to move herself in bed. Unsteady on feet so gets up to bathroom with SBA. Wearing bilateral calf SCD's. Medicated with IV Dilaudid earlier and is currently asleep. Dr. Mckay contacted earlier as patient states she did not sleep last night and requesting sleeping aid; Benadryl order received and patient received it earlier. Fall risk score is high and bed alarm is activated although patient calls appropriately.
[2022-10-13] MEDS: HYDROCORTISONE 100 MG/2 ML VIAL IV ×2 (00:02→05:58)
[2022-10-13] MEDS: ACETAMINOPHEN SUSP 650 MG/20.3 ML UDC 905 MG PO ×4 (00:03→18:16)
[2022-10-13] MEDS: HYDROMORPHONE 1 MG INJ IV ×3 (00:15→20:32)
[2022-10-13] MEDS: KCL 20 MEQ IN NS 1,000 ML 100 MEQ IV ×2 (00:18→14:02)
[2022-10-13] MEDS: DEXTROSE 5% IV ×3 (05:40→20:50)
[2022-10-13] MEDS: WATER IV ×3 (05:40→20:50)
[2022-10-13] MEDS: ACYCLOVIR IV ×3 (05:40→20:50)
--- NOTE | 2022-10-13 06:51 | PM.HP.1 ---
History of Present Illness History of Present Illness Date Patient Seen: 10/13/22 Time Patient Seen: 06:00 Chief complaint: Chest Pain, Hot and Cold Sweats, High HR, Dizzy Narrative: Ms. Cullen is a 42W with PMH Type 2 DM on insulin, genital HSV infection, and gastritis concerning for GERD who presents to the hospital with problems with swallowing. She has a long history of having abdominal issues. She thinks they began about 4 years ago. But the most recent episode began nearly two weeks ago with difficulty with swallowing, vomiting, nausea. Previously she has had workup done, this included empiric treatment for gastritis and she was placed on PPI. She has multiple records here and she has had CT scan years ago that noted inflammation in terminal ileum. She also has had CT findings concerning for gastritis and esophagitis and been placed on empiric PPI, with follow up CT scan showing some improvement on imaging. She states her symptoms wax and wane. She did get an EGD done approximately a year ago which she can not remember the results of. She says she does not follow up regularly with her PCP. She has had no fevers. She has not had diarrhea, no bloody stools. She has had episodes in the past with blood in stool and blood with vomiting. When she initially presented she had a notable leukocytosis of 14.4, and four days earlier was 22.6, hgb 16.1, plts 381. Last labs drawn on 10/10 show WBC 8.1, hgb 13.4, plts 266. Na 133, BUN 6, creatinine 0.40. CRP 1.9. Vitamin D less than assay, vitmain b12 355. [facility] Medical History Diabetes HSV (herpes simplex virus) anogenital infection Surgical History History of wisdom tooth extraction Family History Mother Diabetes mellitus Congestive heart failure Father Parkinsons disease Social History household members: significant other and children Smoking Status: Current every day smoker alcohol intake: current Meds Home Medications and Allergies Home Medications Medication Instructions Recorded Confirmed Type acetaminophen 325 mg tablet 650 mg PO Q4HR PRN As Needed For 01/11/21 10/09/22 Rx Fever/Mild Pain #20 tabs aluminum-mag hydroxide-simethicone 30 ml PO Q6HR PRN Dyspepsia #500 mL 01/11/21 10/09/22 Rx 200 mg-200 mg-20 mg/5 mL oral susp (Mag-Al Plus) pantoprazole 40 mg tablet,delayed 40 mg PO BID #60 tabs 01/11/21 10/09/22 Rx release (Protonix) ondansetron 4 mg disintegrating 4 mg PO TID-QID PRN nausea and 03/20/21 10/09/22 Rx tablet vomiting #10 tabs empagliflozin 10 mg tablet 10 mg PO QAM 10/09/22 10/09/22 History (Jardiance) insulin glargine 100 unit/mL (3 24 unit SUBCUT QAM 10/09/22 10/09/22 History mL) subcutaneous pen nortriptyline 75 mg capsule 75 mg PO QPM 10/09/22 10/09/22 History Allergies Allergy/AdvReac Type Severity Reaction Status Date / Time aspirin AdvReac Verified 03/19/21 19:01 Review of Systems Review of Systems Narrative: 14 systems reviewed and negative aside from what is noted in HPI Exam Vital Signs (past 8 hours): Oxygen Delivery Method Room Air Oxygen Flow Rate 0 Narrative Exam Narrative: GEN: no acute distress HEENT: moist mucous membranes, PERRL NECK: trachea midline, no JVD PULM: clear bilaterally, no wheezes, rhonchi, rales CV: regular rate and rhythm, no wheezes, rhonchi, rales ABD: soft, nontender, nondistended, no organomegaly, normal bowel sounds EXT: warm and well perfused, with no edema NEURO: awake, alert, oriented, no focal deficits Objective Labs 10/10/22 07:00 10/11/22 05:20 Labs: Laboratory Results - last 24 hr 10/10/22 07:00 Vitamin B12 355 Assessment & Plan Assessment & Plan narrative: 1. Acute on chronic esophagitis and gastritis -etiology broad, include infectious, gerd, pills, and ibd -s/p EGD this admission with biopsies which are pending -reasonable to continue treatment for hsv pending biopsy results -would also add fluconazole for possible brandon esophagitis, especially as she is diabetic and on longterm ppi -there is some concern for IBD as well given previous CT with inflammation in terminal ileum and family history -can decrease steroids for now to methylpred 60mg IV daily -await final biopsy results to further define appropriate management -crp elevated, vitamin d low 2. Type 2 DM on insulin -increase insulin to glargine 10U BID -continue insulin sliding scale Quality MIPS - Meds 'Current medications' to include all prescriptions, [id number] products, herbals, cannabis/cannabidiol products, and vitamin/mineral/dietary (nutritional) supplements. I have utilized all available resources to obtain, update, or review the patient?s current medications. [If Yes, STOP here]: Yes
[2022-10-13] MEDS: metroNIDAZOLE 500 MG/100 ML PIGGYBACK 100 MG IV ×2 (06:52→15:39)
[2022-10-13 07:00] VITALS: O2SAT 96
[2022-10-13 08:00] VITALS: BP 143/80; PULSE 73; RESP 16; TEMP 37.2; O2SAT 96
[2022-10-13] MEDS: FLUCONAZOLE 400 MG/200 ML PIGGYBACK 100 MG IV (08:22)
[2022-10-13] MEDS: HYDROMORPHONE 0.5 MG INJ IV ×4 (08:23→18:17)
[2022-10-13] MEDS: FAMOTIDINE 20 MG/2 ML VIAL IV ×2 (08:24→20:33)
[2022-10-13] MEDS: PANTOPRAZOLE 40 MG VIAL IV ×2 (08:25→20:33)
[2022-10-13] MEDS: ENOXAPARIN 40 MG/0.4 ML SYRINGE SUBCUT (08:25)
[2022-10-13] MEDS: INSULIN GLARGINE 100 UNIT/ML 3ML PEN 10 UNIT SUBCUT ×2 (08:26→20:48)
[2022-10-13] MEDS: INSULIN LISPRO 100 UNIT/ML 3ML VIAL SUBCUT ×4 (08:27→20:49)
--- NOTE | 2022-10-13 11:16 | SLP.IPNOTE ---
Attempted to see pt. She wa asleep in room. Spoke with nursing and Dr Pierson regardning pt symptoms appear to be related to esophagus, not oropharyngeal ( gastritis, esophagitis, inflammation of terminal ileum and GERD. Dr Pierson agreed that as pt's s/sx are not oropharyngeal that ST services no longer appropriate. Will discharge at this time
--- NOTE | 2022-10-13 15:22 | PM.PN.1 ---
Subjective Subjective Date Patient Seen: 10/13/22 Time Patient Seen: 15:22 Interval history: Tolerating liquids but more than this is too painful. She feels she has improved since admission. She is very emotional today and frustrated with the doctors. She asks me to leave shortly after I arrive. Exam Vital Signs (past 8 hours): - 10/13/22 08:00 Temperature 98.9 F Pulse Rate 73 Respiratory Rate 16 Blood Pressure 143/80 H Pulse Oximetry 96 Oxygen Delivery Method Room Air Oxygen Flow Rate 0 Narrative Exam Narrative: Gen-Adult woman alert anxious and tearful Objective Labs 10/10/22 07:00 10/11/22 05:20 Labs: Laboratory Results - last 24 hr 10/10/22 07:00 Vitamin B12 355 PFSH Medical History Diabetes HSV (herpes simplex virus) anogenital infection Surgical History History of wisdom tooth extraction Family History Mother Diabetes mellitus Congestive heart failure Father Parkinsons disease Social History household members: significant other and children Smoking Status: Current every day smoker alcohol intake: current Assessment & Plan Assessment and plan (1) Odynophagia: Status: Acute Assessment & Plan narrative: 42F with odynophagia of unknown etiology (Crohns, HSV, fungal vs other). -Clear liquid diet as tolerated -Continue Acyclovir and Fluconazole -Steroids reduced to Methylprednisolone 60 mg /d rec of medicine -Follow up pathology
[2022-10-13 19:00] VITALS: O2SAT 96
[2022-10-13 20:11] VITALS: BP 155/77; PULSE 80; RESP 16; TEMP 37; O2SAT 96
[2022-10-13] MEDS: diphenhydrAMINE 50 MG/ML VIAL IV (20:33)
[2022-10-14] MEDS: metroNIDAZOLE 500 MG/100 ML PIGGYBACK 100 MG IV ×2 (00:05→07:47)
[2022-10-14] MEDS: HYDROMORPHONE 1 MG INJ IV ×3 (00:06→09:36)
[2022-10-14] MEDS: ACETAMINOPHEN SUSP 650 MG/20.3 ML UDC 905 MG PO ×4 (00:09→17:16)
[2022-10-14 00:19] LABS: x Labcorp Estim. Avg Glu (eAG) 200 mg/dL (.); x Labcorp Hemoglobin A1c 8.6 % (4.8-5.6)
[2022-10-14] MEDS: KCL 20 MEQ IN NS 1,000 ML 100 MEQ IV (01:30)
[2022-10-14] MEDS: WATER IV (06:18)
[2022-10-14] MEDS: DEXTROSE 5% IV (06:18)
[2022-10-14] MEDS: ACYCLOVIR IV (06:18)
[2022-10-14 07:00] VITALS: O2SAT 95
--- NOTE | 2022-10-14 07:41 | PM.PN.1 ---
Subjective Subjective Interval history: Patient able to tolerate liquids and wants to try foods today. Says odynophagia has improved quite a bit. EGD biopsy results still pending. Exam Vital Signs (past 8 hours): Oxygen Delivery Method Room Air Oxygen Flow Rate 0 Narrative Exam Narrative: GEN: no acute distress, anxious HEENT: moist mucous membranes, PERRL NECK: trachea midline, no JVD PULM: clear bilaterally, no wheezes, rhonchi, rales CV: regular rate and rhythm, no wheezes, rhonchi, rales ABD: soft, nontender, nondistended, no organomegaly, normal bowel sounds EXT: warm and well perfused, with no edema NEURO: awake, alert, oriented, no focal deficits Objective Labs 10/10/22 07:00 10/11/22 05:20 Labs: Laboratory Results - last 24 hr 10/10/22 07:00 Hgb A1c (Ref Lab) 8.6 H Estim Average Glucose 200 PFSH Medical History Diabetes HSV (herpes simplex virus) anogenital infection Surgical History History of wisdom tooth extraction Family History Mother Diabetes mellitus Congestive heart failure Father Parkinsons disease Social History household members: significant other and children Smoking Status: Current every day smoker alcohol intake: current Assessment & Plan Assessment & Plan narrative: 1. Acute on chronic esophagitis and gastritis, improving -etiology broad, include infectious, gerd, pills, and ibd -s/p EGD this admission with linear ulcerations concerning for IBD vs fungal vs bacterial vs viral, biopsies are pending -continue solu-medrol for IBD, fluconazole for esophageal candidiasis, flagyl for bacterial, and acyclovir for HSV, PPI. Can switch to oral formulations and dc when ready on prednisone. -there is some concern for IBD as well given previous CT with inflammation in terminal ileum and family history -await final biopsy results to further define appropriate management -crp elevated, vitamin d low -limit IV pain meds and use po oxy PRN 2. Type 2 DM on insulin -increased insulin to glargine 10U BID with good effect -continue insulin sliding scale -A1c 8.6% 3. Vitamin D deficiency -Vit D <12.8 -start vit D supplementation Medicine will continue to follow. Thank you for allowing us to participate in the care of this patient. Should you have any questions, do not hesitate to speak with us directly or call us.
[2022-10-14] MEDS: INSULIN LISPRO 100 UNIT/ML 3ML VIAL SUBCUT ×4 (07:57→21:59)
--- NOTE | 2022-10-14 08:59 | CM.DPC ---
DCP Cont: Was going to see patient yesterday, for it is noted that she has been emotional, personal problems. Wanted to see if patient could use any type of resources. 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 Her primary provider is listed as Dr. Hernandez. P: DCP to follow closely, and can attempt to see patient again today. Plan is home when medically stable. Lorelei Mcginnis RN/Conventions Assistant
[2022-10-14 09:00] VITALS: BP 130/58; PULSE 75; RESP 17; TEMP 36.4; O2SAT 95
[2022-10-14] MEDS: FLUCONAZOLE 400 MG/200 ML PIGGYBACK 100 MG IV (09:13)
[2022-10-14] MEDS: ENOXAPARIN 40 MG/0.4 ML SYRINGE SUBCUT (09:18)
[2022-10-14] MEDS: PANTOPRAZOLE 40 MG VIAL IV (09:18)
[2022-10-14] MEDS: methylPREDNISolone 125 MG/2 ML VIAL 60 MG IV (09:18)
[2022-10-14] MEDS: FAMOTIDINE 20 MG/2 ML VIAL IV (09:19)
[2022-10-14] MEDS: INSULIN GLARGINE 100 UNIT/ML 3ML PEN 10 UNIT SUBCUT ×2 (09:20→21:59)
[2022-10-14] MEDS: ERGOCALCIFEROL (VITAMIN D2) 50,000 UNIT CAPSULE 50000 UNIT PO (11:27)
--- NOTE | 2022-10-14 11:58 | PC.NURSE ---
Patient tolerated PO medications, in the process of contacting MD Degroot. Spoke with RN in PACU who said they would relate message to .
--- NOTE | 2022-10-14 13:10 | DIET.CONS2 ---
Dietary Inpatient Consultation Note Admission Date: 10/11/2022 12:28 Pt and kitchen working together to find adequate PO intake. Kitchen adding collagen protein to broth to support protein needs for healing which pt is tolerating best. Pt's previous biopsy negative for eosinophilic esophagitis negating necessity for elimination type diet. Pts POs likely to improve greatly as esophageal tissue heals. Diet: 10/12/22 Dinner Soft,Low Fiber (Low residue) Diet Diet Modifications: Nutrition Percent Meal Consumed 25% 10/14/22 09:00 Percent Meal Consumed 0% 10/13/22 13:15 Percent Meal Consumed 0% 10/13/22 09:34 Percent Meal Consumed 100% 10/12/22 18:00 Electronically Signed by: Cassi Ocampo 10/14/22 13:10 Clinical Dietitian [address] [id number]
[2022-10-14] MEDS: metroNIDAZOLE 500 MG TABLET PO ×2 (13:33→21:52)
[2022-10-14] MEDS: ACYCLOVIR 400 MG TABLET PO ×2 (15:06→21:52)
[2022-10-14] MEDS: OXYCODONE IR 5 MG TABLET PO (15:09)
--- NOTE | 2022-10-14 17:24 | PC.NURSE ---
Day shift: BG 354 prior to dinner. Patient reported she drank a gray fog drink that had vanilla syrup in it. She stated she forgot to ask for sugar-free. 8u Humalog given per sliding scale insulin orders. Notified MD Mariano who said to continue to monitor at next scheduled BG check.
[2022-10-14 20:59] VITALS: BP 158/91; PULSE 83; RESP 18; TEMP 36.1; O2SAT 94
[2022-10-14 21:40] VITALS: O2SAT 94
[2022-10-14] MEDS: OXYCODONE IR 10 MG TABLET PO (21:51)
[2022-10-14] MEDS: NORTRIPTYLINE HCL 25 MG CAPSULE 75 MG PO (21:52)
[2022-10-14] MEDS: diphenhydrAMINE 50 MG/ML VIAL IV (21:52)
[2022-10-14] MEDS: PANTOPRAZOLE DR 40 MG TABLET PO (21:54)
[2022-10-15] MEDS: metroNIDAZOLE 500 MG TABLET PO (06:35)
[2022-10-15] MEDS: PANTOPRAZOLE DR 40 MG TABLET PO (06:35)
[2022-10-15] MEDS: ACETAMINOPHEN SUSP 650 MG/20.3 ML UDC 905 MG PO (06:35)
[2022-10-15 07:00] VITALS: O2SAT 96
--- NOTE | 2022-10-15 07:16 | PM.PN.1 ---
Subjective Subjective Interval history: Patient able to tolerate solid foods and is feeling much better. She would like to go home today. Exam Vital Signs (past 8 hours): Oxygen Delivery Method Room Air Oxygen Flow Rate 0 Narrative Exam Narrative: GEN: no acute distress HEENT: moist mucous membranes, PERRL NECK: trachea midline, no JVD PULM: clear bilaterally, no wheezes, rhonchi, rales CV: regular rate and rhythm, no wheezes, rhonchi, rales ABD: soft, nontender, nondistended, no organomegaly, normal bowel sounds EXT: warm and well perfused, with no edema NEURO: awake, alert, oriented, no focal deficits Objective Labs 10/15/22 09:38 10/15/22 09:38 [facility] Medical History Diabetes HSV (herpes simplex virus) anogenital infection Surgical History History of wisdom tooth extraction Family History Mother Diabetes mellitus Congestive heart failure Father Parkinsons disease Social History household members: significant other and children Smoking Status: Current every day smoker alcohol intake: current Assessment & Plan Assessment & Plan narrative: 1. Acute on chronic esophagitis and gastritis, improving -etiology broad, include infectious, gerd, pills, and ibd -s/p EGD this admission with linear ulcerations concerning for IBD vs fungal vs bacterial vs viral, biopsies are pending -continue solu-medrol for IBD, fluconazole for esophageal candidiasis, flagyl for bacterial, and acyclovir for HSV, PPI. Switched to oral formulations. -there is some concern for IBD as well given previous CT with inflammation in terminal ileum and family history -await final biopsy results to further define appropriate management -recommend dc on BID PPI x1 month, acyclovir 400mg TID x 7 days, and prednisone taper until biopsy results finalize. Can stop flagyl and fluconazole. -gastrin level ordered to rule out ZE -will f/u with Dr. Mckay gen surg in clinic in 1 week, GI referral also placed 2. Type 2 DM on insulin -increased insulin to glargine 10U BID with good effect -continue insulin sliding scale -A1c 8.6% 3. Vitamin D deficiency -Vit D <12.8 -start vit D supplementation 50,000 units x 6 weeks Medicine will sign off today. Thank you for allowing us to participate in the care of this patient. Should you have any further questions, do not hesitate to speak with us directly or call us.
[2022-10-15] MEDS: INSULIN LISPRO 100 UNIT/ML 3ML VIAL SUBCUT ×2 (07:59→11:36)
[2022-10-15] MEDS: INSULIN GLARGINE 100 UNIT/ML 3ML PEN 10 UNIT SUBCUT (08:00)
[2022-10-15] MEDS: ACYCLOVIR 400 MG TABLET PO (08:55)
[2022-10-15] MEDS: FLUCONAZOLE 100 MG TABLET 400 MG PO (08:55)
[2022-10-15] MEDS: ENOXAPARIN 40 MG/0.4 ML SYRINGE SUBCUT (08:55)
[2022-10-15] MEDS: methylPREDNISolone 125 MG/2 ML VIAL 60 MG IV (08:56)
[2022-10-15 09:00] VITALS: BP 132/76; PULSE 80; RESP 20; TEMP 36.4; O2SAT 96
--- NOTE | 2022-10-15 09:01 | PM.PN.1 ---
Subjective Subjective Date Patient Seen: 10/15/22 Time Patient Seen: 09:01 Interval history: Ms. Cullen says that today she is feeling immensely better. She is hungry for breakfast and her pain is improved. She is able to swallow pills. She feels that she would be able to be discharged today. She had some questions about disability. She is willing to follow up in my office. Exam Vital Signs (past 8 hours): Oxygen Delivery Method Room Air Oxygen Flow Rate 0 Const General: cooperative, healthy appearing and comfortable Nutritional Appearance: average body habitus HENMT Head: normal to inspection Eyes General: appearance normal, both eyes and all related structures Resp Effort & Inspection: normal respiratory effort and able to speak in complete sentences GI Palpation: soft and No tender Objective Labs 10/10/22 07:00 10/11/22 05:20 [facility] Medical History Diabetes HSV (herpes simplex virus) anogenital infection Surgical History History of wisdom tooth extraction Family History Mother Diabetes mellitus Congestive heart failure Father Parkinsons disease Social History household members: significant other and children Smoking Status: Current every day smoker alcohol intake: current Assessment & Plan Assessment and plan (1) Gastritis: Status: Acute (2) Esophagitis: Status: Acute (3) Acute vomiting: Status: Acute (4) Odynophagia: Status: Acute (5) Abdominal pain: Status: Acute (6) Intractable nausea and vomiting: Status: Acute Assessment & Plan narrative: Ms. Cullen has diabetes but is otherwise pretty healthy and has been suffering with severe odynophagia. She is had some other GI symptoms and overall this struggle goes back for years at least. The last 2 years have been particularly trying and she because of her symptoms has had difficulty keeping jobs. I still not sure of the etiology of her esophageal disease however I can attest that it is quite severe based on the EGD results. We are still waiting on biopsy results and I spoke with pathology yesterday with some preliminary results that showed acute inflammation but no specific H&E findings for either Crohn's or viral esophagitis however stains and further examination are still pending. I think we should probably continue with a course of treatment until we get more final results here. I think that Ms. Cullne definitely does need to see a asphalt distributor tender and I have placed a referral through my office. I spoke to the hospitalist service this morning and we have some labs that are pending. I would like for him to see him and give any further discharge recommendations but I think that she can discharge home with oral medications if she can tolerate them and have close follow-up in my office.
[2022-10-15 09:54] LABS: Add Manual Diff / Slide Review NO; Basophils Absolute Auto 100 /uL (0-100); Basophils Percent Auto 0.7 % (0-2); Eosinophils Absolute Auto 100 /uL (0-450); Eosinophils Percent Auto 0.6 % (2-4); Hemoglobin 14.2 g/dL (12.0-16.0); Lymphocytes Absolute Auto 5100 /uL (1100-4500); Lymphocytes Percent Auto 35.3 % (25-40); Mean Corpuscular HGB Conc 33.9 % (30-36); Mean Corpuscular Hemoglobin 29.1 PG (26-34); Mean Corpuscular Volume 85.7 fL (80-100); Monocytes Absolute Auto 1300 /uL (0-900); Neutrophils Absolute Auto 7800 /uL (1500-7000); Neutrophils Percent Auto 54.4 % (50-75); Platelet Count 341 X10^3/uL (150-400); Red Cell Distribution Width 13.7 % (11.6-14.8); White Blood Cell Count 14.4 X10^3/uL (4.5-11.0)
[2022-10-15 10:00] LABS: BUN Creatinine Ratio 26.4 (6-22); Blood Urea Nitrogen 14 mg/dL (7-17); Calcium 9.1 mg/dL (8.4-10.2); Carbon Dioxide 35 mmol/L (22-32); Chloride 95 mmol/L (98-107); Estimated Glomerular Filt Rate > 60 mL/min (>60); Glucose 195 mg/dL (70-100); HEMOLYSIS < 15 (0-50); Potassium 3.3 mmol/L (3.4-5.1); Sodium 136 mmol/L (137-145)
--- NOTE | 2022-10-15 11:07 | CM.DPC ---
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 Pt agreeable to f/u appointments and will look into pwk for disability since she has not been able to work due to her chronic illness. BF Original Note: DCP Discharge Home Per Hospitalist, signed off today after clarifying some pt meds and pt likely may be stable to d/c home today pending Surgeon determination. SW met bedside with pt and explained role and she was resting on her stomach and confirms if she is stable for d/c she has transport after 1400 today. SW discussed chronic medical complications/needs and the impact on daily living and provided pt with the outpt counseling resources for [facility] and pt confirms she is interested in counseling support and appreciative. Pt denies any other needs at this time. Plan: SW to follow for Surgeon to round to determine if pt medically stable to d/c home via family POV this afternoon and any further identified needs. SUDARSHAN Montyoa
[2022-10-15] MEDS: ACETAMINOPHEN 325 MG TABLET 975 MG PO (12:12)
[2022-10-15] MEDS: POTASSIUM CHLORIDE 20 MEQ TAB 40 MEQ PO (12:15)
--- NOTE | 2022-10-15 12:59 | PM.DS.1 ---
History of Present Illness History of Present Illness Date Patient Seen: 10/15/22 Chief complaint: Chest Pain, Hot and Cold Sweats, High HR, Dizzy Narrative: Mr. Cullen presents to the emergency room today with extreme pain with swallowing. She says that this particular episode started about 9 days ago and since then she really can not swallow anything and has taken less than 4 bites of food. At times according to her son she was sweaty and incoherent sometimes off balance and her son says she even passed out. He is the reason she came today because he continued to urge her to be evaluated. She did hesitate to come because she is been seen in the past with similar symptoms and nothing had been done for her. She is had her heart rate up to 129 beats per minute at times when she is in the emergency room with pain. She also has frequent nausea. She really has not been able to keep anything down and even water at times can be challenging. She is had several ER visits where she reported hematemesis. She is never received a transfusion for this. She was well about 4 years ago and at that time she had a few hospital visits maybe 3 or 4 per year for similar type of symptoms with pain and vomiting. Over the past 2 years these attacks have increased and most recently she is been in the emergency room or hospital every other month with hematemesis and epigastric pain especially with swallowing. She has had extensive workup. She states her last EGD was done in 2020 or early 2021 [facility]. She says that they did find some ulcers in her stomach and prescribed her some antacid medicine. She also had a colonoscopy at that time and she can not remember but she thought maybe there were ulcers in her colon as well? I do not have these records available for review at this time but I asked her if it would be okay for me to obtain them and she said yes absolutely. She is really tearful and frustrated because the amount of pain that she is having is becoming unbearable and yet nobody has been able to help her in any way. She is tried different hospitals seek help but she keeps getting sent home and has not been able to access any meaningful care. Discharge Providers Provider Date of admission: 10/11/22 12:28 Discharge Date: 10/15/22 Primary care physician: SAILAJA Knight Consults: 10/09/22 11:57 Consult to General Surgery Stat Comment: Consulting Provider: Raquel Mckay Reason for consultation: abd pain 10/11/22 12:21 Consult to Speech Therapy Evaluate & Treat Comment: Physician Instructions: Evaluate and treat 10/12/22 16:25 Consult to Hospitalist Service Routine Comment: Consulting Provider: Blas Pierson Reason for consultation: second opinion, diabetes, HTN Has provider been notified: Yes 10/12/22 23:43 Consult to Teletypesetter Routine Comment: would like information re: mental health services Discharge provider: aRquel Mckay MD Summary Hospital Course Discharge Diagnosis: Severe esophagitis Hospital Course: Patient was admitted to the hospital and treated with IV fluids. Evidence of dehydration and needed IV pain medication because of the severe pain she was experiencing. On her 2nd hospital day we were able to perform an EGD and obtain some biopsies. The esophagus was grossly abnormal well there were also abnormal findings indicative of inflammation in the duodenum seen grossly. So far the preliminary results of the biopsies have not provided information that can modify our treatment regimen. However I did treat her with some steroids as well as acyclovir and metronidazole for the presumptive diagnosis of Crohn's and or viral esophagitis. The reason Crohn's was so strongly considered was the chronic history that she provided as well as failure to improve with a year of Protonix and also in [address] scan of another episode that shows terminal ileitis. I did obtain records from would be general of previous endoscopies that were not very helpful. I discussed obtaining the pathology from these procedures with our pathology department yesterday. The patient also has a family history of Crohn's disease with the nieces and aunts who carry the diagnosis. Ultimately after treatment with pain medication steroids and acyclovir the patient did improve over the course of several days. Her pain became tolerable and she was able to swallow a soft diet prior to discharge. She was given instructions for follow-up and instructions for a prednisone taper as well as to complete a course of acyclovir. She will have close follow-up in my clinic. Status at Discharge Cognitive/behavioral status at discharge: oriented and at baseline, oriented Functional status at discharge: independent ambulation Overall status at discharge: other (Due to the severity of her esophagus and the chronic history she provided as well as the severity of her overall clinical condition when she presented to the emergency room, I do believe that this is likely to have caused her difficulty in retaining work and she may qualify for disability. I have i) Time Spent with Patient Time spent: Less than 30 minutes Exam Vital Signs (past 8 hours): - 10/15/22 09:00 10/15/22 07:00 Temperature 97.5 F L Pulse Rate 80 Respiratory Rate 20 Blood Pressure 132/76 Pulse Oximetry 96 96 Oxygen Delivery Method Room Air Oxygen Flow Rate 0 Oxygen Delivery Method Room Air Oxygen Flow Rate 0 Const General: cooperative, healthy appearing and comfortable HENMT Head: normal to inspection Eyes General: appearance normal, both eyes and all related structures Resp Effort & Inspection: normal respiratory effort and able to speak in complete sentences GI Palpation: soft and No tender Psych Mental Status: other (Normal mood today) Mood: other (Normal mood today) Affect: normal affect Judgment: judgment good Objective Labs 10/15/22 09:38 10/15/22 09:38 Labs: Laboratory Results - last 24 hr 10/15/22 10/15/22 09:38 09:38 WBC 14.4 H RBC 4.90 Hgb 14.2 Hct 42.0 MCV 85.7 MCH 29.1 MCHC 33.9 RDW 13.7 Plt Count 341 Neut % (Auto) 54.4 Lymph % (Auto) 35.3 Ida % (Auto) 9.0 Eos % (Auto) 0.6 L Baso % (Auto) 0.7 Neut # (Auto) 7800 H Lymph # (Auto) 5100 H Ida # (Auto) 1300 H Eos # (Auto) 100 Baso # (Auto) 100 Sodium 136 L Potassium 3.3 L Chloride 95 L Carbon Dioxide 35 H BUN 14 Creatinine 0.53 Estimated GFR > 60 BUN/Creatinine Ratio 26.4 H Glucose 195 H Calcium 9.1 PFSH Medical History Diabetes HSV (herpes simplex virus) anogenital infection Surgical History History of wisdom tooth extraction Family History Mother Diabetes mellitus Congestive heart failure Father Parkinsons disease Social History household members: significant other and children Smoking Status: Current every day smoker alcohol intake: current Discharge Assessment & Plan Assessment and Plan Assessment: Ms. Cullen presented to the emergency room with severe odynophagia. He also has had several GI complaints that have been chronic. Her esophagus had a severe inflammation on EGD. Medical consult was placed to assist with management. Still not clear the etiology here. Gastrin level is pending. She has been treated with PPIs for a year. Biopsy results are pending as well but the preliminary read did not show any obvious viral inclusions or signs of Crohn's disease either. There are a lot of neutrophils and acute inflammation is seen but we are waiting for the final biopsy results. Plan of Treatment: Patient did improve with several days of treatment to the point where she can tolerate food and her pain is much improved. She will be discharged today with a completion of acyclovir beer course as well as a prednisone taper over the next 6 days. She will follow-up in my office to be sure that she is appropriately managed as an outpatient. Ultimately a signalling and communications engineer would be very helpful and an outpatient referral has been made. I discussed the instructions and follow-up with the patient. I have instructed my office to call her to arrange the follow-up as well as provided my office phone number for her to call if she has any further questions or concerns. Discharge Plan Discharge Plan Patient Disposition: Home Discharge orders & Medications Prescriptions: New prednisone 20 mg tablet See Rx Instructions .ROUTE .COMPLEX Qty: 12 0RF Rx Instructions: 60 mg (3 pills) daily for 2 days, then 40 mg (2 pills) daily for 2 days, then 20mg (1 pill) daily for 2 days then stop acyclovir 400 mg Tablet 400 mg PO TID 7 Days Qty: 21 0RF ergocalciferol (vitamin D2) [Vitamin D2] 1,250 mcg (50,000 unit) Capsule 50,000 unit PO WEEKLY 42 Days Qty: 6 0RF Rx Instructions: start on 10/21 oxycodone-acetaminophen [Percocet] 5-325 mg tablet 1 tab PO Q4-6H PRN (Reason: pain) Qty: 30 0RF docusate sodium [Colace] 100 mg capsule 100 mg PO BID Qty: 30 0RF Rx Instructions: Take while taking Percocet for pain to prevent constipation. Continued acetaminophen 325 mg Tablet 650 mg PO Q4HR PRN (Reason: As Needed For Fever/Mild Pain) Qty: 20 0RF ondansetron 4 mg tablet,disintegrating 4 mg PO TID-QID PRN (Reason: nausea and vomiting) Qty: 10 0RF insulin glargine 100 unit/mL (3 mL) insulin pen 24 unit SUBCUT QAM Patient Comments: Inject 20 unit subcutaneously once a day nortriptyline 75 mg capsule 75 mg PO QPM Jardiance 10 mg tablet 10 mg PO QAM Patient Comments: Take 1 tablet by mouth once a day pantoprazole [Protonix] 40 mg tablet,delayed release (DR/EC) 40 mg PO BID Qty: 60 0RF Discontinued alum-mag hydroxide-simeth [Mag-Al Plus] 200-200-20 mg/5 mL suspension 30 ml PO Q6HR PRN (Reason: Dyspepsia) Qty: 500 0RF Follow up/Referrals: Ashlyn Diallo, AUTOMOTIVE SERVICE ASSISTANT [Primary Care Provider] - Raquel Mckay MD [Physician] - (Office staff should call you if you do not hear from them please call the office and arrange a follow-up in 7-10 days. When I see the final pathology results in my computer I will give you a call. If you see them on the patient portal before you hear from me please do not hesitate to call the office as well.) Aiden Goldstein MD [Physician] - (You may see any of the [facility] gastroenterologists in follow-up. There is also an office in [place]. Dr. Griggs and Dr. Gallagher can be seen in the same office where the [facility] are. You can schedule your appointment in this office or in [place]. I have sent through a referral. If you do not hear from this practice in the next week or so, please call and make an appointment.) Diet/Activity/Treatments Diet: Diet as Tolerated and Regular Skin/Wound/Dressing Care Report to your healthcare provider any signs of infection, such as:: chills, fever, night sweats and increased pain Visit Report/Discharge Packet Stand Alone Forms: Patient Portal/API, Stroke Signs & Symptoms Discharge Data Primary Care Provider: Ashlyn Diallo
--- NOTE | 2022-10-15 14:37 | PC.NURSE ---
Day shift: Discharge instructions went over with patient. Answered all patient's questions and she verbalized understanding. Patient left via wheelchair with PCT Tamaragary and son picked her up.
[2022-10-19 14:38] LABS: Gastrin 405 pg/mL (0-115)
== END 2022-10-15 14:40 | disposition home or self-care (01) | DRG 243 ==
LOC: ED 13:06 → AC 10-10 10:17
PROVIDERS: Internal Medicine; Student in an Organized Health Care Education/Training Program; Admitting Provider Surgery; Emergency Provider Emergency Medicine; PCP Nurse Practitioner; Referring Provider Emergency Medicine; Visit Provider Surgery
PROC: 0DJ08ZZ Inspection of Upper Intestinal Tract, Via Natural or Artificial Opening Endoscopic (ICD-10-PCS; CPT 43235; principal; 2022-10-10 11:30)
DX: K20.90 Esophagitis, unspecified without bleeding (principal); R13.10 Dysphagia, unspecified; K29.70 Gastritis, unspecified, without bleeding; R11.2 Nausea with vomiting, unspecified; K29.50 Unspecified chronic gastritis without bleeding; E11.9 Type 2 diabetes mellitus without complications; E55.9 Vitamin D deficiency, unspecified; E86.0 Dehydration; F17.210 Nicotine dependence, cigarettes, uncomplicated; Z79.4 Long term (current) use of insulin; Z79.84 Long term (current) use of oral hypoglycemic drugs; Z20.822 Contact with and (suspected) exposure to COVID-19
CPT/HCPCS: 36415; 36592; 43239; 71045; 71260; 74177; 80048; 80053; 82306; 82550; 82607; 82941; 82962; 83036; 83540; 83690; 84484; 85025; 85027; 86140; 87635; 92610; 93005; 96361; 96374; 99231; 99232; 99238; 99284; C9803; G0378; C9113; J0330; J1100; J1170; J1200; J1450; J1650; J1720; J1815; J2060; J2405; J2704; J2930; J3010; J3480; Q9967

== ENCOUNTER 2022-11-03 17:16 | Emergency (ER) | payer OTHER, MEDICAID, SELFPAY ==
[2022-10-09 15:05] VITALS: BMI 33.3
[2022-11-03] VITALS (9 sets, daily range): BP systolic 119–181; BP diastolic 58–83; PULSE 96–117; RESP 16–20; TEMP 36.8–37.1; O2SAT 93–98; BMI 29.7
[2022-11-03 18:03] LABS: Add Manual Diff / Slide Review NO; Basophils Absolute Auto 100 /uL (0-100); Basophils Percent Auto 0.4 % (0-2); Eosinophils Absolute Auto 100 /uL (0-450); Eosinophils Percent Auto 0.5 % (2-4); Hematocrit 46.6 % (36-46); Hemoglobin 15.5 g/dL (12.0-16.0); Lymphocytes Absolute Auto 800 /uL (1100-4500); Lymphocytes Percent Auto 6.2 % (25-40); Mean Corpuscular HGB Conc 33.3 % (30-36); Mean Corpuscular Hemoglobin 28.5 PG (26-34); Mean Corpuscular Volume 85.6 fL (80-100); Monocytes Absolute Auto 300 /uL (0-900); Monocytes Percent Auto 2.1 % (3-14); Neutrophils Absolute Auto 12200 /uL (1500-7000); Neutrophils Percent Auto 90.8 % (50-75); Platelet Count 520 X10^3/uL (150-400); Red Blood Cell Count 5.45 X10^6/uL (4.0-5.2); Red Cell Distribution Width 14.7 % (11.6-14.8); White Blood Cell Count 13.5 X10^3/uL (4.5-11.0)
[2022-11-03 18:16] LABS: Alanine Aminotransferase 30 IU/L (<35); Albumin 4.9 g/dL (3.5-5.0); Albumin Globulin Ratio 1.3 (1.0-2.8); Alkaline Phosphatase 117 U/L (38-126); Aspartate Aminotransferase 32 IU/L (14-36); BUN Creatinine Ratio 22.6 (6-22); Bilirubin Total 0.5 mg/dL (0.2-1.3); Blood Urea Nitrogen 12 mg/dL (7-17); Calcium 9.7 mg/dL (8.4-10.2); Carbon Dioxide 24 mmol/L (22-32); Chloride 94 mmol/L (98-107); Estimated Glomerular Filt Rate > 60 mL/min (>60); Globulin 3.9 g/dL (1.7-4.1); Glucose 235 mg/dL (70-100); HEMOLYSIS < 15 (0-50); Lipase 106 U/L (23-300); Potassium 3.4 mmol/L (3.4-5.1); Sodium 138 mmol/L (137-145); Total Protein 8.8 g/dL (6.3-8.2)
--- NOTE | 2022-11-03 19:36 | DI.CT.S_ITS ---
PROCEDURE: CT ABDOMEN PELVIS W CON INDICATIONS: generalized abd pain TECHNIQUE: After the administration of IV contrast, axial sections were acquired from the lung bases to the pubic symphysis. Coronal and sagittal reformats were performed. For radiation dose reduction, the following was used: automated exposure control, adjustment of mA and/or kV according to patient size. COMPARISON: [facility], CT, CT CHEST ABD PEL W CON, 10/09/2022, 13:18. [facility], CT, CT ABDOMEN PELVIS W CON, 10/05/2022, 18:21. FINDINGS: Image quality: Excellent. Lung bases: Unremarkable. Heart: Heart is normal in size. There is persistent concentric wall thickening of the visualized distal esophagus consistent with an esophagitis. ABDOMEN: Liver: No mass lesion. Gallbladder: Within normal limits without calcified gallstones. Biliary ducts: No biliary ductal dilatation. Pancreas: Unremarkable. Spleen: Normal in size. Adrenal Glands: No adrenal nodules. Kidneys and Ureters: No hydronephrosis. Stomach and Bowel: Stomach, small bowel loops, and colon are normal in caliber and wall thickness. The appendix is normal. There is colonic diverticulosis without acute diverticulitis. Peritoneum: No abnormal intraperitoneal fluid. No free air. Ventral Wall: There is a small fat-containing supraumbilical hernia. Abdominal Nodes: No retroperitoneal or mesenteric adenopathy by size criteria. Vessels: Aorta and inferior vena cava are normal in size. PELVIS: Pelvic Organs: There is a peripherally enhancing crenulated cyst in the right ovary measuring up to 1.6 cm compatible with a corpus luteum. There is a thin walled left ovarian cyst measuring up to 1.8 cm. Bladder: Unremarkable. Pelvic Nodes: No enlarged lymph nodes. Miscellaneous: No inguinal hernias are seen. Bones: Visualized osseous structures demonstrate no suspicious focal lesions. IMPRESSION: 1. Persistent concentric wall thickening of the distal esophagus consistent with an esophagitis. Consider further evaluation with endoscopy to exclude a neoplastic process. 2. Small fat-containing supraumbilical hernia. Dictated by: Moi Grace M.D. on 11/03/2022 at 21:20 Approved by: Moi Grace M.D. on 11/03/2022 at 21:25
--- NOTE | 2022-11-03 19:36 | ED.GENADULT ---
HPI - General Adult General Chief complaint: Abdominal Pain Stated complaint: MID TO LOWER RT SIDED ABD PAINS Time Seen by Provider: 11/03/22 19:23 Source: patient Mode of arrival: Family Vehicle History of Present Illness HPI narrative: Patient is a 42-year-old female who is here in the emergency department for right-sided mid to lower abdominal discomfort. She is been here in the emergency department in the past for various abdominal issues. She has been admitted to the hospital recently. She had an upper endoscopy. Has found that she had esophageal irritation and they were quite a bit of biopsies taken. These biopsy results were all unremarkable. She states she continues to have esophageal discomfort. She has not followed up with the general surgeons and their office but stated that she did get the results of the biopsies. She has yet to make contact with a GI doctor although she does have a referral in for this. She is not seen a english composition instructor for approximately 27 years. She states she is having some weight loss although she is tolerating oral intake. Pain in her right lower abdomen started within the past 24 hours. States she is also having chills. Also having nausea and vomiting. Has not been able to take her medications because of this. She denies any vaginal bleeding. She states she has started to notice that maybe the abdominal discomfort does seem to get worse around the time of her menstrual cycle. She is not on any sort of control. Related Data Home Medications Medication Instructions Recorded Confirmed empagliflozin 10 mg tablet 10 mg PO QAM 10/09/22 10/09/22 (Jardiance) insulin glargine 100 unit/mL (3 24 unit SUBCUT QAM 10/09/22 10/09/22 mL) subcutaneous pen nortriptyline 75 mg capsule 75 mg PO QPM 10/09/22 10/09/22 Previous Rx's Medication Instructions Recorded acetaminophen 325 mg tablet 650 mg PO Q4HR PRN As Needed For 01/11/21 Fever/Mild Pain #20 tabs ondansetron 4 mg disintegrating 4 mg PO TID-QID PRN nausea and 03/20/21 tablet vomiting #10 tabs docusate sodium 100 mg capsule 100 mg PO BID #30 caps 10/15/22 (Colace) ergocalciferol (vitamin D2) 1,250 50,000 unit PO WEEKLY 6 weeks #6 10/15/22 mcg (50,000 unit) capsule (Vitamin caps D2) oxycodone-acetaminophen 5 mg-325 1 tab PO Q4-6H PRN pain #30 tabs 10/15/22 mg tablet (Percocet) pantoprazole 40 mg tablet,delayed 40 mg PO BID #60 tabs 10/15/22 release (Protonix) prednisone 20 mg tablet See Rx Instructions .Route 10/15/22 .COMPLEX #12 tabs metoclopramide HCl 10 mg tablet 10 mg PO Q6H PRN nausea and 11/03/22 (Reglan) vomiting #14 tabs ondansetron 4 mg disintegrating 4 mg PO Q6H PRN nausea and 11/03/22 tablet vomiting #14 tabs sucralfate 100 mg/mL oral 10 ml PO QACHS #414 mL 11/03/22 suspension (Carafate) Allergies Allergy/AdvReac Type Severity Reaction Status Date / Time aspirin AdvReac Verified 03/19/21 19:01 Review of Systems Review of Systems ROS Unobtainable: All systems reviewed & are unremarkable except as noted in HPI and below Patient History Medical History Diabetes HSV (herpes simplex virus) anogenital infection Surgical History History of wisdom tooth extraction Family History Mother Diabetes mellitus Congestive heart failure Father Parkinsons disease Social History household members: significant other and children Smoking Status: Current every day smoker alcohol intake: current Smoking Status: Current every day smoker tobacco type: cigarettes alcohol intake frequency: holidays/special occasions only Substance Use Type: marijuana Exam Initial Vital Signs Initial Vital Signs: Vital Signs Temperature 98.3 F 11/03/22 17:29 Pulse Rate 111 H 11/03/22 17:29 Respiratory Rate 20 11/03/22 17:29 Blood Pressure 119/72 11/03/22 17:29 Pulse Oximetry 97 11/03/22 17:29 Oxygen Delivery Method Room Air 11/03/22 17:29 Const General: cooperative, comfortable and No ill appearing HENMT Head: normal to inspection and normocephalic Resp Effort & Inspection: normal respiratory effort Auscultation: clear to auscultation bilaterally Cardio Rate: regular rate Rhythm: regular rhythm GI Inspection: normal to inspection and non-distended Palpation: soft, No guarding and tender Back/Spine/Pelvis Back: No CVA tenderness Skin General: no rashes or lesions noted Neuro General: patient alert, patient awake, patient oriented x3 and moves all extremities Extrem General: normal to inspection and capillary refill normal Psych Appearance: grossly normal and well kempt Course Orders Ordered: ED Orders 11/03/22 17:53 Complete Blood Count AUTO DIFF Stat Comprehensive Metabolic Panel Stat Lipase Stat 11/03/22 19:36 CT abdomen pelvis w con Stat 11/03/22 20:10 Urine Culture Stat Urine Microscopic Stat Discontinued Medications Sodium Chloride (Normal Saline 0.9%) 1,000 mls @ 1,000 mls/hr IV BOLUS ONE Stop: 11/03/22 19:05 Last Infusion: 11/03/22 21:16 Dose: 0 mls/hr Documented By: Admin: 11/03/22 19:52 Dose: 1,000 mls/hr Documented By: CASE Metoclopramide HCl (Metoclopramide 10 Mg/2 Ml Inj) 10 mg IV NOW ONE Stop: 11/03/22 22:30 Last Admin: 11/03/22 22:34 Dose: 10 mg Documented By: CASE Morphine Sulfate (Morphine 4 Mg/Ml Inj) 4 mg IV NOW ONE Stop: 11/03/22 19:37 Last Admin: 11/03/22 19:52 Dose: 4 mg Documented By: CASE Ondansetron HCl (Ondansetron 4 Mg Odt) 4 mg PO NOW PRN PRN Reason: Nausea And Vomiting Ondansetron HCl (Ondansetron 4 Mg/2 Ml Inj) 4 mg IV NOW PRN PRN Reason: Nausea And Vomiting Last Admin: 11/03/22 19:50 Dose: 4 mg Documented By: CASE Vital Signs Vital signs: Vital Signs - 8 hr 11/03/22 20:15 11/03/22 20:30 11/03/22 20:55 Temperature Pulse Rate 117 H 114 H 104 H Respiratory Rate 20 18 18 Blood Pressure 133/81 181/83 H 146/79 H Pulse Oximetry 93 94 97 Oxygen Delivery Method Room Air Room Air Room Air 11/03/22 21:20 11/03/22 21:30 11/03/22 22:00 Temperature Pulse Rate 100 H 103 H 110 H Respiratory Rate 18 16 16 Blood Pressure 123/58 L 138/72 144/83 H Pulse Oximetry 96 97 97 Oxygen Delivery Method Room Air Room Air Room Air 11/03/22 22:26 11/03/22 23:41 Temperature 98.7 F Pulse Rate 111 H 96 H Respiratory Rate 16 18 Blood Pressure 138/80 Pulse Oximetry 94 98 Oxygen Delivery Method Room Air Room Air Medical Decision Making Lab Data Lab results reviewed: Yes I reviewed the patient's lab results. 11/03/22 17:53 11/03/22 17:53 Labs: Lab Results 11/03/22 11/03/22 11/03/22 Range/Units 17:53 17:53 20:10 WBC 13.5 H (4.5-11.0) X10^3/uL RBC 5.45 H (4.0-5.2) X10^6/uL Hgb 15.5 (12.0-16.0) g/dL Hct 46.6 H (36-46) % MCV 85.6 (80-100) fL MCH 28.5 (26-34) PG MCHC 33.3 (30-36) % RDW 14.7 (11.6-14.8) % Plt Count 520 H (150-400) X10^3/uL Neut % (Auto) 90.8 H (50-75) % Lymph % (Auto) 6.2 L (25-40) % Giles % (Auto) 2.1 L (3-14) % Eos % (Auto) 0.5 L (2-4) % Baso % (Auto) 0.4 (0-2) % Neut # (Auto) 80419 H (1837-5031) /uL Lymph # (Auto) 800 L (2783-2042) /uL Giles # (Auto) 300 (0-900) /uL Eos # (Auto) 100 (0-450) /uL Baso # (Auto) 100 (0-100) /uL Sodium 138 (137-145) mmol/L Potassium 3.4 (3.4-5.1) mmol/L Chloride 94 L (98-107) mmol/L Carbon Dioxide 24 (22-32) mmol/L BUN 12 (7-17) mg/dL Creatinine 0.53 (0.52-1.04) mg/dL Estimated GFR > 60 (>60) mL/min BUN/Creatinine Ratio 22.6 H (6-22) Glucose 235 H (70-100) mg/dL Calcium 9.7 (8.4-10.2) mg/dL Total Bilirubin 0.5 (0.2-1.3) mg/dL AST 32 (14-36) IU/L ALT 30 (<35) IU/L Alkaline Phosphatase 117 (38-126) U/L Total Protein 8.8 H (6.3-8.2) g/dL Albumin 4.9 (3.5-5.0) g/dL Globulin 3.9 (1.7-4.1) g/dL Albumin/Globulin Ratio 1.3 (1.0-2.8) Lipase 106 (23-300) U/L Urine RBC 0-1/hpf (0-5/HPF) Urine WBC 5-10/hpf H (0-5/HPF) Ur Squamous Epith Cells 10-30 /hpf H D (0-5/HPF) Amorphous Sediment 1+ Urine Bacteria Moderate (10-30) H (None) Hyaline Casts 1-5/lpf (None) Point of Care Testing Test Results Negative Urine Dip Bedside Urine Glucose 100 mg/dl Bedside Urine Bilirubin - Negative Bedside Urine Ketone +++ 80 Urine Specific [place] 1.030 Bedside Urine Occult Blood +/- Bedside Urine pH 6.0 Bedside Urine Protein +++ 300 Bedside Urine Urobilinogen - Negative Bedside Urine Nitrite - Negative Bedside Urine Leukocytes +/- 15 Esterase Point of care testing: Point of Care Testing Test Results Negative Urine Dip Bedside Urine Glucose 100 mg/dl Bedside Urine Bilirubin - Negative Bedside Urine Ketone +++ 80 Urine Specific [place] 1.030 Bedside Urine Occult Blood +/- Bedside Urine pH 6.0 Bedside Urine Protein +++ 300 Bedside Urine Urobilinogen - Negative Bedside Urine Nitrite - Negative Bedside Urine Leukocytes +/- [address] scan - abdomen/pelvis: Radiologist's Impression: PROCEDURE:? CT ABDOMEN PELVIS W CON ? INDICATIONS:? generalized abd pain ? TECHNIQUE:? After the administration of IV contrast, axial sections were acquired from the lung bases to the pubic symphysis.? Coronal and sagittal reformats were performed.? For radiation dose reduction, the following was used:? automated exposure control, adjustment of mA and/or kV according to patient size. ? COMPARISON:? [facility], CT, CT CHEST ABD PEL W CON, 10/09/2022, 13:18.? [facility], CT, CT ABDOMEN PELVIS W CON, 10/05/2022, 18:21. ? FINDINGS:? Image quality:? Excellent.? ? Lung bases:? Unremarkable.? ? Heart:? Heart is normal in size.? There is persistent concentric wall thickening of the visualized distal esophagus consistent with an esophagitis. ? ? ABDOMEN: Liver:? No mass lesion. Gallbladder:? Within normal limits without calcified gallstones.? ? Biliary ducts:? No biliary ductal dilatation.? ? Pancreas:? Unremarkable.? ? Spleen:? Normal in size.? ? Adrenal Glands:? No adrenal nodules.? ? Kidneys and Ureters:? No hydronephrosis.? ? ? Stomach and Bowel:? Stomach, small bowel loops, and colon are normal in caliber and wall thickness.? The appendix is normal.? There is colonic diverticulosis without acute diverticulitis. Peritoneum:? No abnormal intraperitoneal fluid.? No free air.? ? Ventral Wall: ? There is a small fat-containing supraumbilical hernia. Abdominal Nodes:? No retroperitoneal or mesenteric adenopathy by size criteria.? Vessels:? Aorta and inferior vena cava are normal in size.? ? PELVIS: Pelvic Organs:? There is a peripherally enhancing crenulated cyst in the right ovary measuring up to 1.6 cm compatible with a corpus luteum.? There is a thin walled left ovarian cyst measuring up to 1.8 cm.? ? Bladder:? Unremarkable.? ? Pelvic Nodes: No enlarged lymph nodes.? Miscellaneous: No inguinal hernias are seen. ? ? ? Bones:? Visualized osseous structures demonstrate no suspicious focal lesions. ? IMPRESSION:? ? 1. Persistent concentric wall thickening of the distal esophagus consistent with an esophagitis.? Consider further evaluation with endoscopy to exclude a neoplastic process. ? 2.? Small fat-containing supraumbilical hernia MDM Narrative Medical decision making narrative: CT scan today again shows the esophagitis but no other signs of an acute pathology. Labs are relatively unremarkable. No fevers. Patient has tolerating a small amount of oral intake. Potentially the Reglan seemed to help the symptoms somewhat better than the Zofran. Advised patient that she does need to follow-up with the GI doctors. Potentially needs a colonoscopy. There is no indication for antibiotics. No indication for admission to the hospital. We also discussed other potential issues such as endometriosis. She is not seen a GI doctor in many decades. Advised that she make contact with a temporary staff accountant doctor to have workup of this as well. Will discharge patient home. She was given return precautions. She expressed understanding and agreement. Discharge Plan Departure Patient Disposition: Home Clinical Impression: Abdominal pain, Gastritis Instructions: DI for Abdominal Pain-Adult Activity Restrictions/Additional Instructions: The recommend that tomorrow you contact your primary care doctor for follow-up and also contact the GI doctors for a follow-up appointment as well. Also recommend that you contact the temporary staff accountant Department at the number provided below for a follow-up like we discussed. Return to the emergency department for new symptoms. Prescriptions: New ondansetron 4 mg tablet,disintegrating 4 mg PO Q6H PRN (Reason: nausea and vomiting) Qty: 14 0RF metoclopramide HCl [Reglan] 10 mg tablet 10 mg PO Q6H PRN (Reason: nausea and vomiting) Qty: 14 0RF sucralfate [Carafate] 100 mg/mL suspension 10 ml PO QACHS Qty: 414 2RF No Action acetaminophen 325 mg Tablet 650 mg PO Q4HR PRN (Reason: As Needed For Fever/Mild Pain) Qty: 20 0RF ondansetron 4 mg tablet,disintegrating 4 mg PO TID-QID PRN (Reason: nausea and vomiting) Qty: 10 0RF insulin glargine 100 unit/mL (3 mL) insulin pen 24 unit SUBCUT QAM Patient Comments: Inject 20 unit subcutaneously once a day nortriptyline 75 mg capsule 75 mg PO QPM Jardiance 10 mg tablet 10 mg PO QAM Patient Comments: Take 1 tablet by mouth once a day prednisone 20 mg tablet See Rx Instructions .ROUTE .COMPLEX Qty: 12 0RF Rx Instructions: 60 mg (3 pills) daily for 2 days, then 40 mg (2 pills) daily for 2 days, then 20mg (1 pill) daily for 2 days then stop ergocalciferol (vitamin D2) [Vitamin D2] 1,250 mcg (50,000 unit) Capsule 50,000 unit PO WEEKLY 42 Days Qty: 6 0RF Rx Instructions: start on 10/21 pantoprazole [Protonix] 40 mg tablet,delayed release (DR/EC) 40 mg PO BID Qty: 60 0RF oxycodone-acetaminophen [Percocet] 5-325 mg tablet 1 tab PO Q4-6H PRN (Reason: pain) Qty: 30 0RF docusate sodium [Colace] 100 mg capsule 100 mg PO BID Qty: 30 0RF Rx Instructions: Take while taking Percocet for pain to prevent constipation. Referrals: Ashlyn Diallo ARNP [Primary Care Provider] - Peña Reyes MD [Physician] - Stand Alone Forms: Patient Portal/API
[2022-11-03] MEDS: ONDANSETRON 4 MG/2 ML INJ IV (19:50)
[2022-11-03] MEDS: SODIUM CHLORIDE 0.9% 1,000 ML 1000 ML IV (19:52)
[2022-11-03] MEDS: MORPHINE 4 MG/ML INJ IV (19:52)
[2022-11-03 20:42] LABS: RBC Urine 0-1/HPF (0-5/HPF)
[2022-11-03 20:43] LABS: Amorphous Sediment Urine 1+; Bacteria Urine Moderate (10-30); Hyaline Casts Urine 1-5/LPF; Squamous Epithelial Cell Urine 10-30 /HPF (0-5/HPF); WBC Urine 5-10/HPF (0-5/HPF)
[2022-11-03] MEDS: METOCLOPRAMIDE 10 MG/2 ML INJ IV (22:34)
== END 2022-11-03 23:42 | disposition home or self-care (01) ==
PROVIDERS: Emergency Medicine; Emergency Provider Emergency Medicine; PCP Nurse Practitioner
DX: K29.70 Gastritis, unspecified, without bleeding (principal); R10.31 Right lower quadrant pain
CPT/HCPCS: 36415; 74177; 80053; 81003; 81015; 81025; 83690; 85025; 87086; 96361; 96374; 96375; 99284; J2270; J2405; J2765; Q9967

== ENCOUNTER 2022-11-05 14:15 | Emergency (ER) | payer OTHER, MEDICAID, SELFPAY ==
[2022-10-09 15:05] VITALS: BMI 33.3
[2022-11-05] VITALS (9 sets, daily range): BP systolic 123–189; BP diastolic 73–109; PULSE 86–120; RESP 10–24; TEMP 36.4; O2SAT 96–100; BMI 29.6
--- NOTE | 2022-11-05 14:21 | ED_ITS ---
HPI - Abdominal Pain General Chief Complaint: Abdominal Pain Stated Complaint: abd pain, not drinking fluids Time Seen by Provider: 11/05/22 14:21 History of Present Illness HPI narrative: 42-year-old female daily smoker with history of diabetes, gastritis, abdominal pain, intractable nausea and vomiting presents with severe right-sided abdominal pain along with nausea and vomiting over the past day or 2. She is tearful and visibly frustrated and states that this has been an ongoing thing for the past few months and she is had multiple visits including a relatively recent hospital ization which she had an EGD with multiple biopsies. She denies any dietary change in his taking medications as directed. She is had no fever chills denies any blood in her emesis. She states that the pain seems to be briefly improved by an episode of vomiting but comes right back. It seems to be worse if she moves, she has not tolerated much in the way of anything to eat or drink and feels generally unwell. Related Data Home Medications Medication Instructions Recorded Confirmed empagliflozin 10 mg tablet 10 mg PO QAM 10/09/22 10/09/22 (Jardiance) insulin glargine 100 unit/mL (3 24 unit SUBCUT QAM 10/09/22 10/09/22 mL) subcutaneous pen nortriptyline 75 mg capsule 75 mg PO QPM 10/09/22 10/09/22 Previous Rx's Medication Instructions Recorded acetaminophen 325 mg tablet 650 mg PO Q4HR PRN As Needed For 01/11/21 Fever/Mild Pain #20 tabs ondansetron 4 mg disintegrating 4 mg PO TID-QID PRN nausea and 03/20/21 tablet vomiting #10 tabs docusate sodium 100 mg capsule 100 mg PO BID #30 caps 10/15/22 (Colace) ergocalciferol (vitamin D2) 1,250 50,000 unit PO WEEKLY 6 weeks #6 10/15/22 mcg (50,000 unit) capsule (Vitamin caps D2) oxycodone-acetaminophen 5 mg-325 1 tab PO Q4-6H PRN pain #30 tabs 10/15/22 mg tablet (Percocet) pantoprazole 40 mg tablet,delayed 40 mg PO BID #60 tabs 10/15/22 release (Protonix) prednisone 20 mg tablet See Rx Instructions .Route 10/15/22 .COMPLEX #12 tabs metoclopramide HCl 10 mg tablet 10 mg PO Q6H PRN nausea and 11/03/22 (Reglan) vomiting #14 tabs ondansetron 4 mg disintegrating 4 mg PO Q6H PRN nausea and 11/03/22 tablet vomiting #14 tabs sucralfate 100 mg/mL oral 10 ml PO QACHS #414 mL 11/03/22 suspension (Carafate) hyoscyamine sulfate 0.125 mg tablet 0.125 mg PO BID-QID PRN dyspepsia 11/05/22 #20 tabs ondansetron 4 mg disintegrating 4 mg PO TID-QID PRN nausea and 11/05/22 tablet vomiting #10 tabs oxycodone 5 mg tablet 5 mg PO BID PRN pain #14 tabs 11/05/22 pantoprazole 40 mg tablet,delayed 40 mg PO DAILY #30 tabs 11/05/22 release (Protonix) Allergies Allergy/AdvReac Type Severity Reaction Status Date / Time aspirin AdvReac Verified 03/19/21 19:01 Review of Systems Review of Systems Narrative: GENERAL: Denies chills, fatigue, malaise, fever, sweats. HEENT: Denies sinus pain, ear pain, sore throat, difficulty swallowing, dizzine ss. RESPIRATORY: Denies dyspnea, cough, wheezing, hemoptysis, sputum. CARDIOVASCULAR: Denies chest pain, palpitations, orthopnea, edema, GASTROINTESTINAL: See HPI : Denies dysuria, frequency, incontinence, hematuria, urinary retention. MUSCULOSKELETAL: denies weakness, joint pain, or bony pain SKIN: Denies rash, skin lesions, or other NEUROLOGIC: Denies weakness, headache, numbness, change in speech, confusion, seizures, incoordination. PSYCHIATRIC: No concerning psychosocial issues. 12 point review of systems is negative except for those stated above Patient History Medical History Diabetes HSV (herpes simplex virus) anogenital infection Surgical History History of wisdom tooth extraction Family History Mother Diabetes mellitus Congestive heart failure Father Parkinsons disease Social History household members: significant other and children Smoking Status: Current every day smoker alcohol intake: current Smoking Status: Current every day smoker tobacco type: cigarettes alcohol intake frequency: holidays/special occasions only Substance Use Type: marijuana Exam Narrative Exam Narrative: GENERAL: [42] year old patient appears stated age. Well-developed patient, in moderate distress, tearful HEAD: Atraumatic. Normocephalic. EYES: Pupils equal round and reactive. Extraocular motions intact. No scleral icterus. No injection or drainage. ENT: Nose without bleeding, purulent drainage. Throat without erythema, tonsillar hypertrophy or exudate. Airway patent. NECK: Trachea midline. Non tender CARDIOVASCULAR: Tachycardic but regular rhythm without murmurs, gallops, or rubs. RESPIRATORY: Clear to auscultation. Breath sounds equal bilaterally. No wheezes, rales, or rhonchi. GASTROINTESTINAL: Abdomen soft, tender on the right side r, nondistended. Abdominal sounds present in all 4 quadrants EXTREMITIES: No edema or joint tenderness. BACK: Nontender without deformity or crepitance. No flank tenderness. NEURO: AOx3. SKIN: No rash or erythema of visible areas Initial Vital Signs Initial Vital Signs: Vital Signs Temperature 97.6 F 11/05/22 14:18 Pulse Rate 120 H 11/05/22 14:18 Respiratory Rate 20 11/05/22 14:18 Blood Pressure 189/109 H 11/05/22 14:18 Pulse Oximetry 100 11/05/22 14:18 Oxygen Delivery Method Room Air 11/05/22 14:18 Course Orders Ordered: Discontinued Medications Hydromorphone HCl (Hydromorphone 1 Mg Inj) 1 mg IV NOW ONE Stop: 11/05/22 15:38 Last Admin: 11/05/22 15:42 Dose: 1 mg Documented By: CASE Hydromorphone HCl (Hydromorphone 1 Mg Inj) 1 mg IV NOW ONE Stop: 11/05/22 17:23 Last Admin: 11/05/22 17:30 Dose: 1 mg Documented By: CASE Lactated Ringer's (Lactated Ringers) 1,000 mls @ 1,000 mls/hr IV BOLUS ONE Stop: 11/05/22 15:21 Last Infusion: 11/05/22 15:45 Dose: 0 mls/hr Documented By: Admin: 11/05/22 14:49 Dose: 1,000 mls/hr Documented By: CASE Lactated Ringer's (Lactated Ringers) 1,000 mls @ 1,000 mls/hr IV BOLUS ONE Stop: 11/05/22 16:12 Last Infusion: 11/05/22 16:40 Dose: 0 mls/hr Documented By: Admin: 11/05/22 15:44 Dose: 1,000 mls/hr Documented By: CASE Ondansetron HCl (Ondansetron 4 Mg/2 Ml Inj) 4 mg IV NOW ONE Stop: 11/05/22 14:23 Last Admin: 11/05/22 14:49 Dose: 4 mg Documented By: CASE Pantoprazole Sodium (Pantoprazole 40 Mg Vial) 40 mg IV NOW ONE Stop: 11/05/22 14:23 Last Admin: 11/05/22 14:49 Dose: 40 mg Documented By: CASE Vital Signs Vital signs: Vital Signs - 8 hr 11/05/22 14:18 11/05/22 14:36 11/05/22 15:00 Temperature 97.6 F Pulse Rate 120 H Respiratory Rate 20 Blood Pressure 189/109 H 152/87 H 133/73 Pulse Oximetry 100 Oxygen Delivery Method Room Air 11/05/22 15:00 11/05/22 15:30 11/05/22 15:30 Temperature Pulse Rate 95 H 93 H Respiratory Rate 24 Blood Pressure 123/79 Pulse Oximetry 97 97 Oxygen Delivery Method Room Air 11/05/22 16:00 11/05/22 16:30 11/05/22 16:30 Temperature Pulse Rate 92 H Respiratory Rate 10 L Blood Pressure 137/73 140/73 Pulse Oximetry 97 Oxygen Delivery Method MDM - Abdominal Pain Lab Data 11/05/22 14:31 11/05/22 16:35 Labs: Lab Results 11/05/22 11/05/22 11/05/22 Range/Units 14:31 14:31 15:24 WBC 12.5 H (4.5-11.0) X10^3/uL RBC 5.32 H (4.0-5.2) X10^6/uL Hgb 15.8 (12.0-16.0) g/dL Hct 45.9 (36-46) % MCV 86.2 (80-100) fL MCH 29.7 (26-34) PG MCHC 34.4 (30-36) % RDW 15.0 H (11.6-14.8) % Plt Count 511 H (150-400) X10^3/uL Neut % (Auto) 84.6 H (50-75) % Lymph % (Auto) 9.6 L (25-40) % [place] % (Auto) 4.8 (3-14) % Eos % (Auto) 0.2 L (2-4) % Baso % (Auto) 0.8 (0-2) % Neut # (Auto) 53366 H (2089-1066) /uL Lymph # (Auto) 1200 (4751-1706) /uL [place] # (Auto) 600 (0-900) /uL Eos # (Auto) 0 (0-450) /uL Baso # (Auto) 100 (0-100) /uL VBG pH 7.39 (7.33-7.43) VBG pCO2 35.0 L (45-50) mmHg VBG pO2 44 (35-45) mmHg VBG HCO3 21 L (24-28) mmol/L VBG Total CO2 22 L (24-29) mmol/L VBG O2 Saturation 79 H (70-75) % VBG Base Excess -4.0 L (0-4) mmol/L FiO2 21 Sodium 138 (137-145) mmol/L Potassium 3.2 L (3.4-5.1) mmol/L Chloride 97 L (98-107) mmol/L Carbon Dioxide 17 L (22-32) mmol/L BUN 14 (7-17) mg/dL Creatinine 0.51 L (0.52-1.04) mg/dL Estimated GFR > 60 (>60) mL/min BUN/Creatinine Ratio 27.5 H (6-22) Glucose 182 H (70-100) mg/dL Calcium 9.8 (8.4-10.2) mg/dL Total Bilirubin 0.9 (0.2-1.3) mg/dL AST 34 (14-36) IU/L ALT 35 H (<35) IU/L Alkaline Phosphatase 127 H (38-126) U/L Total Protein 8.8 H (6.3-8.2) g/dL Albumin 4.9 (3.5-5.0) g/dL Globulin 3.9 (1.7-4.1) g/dL Albumin/Globulin Ratio 1.3 (1.0-2.8) Lipase 77 (23-300) U/L 11/05/22 Range/Units 16:35 WBC (4.5-11.0) X10^3/uL RBC (4.0-5.2) X10^6/uL Hgb (12.0-16.0) g/dL Hct (36-46) % MCV (80-100) fL MCH (26-34) PG MCHC (30-36) % RDW (11.6-14.8) % Plt Count (150-400) X10^3/uL Neut % (Auto) (50-75) % Lymph % (Auto) (25-40) % [place] % (Auto) (3-14) % Eos % (Auto) (2-4) % Baso % (Auto) (0-2) % Neut # (Auto) (4472-3940) /uL Lymph # (Auto) (1059-3680) /uL [place] # (Auto) (0-900) /uL Eos # (Auto) (0-450) /uL Baso # (Auto) (0-100) /uL VBG pH (7.33-7.43) VBG pCO2 (45-50) mmHg VBG pO2 (35-45) mmHg VBG HCO3 (24-28) mmol/L VBG Total CO2 (24-29) mmol/L VBG O2 Saturation (70-75) % VBG Base Excess (0-4) mmol/L FiO2 Sodium 135 L (137-145) mmol/L Potassium 3.4 (3.4-5.1) mmol/L Chloride 101 (98-107) mmol/L Carbon Dioxide 24 (22-32) mmol/L BUN 13 (7-17) mg/dL Creatinine 0.43 L (0.52-1.04) mg/dL Estimated GFR > 60 (>60) mL/min BUN/Creatinine Ratio 30.2 H (6-22) Glucose 108 H (70-100) mg/dL Calcium 8.4 (8.4-10.2) mg/dL Total Bilirubin (0.2-1.3) mg/dL AST (14-36) IU/L ALT (<35) IU/L Alkaline Phosphatase (38-126) U/L Total Protein (6.3-8.2) g/dL Albumin (3.5-5.0) g/dL Globulin (1.7-4.1) g/dL Albumin/Globulin Ratio (1.0-2.8) Lipase (23-300) U/L Point of care testing: Urine Dip Bedside Urine Glucose 1000 mg/dl Bedside Urine Bilirubin - Negative Bedside Urine Ketone +++ 80 Urine Specific [employer] 1.025 Bedside Urine Occult Blood - Negative Bedside Urine pH 6.0 Bedside Urine Protein - Negative Bedside Urine Urobilinogen - Negative Bedside Urine Nitrite - Negative Bedside Urine Leukocytes - Negative Esterase MDM Narrative Medical decision making narrative: [42] year old patient presents with recurrence of abdominal pain, nausea and vomiting Multiple etiologies for patient's symptoms considered including, but not limited to: [Diabetic emergency versus gallbladder disease versus bowel obstruction versus other] Prior Charts reviewed in our EMR Primary Historian: patient Labs reviewed and interpreted by myself: Initially she has some leukocytosis without left shift, hypokalemia with a bit of an anion gap. After a few L of fluid these numbers have improved tremendously, no anion gap, VBG shows no evidence of acidosis Imaging reviewed: Ultrasound without acute findings Patient's symptoms improved over duration of stay with above-stated therapies. She has had extensive recent workups and hospital visits with reassuring imaging and endoscopy. Her labs have significantly improved, there is no evidence of diabetic emergency, ultrasound is unremarkable, pain is well controlled, she is tolerating orals. At this point there is no indication for further workup, hospitalization or other. She is had return precautions discussed and questions answered to her apparent satisfaction Findings and discharge diagnosis discussed with patient/family followed by verbalization of understanding Return precautions discussed with patient/family whom verbalize understanding of diagnosis and plan Discharge Plan Departure Patient Disposition: Home Clinical Impression: Abdominal pain, Nausea & vomiting Instructions: DI for Abdominal Pain-Adult, Nausea and Vomiting-Adult Activity Restrictions/Additional Instructions: *You have been diagnosed with [abdominal pain] * As we discussed your history and physical exam as well as labs and imaging are very reassuring. There is no evidence of any severe diagnoses that would require a specific or immediate intervention. *What to do: *Please continue to take your regular medications as directed. [x ] New medication prescriptions sent to your pharmacy: [[facility] in [place]] *Please follow up with your primary care provider in 2-3 days, call for an appointment. Let them know you were seen in the Emergency Department and that we ask that you be seen in follow up. We will electronically transmit a record of today's note if your PCP is in our system *Please consider a clear liquid diet for the next 24-48 hours and then slowly advance to regular as tolerated. Also, try to avoid alcohol, nicotine, caffeine, spicy, acidic or fatty foods as this may worsen your symptoms *If you do not have a primary care provider please contact the [facility] Resource line at [phone]. They will ask some questions about your medical history and help get you set up with a doctor in the community. *Return to Emergency Department if you should have any new, worsening or concerning symptoms, such as [fever greater than 101 F, shaking chills, worsening pain, persistent vomiting or other bothersome symptoms] You have been prescribed a short course of narcotic medications. These are potentially dangerous and addictive medications that should be used carefully. While on these medications you cannot drive or operate heavy machinery. Additionally, you cannot sign legal documents or perform any duties such as this. Many people get constipated on narcotic medications so it would be advisable to discuss stool softeners with the pharmacist when you filler picker your prescription. Please understand that we cannot provide further refills of narcotics or controlled substances through the ED and your pain management will need to be through your Primary Care Provider Prescriptions: New pantoprazole [Protonix] 40 mg tablet,delayed release (DR/EC) 40 mg PO DAILY Qty: 30 0RF hyoscyamine sulfate 0.125 mg tablet 0.125 mg PO BID-QID PRN (Reason: dyspepsia) Qty: 20 0RF ondansetron 4 mg tablet,disintegrating 4 mg PO TID-QID PRN (Reason: nausea and vomiting) Qty: 10 0RF oxycodone 5 mg tablet 5 mg PO BID PRN (Reason: pain) Qty: 14 0RF No Action ondansetron 4 mg tablet,disintegrating 4 mg PO Q6H PRN (Reason: nausea and vomiting) Qty: 14 0RF metoclopramide HCl [Reglan] 10 mg tablet 10 mg PO Q6H PRN (Reason: nausea and vomiting) Qty: 14 0RF sucralfate [Carafate] 100 mg/mL suspension 10 ml PO QACHS Qty: 414 2RF acetaminophen 325 mg Tablet 650 mg PO Q4HR PRN (Reason: As Needed For Fever/Mild Pain) Qty: 20 0RF ondansetron 4 mg tablet,disintegrating 4 mg PO TID-QID PRN (Reason: nausea and vomiting) Qty: 10 0RF insulin glargine 100 unit/mL (3 mL) insulin pen 24 unit SUBCUT QAM Patient Comments: Inject 20 unit subcutaneously once a day nortriptyline 75 mg capsule 75 mg PO QPM Jardiance 10 mg tablet 10 mg PO QAM Patient Comments: Take 1 tablet by mouth once a day prednisone 20 mg tablet See Rx Instructions .ROUTE .COMPLEX Qty: 12 0RF Rx Instructions: 60 mg (3 pills) daily for 2 days, then 40 mg (2 pills) daily for 2 days, then 20mg (1 pill) daily for 2 days then stop ergocalciferol (vitamin D2) [Vitamin D2] 1,250 mcg (50,000 unit) Capsule 50,000 unit PO WEEKLY 42 Days Qty: 6 0RF Rx Instructions: start on 10/21 pantoprazole [Protonix] 40 mg tablet,delayed release (DR/EC) 40 mg PO BID Qty: 60 0RF oxycodone-acetaminophen [Percocet] 5-325 mg tablet 1 tab PO Q4-6H PRN (Reason: pain) Qty: 30 0RF docusate sodium [Colace] 100 mg capsule 100 mg PO BID Qty: 30 0RF Rx Instructions: Take while taking Percocet for pain to prevent constipation. Referrals: Ashlyn Diallo ARNP [Primary Care Provider] - Db Duong MD [Non-Staff] - Stand Alone Forms: Patient Portal/API
--- NOTE | 2022-11-05 14:22 | DI.US.S_ITS ---
PROCEDURE: US ABDOMEN COMPLETE INDICATIONS: RUQ PAIN TECHNIQUE: Real-time scanning was performed of the right upper quadrant organs, with image documentation. COMPARISON: [facility], US, US ABDOMEN LIMITED, 01/08/2021, 14:43. [facility], CT, CT ABDOMEN PELVIS W CON, 11/03/2022, 19:47. FINDINGS: Liver: Liver is normal in size and mildly increased in echogenicity with posterior attenuation. Gallbladder: The gallbladder appears normal without gallstones or gallbladder wall thickening. There is no pericholecystic fluid. Sonographic Alexander sign is negative. Biliary ducts: Intrahepatic bile ducts are non-dilated. Extrahepatic bile duct caliber measures 4 mm. Normal is 6-7 mm or less in diameter, or 10 mm or less post-cholecystectomy. Pancreas: Visualized portions of the pancreas are sonographically normal. Miscellaneous: No free right upper quadrant fluid. IMPRESSION: 1. Normal gallbladder. 2. Mildly increased hepatic echogenicity is seen, most commonly secondary to diffuse hepatic steatosis but other sources of hepatocellular disease cannot be excluded. Recommend clinical correlation. Approved by: Curtis Stiles M.D. on 11/05/2022 at 15:19
[2022-11-05 14:42] LABS: Add Manual Diff / Slide Review NO; Basophils Absolute Auto 100 /uL (0-100); Basophils Percent Auto 0.8 % (0-2); Eosinophils Absolute Auto 0 /uL (0-450); Eosinophils Percent Auto 0.2 % (2-4); Hematocrit 45.9 % (36-46); Hemoglobin 15.8 g/dL (12.0-16.0); Lymphocytes Absolute Auto 1200 /uL (1100-4500); Lymphocytes Percent Auto 9.6 % (25-40); Mean Corpuscular HGB Conc 34.4 % (30-36); Mean Corpuscular Hemoglobin 29.7 PG (26-34); Mean Corpuscular Volume 86.2 fL (80-100); Monocytes Absolute Auto 600 /uL (0-900); Monocytes Percent Auto 4.8 % (3-14); Neutrophils Absolute Auto 10500 /uL (1500-7000); Neutrophils Percent Auto 84.6 % (50-75); Platelet Count 511 X10^3/uL (150-400); Red Blood Cell Count 5.32 X10^6/uL (4.0-5.2); White Blood Cell Count 12.5 X10^3/uL (4.5-11.0)
[2022-11-05] MEDS: LACTATED RINGERS 1,000 ML 1000 ML IV ×2 (14:49→15:44)
[2022-11-05] MEDS: ONDANSETRON 4 MG/2 ML INJ IV (14:49)
[2022-11-05] MEDS: PANTOPRAZOLE 40 MG VIAL IV (14:49)
[2022-11-05 14:56] LABS: Alanine Aminotransferase 35 IU/L (<35); Albumin 4.9 g/dL (3.5-5.0); Albumin Globulin Ratio 1.3 (1.0-2.8); Alkaline Phosphatase 127 U/L (38-126); Aspartate Aminotransferase 34 IU/L (14-36); BUN Creatinine Ratio 27.5 (6-22); Bilirubin Total 0.9 mg/dL (0.2-1.3); Blood Urea Nitrogen 14 mg/dL (7-17); Calcium 9.8 mg/dL (8.4-10.2); Carbon Dioxide 17 mmol/L (22-32); Chloride 97 mmol/L (98-107); Estimated Glomerular Filt Rate > 60 mL/min (>60); Globulin 3.9 g/dL (1.7-4.1); Glucose 182 mg/dL (70-100); HEMOLYSIS < 15 (0-50); Lipase 77 U/L (23-300); Potassium 3.2 mmol/L (3.4-5.1); Sodium 138 mmol/L (137-145); Total Protein 8.8 g/dL (6.3-8.2)
--- NOTE | 2022-11-05 15:13 | PC.NURSE ---
Patient states when she vomited last that there were 4 white, stringy things that she says looked like worms. Patient states they did not move.
[2022-11-05 15:38] LABS: PO2 VBG 44 mmHg (35-45); pH VBG 7.39 (7.33-7.43)
[2022-11-05 15:39] LABS: Fractionated Inspired Oxygen 21; HCO3 VBG 21 mmol/L (24-28); Oxygen Saturation VBG 79 % (70-75); Total CO2 VBG 22 mmol/L (24-29)
[2022-11-05] MEDS: HYDROMORPHONE 1 MG INJ IV ×2 (15:42→17:30)
[2022-11-05 16:57] LABS: BUN Creatinine Ratio 30.2 (6-22); Blood Urea Nitrogen 13 mg/dL (7-17); Calcium 8.4 mg/dL (8.4-10.2); Carbon Dioxide 24 mmol/L (22-32); Chloride 101 mmol/L (98-107); Estimated Glomerular Filt Rate > 60 mL/min (>60); Glucose 108 mg/dL (70-100); HEMOLYSIS 16 (0-50); Potassium 3.4 mmol/L (3.4-5.1); Sodium 135 mmol/L (137-145)
== END 2022-11-05 17:58 | disposition home or self-care (01) ==
PROVIDERS: Emergency Provider Emergency Medicine; PCP Nurse Practitioner
DX: R11.2 Nausea with vomiting, unspecified (principal); R10.9 Unspecified abdominal pain; R03.0 Elevated blood-pressure reading, without diagnosis of hypertension
CPT/HCPCS: 36415; 76700; 80048; 80053; 81003; 82805; 83690; 85025; 93005; 93010; 96374; 96375; 96376; 99284; C9113; J1170; J2405